=== PATIENT | female | born 1960 | race Caucasian/White ===

== ENCOUNTER 2016-09-09 12:27 | Emergency (ER) | payer OTHER ==
[~2016-09-09 12:27] MED LIST: ALBUAER2 INH; MULT-506 PO; ONDA4TAB46 PO
[2016-09-09 12:32] VITALS: TEMP 36.5
[2016-09-09] MEDS ORDERED: ACETTAB14 PO (12:54)
--- NOTE | 2016-09-09 13:22 | DIAGNOSTIC IMAGING REPORT ---
RIGHT FOURTH TOE 3 VIEWS CLINICAL HISTORY: Fourth toe injury. FINDINGS: 3 views of the right fourth toe are obtained. No prior studies are available for comparison at the time of dictation. The skeletal structures appear osteopenic. There is a nondistracted spiral fracture through the distal shaft of the fourth proximal phalanx. No intra-articular extension is seen. No additional fracture is identified. The joint spaces of the fourth toe appear preserved. IMPRESSION: Nondistracted spiral fracture of the fourth proximal phalanx as above. Electronically signed by: Elieser Garner M.D. 09/09/2016 1:20 PM Dictated Date/Time: 09/09/2016 1:14 PM
--- NOTE | 2016-09-09 13:41 | EMERGENCY ROOM VISIT NOTE ---
ED Visit Note First contact with patient: 12:36 CHIEF COMPLAINT: Toe injury HISTORY OF PRESENT ILLNESS: This 55-year-old female presents the ER with chief complaint of right fourth toe pain. The patient states that she hit the toe off of a radio that was on the floor. She now states that it is swollen and very painful. The patient denies any prior injury to the right fourth toe. The patient took Excedrin Extra Strength for the pain. REVIEW OF SYSTEMS: 6 system review was performed and was negative unless stated otherwise in history of present illness. PMH: The patient is healthy; asthma SOCIAL HISTORY: Patient denies any tobacco or alcohol use PHYSICAL EXAM: Vital Signs: Were reviewed .Reviewed Nurse's notes. GEN.: 55- year-old white female appears in no acute distress. MENTAL Status: Alert and oriented 3. RIGHT FOOT: No gross bony deformity noted. Right fourth toe with erythema and edema noted. The remainder of the foot is unremarkable. EMERGENCY DEPARTMENT COURSE: The patient was evaluated. The patient was offered pain medication but declined. X-ray of the right fourth toe was ordered and interpreted by the radiologist and myself. DIAGNOSTICS:RIGHT FOURTH TOE 3 VIEWS CLINICAL HISTORY: Fourth toe injury. FINDINGS: 3 views of the right fourth toe are obtained. No prior studies are available for comparison at the time of dictation. The skeletal structures appear osteopenic. There is a nondistracted spiral fracture through the distal shaft of the fourth proximal phalanx. No intra-articular extension is seen. No additional fracture is identified. The joint spaces of the fourth toe appear preserved. IMPRESSION: Nondistracted spiral fracture of the fourth proximal phalanx as above. Electronically signed by: Elieser Garner M.D. 09/09/2016 1:20 PM Dictated Date/Time: 09/09/2016 1:14 PM The patient was informed of the findings. The patient's toe was tad taped to the adjacent toe she was placed in a postop shoe. The patient was independently evaluated by Dr. Meeks who agrees with treatment plan. The patient was discharged home in stable condition. DIAGNOSIS: Right fourth toe fracture DISCHARGE INSTRUCTIONS & TREATMENT: Ibuprofen 600 mg every 6 hours with food for pain. Ice intermittently over the next 24 hours. Keep toe tad taped to the adjacent toe except for bathing for the next 2 weeks. Wear postop shoe for the next 2 weeks. If symptoms should worsen, follow-up with your family doctor. Problem List Medical Problems: (1) Asthma Status: Chronic (2) Bronchitis Status: Resolved (3) Mental retardation Status: Chronic (4) Temporomandibular joint disorder Status: Chronic Current/Historical Medications Scheduled Cetirizine (Zyrtec), 10 MG PO DAILY Duloxetine HCl (Duloxetine HCl), 30 MG PO DAILY Levothyroxine Sodium (Levothyroxine Sodium), 1 TAB PO DAILY Multivitamin (Multivitamin), 1 TAB PO DAILY Scheduled PRN Acetaminophen-Caffeine (Excedrin Tension Headache), 1-2 TAB PO DAILY PRN for Pain Albuterol (Ventolin Hfa), 2 PUFFS INH QID PRN for SOB/Wheezing Budesonide/Formoterol Fumarate (Symbicort 160/4.5 Inhaler ), 2 PUFFS INH BID PRN for Shortness of Breath Ondansetron Hcl (Zofran), 4 MG PO Q6H PRN for Nausea Allergies Coded Allergies: Animal Dander (Verified Allergy, Unknown, sneezing,congestion, 09/09/16) Dust (Verified Allergy, Unknown, respiratory sx, 09/09/16) Molds and Smuts (Verified Allergy, Unknown, sneezing,congestion, 09/09/16) POLLEN (Verified Allergy, Unknown, congestion, 09/09/16) Ragweed (Verified Allergy, Unknown, nasal congestion, 09/09/16) Vital Signs Date Time Temp Pulse Resp B/P Pulse Ox O2 Delivery O2 Flow Rate FiO2 09/09/16 12:32 36.5 84 20 121/72 95 Room Air Departure Information Referrals No Doctor, Assigned (PCP) Patient Instructions [facility]
[2016-09-09 14:03] VITALS: BP 149/88; PULSE 72; O2SAT 99
--- NOTE | 2016-09-09 15:12 | EMERGENCY ROOM VISIT NOTE ---
ED Visit Note First contact with patient: 12:36 I have personally evaluated this patient examined her and reviewed the pertinent labs and data. I have discussed the case with Lolita Schulte, the physician automotive service assistant and agree with the plan. Please refer to the PA note Patient comes in after injuring her right foot when she stubbed her toe. She has a fracture of the fourth toe. She is placed in a fracture shoe. On my exam , she is resting comfortably without other complaints. She will follow-up with her regular doctor. We tad taped the toe. She can use the walking as well. Follow-up with her doctor for recheck
[2017-02-15] MEDS ORDERED: LEVO88TA3 PO (04:14)
[2017-02-15] MEDS ORDERED: SYMIN160 INH (05:12)
[2017-02-15] MEDS ORDERED: VNTHFA/IN INH (18:37)
== END 2016-09-09 14:00 | disposition home or self-care (01) ==
LOC: C.EDB 12:29 → C.EDD 14:00
DX: S92.534A Nondisplaced fracture of distal phalanx of right lesser toe(s), initial encounter for closed fracture (principal); W22.8XXA Striking against or struck by other objects, initial encounter; J45.909 Unspecified asthma, uncomplicated; F79 Unspecified intellectual disabilities; Z79.899 Other long term (current) drug therapy; Z91.09 Other allergy status, other than to drugs and biological substances

== ENCOUNTER → 2016-09-21 | Outpatient (CLI) | payer OTHER ==
[~2016-09-21] MED LIST changes: +ACETTAB14 PO; +AZIT250T PO; +BENZ100C7 PO; +CETI10TA84 PO; +CYM30 PO; +DFL100 PO; +HYDRAER4 PR; +LEVO88TA3 PO; +MAGIC1 PO; +NYSTCRE11 TOP; +SYMIN160 INH; +VNTHFA/IN INH; +[UNRECOGNIZED DRUG - REMARK] PO
== END | disposition home or self-care (01) ==
LOC: C.LABBC 11:41
PROVIDERS: ATTEND Physician Assistant Medical
DX: E03.9 Hypothyroidism, unspecified (principal)

== ENCOUNTER → 2016-10-19 | Outpatient (CLI) | payer OTHER ==
[~2016-10-19] MED LIST changes: -ACETTAB14 PO; +ACETTAB15 PO; +ARFO15NE INH; +BUDE0.5S NEB; +HYDR1AER23 PR; -HYDRAER4 PR; +IPRASOL4 INH; +PRLUDL5 PO; +SNG10 PO; +[UNRECOGNIZED DRUG - CODE] PO
--- NOTE | 2016-10-19 14:55 | DIAGNOSTIC IMAGING REPORT ---
LEFT KNEE 3 VIEWS CLINICAL HISTORY: CHRONIC L SACROILIAC PAIN, KNEE PAIN pain COMPARISON: None. DISCUSSION: The bones and joint spaces appear intact. There is no evidence of fracture, dislocation or bony disease. There is no evidence for soft tissue swelling. IMPRESSION: Negative study. Electronically signed by: Jacob Schulte M.D. 10/19/2016 2:53 PM Dictated Date/Time: 10/19/2016 2:53 PM
== END | disposition home or self-care (01) ==
LOC: C.RADBC 14:07
PROVIDERS: ATTEND Physician Assistant Medical
DX: M53.3 Sacrococcygeal disorders, not elsewhere classified (principal); M25.562 Pain in left knee

== ENCOUNTER 2016-11-21 01:08 | Emergency (ER) | payer OTHER ==
[~2016-11-21] VITALS: Ht 162.6 cm; Wt 92.3 kg
[~2016-11-21 01:08] MED LIST changes: -ARFO15NE INH; -AZIT250T PO; -BENZ100C7 PO; -BUDE0.5S NEB; -CETI10TA84 PO; -CYM30 PO; -DFL100 PO; -HYDR1AER23 PR; -IPRASOL4 INH; -LEVO88TA3 PO; -MAGIC1 PO; -NYSTCRE11 TOP; -PRLUDL5 PO; -SNG10 PO; -SYMIN160 INH; -VNTHFA/IN INH; -[UNRECOGNIZED DRUG - CODE] PO; -[UNRECOGNIZED DRUG - REMARK] PO
[2016-11-21 01:14] VITALS: TEMP 36.7; Ht 162.6 cm; Wt 92.3 kg
[2016-11-21] MEDS ORDERED: MAGIC MOUTHWASH PO STA (01:22)
--- NOTE | 2016-11-21 01:25 | EMERGENCY ROOM VISIT NOTE ---
History Report prepared by Terrie: Dc Colunga Under the Supervision of: Dr. Robby Cline D.O. First contact with patient: 01:10 Chief Complaint: SORETHROAT Stated Complaint: SORE THROAT History of Present Illness The patient is a 56 year old female who presents to the Emergency Room with complaints of persistent mouth soreness since last night. The pain is rated 7/ 10 in severity and is localized to the roof of her mouth. The patient also has complaints of sore throat and cough. The patient is being treated for fluid buildup in her lower extremities. She does not have any sick contacts. Source of History: patient Onset: last night Position: other (roof of mouth) Symptom Intensity: 710 Timing: other (persistent) Associated Symptoms: + cough, + sorethroat Review of Systems See HPI for pertinent positives and negatives. A total of ten systems were reviewed and were otherwise negative. Past Medical & Surgical Medical Problems: (1) Asthma (2) Bronchitis (3) Mental retardation (4) Temporomandibular joint disorder Family History Cancer Diabetes mellitus Heart disease Hypertension Lung disease Social History Smoking Status: Never Smoker Alcohol Use: none Drug Use: none Marital Status: single Occupation Status: disabled Current/Historical Medications Scheduled Cetirizine (Zyrtec), 10 MG PO DAILY Diphenhy/Alum/Mag/Sucralfa (Magic Swizzle - Diphenhy/Alum/Mag/Sucralfa), 1 TSP PO Q4H Duloxetine HCl (Duloxetine HCl), 30 MG PO DAILY Levothyroxine Sodium (Levothyroxine Sodium), 1 TAB PO DAILY Multivitamin (Multivitamin), 1 TAB PO DAILY Scheduled PRN Acetaminophen-Caffeine (Excedrin Tension Headache), 1-2 TAB PO DAILY PRN for Pain Albuterol (Ventolin Hfa), 2 PUFFS INH QID PRN for SOB/Wheezing Budesonide/Formoterol Fumarate (Symbicort 160/4.5 Inhaler ), 2 PUFFS INH BID PRN for Shortness of Breath Ondansetron Hcl (Zofran), 4 MG PO Q6H PRN for Nausea Allergies Coded Allergies: Animal Dander (Verified Allergy, Unknown, sneezing,congestion, 09/09/16) Dust (Verified Allergy, Unknown, respiratory sx, 09/09/16) Molds and Smuts (Verified Allergy, Unknown, sneezing,congestion, 09/09/16) POLLEN (Verified Allergy, Unknown, congestion, 09/09/16) Ragweed (Verified Allergy, Unknown, nasal congestion, 09/09/16) Physical Exam Vital Signs Date Time Temp Pulse Resp B/P Pulse Ox O2 Delivery O2 Flow Rate FiO2 11/21/16 01:21 Room Air 11/21/16 01:14 36.7 89 18 162/93 93 Room Air Physical Exam GENERAL: Awake, alert, well-appearing, in no distress HENT: Normocephalic, atraumatic. Red lesion on the hard palate, no obvious mucosal lesions, oropharynx otherwise clear. EYES: Normal conjunctiva. Sclera non-icteric. NECK: Supple. No nuchal rigidity. FROM. No JVD. RESPIRATORY: Clear to auscultation. CARDIAC: Regular rate, normal rhythm. Extremities warm and well perfused. Pulses equal. ABDOMEN: Soft, non-distended. No tenderness to palpation. No rebound or guarding. No masses. RECTAL: Deferred. MUSCULOSKELETAL: Chest examination reveals no tenderness. The back is symmetrical on inspection without obvious abnormality. There is no CVA tenderness to palpation. No joint edema. LOWER EXTREMITIES: Bilateral lower extremity edema. No discoloration. NEURO: Normal sensorium. No sensory or motor deficits noted. SKIN: No rash or jaundice noted. Medical Decision & Procedures ED Course 0120: The patient was evaluated in room B10. A complete history and physical exam was performed. 0131: Magic Mouth Wash PO. 0135: I reevaluated the patient. Discussed results and discharge instructions: She verbalized understanding and agreement. The patient is ready for discharge. Medical Decision Differential diagnosis includes viral syndrome, herpangina, burn to roof of hard palate. Impression Primary Impression: Herpangina Scribe Attestation The scribe's documentation has been prepared under my direction and personally reviewed by me in its entirety. I confirm that the note above accurately reflects all work, treatment, procedures, and medical decision making performed by me. Departure Information Dispostion Home / Self-Care Prescriptions Diphenhy/Alum/Mag/Sucralfa (Magic Swizzle - Diphenhy/Alum/Mag/Sucralfa) Susp 1 TSP PO Q4H, #200 ML 1 Refill 30ML DIPHENHYDRAMINE SLN 12.5/5ML 60ML MAALOX 4GM CARAFATE SWISH AND SPIT Prov: Robby Cline, 11/21/16 Referrals Bg Kearns M.D. (PCP) Forms HOME CARE DOCUMENTATION FORM, IMPORTANT VISIT INFORMATION Patient Instructions [facility], My [facility]
[2016-11-21] MEDS ORDERED: MAGIC1 PO (01:27)
[2016-11-21] MEDS ORDERED: DEXAMETHASONE CONC SOLN 0.078 MG, NYSTATIN SUSP 0.625 ML, DiphenhydrAMINE HCL SYRUP 6.2... PO STA ×5 (01:31)
[2016-11-21 01:49] VITALS: BP 127/73; PULSE 81; O2SAT 96
[2017-01-12] MEDS ORDERED: HYDR1AER23 PR (19:12)
[2017-02-15] MEDS ORDERED: LEVO88TA3 PO (04:14)
[2017-02-15] MEDS ORDERED: SYMIN160 INH (05:12)
[2017-02-15] MEDS ORDERED: VNTHFA/IN INH (18:37)
== END 2016-11-21 01:50 | disposition home or self-care (01) ==
LOC: C.EDB 01:09
DX: B08.5 Enteroviral vesicular pharyngitis (principal); R05 Cough; R60.9 Edema, unspecified; J45.909 Unspecified asthma, uncomplicated; F79 Unspecified intellectual disabilities; Z79.899 Other long term (current) drug therapy; Z87.09 Personal history of other diseases of the respiratory system; Z87.898 Personal history of other specified conditions; Z82.49 Family history of ischemic heart disease and other diseases of the circulatory system; Z83.3 Family history of diabetes mellitus; Z83.6 Family history of other diseases of the respiratory system

== ENCOUNTER 2017-01-12 18:08 | Emergency (ER) | payer OTHER ==
[~2017-01-12] VITALS: Ht 162.6 cm; Wt 114.7 kg
[~2017-01-12 18:08] MED LIST changes: +ACETTAB14 PO; -ACETTAB15 PO; +MAGIC1 PO; -ONDA4TAB46 PO
[2017-01-12 18:16] VITALS: BP 151/92; PULSE 91; TEMP 36.5; O2SAT 96; Ht 162.6 cm; Wt 114.7 kg
[2017-01-12] MEDS ORDERED: ALBUT/IPRATROP 3MG/0.5MG NEB 3 ML VIAL INH STA (18:36)
[2017-01-12] MEDS ORDERED: BENZ100C7 PO (18:37)
[2017-01-12] MEDS ORDERED: DFL100 PO (18:37)
--- NOTE | 2017-01-12 18:39 | EMERGENCY ROOM VISIT NOTE ---
ED Visit Note First contact with patient: 18:26 CHIEF COMPLAINT: Cold symptoms HISTORY OF PRESENT ILLNESS: This is a 56-year-old female patient who presents to the emergency department ambulatory complaining of since congestion and a mild cough since yesterday. The patient is using her inhalers. She denies any chest pain or trouble breathing. The patient does not complain of a headache, abdominal pain, nausea, or vomiting. The patient has not had any shortness of breath. The patient does not know of anybody around them who has been sick. The patient has taken her usual medications. The patient states that she also has had hemorrhoids that have been very itchy. REVIEW OF SYSTEMS: A 10 system review of systems was completed with positives and pertinent negatives listed in the HPI. ALLERGIES: Environmental allergies MEDICATIONS: See nursing notes PMH: Asthma, seasonal allergies, hypothyroidism SOCIAL HISTORY: The patient lives with her mother PHYSICAL EXAM: Vital Signs: Reviewed Nurse's notes, temperature 36.5C orally, the remainder of the vital signs were normal. GENERAL: This is a 56-year-old female, in no acute distress, non toxic in appearance, nondiaphoretic, well-developed well-nourished. SKIN: The skin was without rashes, erythema, edema, or bruising. Capillary reflex less than 2 seconds. HEAD: Normocephalic atraumatic. EARS: External auditory canals clear, tympanic membrane pearly diaz bilaterally without erythema EYES: Pupils equal round and reactive to light and accommodation. Conjunctivae without injection, sclerae without icterus. Extraocular movements intact. NOSE: Patent, turbinates inflammed with no discharge. There is no sinus tenderness. MOUTH: Mucous membranes moist. Tonsils are not enlarged and not erythematous without exudate. Pharynx negative for postnasal drip. NECK: Supple without nuchal rigidity. A there is no lymphadenopathy. HEART: Regular rate and rhythm without murmurs gallops or rubs. LUNGS: Clear to auscultation bilaterally without wheezes, rales or rhonchi. RECTAL: The patient does have 2 small nonthrombosed, non-bleeding external hemorrhoids. There is no significant tenderness. NEURO: Patient was alert and oriented to person place and time. ED COURSE: I examined the patient. The patient has had a cough since yesterday and she also complains of sinus congestion. She has not had any fevers, chest pain or trouble breathing. She also reports hemorrhoids that have been itchy. I discussed potentially obtaining a more significant evaluation including x-ray and laboratory studies. Given that this has been just 1 day, I do not know that there would be a significant change in the outcome. She and her mother would like to defer a more extensive evaluation at this time. The patient will be given a prescription for Zithromax and Proctofoam. She should return with any worsening symptoms. Otherwise, she should follow-up with her family doctor. The patient was discharged home in good condition. Problem List Medical Problems: (1) Asthma Status: Chronic (2) Bronchitis Status: Resolved (3) Mental retardation Status: Chronic (4) Temporomandibular joint disorder Status: Chronic Current/Historical Medications Scheduled Azithromycin (Zithromax), 250 MG PO DAILY Duloxetine HCl (Duloxetine HCl), 30 MG PO DAILY Fluconazole (Fluconazole), 100 MG PO DAILY Hydrocortisone/Pramoxine (Proctofoam Hc), 1 APPL [place] BID Levothyroxine Sodium (Levothyroxine Sodium), 88 MCG PO DAILY Scheduled PRN Albuterol Hfa (Ventolin Hfa), 2 PUFFS INH QID PRN for Cough/SOB/Wheezing Benzonatate (Benzonatate), 100 MG PO TID PRN for Cough Budesonide/Formoterol Fumarate (Symbicort 160/4.5 Inhaler ), 2 PUFFS INH BID PRN for Cough/SOB/Wheezing Cetirizine (Zyrtec), 10 MG PO DAILY PRN for Allergy Symptoms Allergies Coded Allergies: Animal Dander (Verified Allergy, Unknown, sneezing,congestion, 09/09/16) Dust (Verified Allergy, Unknown, respiratory sx, 09/09/16) Molds and Smuts (Verified Allergy, Unknown, sneezing,congestion, 09/09/16) POLLEN (Verified Allergy, Unknown, congestion, 09/09/16) Ragweed (Verified Allergy, Unknown, nasal congestion, 09/09/16) Vital Signs Date Time Temp Pulse Resp B/P (MAP) Pulse Ox O2 Delivery O2 Flow Rate FiO2 01/12/17 18:16 36.5 91 18 151/92 96 Room Air Medications Administered Medications (Trade) Dose Ordered Sig/Gareth Route Start Time Stop Time Status Last Admin Dose Admin Albuterol/ Ipratropium (Duoneb) 3 ml NOW STAT INH 01/12/17 18:36 01/12/17 18:37 DC 01/12/17 18:43 3 ML Azithromycin (Zithromax Tab) 500 mg NOW STAT PO 01/12/17 18:59 01/12/17 19:01 DC 01/12/17 19:13 500 MG Departure Information Impression Primary Impression: Bronchitis Additional Impression: Asthma Dispostion Home / Self-Care Condition GOOD Prescriptions Azithromycin (Zithromax) 250 Mg Tab 250 MG PO DAILY for 4 Days, #4 TAB Prov: Na Vitale PA-C 01/12/17 Hydrocortisone/Pramoxine (Proctofoam Hc) Aer 1 APPL [place] BID, #10 GM 1 Refill Prov: Na Vitale PA-C 01/12/17 Referrals Bg Kearns M.D. (PCP) Patient Instructions Bronchitis Acute, ED Hemorrhoids, [facility] Additional Instructions Zithromax as prescribed Proctofoam as prescribed, as needed for hemorrhoid pain Return with worsening symptoms Otherwise, follow up with your family doctor by the end of the week Problem Qualifiers
[2017-01-12] MEDS ORDERED: AZITHROMYCIN 250 MG TAB PO STA (18:59)
[2017-01-12] MEDS ORDERED: AZIT250T PO (19:12)
[2017-01-12] MEDS ORDERED: HYDRAER4 PR (19:12)
[2017-01-12] MEDS ORDERED: CYM30 PO (23:47)
[2017-02-15] MEDS ORDERED: LEVO88TA3 PO (04:14)
[2017-02-15] MEDS ORDERED: SYMIN160 INH (05:12)
[2017-02-15] MEDS ORDERED: VNTHFA/IN INH (18:37)
== END 2017-01-12 19:19 | disposition home or self-care (01) ==
LOC: C.EDB 18:09 → C.EDD 19:19
DX: J40 Bronchitis, not specified as acute or chronic (principal); J45.909 Unspecified asthma, uncomplicated; J30.2 Other seasonal allergic rhinitis; E03.9 Hypothyroidism, unspecified; F79 Unspecified intellectual disabilities

== ENCOUNTER → 2017-01-28 | Outpatient (CLI) | payer OTHER ==
[~2017-01-28] MED LIST changes: -ACETTAB14 PO; -ALBUAER2 INH; +BENZ100C7 PO; +CETI10TA84 PO; +CYM30 PO; +DFL100 PO; +HYDRAER4 PR; +LEVO88TA3 PO; -MAGIC1 PO; -MULT-506 PO; +NYSTCRE11 TOP; +PRLUDL5 PO; +SNG10 PO; +SYMIN160 INH; +VNTHFA/IN INH; +[UNRECOGNIZED DRUG - CODE] PO; +[UNRECOGNIZED DRUG - REMARK] PO
[2017-02-01 13:40] LABS: HERPES SIMPLEX CULT SOURCE OTHER-PERIANAL; HERPES SIMPLEX VIRUS CULT NOT ISOLATED (NOT ISOLATED)
== END | disposition home or self-care (01) ==
LOC: C.LABSPEC 16:41
PROVIDERS: ATTEND Physician Assistant Medical
DX: K62.89 Other specified diseases of anus and rectum (principal)

== ENCOUNTER 2017-02-15 19:19 | Emergency (ER) | payer OTHER ==
[~2017-02-15] VITALS: Ht 162.6 cm; Wt 117.4 kg
[~2017-02-15 19:19] MED LIST changes: -CETI10TA84 PO; -NYSTCRE11 TOP; -PRLUDL5 PO; -SNG10 PO; -[UNRECOGNIZED DRUG - CODE] PO; -[UNRECOGNIZED DRUG - REMARK] PO
[2017-02-15 19:25] VITALS: TEMP 36.5; Ht 162.6 cm; Wt 117.4 kg
[2017-02-15] MEDS ORDERED: NYSTCRE11 TOP (19:49)
[2017-02-15] MEDS ORDERED: [UNRECOGNIZED DRUG - REMARK] PO (19:50)
--- NOTE | 2017-02-15 20:32 | EMERGENCY ROOM VISIT NOTE ---
"History Report prepared by Terrie: Gaurav Barfield Under the Supervision of: Dr. Seng Wynne D.O. First contact with patient: 20:01 Chief Complaint: RECTAL PAIN Stated Complaint: HEMORRHOIDS, LOWER EXT PROBLEMS History of Present Illness The patient is a 56 year old female who presents to the Emergency Room with complaints of constant rectal pain for the past few days. She currently rates his discomfort as an 8/10 in severity. Additionally, the patient states that she has been having some burning with urination. The mother states that the patient has not been pushing them up, and she has been having some brown areas. Source of History: patient, parent Onset: few days ago Position: other (rectum) Symptom Intensity: 8/10 Timing: constant Associated Symptoms: + urinary symptoms Review of Systems See HPI for pertinent positives & negatives. A total of 10 systems reviewed and were otherwise negative. Past Medical & Surgical Medical Problems: (1) Asthma (2) Bronchitis (3) Mental retardation (4) Temporomandibular joint disorder Family History Cancer Diabetes mellitus Heart disease Hypertension Lung disease Social History Smoking Status: Never Smoker Alcohol Use: none Drug Use: none Marital Status: single Occupation Status: disabled Current/Historical Medications Scheduled Hydrocortisone/Pramoxine (Proctofoam Hc), 1 APPL [place] BID Levothyroxine Sodium (Levothyroxine Sodium), 88 MCG PO DAILY Nystatin/Triamcinolone (Mycogen || ), 1 APPLN TOP BID [Herbal Pill], 1 TAB PO DAILY Scheduled PRN Albuterol Hfa (Ventolin Hfa), 2 PUFFS INH QID PRN for Cough/SOB/Wheezing Budesonide/Formoterol Fumarate (Symbicort 160/4.5 Inhaler ), 2 PUFFS INH BID PRN for Cough/SOB/Wheezing Cetirizine (Zyrtec), 10 MG PO DAILY PRN for Allergy Symptoms Allergies Coded Allergies: Animal Dander (Verified Allergy, Unknown, sneezing,congestion, 09/09/16) Dust (Verified Allergy, Unknown, respiratory sx, 09/09/16) Molds and Smuts (Verified Allergy, Unknown, sneezing,congestion, 09/09/16) POLLEN (Verified Allergy, Unknown, congestion, 09/09/16) Ragweed (Verified Allergy, Unknown, nasal congestion, 09/09/16) Physical Exam Vital Signs Date Time Temp Pulse Resp B/P (MAP) Pulse Ox O2 Delivery O2 Flow Rate FiO2 02/15/17 19:25 36.5 86 16 135/83 96 Room Air Physical Exam CONSTITUTIONAL/VITAL SIGNS: Reviewed / noted above. GENERAL: Non-toxic in appearance. INTEGUMENTARY: Warm, dry, and [place]. HEAD: Normocephalic. EYES: without scleral icterus or trauma. ENT/OROPHARYNX: clear and moist. LYMPHADENOPATHY/NECK: Is supple without lymphadenopathy or meningismus. RESPIRATORY: Lungs clear and equal. CARDIOVASCULAR: Regular rate and rhythm. GI/ABDOMEN: Soft and nontender. No organomegaly or pulsatile mass. No rebound or guarding. Normal bowel sounds. EXTREMITIES: Warm and well perfused. BACK: No CVA tenderness. RECTUM: Did not reveal any evidence of irritation, redness, inflamed hemorrhoids , or infection. NEUROLOGICAL: Intact without focal deficits. PSYCHIATRIC: normal affect. MUSCULOSKELETAL: Normally developed with good muscle tone. Medical Decision & Procedures Laboratory Results Laboratory results as stated above per my review. ED Course 2001: Previous medical records were reviewed. The patient was evaluated in room A12. A complete history and physical examination was performed. 2025: On reevaluation, the patient is feeling well. I discussed the results and findings with the patient. She verbalized agreement of the treatment plan. She was discharged home. Medical Decision Differential diagnoses include: hemorrhoids, hemorrhoids irritation, and UTI This is a 56-year-old female who presents to the ED with a chief complaint of some burning of her rectum with urination. The patient's mother states that she noticed some large hemorrhoids last week. She was concerned about this. She has no other complaints. Today her exam reveals no obvious external hemorrhoids. There is no inflammatory process going on in or around her rectum. Her urine dip did not show infection. The patient was felt to be stable for discharge. Medication Reconcilliation Current Medication List: was personally reviewed by me Blood Pressure Screening Patient's blood pressure: Normal blood pressure Impression Primary Impression: Burning with urination Scribe Attestation The scribe's documentation has been prepared under my direction and personally reviewed by me in its entirety. I confirm that the note above accurately reflects all work, treatment, procedures, and medical decision making performed by me. Departure Information Dispostion Home / Self-Care Referrals Guillard, Bg,M.D. (PCP) Patient Instructions My [facility] Additional Instructions Your examine test results today did not reveal any significant abnormalities. A urine culture has been sent. If this shows infection, you will be contacted. If symptoms persist, follow-up with PCP for further evaluation."
[2017-02-15 20:36] VITALS: BP 138/79; PULSE 88; O2SAT 99
[2017-02-15] MEDS ORDERED: CETI10TA84 PO (23:04)
== END 2017-02-15 20:37 | disposition home or self-care (01) ==
LOC: C.EDB 19:21 → C.EDA 20:37
DX: R30.9 Painful micturition, unspecified (principal); J45.909 Unspecified asthma, uncomplicated; F79 Unspecified intellectual disabilities; Z83.3 Family history of diabetes mellitus; Z82.49 Family history of ischemic heart disease and other diseases of the circulatory system

== ENCOUNTER 2017-02-28 02:54 | Emergency (ER) | payer OTHER ==
[~2017-02-28] VITALS: Ht 162.6 cm; Wt 116.0 kg
[~2017-02-28 02:54] MED LIST changes: -BENZ100C7 PO; +CETI10TA84 PO; -CYM30 PO; -DFL100 PO; +NYSTCRE11 TOP; +[UNRECOGNIZED DRUG - REMARK] PO
[2017-02-28 03:01] VITALS: TEMP 36.9; Ht 162.6 cm; Wt 116.0 kg
--- NOTE | 2017-02-28 04:22 | EMERGENCY ROOM VISIT NOTE ---
History First contact with patient: 03:05 Chief Complaint: RESPIRATORY PROBLEMS Stated Complaint: CONGESTION,BREATHING PROBLEMS Nursing Triage Summary: coughing since yesterday, non productive History of Present Illness The patient is a 56 year old female who presents to the Emergency Room with complaints of cough and wheezing since yesterday. The patient states that she is congested "all the time." The patient reports increased wheezing since yesterday. She has had a dry, nonproductive cough. She has been using nebulizer treatments at home without relief. She was seen at her primary care provider's clinic a few days ago and states that they listened to her lungs and told her that they sounded okay. She does have a history of asthma and uses a daily inhaler at home. She reports a history of seasonal allergies but does not take any medications daily. She was seen here one month ago for similar symptoms and prescribed a Z-Hemant. She denies chest pain, fevers, or shortness of breath. Review of Systems A complete 10 point review of systems was reviewed with the patient with pertinent positives and negatives as per history of present illness. All else were negative. Past Medical/Surgical History Medical Problems: (1) Asthma (2) Bronchitis (3) Mental retardation (4) Temporomandibular joint disorder Family History Cancer Diabetes mellitus Heart disease Hypertension Lung disease Social History Smoking Status: Never Smoker Alcohol Use: none Drug Use: none Marital Status: single Occupation Status: disabled Current/Historical Medications Scheduled Levothyroxine Sodium (Levothyroxine Sodium), 88 MCG PO DAILY Nystatin/Triamcinolone (Mycogen || ), 1 APPLN TOP BID [Herbal Pill], 1 TAB PO DAILY Scheduled PRN Albuterol Hfa (Ventolin Hfa), 2 PUFFS INH QID PRN for Cough/SOB/Wheezing Budesonide/Formoterol Fumarate (Symbicort 160/4.5 Inhaler ), 2 PUFFS INH BID PRN for Cough/SOB/Wheezing Cetirizine (Zyrtec), 10 MG PO DAILY PRN for Allergy Symptoms Physical Exam Vital Signs Date Time Temp Pulse Resp B/P (MAP) Pulse Ox O2 Delivery O2 Flow Rate FiO2 02/28/17 04:33 80 18 130/68 96 02/28/17 03:09 97 Room Air 02/28/17 03:01 36.9 83 22 165/77 97 Room Air Physical Exam VITALS: Vitals are noted on the nurse's note and reviewed by myself. Vital signs stable. GENERAL: This is a 56-year-old female, developmentally delayed, in no acute distress, well-developed well-nourished. HEENT: Normocephalic. PERRLA. EOMI. Nares patent. Mucous membranes moist. Neck is supple without nuchal rigidity. HEART: Regular rate and rhythm without murmurs gallops or rubs. LUNGS: Clear to auscultation bilaterally without wheezes, rales or rhonchi. No retractions or accessory muscle use. NEURO: Patient was alert and oriented. Medical Decision & Procedures ER Provider Diagnostic Interpretation: CHEST X-RAY: No infiltrates or effusion, bony thorax unremarkable. No acute findings. Medical Decision Differential diagnosis includes upper respiratory infection, pneumonia, COPD exacerbation, asthma exacerbation, among others. The patient is a 56-year-old female who presents today complaining of wheezing and nonproductive cough. Physical exam is unremarkable. Patient is afebrile and is not hypoxic. Chest x-ray was performed and does not show any acute cardiopulmonary abnormalities. I discussed options of care with the patient and her parents. I suggested possibly starting prednisone, but the mother would prefer not to start any medications at this time. This is reasonable, as the patient is in no distress and does not appear to be having any difficulty breathing at this time. They were encouraged to continue nebulizer treatments at home and follow-up with the PCP as scheduled. She was encouraged to return here for worsening of her symptoms. The patient and family verbalized understanding of my assessment and treatment plan and the patient was discharged home in good condition. The patient was independently evaluated by Dr. Curtis, ED attending physician, who agreed with my assessment and treatment plan. Medication Reconcilliation Current Medication List: was personally reviewed by me Blood Pressure Screening Patient's blood pressure: Elevated blood pressure Blood pressure disposition: Elevated BP felt to be situational Impression Primary Impression: Asthma Departure Information Dispostion Home / Self-Care Condition GOOD Referrals Bg Kearns M.D. (PCP) Patient Instructions My [facility] Additional Instructions Continue the nebulizer treatments at home as needed for wheezing/shortness of breath. She should be taking a daily allergy medication such as Zyrtec or Claritin. Follow-up with Dr. Guillard as scheduled. Return to the emergency department with worsening shortness of breath, chest pain or any other new/concerning symptoms.
[2017-02-28 04:33] VITALS: BP 130/68; PULSE 80; O2SAT 96
--- NOTE | 2017-02-28 04:36 | EMERGENCY ROOM VISIT NOTE ---
ED Visit Note First contact with patient: 03:05 I saw this patient in conjunction with Janelle Dennis PA-C. I agree with her decision-making and treatment plan.
--- NOTE | 2017-02-28 06:56 | DIAGNOSTIC IMAGING REPORT ---
CHEST 2 VIEWS ROUTINE CLINICAL HISTORY: 56 years-old Female presenting with cough, wheezing. TECHNIQUE: PA and lateral views of the chest were obtained. COMPARISON: 03/27/2016. FINDINGS: Cardiomediastinal silhouette normal. Lungs and pleural spaces clear. Degenerative changes of the thoracolumbar spine. Upper abdomen normal. IMPRESSION: 1. No acute cardiopulmonary disease. Electronically signed by: Bg Hunter M.D. 02/28/2017 6:54 AM Dictated Date/Time: 02/28/2017 6:54 AM
== END 2017-02-28 04:34 | disposition home or self-care (01) ==
LOC: C.EDB 02:54
DX: J45.909 Unspecified asthma, uncomplicated (principal); F79 Unspecified intellectual disabilities; Z80.9 Family history of malignant neoplasm, unspecified; Z83.3 Family history of diabetes mellitus; Z82.49 Family history of ischemic heart disease and other diseases of the circulatory system; Z79.899 Other long term (current) drug therapy

== ENCOUNTER → 2017-03-02 | Outpatient (CLI) | payer OTHER ==
[~2017-03-02] MED LIST changes: +CYM30 PO; -HYDRAER4 PR; +PRLUDL5 PO; +SNG10 PO; +[UNRECOGNIZED DRUG - CODE] PO
[2017-03-02 17:51] LABS: ALT/SGPT 41 U/L (12-78); BLOOD UREA NITROGEN 12 mg/dl (7-18); BUN/CREATININE RATIO 15.7 (10-20); CALCIUM 8.7 mg/dl (8.5-10.1); CARBON DIOXIDE 27 mmol/L (21-32); CHLORIDE 105 mmol/L (98-107); CREATININE 0.75 mg/dl (0.60-1.20); GLUCOSE 84 mg/dl (70-99); POTASSIUM 4.2 mmol/L (3.5-5.1); SODIUM 138 mmol/L (136-145)
[2017-03-02 18:02] LABS: ALKALINE PHOSPHATASE 68 U/L (45-117); AST/SGOT 34 U/L (15-37)
== END | disposition home or self-care (01) ==
LOC: C.LAB1850 16:35
PROVIDERS: ATTEND Internal Medicine
DX: E03.9 Hypothyroidism, unspecified (principal); R60.0 Localized edema

== ENCOUNTER 2017-04-06 03:52 | Emergency (ER) | payer OTHER ==
[~2017-04-06] VITALS: Ht 162.6 cm; Wt 117.0 kg
[~2017-04-06 03:52] MED LIST changes: -CYM30 PO; -PRLUDL5 PO; -SNG10 PO; -[UNRECOGNIZED DRUG - CODE] PO
[2017-04-06 03:57] VITALS: TEMP 36.8; Ht 162.6 cm; Wt 117.0 kg
[2017-04-06] MEDS ORDERED: ALBUT/IPRATROP 3MG/0.5MG NEB 3 ML VIAL INH STA (04:17)
--- NOTE | 2017-04-06 04:44 | EMERGENCY ROOM VISIT NOTE ---
"History Report prepared by Terrie: Bryant Ramon Under the Supervision of: Dr. Karen Monreal M.D. First contact with patient: 04:08 Chief Complaint: CONGESTION Stated Complaint: CONGESTION Nursing Triage Summary: dry non productive cough. Patient has hx asthma. History of Present Illness The patient is a 56 year old female who presents to the Emergency Room with complaints of a constant, non-productive cough beginning the other day. The patient states she had a headache this morning, but it has resolved. She reports she has been coughing, congested, and wheezing a lot as well. The patient notes she has a history of asthma. She states she has chronic swelling to her legs. The patient denies fevers, nasal congestion, abdominal pain, pain with deep breathing, and a history of blood clots. Source of History: patient Onset: the other day Position: other (global) Quality: other (non-productive cough) Timing: constant Associated Symptoms: No fevers, No headache (resolved), No abdominal pain Note: Associated symptoms: congestion and wheezing Denies: nasal congestion, pain with deep breathing, and history of blood clots Review of Systems See HPI for pertinent positives & negatives. A total of 10 systems reviewed and were otherwise negative. Past Medical & Surgical Medical Problems: (1) Asthma (2) Bronchitis (3) Mental retardation (4) Temporomandibular joint disorder Family History Cancer Diabetes mellitus Heart disease Hypertension Lung disease Social History Smoking Status: Never Smoker Alcohol Use: none Drug Use: none Marital Status: single Occupation Status: disabled Current/Historical Medications Scheduled Levothyroxine Sodium (Levothyroxine Sodium), 88 MCG PO DAILY Nystatin/Triamcinolone (Mycogen || ), 1 APPLN TOP BID [Herbal Pill], 1 TAB PO DAILY Scheduled PRN Albuterol Hfa (Ventolin Hfa), 2 PUFFS INH QID PRN for Cough/SOB/Wheezing Budesonide/Formoterol Fumarate (Symbicort 160/4.5 Inhaler ), 2 PUFFS INH BID PRN for Cough/SOB/Wheezing Cetirizine (Zyrtec), 10 MG PO DAILY PRN for Allergy Symptoms Allergies Coded Allergies: Animal Dander (Verified Allergy, Unknown, sneezing,congestion, 04/06/17) Dust (Verified Allergy, Unknown, respiratory sx, 04/06/17) Molds and Smuts (Verified Allergy, Unknown, sneezing,congestion, 04/06/17) POLLEN (Verified Allergy, Unknown, congestion, 04/06/17) Ragweed (Verified Allergy, Unknown, nasal congestion, 04/06/17) Physical Exam Vital Signs Date Time Temp Pulse Resp B/P (MAP) Pulse Ox O2 Delivery O2 Flow Rate FiO2 04/06/17 06:10 74 20 127/79 95 04/06/17 04:03 94 Room Air 04/06/17 03:57 36.8 77 20 156/85 94 Room Air Physical Exam Vital signs reviewed. General: Well-appearing 56 year old female, in no significant distress. Dry cough. HEENT: No scleral icterus, PERRLA, neck supple. Atraumatic. Cardiovascular: Regular rate and rhythm, no extra sounds. Pulmonary: Clear to auscultation bilaterally, normal work of breathing. Abdomen: Soft, nontender, nondistended, positive bowel sounds. Musculoskeletal: Atraumatic, 1+ edema to the lower extremities, left greater than right. Neurologic: Patient awake alert and oriented x 3. Skin: Warm, dry, no rash Medical Decision & Procedures ER Provider Diagnostic Interpretation: Radiology results as stated below per my review and radiologist interpretation: US VENOUS BILATERAL LOWER EXTREMITIES: No DVT. Popliteal fossa fluid collection on the left side measuring up to 3.5 cm. Radiologist: Arvind Castaneda MD Study ready at 0539 and initial results transmitted at 0545. X-ray results as stated below per interpretation by me: Chest one view: no focal lung consolidation, no failure, limited by body habitus Medications Administered Medications (Trade) Dose Ordered Sig/Gareth Route Start Time Stop Time Status Last Admin Dose Admin Albuterol/ Ipratropium (Duoneb) 3 ml NOW STAT INH 04/06/17 04:17 04/06/17 04:18 DC 04/06/17 04:27 3 ML Albuterol (Ventolin Hfa Inhaler) 2 puffs NOW ONCE INH 04/06/17 06:00 04/06/17 06:01 DC 04/06/17 06:08 60 PUFFS ED Course 0417: Past medical records reviewed. The patient was evaluated in room B02. A complete history and physical examination was performed. Ordered Duoneb 3ml INH 0551: Upon reevaluation, the patient appeared to have improvement of her symptoms. I discussed findings with her and her family. They verbalized agreement of the treatment plan. The patient will be discharged home after she receives a breathing treatment. 0600: Ordered Albuterol 2 puffs INH Medical Decision Differential diagnosis: Etiologies such as infections, reactive airway disease, pneumonia, pneumothorax , COPD, CHF, cardiac ischemia, pulmonary embolism, musculoskeletal, gastrointestinal, as well as others were entertained. This patient was evaluated and appeared to be in no significant distress. The patient's physical examination is relatively unrevealing. She was given a DuoNeb treatment for faint scattered wheezes. Chest x-ray was performed and to my interpretation is clear. Patient's parents are concerned regarding her lower extremity edema, left greater than right. Mother has to history of DVT. Ultrasounds were performed and are negative for DVT. There is a left popliteal cyst. The patient has recently traveled [place] and did a great amount of ambulation. This may have exacerbated her swelling. The patient was informed of the findings. She was given an albuterol inhaler at discharge. She will follow-up with her physician this week for reevaluation and return to the ER for worsening of symptoms or any medical concerns. Impression Primary Impression: Reactive airway disease Additional Impression: Synovial cyst of left popliteal space Scribe Attestation The scribe's documentation has been prepared under my direction and personally reviewed by me in its entirety. I confirm that the note above accurately reflects all work, treatment, procedures, and medical decision making performed by me. Departure Information Dispostion Home / Self-Care Referrals Bg Kearns M.D. (PCP) Forms HOME CARE DOCUMENTATION FORM, IMPORTANT VISIT INFORMATION Patient Instructions My [facility] Additional Instructions Diagnosis: Reactive Airway Disease Albuterol 2 puffs every 4 hours as needed for wheezing, cough. Follow up with your doctor this week for reevaluation. Return to the ED for worsening of symptoms or any medical concerns. Problem Qualifiers"
[2017-04-06] MEDS ORDERED: ALBUTEROL HFA 8 GM INHALER INH ONE (06:00)
[2017-04-06 06:10] VITALS: BP 127/79; PULSE 74; O2SAT 95
--- NOTE | 2017-04-06 07:28 | DIAGNOSTIC IMAGING REPORT ---
CHEST ONE VIEW PORTABLE CLINICAL HISTORY: 56 years-old Female presenting with cough, wheeze. TECHNIQUE: Portable upright AP view of the chest was obtained. COMPARISON: 02/28/2017. FINDINGS: Cardiomediastinal silhouette normal. Mildly low lung volumes, unchanged. Lungs and pleural spaces clear. Degenerative changes of the thoracic spine. Upper abdomen normal. IMPRESSION: 1. No acute cardiopulmonary disease. Electronically signed by: Bg Hunter M.D. 04/06/2017 7:27 AM Dictated Date/Time: 04/06/2017 7:26 AM
--- NOTE | 2017-04-06 07:30 | DIAGNOSTIC IMAGING REPORT ---
VENOUS DOPPLER LWR EXT BILA CLINICAL HISTORY: 56 years-old Female presenting with bilateral lower examination showing, dry cough, clinical concern for DVT. TECHNIQUE: Real-time grayscale and color and spectral Doppler ultrasound imaging of the veins of the bilateral lower extremities was performed. Compression and augmentation were also utilized. COMPARISON: 05/11/2016. FINDINGS: Right: Common femoral vein: Patent. Femoral vein: Patent. Greater saphenous vein: Patent. Popliteal vein: Patent. Calf veins: Limited visualization. Left: Common femoral vein: Patent. Femoral vein: Patent. Greater saphenous vein: Patent. Popliteal vein: Patent. Calf veins: Limited visualization. Other: Left popliteal fossa cyst measuring 3.5 x 2.3 x 1.9 cm. IMPRESSION: No evidence of deep venous thrombosis. Electronically signed by: Bg Hunter M.D. 04/06/2017 7:28 AM Dictated Date/Time: 04/06/2017 7:27 AM
== END 2017-04-06 06:13 | disposition home or self-care (01) ==
LOC: C.EDB 03:53
DX: J45.909 Unspecified asthma, uncomplicated (principal); R05 Cough; R06.2 Wheezing; M25.862 Other specified joint disorders, left knee

== ENCOUNTER 2017-04-11 21:21 | Emergency (ER) | payer OTHER ==
[~2017-04-11] VITALS: Ht 162.6 cm; Wt 115.8 kg
[2017-04-11 21:27] VITALS: TEMP 36.6; Ht 162.6 cm; Wt 115.8 kg
[2017-04-11] MEDS ORDERED: DEXAMETHASONE SOD INJ 4 MG/ML VIAL IM STA (22:05)
[2017-04-11] MEDS ORDERED: SNG10 PO (22:08)
[2017-04-11] MEDS ORDERED: CYM30 PO (22:08)
[2017-04-11] MEDS ORDERED: ALBUT/IPRATROP 3MG/0.5MG NEB 3 ML VIAL INH ONE (22:15)
[2017-04-11] MEDS ORDERED: PRLUDL5 PO (23:26)
[2017-04-11] MEDS ORDERED: [UNRECOGNIZED DRUG - CODE] PO (23:26)
[2017-04-11] MEDS ORDERED: AZITHROMYCIN 200 MG/5 ML UDP PO ONE ×2 (23:30→23:45)
[2017-04-11 23:56] VITALS: BP 124/86; PULSE 74; O2SAT 93
--- NOTE | 2017-04-12 00:46 | EMERGENCY ROOM VISIT NOTE ---
History First contact with patient: 21:59 Chief Complaint: RESPIRATORY PROBLEMS Stated Complaint: CONGESTION & BREATHING PROBLEMS Nursing Triage Summary: Wheezing History of Present Illness The patient is a 56 year old female who presents to the Emergency Room with complaints of coughing and wheezing worsening over the past 2 days. The patient has had symptoms like this in the past and does have a history of asthma and bronchitis. She has not had fever or chills. No abdominal pain or difficulty eating, drinking, or using the bathroom. She rates her discomfort a 5/10 which mildly improves with her asthma inhalers. Review of Systems More than 10 systems were reviewed and otherwise negative with the exception of history of present illness. Past Medical/Surgical History Medical Problems: (1) Asthma (2) Bronchitis (3) Mental retardation (4) Temporomandibular joint disorder Family History Cancer Diabetes mellitus Heart disease Hypertension Lung disease Social History Smoking Status: Never Smoker Alcohol Use: none Drug Use: none Marital Status: single Occupation Status: disabled Current/Historical Medications Scheduled Azithromycin (Zithromax 100MG/5ML), 5 ML PO DAILY Duloxetine HCl (Duloxetine HCl), 30 MG PO DAILY Levothyroxine Sodium (Levothyroxine Sodium), 88 MCG PO DAILY Montelukast Sod (Montelukast Sodium), 10 MG PO DAILY Prednisolone (Prelone 15MG/5ML), 10 ML PO DAILY [Herbal Pill], 1 TAB PO DAILY Scheduled PRN Albuterol Hfa (Ventolin Hfa), 2 PUFFS INH QID PRN for Cough/SOB/Wheezing Budesonide/Formoterol Fumarate (Symbicort 160/4.5 Inhaler ), 2 PUFFS INH BID PRN for Cough/SOB/Wheezing Cetirizine (Zyrtec), 10 MG PO DAILY PRN for Allergy Symptoms Physical Exam Vital Signs Date Time Temp Pulse Resp B/P (MAP) Pulse Ox O2 Delivery O2 Flow Rate FiO2 04/11/17 23:56 74 124/86 93 04/11/17 23:11 75 133/97 95 Room Air 04/11/17 21:44 98 Room Air 04/11/17 21:27 36.6 95 18 159/92 96 Room Air Physical Exam VITALS: Vitals are noted on the nurse's note and reviewed by myself. Vital signs stable. GENERAL: Well-developed, well-nourished, white female, who is in no acute distress and resting comfortably. Patient is cooperative with the examination. HEART: Regular rate and rhythm without murmurs gallops or rubs. LUNGS: Diffuse wheezing throughout ABDOMEN: Positive normal bowel sounds x 4. Soft, nontender, without masses or organomegaly. No guarding or rebound tenderness. MUSCULOSKELETAL: No muscle atrophy, erythema, or edema noted. Full range of motion without joint tenderness in all extremities. Medical Decision & Procedures Medications Administered Medications (Trade) Dose Ordered Sig/Gareth Route Start Time Stop Time Status Last Admin Dose Admin Dexamethasone Sodium Phosphate (Decadron Inj) 10 mg NOW STAT IM 04/11/17 22:05 04/11/17 22:07 DC 04/11/17 22:31 10 MG Albuterol/ Ipratropium (Duoneb) 3 ml NOW ONCE INH 04/11/17 22:15 04/11/17 22:16 DC 04/11/17 22:31 3 ML Azithromycin (Zithromax Susp) 200 mg 2345 ONCE PO 04/11/17 23:45 04/11/17 23:46 DC 04/11/17 23:54 200 MG ED Course Physical exam and history were performed. Nursing notes, EMR, and Medication List were personally reviewed. Patient appears to have coughing and wheezing symptoms for the past one to 2 days. She does have some wheezing on examination. The patient was given 10 of grams IM Decadron as well as a DuoNeb. X-ray was performed and reviewed by myself and my attending. Her x-ray may show some slight fullness at the bases compared to an x-ray performed several days ago. She could have a very early pneumonia, but certainly does have an acute bronchitis. I discussed options of care with the patient. She has difficulty swallowing pills. I will give her a dose of liquid Prelone and Zithromax here in the department. I will give her prescriptions for this as an outpatient. I recommended that she follow with her primary care physician in the next 2-3 days for recheck. She was otherwise invited back to the ER with any new, worsening, or concerning symptoms. The chart was completed utilizing [employer] Voice Recognition Software. Grammatical errors, random word insertions, pronoun errors, and incomplete sentences are an occasional consequence of this system due to software limitations, ambient noise, and hardware issues. Any formal questions or concerns about the content, text, or information contained within the body of this dictation should be directly addressed to the provider for clarification. . Medical Decision Differential diagnosis: Etiologies such as infections, reactive airway disease, pneumonia, pneumothorax , COPD, CHF, cardiac ischemia, pulmonary embolism, musculoskeletal, gastrointestinal, as well as others were entertained. Impression Primary Impression: Acute bronchitis Departure Information Dispostion Home / Self-Care Condition GOOD Prescriptions Prednisolone (PRELONE 15MG/5ML) 15 Mg/5 Ml Syrp 10 ML PO DAILY for 4 Days, #40 ML Prov: Rasta Terrazas PA-C 04/11/17 Azithromycin (ZITHROMAX 100MG/5ML) 100 Mg/5 Ml Susp 5 ML PO DAILY for 4 Days, #20 ML Prov: Rasta Terrazas PA-C 04/11/17 Forms HOME CARE DOCUMENTATION FORM, IMPORTANT VISIT INFORMATION Patient Instructions My [facility] [address] Additional Instructions You were seen and evaluated today on an emergency basis only. This is not a substitute for, or an effort to provide, complete comprehensive medical care. It is not possible to recognize and treat all injuries or illnesses in a single emergency department visit. For this reason it is recommended that you followup with your primary care physician this week for ongoing care and evaluation Take Zithromax and prednisone as prescribed. You are welcome to return to the emergency department anytime with new, worsening, or concerning symptoms.
--- NOTE | 2017-04-12 06:52 | DIAGNOSTIC IMAGING REPORT ---
CHEST 2 VIEWS ROUTINE CLINICAL HISTORY: Cough. Wheezing. COMPARISON STUDY: Chest radiograph April 06, 2017. FINDINGS: Lung volumes are normal. No pneumothorax or pleural effusion is present. There is no evidence of pulmonary edema. No consolidation is identified. Cardiomediastinal silhouette is normal. IMPRESSION: No acute cardiopulmonary findings. Electronically signed by: Urban Rowe M.D. 04/12/2017 6:50 AM Dictated Date/Time: 04/12/2017 6:49 AM
== END 2017-04-11 23:57 | disposition home or self-care (01) ==
LOC: C.EDB 21:22
DX: J20.9 Acute bronchitis, unspecified (principal); J45.909 Unspecified asthma, uncomplicated; F79 Unspecified intellectual disabilities; M26.609 Unspecified temporomandibular joint disorder, unspecified side; Z83.3 Family history of diabetes mellitus; Z82.49 Family history of ischemic heart disease and other diseases of the circulatory system

== ENCOUNTER 2017-04-29 05:50 | Emergency (ER) | payer OTHER ==
[~2017-04-29] VITALS: Ht 162.6 cm; Wt 117.6 kg
[~2017-04-29 05:50] MED LIST changes: +CYM30 PO; -NYSTCRE11 TOP; +SNG10 PO
[2017-04-29 06:00] VITALS: BP 163/92; PULSE 96; TEMP 36.8; O2SAT 96; Ht 162.6 cm; Wt 117.6 kg
[2017-04-29] MEDS ORDERED: ALBUT/IPRATROP 3MG/0.5MG NEB 3 ML VIAL INH STA (06:06)
--- NOTE | 2017-04-29 06:24 | EMERGENCY ROOM VISIT NOTE ---
ED Visit Note First contact with patient: 06:06 I have personally evaluated and examined this patient. I agree with assessment and plan of Franny Marion PA-C. Patient reports dropping her medication in toilet. In no distress and looks well.
[2017-04-29] MEDS ORDERED: MONTELUKAST SOD 10 MG TAB PO ONE ×2 (06:30)
--- NOTE | 2017-04-29 06:33 | EMERGENCY ROOM VISIT NOTE ---
History First contact with patient: 06:06 Chief Complaint: SHORTNESS OF BREATH Stated Complaint: ASTHMA Nursing Triage Summary: Pt c/o asthma attack this morning, tried home neb tx without success. Pt having more frequent asthma attacks recently. History of Present Illness The patient is a 56 year old female who presents to the Emergency Room with complaints of cough and wheeze for the past few days who accepted dropped her singular tablets in the toilet. Patient has finished her Zithromax. This is her third ER visit this month. She has not seen her family care DrCindy for this. Patient cannot afford to pay full wills for her singular tablets. She cannot refill this until 2 weeks from now. Patient denies chest pain, fevers, productive cough, cold symptoms, headache, neck stiffness, abdominal pain. She is tolerate by mouth fluids and food. No history of blood clots. She does not smoke. Review of Systems See HPI for pertinent positives & negatives. A total of 10 systems reviewed and were otherwise negative. Past Medical/Surgical History Medical Problems: (1) Asthma (2) Bronchitis (3) Mental retardation (4) Temporomandibular joint disorder Family History Cancer Diabetes mellitus Heart disease Hypertension Lung disease Social History Smoking Status: Never Smoker Alcohol Use: none Drug Use: none Marital Status: single Occupation Status: disabled Current/Historical Medications Scheduled Arformoterol Tartrate (Brovana), 15 MCG INH BID Budesonide (Inhalation) (Pulmicort), 1 VIAL NEB BID Duloxetine HCl (Duloxetine HCl), 30 MG PO DAILY Ipratropium-Albuterol (Duoneb), 1 TREATMENT INH QID Levothyroxine Sodium (Levothyroxine Sodium), 88 MCG PO DAILY Montelukast Sod (Montelukast Sodium), 10 MG PO DAILY Scheduled PRN Albuterol Hfa (Ventolin Hfa), 2 PUFFS INH QID PRN for Cough/SOB/Wheezing Budesonide/Formoterol Fumarate (Symbicort 160/4.5 Inhaler ), 2 PUFFS INH BID PRN for Cough/SOB/Wheezing Physical Exam Vital Signs Date Time Temp Pulse Resp B/P (MAP) Pulse Ox O2 Delivery O2 Flow Rate FiO2 04/29/17 06:15 Room Air 04/29/17 06:15 Room Air 04/29/17 06:00 36.8 96 28 163/92 96 Room Air Physical Exam PHYSICAL EXAM: Vital Signs: Reviewed Nurse's notes. Oxygen saturation was 96% on room air. GENERAL: Pleasant female, Alert, oriented and coherent. The patient is able to speak in complete sentences. NECK: Supple, non-tender. CHEST : Symmetrical expansion. no retractions no accessory muscle use. HEART: Regular rate and normal heart sounds, no murmur, gallop or rub. LUNGS: Breath sounds equal but significantly diminished in intensity on both sides. Bilateral wheezes heard but no rales or pleuritic rub. SKIN: The skin was without rashes, erythema, edema, or bruising. There is no tenting of the skin. Capillary reflex less than 2 seconds. HEAD: Normocephalic atraumatic. EARS: External auditory canals clear, tympanic membranes pearly diaz without erythema or effusion bilaterally. EYES: Pupils equal round and reactive to light and accommodation. Conjunctivae without injection, sclerae without icterus. Extraocular movements intact. NOSE: Patent, turbinates without inflammation or discharge. No sinus tenderness. MOUTH: Mucous membranes moist. Pharynx without erythema or exudate. Uvula midline. Airway patent. Tongue does not deviate. ABDOMEN: Positive bowel sounds x 4. Normal tympanic percussion. Soft, nontender, without masses or organomegaly. Harrison sign negative. No guarding or rebound tenderness. MUSCULOSKELETAL: No muscle atrophy, erythema, or edema noted. NEURO: Patient was alert and oriented to person place and time. Normal sensation to light and sharp touch. No focal neurological deficits. Medical Decision & Procedures Medications Administered Medications (Trade) Dose Ordered Sig/Gareth Route Start Time Stop Time Status Last Admin Dose Admin Albuterol/ Ipratropium (Duoneb) 3 ml NOW STAT INH 04/29/17 06:06 04/29/17 06:07 DC 04/29/17 06:13 3 ML Montelukast Sodium (Singulair Tab) 10 mg NOW ONCE PO 04/29/17 06:30 04/29/17 06:31 DC 04/29/17 06:28 10 MG Montelukast Sodium (Singulair Tab) 10 mg NOW ONCE PO 04/29/17 06:30 04/29/17 06:31 DC 04/29/17 06:28 10 MG ED Course Prior records/ancillary studies reviewed. Triage Nursing notes reviewed. Additional history obtained from the family. The patient's history was concerning for respiratory difficulties. Differential diagnosis: Etiologies such as infections, reactive airway disease, pneumonia, pneumothorax , COPD, CHF, cardiac ischemia, pulmonary embolism, musculoskeletal, gastrointestinal, as well as others were entertained. Physical examination: As above. ER treatment provided: Nebulizer, Singulair On reassessment the patient felt better. Diagnostic interpretation by me: Imaging studies: Chest x-ray as above. CHEST 2 VIEWS ROUTINE CLINICAL HISTORY: Cough. Wheezing. COMPARISON STUDY: Chest radiograph April 06, 2017. FINDINGS: Lung volumes are normal. No pneumothorax or pleural effusion is present. There is no evidence of pulmonary edema. No consolidation is identified. Cardiomediastinal silhouette is normal. IMPRESSION: No acute cardiopulmonary findings. Electronically signed by: Urban Rowe M.D. This appears to be consistent with asthma exacerbation. Patient was given a home pack of her singular. Case management will contact her family care DrCindy for follow-up appointment within the next few days and for further help for the patient to obtain her asthma medications. Patient currently finished her Zithromax and has some steroids left. She is advised to finish her medications as prescribed from her previous ER visit.. She is advised to return to the ER immediately for difficulty breathing, fevers, worsening signs or symptoms or as needed. By the evaluation outlined above emergent etiologies such as CHF, cardiac ischemia, pulmonary embolism, pneumonia, pneumothorax, musculoskeletal, serious bacterial infections, as well as others were deemed relatively unlikely. The pt informed about the findings as listed above. All questions were answered and pleased with the treatment. Return instructions were outlined and the patient was discharged in stable condition. Outpatient prescription management: simgular Referral: The patient was referred back to their primary care physician for follow-up in 2 to 3 days for a recheck of the current condition. case reviewed with my Attending Medical Decision As above Medication Reconcilliation Current Medication List: was personally reviewed by me Blood Pressure Screening Patient's blood pressure: Normal blood pressure Impression Primary Impression: Asthma attack Departure Information Dispostion Home / Self-Care Condition GOOD Referrals Bg Kearns M.D. (PCP) Patient Instructions My [facility] Additional Instructions Albuterol Inhaler: Take 2 puffs four times daily for five days, then as needed Or use her home nebulizer every 4 hours. Acetaminophen(Tylenol) may be used for fever or pain. Use 1000mg every six hours as needed. Avoid using more than 3000mg in a 24 hour period. (AND/OR) Ibuprofen(Motrin, Advil) may be used for fever or pain. Use 600mg every six hours as needed. Take with food. Avoid using more than 2400mg in a 24 hour period. Do not use 2400mg per day for more than three consecutive days without physician direction. Prolonged inappropriate use can lead to stomach upset or ulcers. Rest and drink plenty of fluids. Avoid smoke/smoking, fumes, dust, or any triggers in the past that may have affected your breathing. Continue current medications. Return to the ER for chest pain, difficulty breathing, fevers, vomiting, worsening of your condition, or as needed. Case management will help facilitate a follow-up appointment with your family care doctor this week. They will call you with the appointment. Follow up with your primary physician this week for a recheck of your current condition. Problem Qualifiers Primary Impression: Asthma attack Asthma severity: moderate Asthma persistence: persistent Qualified Codes: J45.41 - Moderate persistent asthma with (acute) exacerbation
[2017-04-29] MEDS ORDERED: ARFO15NE INH (06:45)
[2017-04-29] MEDS ORDERED: IPRASOL4 INH (06:45)
[2017-04-29] MEDS ORDERED: BUDE0.5S NEB (06:45)
== END 2017-04-29 06:41 | disposition home or self-care (01) ==
LOC: C.EDB 05:54
DX: J45.909 Unspecified asthma, uncomplicated (principal); F79 Unspecified intellectual disabilities; Z79.899 Other long term (current) drug therapy; Z80.9 Family history of malignant neoplasm, unspecified; Z83.3 Family history of diabetes mellitus; Z82.49 Family history of ischemic heart disease and other diseases of the circulatory system

== ENCOUNTER 2017-06-30 21:04 | Emergency (ER) | payer OTHER ==
[~2017-06-30] VITALS: Ht 162.6 cm; Wt 118.3 kg
[~2017-06-30 21:04] MED LIST changes: +ARFO15NE INH; +BUDE0.5S NEB; -CETI10TA84 PO; -CYM30 PO; -LEVO88TA3 PO; -SYMIN160 INH; -VNTHFA/IN INH; -[UNRECOGNIZED DRUG - REMARK] PO
[2017-06-30 21:13] VITALS: TEMP 36.7; Ht 162.6 cm; Wt 118.3 kg
[2017-06-30] MEDS ORDERED: ALBUTEROL 0.083% NEBU SOLN 3 ML VIAL INH STA (21:45)
[2017-06-30 22:13] LABS: BASO % 0.3 %; BASO ABS # 0.04 K/uL (0-0.2); EOS ABS # 0.24 K/uL (0-0.5); HEMATOCRIT 38.2 % (37-47); IG# 0.03 K/uL (0.00-0.02); LYMPH % 18.3 %; LYMPH ABS # 2.22 K/uL (1.2-3.4); MEAN CELL VOLUME 101.1 fL (80-100); MEAN CORPUSCULAR HEMOGLOBIN 34.4 pg (25-34); MEAN PLATELET VOLUME 10.2 fL (7.4-10.4); MONO % 7.2 %; MONO ABS # 0.88 K/uL (0.11-0.59); NEUT ABS # 8.75 K/uL (1.4-6.5); PLATELET COUNT 209 K/uL (130-400); RED CELL DISTRIBUTION WIDTH CV 13.4 % (11.5-14.5); RED CELL DISTRIBUTION WIDTH SD 49.2 fL (36.4-46.3); WHITE BLOOD COUNT 12.16 K/uL (4.8-10.8)
[2017-06-30] MEDS ORDERED: PSEU60TA80 PO (22:22)
--- NOTE | 2017-06-30 22:29 | DIAGNOSTIC IMAGING REPORT ---
CHEST ONE VIEW PORTABLE CLINICAL HISTORY: 56 years-old Female presenting with cough. TECHNIQUE: Portable upright AP view of the chest was obtained. COMPARISON: 04/11/2017. FINDINGS: Cardiomediastinal silhouette normal. Mildly low lung volumes. Lungs and pleural spaces clear. Osseous structures normal. Upper abdomen normal. IMPRESSION: 1. No acute cardiopulmonary disease. Electronically signed by: Bg Hunter M.D. 06/30/2017 10:28 PM Dictated Date/Time: 06/30/2017 10:27 PM
[2017-06-30 22:30] LABS: CALCIUM 8.5 mg/dl (8.5-10.1); CREATININE 0.74 mg/dl (0.60-1.20); POTASSIUM 3.9 mmol/L (3.5-5.1)
[2017-06-30] MEDS ORDERED: PRED20TA PO (22:45)
[2017-06-30] MEDS ORDERED: AMOXICILLIN/CLAVULANATE TAB 875 MG TAB PO ONE (22:45)
[2017-06-30 23:11] VITALS: BP 127/73; PULSE 72; O2SAT 96
[2017-06-30] MEDS ORDERED: AMOX875T PO (23:17)
--- NOTE | 2017-06-30 23:56 | EMERGENCY ROOM VISIT NOTE ---
History Report prepared by Terrie: Amanda Chaney Under the Supervision of: Dr. Geronimo Echeverria D.O. First contact with patient: 21:40 Chief Complaint: CONGESTION Stated Complaint: CONGESTION Nursing Triage Summary: PT presents with chronic cough saw PCP this week was given steroid shot and nebulizer. PT is using this 4 times a day. PT having increased cough, no mucous production. PT has wheezing in all lung ross, inspiratory and expiratory, PT is also using inhaler as well. PT denies fever, denies CP and denies any nausea. History of Present Illness The patient is a 56 year old female who presents to the Emergency Room with complaints of persistent congestion that began 1 week ago. The patient states that she has a waxing and waning cough that began a few days ago, noting she has been coughing up mucous. She believes that the mucus is likely green. She has no other complaints at this time. Family notes that she has been coughing which has been keeping her up. Cough has been intermittent over the past several months. One week ago, the patient went to see her PCP, noting she was coughing and wheezing. Pt denies headache, change in vision, fevers, chest pain , shortness of breath, nausea, vomiting, diarrhea, pain with urination, and melena. Patient denies diabetes, hypertension, hyperlipidemia, CAD, history of sudden at a young age, and smoking. Patient denies swelling of calves, recent trips, history of immobilization or recent surgery, prior history of DVT , hemoptysis, history of malignancy, history of smoking, or control/ estrogen use. Source of History: patient History Limited By: other (mental retardation ) Onset: 1 week ago Position: other (global ) Timing: other (persistent ) Review of Systems See HPI for pertinent positives & negatives. A total of 10 systems reviewed and were otherwise negative. Past Medical & Surgical Medical Problems: (1) Asthma (2) Bronchitis (3) Mental retardation (4) Temporomandibular joint disorder Family History Cancer Diabetes mellitus Heart disease Hypertension Lung disease Social History Smoking Status: Never Smoker Alcohol Use: none Drug Use: none Marital Status: single Occupation Status: disabled Current/Historical Medications Scheduled Amoxicillin & Pot Clavulanate (Augmentin 875-125 mg), 875 MG PO BID Budesonide (Inhalation) (Pulmicort), 1 VIAL NEB BID Duloxetine HCl (Duloxetine HCl), 30 MG PO DAILY Ipratropium-Albuterol (Duoneb), 1 TREATMENT INH QID Levothyroxine Sodium (Levothyroxine Sodium), 88 MCG PO DAILY Prednisone (Prednisone), 1 TAB PO DAILY Scheduled PRN Albuterol Hfa (Ventolin Hfa), 2 PUFFS INH QID PRN for Cough/SOB/Wheezing Budesonide/Formoterol Fumarate (Symbicort 160/4.5 Inhaler ), 2 PUFFS INH BID PRN for Cough/SOB/Wheezing Pseudoephedrine-Guaifenesin (Mucinex D), 1 TAB PO DAILY PRN for CONGESTION Allergies Coded Allergies: Animal Dander (Verified Allergy, Unknown, sneezing,congestion, 06/30/17) Dust (Verified Allergy, Unknown, respiratory sx, 06/30/17) Molds and Smuts (Verified Allergy, Unknown, sneezing,congestion, 06/30/17) POLLEN (Verified Allergy, Unknown, congestion, 06/30/17) Ragweed (Verified Allergy, Unknown, nasal congestion, 06/30/17) Physical Exam Vital Signs Date Time Temp Pulse Resp B/P (MAP) Pulse Ox O2 Delivery O2 Flow Rate FiO2 06/30/17 23:11 72 18 127/73 96 Room Air 06/30/17 21:26 95 Room Air 06/30/17 21:13 36.7 92 20 159/88 95 Room Air Physical Exam GENERAL: Sitting up in bed, laughing and interacting appropriately, alert, well appearing, well nourished, no distress, non-toxic EYE EXAM: normal conjunctiva. PERRL and EOM's grossly intact. OROPHARYNX: no exudate, no erythema, lips, buccal mucosa, and tongue normal and mucous membranes are moist NECK: No JVD. Supple, no nuchal rigidity, no adenopathy, non-tender LUNGS: Faint wheezing bilaterally. HEART: no murmurs, S1 normal and S2 normal ABDOMEN: abdomen soft, non-tender, normo-active bowel sounds, no masses, no rebound or guarding. BACK: Back is symmetrical on inspection and there is no deformity, no midline tenderness, no CVA tenderness. SKIN: no rashes and no bruising UPPER EXTREMITIES: upper extremities are grossly normal. LOWER EXTREMITIES: No pitting edema. Calves equal bilaterally. NEURO EXAM: Normal sensorium, cranial nerves II-XII grossly intact, normal speech, no gross weakness of arms, no gross weakness of legs. Medical Decision & Procedures ER Provider Diagnostic Interpretation: Radiology results as stated below per my review and the radiologist's interpretation: CHEST ONE VIEW PORTABLE CLINICAL HISTORY: 56 years-old Female presenting with cough. TECHNIQUE: Portable upright AP view of the chest was obtained. COMPARISON: 04/11/2017. FINDINGS: Cardiomediastinal silhouette normal. Mildly low lung volumes. Lungs and pleural spaces clear. Osseous structures normal. Upper abdomen normal. IMPRESSION: 1. No acute cardiopulmonary disease. Electronically signed by: Bg Hunter M.D. 06/30/2017 10:28 PM Dictated Date/Time: 06/30/2017 10:27 PM Laboratory Results 06/30/17 22:03 Red Blood Count 3.78, Mean Corpuscular Volume 101.1, Mean Corpuscular Hemoglobin 34.4, Mean Corpuscular Hemoglobin Concent 34.0, Mean Platelet Volume 10.2, Neutrophils (%) (Auto) 72.0, Lymphocytes (%) (Auto) 18.3, Monocytes (%) ( Auto) 7.2, Eosinophils (%) (Auto) 2.0, Basophils (%) (Auto) 0.3, Neutrophils # ( Auto) 8.75, Lymphocytes # (Auto) 2.22, Monocytes # (Auto) 0.88, Eosinophils # ( Auto) 0.24, Basophils # (Auto) 0.04 06/30/17 22:03 Test 06/30/17 22:03 White Blood Count 12.16 K/uL (4.8-10.8) Red Blood Count 3.78 M/uL (4.2-5.4) Hemoglobin 13.0 g/dL (12.0-16.0) Hematocrit 38.2 % (37-47) Mean Corpuscular Volume 101.1 fL (80-100) Mean Corpuscular Hemoglobin 34.4 pg (25-34) Mean Corpuscular Hemoglobin Concent 34.0 g/dl (32-36) Platelet Count 209 K/uL (130-400) Mean Platelet Volume 10.2 fL (7.4-10.4) Neutrophils (%) (Auto) 72.0 % Lymphocytes (%) (Auto) 18.3 % Monocytes (%) (Auto) 7.2 % Eosinophils (%) (Auto) 2.0 % Basophils (%) (Auto) 0.3 % Neutrophils # (Auto) 8.75 K/uL (1.4-6.5) Lymphocytes # (Auto) 2.22 K/uL (1.2-3.4) Monocytes # (Auto) 0.88 K/uL (0.11-0.59) Eosinophils # (Auto) 0.24 K/uL (0-0.5) Basophils # (Auto) 0.04 K/uL (0-0.2) RDW Standard Deviation 49.2 fL (36.4-46.3) RDW Coefficient of Variation 13.4 % (11.5-14.5) Immature Granulocyte % (Auto) 0.2 % Immature Granulocyte # (Auto) 0.03 K/uL (0.00-0.02) Anion Gap 6.0 mmol/L (3-11) Est Creatinine Clear Calc Drug Dose 106.1 ml/min Estimated GFR () 104.2 Estimated GFR (Non- 89.9 BUN/Creatinine Ratio 13.5 (10-20) Calcium Level 8.5 mg/dl (8.5-10.1) Laboratory results per my review. Medications Administered Medications (Trade) Dose Ordered Sig/Gareth Route Start Time Stop Time Status Last Admin Dose Admin Albuterol Sulfate (Ventolin 0.083% 2.5MG/3ML Neb) 2.5 mg NOW STAT INH 06/30/17 21:45 06/30/17 21:47 DC 06/30/17 21:56 2.5 MG Prednisone (PredniSONE TAB) 40 mg NOW STAT PO 06/30/17 22:41 06/30/17 22:43 DC 06/30/17 23:10 40 MG Amoxicillin/ Clavulanate Potassium (Augmentin Tab) 875 mg ONE ONCE PO 06/30/17 22:45 06/30/17 22:46 DC 06/30/17 23:10 875 MG ED Course ED COURSE: Vital signs were reviewed and showed normal vitals. The patients medical record was reviewed The above diagnostic studies were performed and reviewed. ED treatments and interventions as stated above. 2110: The patient was evaluated in room A12. A complete history and physical examination was performed. 2144: Ordered Albuterol Sulfate 2.5mg INH. 2241: I reevaluated the patient and discussed test findings with her and her family. Ordered Prednisone 40mg PO. 5: Amoxicillin 875mg PO. 2301: Upon reevaluation, the patient is feeling better. I discussed the findings and the treatment plan with the patient. The patient and her family verbalized agreement and understanding. The patient was discharged home. Medical Decision Differential diagnosis: Etiologies such as infections, reactive airway disease, pneumonia, pneumothorax , COPD, CHF, cardiac ischemia, pulmonary embolism, musculoskeletal, gastrointestinal, as well as others were entertained. The patient is a 56 year old female who presents to the ED with complaints of congestion. She family noted this has been going on for the past week. She has a green productive cough. She does admit to wheezing with breathing. She is in a history of asthma. She was seen by PCP. Symptoms have slightly worsened tonight with coughing. Coughing has been truly intermittent over the past several months. CBC shows no significant leukocytosis. BMP was unremarkable. Chest x-ray shows no infiltrate. Based on her symptoms and with the wheezing she was given a neb treatment. Wheezing significant improvement. She was also given steroids and Augmentin for her upper respiratory/sinus infection. Based on her symptoms she is feeling significantly better and she was discharged follow-up with PCP as an outpatient. Discussed with Pt concerning signs and symptoms to watch out for. Pt was instructed to follow up with their PCP and discussed with the patient their option to return to the ED at anytime for persistent or worsening symptoms. The appropriate anticipatory guidance and out-patient management, including indications for return to the emergency department, were explained at length to the patient and understood. Medication Reconcilliation Current Medication List: was personally reviewed by me Blood Pressure Screening Patient's blood pressure: Normal blood pressure Impression Primary Impression: Asthma exacerbation Additional Impression: Acute bronchitis Scribe Attestation The scribe's documentation has been prepared under my direction and personally reviewed by me in its entirety. I confirm that the note above accurately reflects all work, treatment, procedures, and medical decision making performed by me. Departure Information Dispostion Home / Self-Care Prescriptions Amoxicillin & Pot Clavulanate (Augmentin 875-125 mg) 1 Tab Tab 875 MG PO BID for 7 Days, TAB Prov: Geronimo Echeverria, DO 06/30/17 Prednisone (Prednisone) 20 Mg Tab 1 TAB PO DAILY for 5 Days, #4 TAB Prov: Geronimo Echeverria, DO 06/30/17 Referrals Bg Kearns M.D. (PCP) Forms HOME CARE DOCUMENTATION FORM, IMPORTANT VISIT INFORMATION Patient Instructions My [facility] Additional Instructions Please follow up with your primary care doctor with in the next 24 hours. Any worsening of your symptoms, please return to the ED immediately. This includes any fevers greater than 100.4, worsening pain, chest pain, shortness breath, persistent nausea, vomiting, unable to eat or drink, or any other concerning signs or symptoms from your standpoint. Please take steroids and antibiotics as prescribed. Problem Qualifiers Primary Impression: Asthma exacerbation Asthma severity: unspecified severity Asthma persistence: unspecified Qualified Codes: J45.901 - Unspecified asthma with (acute) exacerbation Additional Impression: Acute bronchitis Bronchitis organism: unspecified organism Qualified Codes: J20.9 - Acute bronchitis, unspecified
[2017-08-26] MEDS ORDERED: LEVO88TA3 PO (04:14)
[2017-08-26] MEDS ORDERED: SYMIN160 INH (05:12)
[2017-08-26] MEDS ORDERED: IPRA-64 INH (06:45)
[2017-11-29] MEDS ORDERED: FURO-85 PO (23:04)
[2017-12-18] MEDS ORDERED: LSX20 PO (17:40)
[2017-12-18] MEDS ORDERED: SENN-61 PO (17:45)
[2017-12-18] MEDS ORDERED: OMEGA PO (17:45)
[2017-12-18] MEDS ORDERED: MULTTAB58 PO (17:45)
[2017-12-18] MEDS ORDERED: KYOLIC GARLIC PO (17:45)
[2017-12-18] MEDS ORDERED: VNTHFA/IN INH (18:37)
[2017-12-18] MEDS ORDERED: XRL20 PO (21:06)
[2017-12-18] MEDS ORDERED: CYM30 PO (22:08)
[2017-12-18] MEDS ORDERED: LEVO100T7 PO (23:03)
[2018-01-21] MEDS ORDERED: LANS15CA6 PO (19:57)
[2018-01-21] MEDS ORDERED: DIAZ-165 PO (19:57)
[2018-01-21] MEDS ORDERED: SYMIN160 INH (19:57)
[2018-01-21] MEDS ORDERED: [UNRECOGNIZED DRUG - OTHER] PO (19:57)
[2018-01-21] MEDS ORDERED: MULT1LIQ6 PO (19:57)
[2018-01-21] MEDS ORDERED: ACET-1256 PO (19:57)
[2018-01-21] MEDS ORDERED: FLUO20SO9 PO (19:57)
[2018-01-21] MEDS ORDERED: ALBINS/ INH (19:57)
[2018-01-21] MEDS ORDERED: PRED50TA PO (21:09)
== END 2017-06-30 23:20 | disposition home or self-care (01) ==
LOC: C.EDB 21:05 → C.EDA 23:20
DX: J45.901 Unspecified asthma with (acute) exacerbation (principal); J20.9 Acute bronchitis, unspecified; F79 Unspecified intellectual disabilities; Z83.3 Family history of diabetes mellitus; Z82.49 Family history of ischemic heart disease and other diseases of the circulatory system

== ENCOUNTER → 2017-07-12 | Outpatient (CLI) | payer OTHER ==
[~2017-07-12] MED LIST changes: -ARFO15NE INH; +CYM30 PO; +IPRASOL4 INH; +LEVO88TA3 PO; +PSEU60TA80 PO; -SNG10 PO; +SYMIN160 INH; +VNTHFA/IN INH
--- NOTE | 2017-07-12 14:25 | DIAGNOSTIC IMAGING REPORT ---
VIDEO SWALLOW STUDY CLINICAL HISTORY: Cough. COMPARISON STUDY: Video swallow study dated 01/24/2014. Fluoroscopy time: 1.9 minutes. FINDINGS: Fluoroscopic guidance was provided to the Department of speech pathology in performing a video swallow study. The patient consumed barium impregnated pudding, cracker with paste, nectar thick liquid, and thin barium while the swallowing mechanism was observed in real-time. No penetration or aspiration was seen with any of the sampled textures. Mild esophageal dysmotility is noted. IMPRESSION: No penetration or aspiration was seen with any of the sampled textures. See dedicated speech pathology report for detailed findings and recommendations. Dictated: 07/12/2017 2:00 PM Transcribed: 07/12/2017 2:24 PM [email or web address] Electronically signed by: Elieser Garner M.D. 07/12/2017 2:40 PM Dictated Date/Time: 07/12/2017 2:00 PM
--- NOTE | 2017-07-13 13:30 | SWALLOWING EVALUATION ---
REFERRING SPEECH PATHOLOGIST: n/a HISTORY: This 56 year-old female was referred for a VFSS at [facility] in order to address c/o increased coughing with oral intake and occasional vomiting. The patient has a PMH significant for intellectual disability, TMJ, cough, asthma, vomiting and upper respiratory infection. Her last VFSS was completed in 2013 and resulted with no aspiration of any consistency, but evidence of esophageal dysmotility. Currently the patient's diet level is regular. PROCEDURE: The patient was seen in the Radiology Department of [facility] for the VFSS. Cursory examination of the oral cavity revealed sparse natural dentition. Movement of the articulators was impaired by some mild dysarthria. The was seated on a stool and was viewed in both the Anterior-Posterior (A-P) and Lateral planes. Volitional phonation exercises completed in the A-P plane revealed bilateral vocal fold movement and vocal intensity within functional limits. In the lateral plane, the patient was given the following boluses: 1 tsp. thin liquid barium x 2, single swallow thin liquid barium self-presented from a cup, sequential swallows of thin liquid barium self-presented from a cup, 1 tsp. nectar-thick liquid barium, single swallow nectar-thick liquid barium self-presented from a cup, 1 tsp. barium pudding, and 1 club cracker with barium pudding. The patient was then repositioned into the A-P plane and given 1 tsp. nectar-thick liquid barium. RESULTS: Oral Stage: Interlabial bolus loss that did not progress beyond the rahat border. Lingual control during oral bolus hold was not attempted. Disorganized mastication with solid pieces of bolus left unchewed. Required liquid wash to clear cracker from oral cavity. Slowed lingual motion for posterior bolus transport. Diffuse oral residue that cleared with liquid wash. Pharyngeal swallow initiation initiated when bolus head in the valleculae. Mild oral-stage dysphagia as may be expected with a patient with her developmental disabilities. Pharyngeal Stage: No bolus between soft palate and pharyngeal wall. Complete laryngeal elevation, anterior hyoid excursion, epiglottic inversion, laryngeal vestibular closure, pharyngeal stripping wave, pharyngeal contraction, distention and duration of PES opening. Mild weakness of tongue base retraction as evidenced by narrow column of contrast in valleculae intermittently throughout study. No significant pharyngeal residue other than needing liquid wash to clear the cracker; however, that was primarily to clear from oral cavity and minimally for clearing from pharynx. No aspiration during this study. Small cricopharyngeal impression on cervical esophagus, but there was no obstruction. Esophageal Stage: Mild distal esophageal dysmotility. SUMMARY/RECOMMENDATIONS: This patient presents with mild oral-pharyngeal dysphagia that does not result in any functional deficit or risk to patient safety. In addition, the patient presents with s/s mild esophageal dysfunction. The following is recommended: 1. SLIPPERY diet: choose foods that are moist, loose, slippery; avoid foods that are doughy, pasty, thick, dry; use condiments to make foods slippery 2. Compensatory Strategies: FULLY UPRIGHT for meals and for 15-30 minutes after meals; keep head of bed elevated AT LEAST 30-degrees at all times; alternate solids and liquids frequently during meals; avoid using icy cold beverages during meals. 3. Consideration of completion of Barium Swallow Study if globus sensation and/or vomiting persist. A summary of the results and recommendations was discussed with the patient and her stepfather immediately following the study. The stepfather verbalized understanding. Thank you for referral of this patient. Please contact me at if any additional information is needed.
== END | disposition home or self-care (01) ==
LOC: C.RAD 12:55
PROVIDERS: ATTEND Internal Medicine
DX: R05 Cough (principal)

== ENCOUNTER 2017-07-23 18:48 | Emergency (ER) | payer OTHER ==
[~2017-07-23] VITALS: Ht 162.6 cm; Wt 117.8 kg
[2017-07-23 19:04] VITALS: TEMP 36.9; Ht 162.6 cm; Wt 117.8 kg
[2017-07-23] MEDS ORDERED: SODIUM CHLORIDE 0.9% 250ML 250 ML IV STA (19:50)
[2017-07-23 19:58] VITALS: O2SAT 90
--- NOTE | 2017-07-23 20:04 | DIAGNOSTIC IMAGING REPORT ---
SINGLE VIEW CHEST CLINICAL HISTORY: Generalized weakness. Dyspnea. FINDINGS: An AP, portable, upright chest radiograph is compared to study dated 06/30/2017. The examination is degraded by portable technique, large body habitus, and patient rotation. The cardiomediastinal silhouette is unremarkable. The lungs and pleural spaces are clear. No pneumothorax is seen. The skeletal structures are osteopenic. The bony thorax is grossly intact. IMPRESSION: No active disease in the chest. Electronically signed by: Elieser Garner M.D. 07/23/2017 8:03 PM Dictated Date/Time: 07/23/2017 8:02 PM
--- NOTE | 2017-07-23 20:30 | EMERGENCY ROOM VISIT NOTE ---
History Report prepared by Terrie: Amanda Chaney Under the Supervision of: Dr. Karen Mnoreal M.D. First contact with patient: 19:38 Chief Complaint: VOMITING Stated Complaint: VOMITING, SICKNESS Nursing Triage Summary: pt arrives with family reports pt started with NV and body aches approx 1 hour ago pt states I hurt all over family reports pt has nebulizer that is being used at home did not use this today History of Present Illness The patient is a 56 year old female who presents to the Emergency Room with complaints of persistent nausea that began one day ago. The patients father states that they went to a concert yesterday, noting the patient had a "panic attack" there. The patient received a nebulizer treatment as soon as she got home, noting it relieved some of her symptoms. He states that the patient has been short of breath, wheezing, weak, and complaining of leg pain today. The patient vomited on her way to the hospital. She did not take her thyroid medication today. The patient was hypoxic to 86% at triage. Source of History: patient, parent Onset: one day Position: other (global) Quality: other Timing: other (persistent) Associated Symptoms: + SOB, + vomiting, + diarrhea, + fatigue, + weakness, No fevers, No cough Review of Systems See HPI for pertinent positives & negatives. A total of 10 systems reviewed and were otherwise negative. Past Medical & Surgical Medical Problems: (1) Asthma (2) Bronchitis (3) Mental retardation (4) Temporomandibular joint disorder Family History Cancer Diabetes mellitus Heart disease Hypertension Lung disease Social History Smoking Status: Never Smoker Alcohol Use: none Drug Use: none Marital Status: single Housing Status: lives with family Occupation Status: disabled Current/Historical Medications Scheduled Budesonide (Inhalation) (Pulmicort), 1 VIAL NEB BID Duloxetine HCl (Duloxetine HCl), 30 MG PO DAILY Ipratropium-Albuterol (Duoneb), 1 TREATMENT INH QID Levothyroxine Sodium (Levothyroxine Sodium), 88 MCG PO DAILY Scheduled PRN Albuterol Hfa (Ventolin Hfa), 2 PUFFS INH QID PRN for Cough/SOB/Wheezing Budesonide/Formoterol Fumarate (Symbicort 160/4.5 Inhaler ), 2 PUFFS INH BID PRN for Cough/SOB/Wheezing Pseudoephedrine-Guaifenesin (Mucinex D), 1 TAB PO DAILY PRN for CONGESTION Allergies Coded Allergies: Animal Dander (Verified Allergy, Unknown, sneezing,congestion, 07/23/17) Dust (Verified Allergy, Unknown, respiratory sx, 07/23/17) Molds and Smuts (Verified Allergy, Unknown, sneezing,congestion, 07/23/17) POLLEN (Verified Allergy, Unknown, congestion, 07/23/17) Ragweed (Verified Allergy, Unknown, nasal congestion, 07/23/17) Physical Exam Vital Signs Date Time Temp Pulse Resp B/P (MAP) Pulse Ox O2 Delivery O2 Flow Rate FiO2 07/24/17 00:00 103 30 119/84 92 07/23/17 23:30 105 26 118/85 91 07/23/17 23:24 109 24 113/77 93 Nasal Cannula 4.0 07/23/17 22:21 109 24 108/83 91 Nasal Cannula 4.0 07/23/17 22:11 111 07/23/17 21:42 109 24 151/92 91 Nasal Cannula 4.0 07/23/17 20:48 109 24 93 07/23/17 20:32 120/84 07/23/17 20:18 114 28 93 07/23/17 20:01 117/84 07/23/17 19:58 90 Nasal Cannula 4.0 07/23/17 19:56 117 07/23/17 19:55 118 20 126/55 90 Nasal Cannula 4.0 07/23/17 19:54 126/55 07/23/17 19:04 36.9 124 20 118/81 87 Room Air Physical Exam Vital signs reviewed. General: Obese, generally well-appearing, in no respiratory distress but anxious. HEENT: No scleral icterus, PERRLA, neck supple. Atraumatic. Cardiovascular: Tachycardic rate and rhythm, no extra sounds. Pulmonary: Nasal cannula oxygen on at 3L, oxygen saturation of 90%. Clear to auscultation bilaterally, normal work of breathing. Abdomen: Soft, nontender, nondistended, positive bowel sounds. Musculoskeletal: Atraumatic, no peripheral edema. Neurologic: Patient awake alert and oriented x 3, full strength in all 4 extremities. Cranial nerves 2 through 12 grossly intact. Skin: Obese legs without pitting edema. Warm, dry, no rash Medical Decision & Procedures ER Provider Diagnostic Interpretation: Radiology results as stated below per my review and radiologist interpretation: SINGLE VIEW CHEST CLINICAL HISTORY: Generalized weakness. Dyspnea. FINDINGS: An AP, portable, upright chest radiograph is compared to study dated 06/30/2017. The examination is degraded by portable technique, large body habitus, and patient rotation. The cardiomediastinal silhouette is unremarkable. The lungs and pleural spaces are clear. No pneumothorax is seen. The skeletal structures are osteopenic. The bony thorax is grossly intact. IMPRESSION: No active disease in the chest. Electronically signed by: Elieser Garner M.D. 07/23/2017 8:03 PM Dictated Date/Time: 07/23/2017 8:[address] ANGIOGRAM OF THE CHEST CLINICAL HISTORY: Dyspnea. COMPARISON STUDY: Chest x-ray dated 07/23/2017. Chest CT scans dated 01/25/2016 and 12/31/2013. TECHNIQUE: Following the IV administration of 93 cc of Optiray 320, CT angiogram of the chest was performed from the upper abdomen to the thoracic inlet utilizing the pulmonary embolus protocol. Images are reviewed in the axial, sagittal, and coronal planes. 3-D MIPS images are created and assessed. IV contrast was administered without complication. A dose lowering technique was utilized adhering to the principles of ALARA. The examination is degraded by large body habitus, and by streak artifact from the body wall abutting the CT gantry. Examination is also greater by streak artifact from the arms which could not be elevated above the chest and motion artifact. CT DOSE: 588.57 mGy.cm FINDINGS: Thyroid: Atrophic. Thoracic aorta: The thoracic aorta is normal in caliber and demonstrates 4-vessel variant arch anatomy. No dissection is seen. Pulmonary vasculature: The main pulmonary arteries appear dilated suggesting pulmonary artery hypertension. There is saddle pulmonary embolus. Extensive pulmonary emboli are present in the distal main pulmonary arteries bilateral. Pulmonary embolus extends into all lobar branches into segmental and subsegmental branches. Heart: The heart is normal in size and configuration, and without pericardial effusion. Lungs and pleural spaces: Evaluation of the lung parenchyma is degraded by motion artifact. No airspace consolidation or pleural effusion is identified. The trachea and central airways are clear. Mediastinum: There is no mediastinal lymphadenopathy. Lety: Clear. Axillae: There is no axillary lymphadenopathy. Upper abdomen: The liver appears enlarged and steatotic. Partially visualized upper abdominal viscera is otherwise within normal limits. Skeletal structures: The skeletal structures are osteopenic. No lytic or blastic bony lesions are seen. IMPRESSION: 1. Significantly streak and motion compromised examination. 2. Saddle pulmonary embolus with extensive bilateral pulmonary emboli as above. 3. No airspace consolidation or pleural effusion is identified. 4. Hepatic steatosis. Electronically signed by: Elieser Garner M.D. 07/23/2017 10:48 PM Dictated Date/Time: 07/23/2017 10:44 PM Laboratory Results 07/23/17 20:08 Red Blood Count 4.36, Mean Corpuscular Volume 102.3, Mean Corpuscular Hemoglobin 34.4, Mean Corpuscular Hemoglobin Concent 33.6, Mean Platelet Volume 10.3, Neutrophils (%) (Auto) 68.4, Lymphocytes (%) (Auto) 20.0, Monocytes (%) ( Auto) 9.2, Eosinophils (%) (Auto) 1.8, Basophils (%) (Auto) 0.3, Neutrophils # ( Auto) 7.81, Lymphocytes # (Auto) 2.28, Monocytes # (Auto) 1.05, Eosinophils # ( Auto) 0.21, Basophils # (Auto) 0.03 07/23/17 20:08 Test 07/23/17 19:53 07/23/17 20:08 07/23/17 20:35 07/23/17 22:48 Influenza Type A Antigen Neg for Influ A (NEG) Influenza Type B Antigen Neg for Influ B (NEG) White Blood Count 11.41 K/uL (4.8-10.8) Red Blood Count 4.36 M/uL (4.2-5.4) Hemoglobin 15.0 g/dL (12.0-16.0) Hematocrit 44.6 % (37-47) Mean Corpuscular Volume 102.3 fL (80-100) Mean Corpuscular Hemoglobin 34.4 pg (25-34) Mean Corpuscular Hemoglobin Concent 33.6 g/dl (32-36) Platelet Count 226 K/uL (130-400) Mean Platelet Volume 10.3 fL (7.4-10.4) Neutrophils (%) (Auto) 68.4 % Lymphocytes (%) (Auto) 20.0 % Monocytes (%) (Auto) 9.2 % Eosinophils (%) (Auto) 1.8 % Basophils (%) (Auto) 0.3 % Neutrophils # (Auto) 7.81 K/uL (1.4-6.5) Lymphocytes # (Auto) 2.28 K/uL (1.2-3.4) Monocytes # (Auto) 1.05 K/uL (0.11-0.59) Eosinophils # (Auto) 0.21 K/uL (0-0.5) Basophils # (Auto) 0.03 K/uL (0-0.2) RDW Standard Deviation 52.2 fL (36.4-46.3) RDW Coefficient of Variation 14.0 % (11.5-14.5) Immature Granulocyte % (Auto) 0.3 % Immature Granulocyte # (Auto) 0.03 K/uL (0.00-0.02) Anion Gap 13.0 mmol/L (3-11) Est Creatinine Clear Calc Drug Dose 63.2 ml/min Estimated GFR () 55.8 Estimated GFR (Non- 48.2 BUN/Creatinine Ratio 11.0 (10-20) Calcium Level 9.0 mg/dl (8.5-10.1) Total Bilirubin 0.5 mg/dl (0.2-1) Direct Bilirubin 0.1 mg/dl (0-0.2) Aspartate Amino Transf (AST/SGOT) 34 U/L (15-37) Alanine Aminotransferase (ALT/SGPT) 36 U/L (12-78) Alkaline Phosphatase 84 U/L (45-117) Total Creatine Kinase 163 U/L (26-192) Creatine Kinase MB 5.7 ng/ml (0.5-3.6) Creatine Kinase MB Ratio 3.5 (0-3.0) Total Protein 8.4 gm/dl (6.4-8.2) Albumin 3.7 gm/dl (3.4-5.0) Bedside Lactic Acid Venous 2.45 mmol/L (0.90-1.70) Test 07/23/17 23:46 Prothrombin Time 10.3 SECONDS (9.0-12.0) Prothromb Time International Ratio 1.0 (0.9-1.1) Activated Partial Thromboplast Time 25.9 SECONDS (21.0-31.0) Partial Thromboplastin Ratio 1.0 Laboratory results per my review. Medications Administered Medications (Trade) Dose Ordered Sig/Gareth Route Start Time Stop Time Status Last Admin Dose Admin Sodium Chloride 250 ml @ 999 mls/hr Q16M STAT IV 07/23/17 19:50 07/23/17 20:05 DC 07/23/17 20:28 999 MLS/HR Heparin Sodium/ Dextrose (Heparin 25,000 Unit/500ml D5W) 25,000 unit STK-MED ONCE .ROUTE 07/23/17 22:41 07/23/17 22:42 DC 07/23/17 23:43 25,000 UNIT Heparin Sodium (Porcine) (Heparin Sq 5000 Unit/0.5ml) 10,000 unit STK-MED ONCE .ROUTE 07/23/17 22:41 07/23/17 22:42 DC 07/23/17 23:37 6,000 UNIT ECG Indication: nausea Rate (beats per minute): 116 Rhythm: sinus tachycardia Findings: no acute ischemic change, left axis deviation, other (Possible inferior and anterior inserve ) Change: Repeated EKG: Sinus tachycardic, 111 beats per minutes, left axis deviation, previous inferior and anterior infarct, T wave inversion in anterior. No significant change from today. ED Course 1947: Past medical records reviewed. The patient was evaluated in room A9. A complete history and physical examination was performed. 1949: Ordered Sodium Chloride 250 ml @ 999 mls/hr IV. 2038: I reevaluated the patient, who was resting. I updated the family on some test findings. The patient has an elevated troponin, d dimer above normal, and lactate is elevated. 2116: Ordered Heparin Sodium/Dextrose 1ea. 2129: Ordered Heparin Sodium/Dextrose 1ea and Ioversol 100ml IV. 2209: I reevaluated the patient, who was crying. I updated the family on test findings. 2234: Ordered Heparin Sodium/Dextrose 1ea. 224: Ordered Heparin Sodium (Porcine) 10,000unit and Heparin Sodium/Dextrose 25 ,000 unit. 2325: I revaluated the patient, who was resting. I updated her and her family on test findings and discussed possible treatment plans. 0007: I reviewed the patient's case with Dr. Herrera, ICU. She accepted to treat the patient. The patient will be transferred to [place], [place]. 0011: Ordered Ativan Inj 0.5mg IV. Medical Decision Differential diagnosis: Etiologies such as infections, reactive airway disease, pneumonia, pneumothorax , COPD, CHF, cardiac ischemia, pulmonary embolism, musculoskeletal, gastrointestinal, as well as others were entertained. This patient was evaluated and appeared to be in no significant distress. The patient is noted to be tachycardic and hypoxic on room air. She was placed on nasal cannula oxygen at 4 L with improvement. Patient was hydrated with normal saline solution. Chest x-ray was performed and is clear. Laboratory work reveals a POC d-dimer >5000 and a POC troponin at 1.79. EKG reveals a sinus tachycardia which has persisted throughout her stay. CT scan of the chest was performed and is significant for saddle PE. Patient was placed on a heparin drip with a standard bolus. Given the increased pulmonary artery pressures, elevated troponin, tachycardia and hypoxia, I feel is in the patient's best interest to be evaluated for interventional thrombectomy or lysis. I did speak with Dr. Batres our language instructor who agrees. [facility] was contacted, Dr. Herrera of the intensive care service did accept the patient. [facility] was contacted. Due to the patient's cognitive delays, arrangements have been made for 1 parent to escort the patient via [facility]. Medication Reconcilliation Current Medication List: was personally reviewed by me Blood Pressure Screening Patient's blood pressure: Normal blood pressure Consults Time Called: [phone] Consulting Physician: Dr. Herrera, ICU Returned Call: [phone] I reviewed the patient's case with Dr. Herrera, ICU. She will evaluate the patient for further management. The patient will be transferred to [place], [place]. Impression Primary Impression: Saddle pulmonary embolus Additional Impression: Pulmonary artery hypertension Critical Care I have personally spent greater than 120 minutes of critical care time in the direct management of this patient. This includes bedside care, interpretation of diagnostic studies, and testing, discussion with consultants, patient, and family members, and other required patient management activities. This 90 minutes is in excess of all separately billable procedures. Scribe Attestation The scribe's documentation has been prepared under my direction and personally reviewed by me in its entirety. I confirm that the note above accurately reflects all work, treatment, procedures, and medical decision making performed by me. Departure Information Dispostion Discharge/Transfer to [facility] Referrals Bg Kearns M.D. (PCP) Forms HOME CARE DOCUMENTATION FORM, IMPORTANT VISIT INFORMATION Patient Instructions [facility] Problem Qualifiers
[2017-07-23 20:37] LABS: INFLUENZA B ANTIGEN Neg for Influ B (NEG)
[2017-07-23 20:46] LABS: BASO % 0.3 %; BASO ABS # 0.03 K/uL (0-0.2); EOS % 1.8 %; EOS ABS # 0.21 K/uL (0-0.5); HEMATOCRIT 44.6 % (37-47); IG# 0.03 K/uL (0.00-0.02); LYMPH ABS # 2.28 K/uL (1.2-3.4); MEAN CELL VOLUME 102.3 fL (80-100); MEAN CORPUSCULAR HEMOGLOBIN 34.4 pg (25-34); MEAN CORPUSCULAR HGB CONC 33.6 g/dl (32-36); MEAN PLATELET VOLUME 10.3 fL (7.4-10.4); MONO % 9.2 %; MONO ABS # 1.05 K/uL (0.11-0.59); NEUT % 68.4 %; NEUT ABS # 7.81 K/uL (1.4-6.5); PLATELET COUNT 226 K/uL (130-400); RED CELL DISTRIBUTION WIDTH SD 52.2 fL (36.4-46.3); WHITE BLOOD COUNT 11.41 K/uL (4.8-10.8)
[2017-07-23 21:04] LABS: ALBUMIN 3.7 gm/dl (3.4-5.0); CREATININE 1.24 mg/dl (0.60-1.20)
[2017-07-23 21:09] LABS: CKMB 5.7 ng/ml (0.5-3.6); TOTAL PROTEIN 8.4 gm/dl (6.4-8.2)
[2017-07-23] MEDS ORDERED: OPTIRAY 320 IV PRN (21:30)
[2017-07-23] MEDS ORDERED: HEPARIN SOD 5000 UNIT/0.5 ML CARP ONE (22:41)
[2017-07-23] MEDS ORDERED: HEPARIN 25000 UNIT/500 ML D5W ONE (22:41)
--- NOTE | 2017-07-23 22:49 | DIAGNOSTIC IMAGING REPORT ---
CT ANGIOGRAM OF THE CHEST CLINICAL HISTORY: Dyspnea. COMPARISON STUDY: Chest x-ray dated 07/23/2017. Chest CT scans dated 01/25/2016 and 12/31/2013. TECHNIQUE: Following the IV administration of 93 cc of Optiray 320, CT angiogram of the chest was performed from the upper abdomen to the thoracic inlet utilizing the pulmonary embolus protocol. Images are reviewed in the axial, sagittal, and coronal planes. 3-D MIPS images are created and assessed. IV contrast was administered without complication. A dose lowering technique was utilized adhering to the principles of ALARA. The examination is degraded by large body habitus, and by streak artifact from the body wall abutting the CT gantry. Examination is also greater by streak artifact from the arms which could not be elevated above the chest and motion artifact. CT DOSE: 588.57 mGy.cm FINDINGS: Thyroid: Atrophic. Thoracic aorta: The thoracic aorta is normal in caliber and demonstrates 4-vessel variant arch anatomy. No dissection is seen. Pulmonary vasculature: The main pulmonary arteries appear dilated suggesting pulmonary artery hypertension. There is saddle pulmonary embolus. Extensive pulmonary emboli are present in the distal main pulmonary arteries bilateral. Pulmonary embolus extends into all lobar branches into segmental and subsegmental branches. Heart: The heart is normal in size and configuration, and without pericardial effusion. Lungs and pleural spaces: Evaluation of the lung parenchyma is degraded by motion artifact. No airspace consolidation or pleural effusion is identified. The trachea and central airways are clear. Mediastinum: There is no mediastinal lymphadenopathy. Lety: Clear. Axillae: There is no axillary lymphadenopathy. Upper abdomen: The liver appears enlarged and steatotic. Partially visualized upper abdominal viscera is otherwise within normal limits. Skeletal structures: The skeletal structures are osteopenic. No lytic or blastic bony lesions are seen. IMPRESSION: 1. Significantly streak and motion compromised examination. 2. Saddle pulmonary embolus with extensive bilateral pulmonary emboli as above. 3. No airspace consolidation or pleural effusion is identified. 4. Hepatic steatosis. Electronically signed by: Elieser Garner M.D. 07/23/2017 10:48 PM Dictated Date/Time: 07/23/2017 10:44 PM
[2017-07-24] MEDS ORDERED: LORAZEPAM 2 MG/ML 1 ML VIAL IV STA (00:11)
[2017-07-24 00:12] LABS: PTT PATIENT 25.9 SECONDS (21.0-31.0)
[2017-07-24 00:31] VITALS: BP 126/92; PULSE 108; O2SAT 91
== END 2017-07-24 01:11 | disposition short-term general hospital (02) ==
LOC: C.EDB 18:49 → C.EDA 07-24 01:11
DX: I26.92 Saddle embolus of pulmonary artery without acute cor pulmonale (principal); I27.20 Pulmonary hypertension, unspecified; R00.0 Tachycardia, unspecified; J45.909 Unspecified asthma, uncomplicated; F79 Unspecified intellectual disabilities; M26.609 Unspecified temporomandibular joint disorder, unspecified side; E66.9 Obesity, unspecified; Z83.3 Family history of diabetes mellitus; Z82.49 Family history of ischemic heart disease and other diseases of the circulatory system

== ENCOUNTER → 2017-08-08 | Outpatient (CLI) | payer OTHER ==
[~2017-08-08] MED LIST changes: +XRL15 PO
[2017-08-08 17:11] LABS: BASO % 0.6 %; BASO ABS # 0.04 K/uL (0-0.2); BLOOD UREA NITROGEN 12 mg/dl (7-18); CALCIUM 8.7 mg/dl (8.5-10.1); CARBON DIOXIDE 27 mmol/L (21-32); CREATININE 0.86 mg/dl (0.60-1.20); EOS % 3.1 %; EOS ABS # 0.22 K/uL (0-0.5); GLUCOSE 164 mg/dl (70-99); HEMATOCRIT 37.3 % (37-47); HEMOGLOBIN 12.1 g/dL (12.0-16.0); IG# 0.02 K/uL (0.00-0.02); LYMPH % 28.6 %; MEAN CELL VOLUME 105.4 fL (80-100); MEAN CORPUSCULAR HEMOGLOBIN 34.2 pg (25-34); MEAN CORPUSCULAR HGB CONC 32.4 g/dl (32-36); MEAN PLATELET VOLUME 10.8 fL (7.4-10.4); MONO % 8.9 %; MONO ABS # 0.62 K/uL (0.11-0.59); NEUT % 58.5 %; NEUT ABS # 4.09 K/uL (1.4-6.5); PLATELET COUNT 317 K/uL (130-400); POTASSIUM 3.6 mmol/L (3.5-5.1); RED CELL DISTRIBUTION WIDTH CV 14.5 % (11.5-14.5); RED CELL DISTRIBUTION WIDTH SD 55.7 fL (36.4-46.3); SODIUM 138 mmol/L (136-145); WHITE BLOOD COUNT 6.99 K/uL (4.8-10.8)
== END | disposition home or self-care (01) ==
LOC: C.LABBC 13:49
PROVIDERS: ATTEND Physician Assistant Medical
DX: R10.31 Right lower quadrant pain (principal)

== ENCOUNTER 2017-08-14 22:04 | Emergency (ER) | payer OTHER ==
[~2017-08-14] VITALS: Ht 162.6 cm; Wt 117.5 kg
[~2017-08-14 22:04] MED LIST changes: -CYM30 PO; -XRL15 PO
[2017-08-14] MEDS ORDERED: CYM30 PO (22:08)
[2017-08-14 22:09] VITALS: TEMP 36.6; Ht 162.6 cm; Wt 117.5 kg
[2017-08-14] MEDS ORDERED: XRL15 PO (22:44)
[2017-08-14 23:11] LABS: HEMATOCRIT 40.1 % (37-47); HEMOGLOBIN 13.3 g/dL (12.0-16.0); MEAN CELL VOLUME 104.2 fL (80-100); MEAN CORPUSCULAR HEMOGLOBIN 34.5 pg (25-34); MEAN CORPUSCULAR HGB CONC 33.2 g/dl (32-36); MEAN PLATELET VOLUME 10.1 fL (7.4-10.4); PLATELET COUNT 256 K/uL (130-400); RED CELL DISTRIBUTION WIDTH CV 14.2 % (11.5-14.5); RED CELL DISTRIBUTION WIDTH SD 53.2 fL (36.4-46.3); WHITE BLOOD COUNT 8.38 K/uL (4.8-10.8)
[2017-08-14 23:21] LABS: PTT PATIENT 29.2 SECONDS (21.0-31.0)
[2017-08-14 23:28] LABS: ALBUMIN 3.5 gm/dl (3.4-5.0); CALCIUM 9.2 mg/dl (8.5-10.1); CREATININE 0.97 mg/dl (0.60-1.20); POTASSIUM 3.8 mmol/L (3.5-5.1)
[2017-08-14 23:31] LABS: TOTAL PROTEIN 7.8 gm/dl (6.4-8.2)
[2017-08-14] MEDS ORDERED: OPTIRAY 320 IV PRN (23:45)
[2017-08-14] MEDS ORDERED: RIVAROXABAN TAB 15 MG TAB PO STA (23:58)
--- NOTE | 2017-08-15 00:33 | EMERGENCY ROOM VISIT NOTE ---
History Report prepared by Terrie: Mandy Amato Under the Supervision of: Dr. Elieser Andrews M.D. First contact with patient: 22:35 Chief Complaint: CHEST PAIN Stated Complaint: CHEST PAIN Nursing Triage Summary: pt reports started with midsternal cp this evening , pt states "it feel the same as when I had my blood clots " denies increased sob History of Present Illness The patient is a 56 year old female who presents to the Emergency Room with complaints of an episode of chest pain starting 1.5 hours. The pain has now resolved. She rates her discomfort as a 5/10 in severity. The pain was located in the same area as the pain she had with her blood clots. She was flown to [place] 3 weeks ago for PE and DVT. She had a filter placed and was started on Xarelto. She has been coughing recently. She vomited today which happens when she is nervous and upset. She denies any fever or SOB. Source of History: patient, parent Onset: 1.5 hours ago Position: chest Symptom Intensity: 5/10 Quality: other (pain) Timing: other (episodic) Associated Symptoms: + cough, + vomiting, No fevers, No SOB Review of Systems See HPI for pertinent positives & negatives. A total of 10 systems reviewed and were otherwise negative. Past Medical & Surgical Medical Problems: (1) Asthma (2) Bronchitis (3) Mental retardation (4) Temporomandibular joint disorder Family History Cancer Diabetes mellitus Heart disease Hypertension Lung disease Social History Smoking Status: Never Smoker Alcohol Use: none Drug Use: none Marital Status: single Housing Status: lives with family Occupation Status: disabled Current/Historical Medications Scheduled Duloxetine HCl (Duloxetine HCl), 30 MG PO DAILY Levothyroxine Sodium (Levothyroxine Sodium), 88 MCG PO DAILY Rivaroxaban (Xarelto), 15 MG PO BID Scheduled PRN Albuterol Hfa (Ventolin Hfa), 2 PUFFS INH QID PRN for Cough/SOB/Wheezing Budesonide/Formoterol Fumarate (Symbicort 160/4.5 Inhaler ), 2 PUFFS INH BID PRN for Cough/SOB/Wheezing Ipratropium-Albuterol (Duoneb), 1 TREATMENT INH QID PRN for SOB/Wheezing Allergies Coded Allergies: Animal Dander (Verified Allergy, Unknown, sneezing,congestion, 07/23/17) Dust (Verified Allergy, Unknown, respiratory sx, 07/23/17) Molds and Smuts (Verified Allergy, Unknown, sneezing,congestion, 07/23/17) POLLEN (Verified Allergy, Unknown, congestion, 07/23/17) Ragweed (Verified Allergy, Unknown, nasal congestion, 07/23/17) Physical Exam Vital Signs Date Time Temp Pulse Resp B/P (MAP) Pulse Ox O2 Delivery O2 Flow Rate FiO2 08/15/17 01:18 81 22 138/71 95 08/14/17 22:22 82 08/14/17 22:09 36.6 88 18 172/86 96 Room Air Physical Exam GENERAL: Patient is in no acute distress. HEENT: No acute trauma, normocephalic atraumatic, mucous membranes moist, no nasal congestion, no scleral icterus. NECK: No stridor, no adenopathy, no meningismus, trachea is midline. CHEST: Mildly tender to the mid sternal chest wall. LUNGS: Clear to auscultation bilaterally, no wheeze, no rhonchi, breath sounds equal. HEART: Subtle systolic murmur. Regular rhythm, regular rate. ABDOMEN: Soft, nontender, bowel sounds positive, no hernias, no peritonitis. EXTREMITIES: No cyanosis, mild bilateral pedal edema, full range of motion of all the joints without pain or difficulty, no signs for acute trauma. NEUROLOGIC: Oriented x 3, no acute motor or sensory deficits, no focal weakness. SKIN: No rash, no jaundice, no diaphoresis. Medical Decision & Procedures ER Provider Diagnostic Interpretation: X-ray results as stated below per interpretation by me. Radiology results as stated below per my review and [facility] radiologist interpretation: Chest X-ray: No CHF. No pneumothorax. No mediastinal widening. No pneumonia. CTA chest: Comparison: CTA dated 07/23/2017. No evidence of central pulmonary embolism. Evaluation for small peripheral pulmonary emboli is limited due to motion and suboptimal opacification of peripheral pulmonary arteries. Previous saddle pulmonary embolism has resolved compared to prior CTA. Slightly low lung volumes with probable mild atelectasis in the lower lobes. No obvious pulmonary infarct. No focal consolidation, pulmonary edema, pleural effusion or pneumothorax. Normal cardiac size. No pericardial effusion. No thoracic aortic aneurysm or dissection. Laboratory Results 08/14/17 23:01 08/14/17 23:01 Test 08/14/17 23:01 08/14/17 23:08 08/15/17 00:49 Red Blood Count 3.85 M/uL (4.2-5.4) Mean Corpuscular Volume 104.2 fL (80-100) Mean Corpuscular Hemoglobin 34.5 pg (25-34) Mean Corpuscular Hemoglobin Concent 33.2 g/dl (32-36) RDW Standard Deviation 53.2 fL (36.4-46.3) RDW Coefficient of Variation 14.2 % (11.5-14.5) Mean Platelet Volume 10.1 fL (7.4-10.4) Prothrombin Time 10.7 SECONDS (9.0-12.0) Prothromb Time International Ratio 1.0 (0.9-1.1) Activated Partial Thromboplast Time 29.2 SECONDS (21.0-31.0) Partial Thromboplastin Ratio 1.1 Anion Gap 10.0 mmol/L (3-11) Est Creatinine Clear Calc Drug Dose 80.7 ml/min Estimated GFR () 75.1 Estimated GFR (Non- 64.8 BUN/Creatinine Ratio 14.5 (10-20) Calcium Level 9.2 mg/dl (8.5-10.1) Total Bilirubin 0.3 mg/dl (0.2-1) Aspartate Amino Transf (AST/SGOT) 24 U/L (15-37) Alanine Aminotransferase (ALT/SGPT) 35 U/L (12-78) Alkaline Phosphatase 72 U/L (45-117) Total Protein 7.8 gm/dl (6.4-8.2) Albumin 3.5 gm/dl (3.4-5.0) Globulin 4.3 gm/dl (2.5-4.0) Albumin/Globulin Ratio 0.8 (0.9-2) Lipase 141 U/L (73-393) Bedside D-Dimer > 450 ng/mlFEU (0-450) Bedside Troponin I < 0.030 ng/ml (0-0.045) Laboratory results reviewed by me. Medications Administered Medications (Trade) Dose Ordered Sig/Gareth Route Start Time Stop Time Status Last Admin Dose Admin Rivaroxaban (Xarelto Tab) 15 mg NOW STAT PO 08/14/17 23:58 08/15/17 00:00 DC 08/15/17 00:14 15 MG ECG Indication: chest pain Rate (beats per minute): 92 Rhythm: normal sinus Findings: other (poor R wave progression, no ST elevation, no PVC) Change: Patient's electrocardiogram interpreted by me. ED Course 2236: The patient was evaluated in room A4B. A complete history and physical exam was performed. 2334: I reevaluated the patient. I updated her family on the results. She will go for a CT. 2358: Xarelto Tab 15 mg PO. 0115: Reevaluated the patient. Discussed results and discharge instructions: They verbalized understanding and agreement. The patient is ready for discharge. Medical Decision Differential diagnoses considered include pulmonary embolism, musculoskeletal pain, IA, aortic dissection, anemia, viral illness, food borne illness. There is no leukocytosis or concerning anemia. No significant electrolyte abnormality, kidney failure or hepatitis. There is no pancreatitis. There is no concerning coagulopathy. EKG shows a normal sinus rhythm, no acute ischemic change. Cardiac enzyme testing 2 is not consistent with acute cardiac injury. Chest film does not show pneumonia, mediastinal widening or pneumothorax. Chest CT does not show any new PE, the previous pulmonary emboli have resolved. No pneumonia or pneumothorax. The patient presents with chest pain which has now resolved. She was concerned that she had thrown another pulmonary embolus. She had similar pain with a previous PE. The patient's workup here is benign. The patient has been reassured, the family has been reassured. The cause for the pain isn't clear, possibly the pain is musculoskeletal as she is somewhat tender across the chest wall. If worsening, the patient can be returned. She will follow with her doctor this week for a recheck. Of note, the patient was given her typical nighttime dose of oral Xarelto while in the ED. Medication Reconcilliation Current Medication List: was personally reviewed by me Blood Pressure Screening Patient's blood pressure: Elevated blood pressure Blood pressure disposition: Referred to PCP Impression Primary Impression: Precordial chest pain Additional Impression: History of pulmonary embolism Scribe Attestation The scribe's documentation has been prepared under my direction and personally reviewed by me in its entirety. I confirm that the note above accurately reflects all work, treatment, procedures, and medical decision making performed by me. Departure Information Dispostion Home / Self-Care Referrals Bg Kearns M.D. (PCP) Forms Call Back Authorization, HOME CARE DOCUMENTATION FORM, IMPORTANT VISIT INFORMATION Patient Instructions My [facility] ensembli Additional Instructions no blood clot or pneumonia noted heart testing was all ok all meds as before return if worsening see sheldon canseco for a recheck in a few days Problem Qualifiers
[2017-08-15 01:18] VITALS: BP 138/71; PULSE 81; O2SAT 95
--- NOTE | 2017-08-15 07:14 | DIAGNOSTIC IMAGING REPORT ---
CHEST ONE VIEW PORTABLE CLINICAL HISTORY: 56 years-old Female presenting with CHEST PAIN. TECHNIQUE: Portable upright AP view of the chest was obtained. COMPARISON: 07/23/2017. FINDINGS: Cardiomediastinal silhouette normal. Lungs and pleural spaces clear. Osseous structures normal. Upper abdomen normal. IMPRESSION: 1. No acute cardiopulmonary disease. Electronically signed by: Bg Hunter M.D. 08/15/2017 7:13 AM Dictated Date/Time: 08/15/2017 7:13 AM
--- NOTE | 2017-08-15 07:58 | DIAGNOSTIC IMAGING REPORT ---
(CHEST FOR PE) ANGIO WITH CLINICAL HISTORY: 56 years-old Female presenting with chest pain and shortness of breath. TECHNIQUE: Multidetector CT angiography of the chest was performed after administration of intravenous contrast. 3-D volumetric and/or maximum intensity projection (MIP) images were subsequently reconstructed for review. IV contrast: 93 mL of Optiray 320. A dose lowering technique was used consistent with the principles of ALARA (as low as reasonably achievable). COMPARISON: 07/23/2017. CT DOSE (mGy.cm): The estimated cumulative dose is 729.90 mGy.cm. FINDINGS: Laboratory Sample Carrier topogram: Unremarkable. Pulmonary vasculature: The study is suboptimal for the assessment of the pulmonary vascular tree secondary to timing of the contrast bolus and respiratory motion artifact. Allowing for limited image quality, no central filling defect to suggest pulmonary embolus. Previously noted saddle pulmonary embolus has resolved. Main pulmonary artery is not enlarged. No flattening of the interventricular septum. No intracardiac filling defect. No reflux of contrast into the hepatic veins. Remaining chest: On soft tissue windows, normal thyroid and thoracic inlet. No axillary, supraclavicular, hilar, or mediastinal lymphadenopathy. Normal aorta. Normal heart size. No pericardial or pleural effusion. Upper abdomen normal. On lung windows, minimal dependent changes likely atelectasis. Respiratory motion artifact limits evaluation of lung parenchyma. No other focal nodule or infiltrate. Airways patent. On bone windows, degenerative changes of the spine. IMPRESSION: 1. Resolution of previously noted subtle pulmonary embolus. Allowing for suboptimal timing of the contrast bolus and respiratory motion artifact, no central filling defect to suggest pulmonary embolus on the current exam. No CT evidence of pulmonary hypertension or right heart strain. 2. Minimal dependent atelectasis. No convincing evidence of acute intrathoracic pathology. Electronically signed by: Bg Hunter M.D. 08/15/2017 7:57 AM Dictated Date/Time: 08/15/2017 7:03 AM
== END 2017-08-15 01:19 | disposition home or self-care (01) ==
LOC: C.EDB 22:05 → C.EDA 08-15 01:19
DX: R07.2 Precordial pain (principal); R05 Cough; R11.10 Vomiting, unspecified; J45.909 Unspecified asthma, uncomplicated; Z79.01 Long term (current) use of anticoagulants; Z79.899 Other long term (current) drug therapy; Z86.711 Personal history of pulmonary embolism; Z86.718 Personal history of other venous thrombosis and embolism; Z87.09 Personal history of other diseases of the respiratory system; Z82.49 Family history of ischemic heart disease and other diseases of the circulatory system; Z83.3 Family history of diabetes mellitus; Z83.6 Family history of other diseases of the respiratory system; Z91.09 Other allergy status, other than to drugs and biological substances

== ENCOUNTER → 2017-08-15 | Outpatient (CLI) | payer OTHER ==
[~2017-08-15] MED LIST changes: -BUDE0.5S NEB; +CYM30 PO; -PSEU60TA80 PO; +XRL15 PO
== END | disposition home or self-care (01) ==
LOC: C.LABBC 13:58
PROVIDERS: ATTEND Internal Medicine
DX: R31.9 Hematuria, unspecified (principal)

== ENCOUNTER 2017-08-17 20:32 | Emergency (ER) | payer OTHER ==
[~2017-08-17] VITALS: Ht 162.6 cm; Wt 119.2 kg
[2017-08-17 21:34] VITALS: TEMP 36.5; O2SAT 96; Ht 162.6 cm; Wt 119.2 kg
[2017-08-17] MEDS ORDERED: ACETAMINOPHEN 500 MG TAB PO STA (22:36)
[2017-08-18 00:20] VITALS: BP 140/67; PULSE 86
--- NOTE | 2017-08-18 03:57 | EMERGENCY ROOM VISIT NOTE ---
History First contact with patient: 22:27 Chief Complaint: FALL Stated Complaint: FALL History of Present Illness The patient is a 56 year old female who presents to the Emergency Room with complaints of left knee and ankle pain after she slipped and fell on her leg while mopping tonight. Patient follows Dr. Sr. She has arthritis in her knees. She describes pain as aching, ranging in severity currently 5 out of 10 worse with ambulation and better with rest. Patient is able to ambulate. She is on Xarelto for history of PE. Patient denies head injury, back pain, numbness, tingling, foot pain, hui pain. No other complaints per patient. Patient took Tylenol already. Review of Systems An 10 system review of systems was completed with positives and pertinent negatives listed in the HPI. Past Medical/Surgical History Medical Problems: (1) Asthma (2) Bronchitis (3) Mental retardation (4) Temporomandibular joint disorder Family History Cancer Diabetes mellitus Heart disease Hypertension Lung disease Social History Smoking Status: Never Smoker Alcohol Use: none Drug Use: none Marital Status: single Housing Status: lives with family Occupation Status: disabled Current/Historical Medications Scheduled Duloxetine HCl (Duloxetine HCl), 30 MG PO DAILY Levothyroxine Sodium (Levothyroxine Sodium), 88 MCG PO DAILY Rivaroxaban (Xarelto), 15 MG PO BID Scheduled PRN Albuterol Hfa (Ventolin Hfa), 2 PUFFS INH QID PRN for Cough/SOB/Wheezing Budesonide/Formoterol Fumarate (Symbicort 160/4.5 Inhaler ), 2 PUFFS INH BID PRN for Cough/SOB/Wheezing Ipratropium-Albuterol (Duoneb), 1 TREATMENT INH QID PRN for SOB/Wheezing Physical Exam Vital Signs Date Time Temp Pulse Resp B/P (MAP) Pulse Ox O2 Delivery O2 Flow Rate FiO2 08/18/17 00:20 86 140/67 08/17/17 21:34 36.5 82 18 153/77 96 Room Air Physical Exam VITALS: Vitals are noted on the nurse's note and reviewed by myself. Vital signs stable. GENERAL: Pleasant female, in no acute distress, nondiaphoretic, well-developed well-nourished. SKIN: Capillary reflex less than 2 seconds. MUSCULOSKELETAL: No gross musculoskeletal defects. No pedal edema. No calf tenderness. Left knee tender to palpation with increased pain with range of motion. No joint effusion. Left ankle tender to palpation over the lateral malleolus with no deformity noted. Pedal pulses +2. No foot, hui or thigh tenderness of the left leg. NEURO: Patient was alert and oriented to person place and time. Normal sensation to light and sharp touch. No focal neurological deficits. Medical Decision & Procedures ED Course Prior records/ancillary studies reviewed. Triage Nursing notes reviewed. Additional history obtained from family The patient's history was concerning for left lower leg pain. Differential diagnosis: Etiologies such as sprain, strain, fracture, contusion, dislocation as well as others were entertained. Physical findings: As above. No focal neurologic findings noted. ER treatment provided: Ice pack was applied On reassessment the patient felt better. Diagnostics interpreted by me: Imaging studies: Ankle knee x-ray negative for fracture or dislocation or effusion per my interpretation and reviewed with my attending This appears to be consistent with left ankle and knee sprain. Patient was able to ambulate without difficulties. She is advised to symptoms persist a follow-up with her orthopedist in a few days or here in the ER sooner for severe pain, numbness, tingling, worsening signs or symptoms or as needed. She is advised to take Tylenol for the pain as she is on Xarelto. By the evaluation outlined above emergent etiologies such as fracture as well as others were deemed relatively unlikely. The pt/MOP informed about the findings as listed above. All questions were answered and pleased with the treatment. Return instructions were outlined and the patient was discharged in stable condition. Referral: The patient was referred back to orthopedics and/or primary care physician for follow-up in 2 to 3 days for a recheck of the current condition. Medical Decision As above Medication Reconcilliation Current Medication List: was personally reviewed by me Blood Pressure Screening Patient's blood pressure: Elevated blood pressure Blood pressure disposition: Elevated BP felt to be situational Impression Primary Impression: Left ankle sprain Additional Impressions: Left knee sprain Fall Departure Information Dispostion Home / Self-Care Condition GOOD Forms HOME CARE DOCUMENTATION FORM, IMPORTANT VISIT INFORMATION Patient Instructions Ankle Sprain, [facility], ED Sprain Knee Additional Instructions Acetaminophen(Tylenol) may be used for fever or pain. Use 1000mg every six hours as needed. Avoid using more than 3000mg in a 24 hour period. This medication can be taken if you need to drive, work, or perform activities which may be dangerous when taking narcotic pain medication. Ice compresses for 20 minutes at a time four times daily for 2-3 days. Rest and elevate your injury. Continue current medications. Return to the ER immediately for any numbness, tingling, severe pain, extreme swelling in the extremity or as needed. Call your Orthopedics in 5-7 days if symptoms persist to arrange follow up for your injury. Problem Qualifiers Primary Impression: Left ankle sprain Encounter type: initial encounter Involved ligament of ankle: anterior talofibular ligament Qualified Codes: S93.492A - Sprain of other ligament of left ankle, initial encounter
--- NOTE | 2017-08-18 06:48 | DIAGNOSTIC IMAGING REPORT ---
L ANKLE MIN 3 VIEWS ROUTINE CLINICAL HISTORY: 56 years-old Female presenting with fall, pain. TECHNIQUE: Frontal, mortise, and lateral views of the left ankle were obtained. COMPARISON: None. FINDINGS: Soft tissue swelling over the lateral malleolus suspected versus prominent adipose tissue. Ankle mortise intact. No acute fracture or malalignment. No advanced degenerative change. No radiographic soft tissue abnormality. IMPRESSION: No acute osseous injury of the left ankle. Electronically signed by: Bg Hunter M.D. 08/18/2017 6:46 AM Dictated Date/Time: 08/18/2017 6:45 AM
--- NOTE | 2017-08-18 06:49 | DIAGNOSTIC IMAGING REPORT ---
L KNEE 3 VIEWS CLINICAL HISTORY: 56 years-old Female presenting with fall, pain. TECHNIQUE: Frontal, lateral, and sunrise views of the left knee were obtained. COMPARISON: 10/19/2016. FINDINGS: Interval increase in medial joint space loss. Subtle subchondral sclerosis may be present in the medial tibial plateau. Minimal osteophytosis in the medial compartment. Chondrocalcinosis at the patellofemoral compartment may be present. No patellar subluxation. Moderate knee joint effusion. No acute fracture or malalignment. IMPRESSION: 1. No acute osseous injury of the left knee. 2. Joint space loss and associated degenerative change in the medial compartment. 3. Moderate knee joint effusion. 4. Chondrocalcinosis at the patellofemoral compartment suggested. Electronically signed by: Bg Hunter M.D. 08/18/2017 6:48 AM Dictated Date/Time: 08/18/2017 6:46 AM
== END 2017-08-18 00:20 | disposition home or self-care (01) ==
LOC: C.EDB 20:33 → C.EDD 08-18 00:20
DX: S93.492A Sprain of other ligament of left ankle, initial encounter (principal); S83.92XA Sprain of unspecified site of left knee, initial encounter; W01.0XXA Fall on same level from slipping, tripping and stumbling without subsequent striking against object, initial encounter; Y93.E5 Activity, floor mopping and cleaning; M17.0 Bilateral primary osteoarthritis of knee; Z79.02 Long term (current) use of antithrombotics/antiplatelets; Z86.711 Personal history of pulmonary embolism; J45.909 Unspecified asthma, uncomplicated; F79 Unspecified intellectual disabilities; Z80.9 Family history of malignant neoplasm, unspecified; Z82.49 Family history of ischemic heart disease and other diseases of the circulatory system; Z83.3 Family history of diabetes mellitus; Z79.899 Other long term (current) drug therapy

== ENCOUNTER 2017-08-26 19:12 | Emergency (ER) | payer OTHER ==
[~2017-08-26] VITALS: Ht 162.6 cm; Wt 118.8 kg
[~2017-08-26 19:12] MED LIST changes: -CYM30 PO
[2017-08-26 19:14] VITALS: TEMP 36.7; Ht 162.6 cm; Wt 118.8 kg
[2017-08-26] MEDS ORDERED: ASPIRIN 81 MG CHEW PO STA (19:27)
[2017-08-26 19:55] LABS: BASO % 0.5 %; BASO ABS # 0.04 K/uL (0-0.2); EOS % 2.6 %; EOS ABS # 0.21 K/uL (0-0.5); HEMATOCRIT 39.6 % (37-47); HEMOGLOBIN 13.2 g/dL (12.0-16.0); IG# 0.02 K/uL (0.00-0.02); LYMPH % 27.8 %; LYMPH ABS # 2.23 K/uL (1.2-3.4); MEAN CELL VOLUME 102.9 fL (80-100); MEAN CORPUSCULAR HEMOGLOBIN 34.3 pg (25-34); MEAN CORPUSCULAR HGB CONC 33.3 g/dl (32-36); MEAN PLATELET VOLUME 9.7 fL (7.4-10.4); MONO % 8.8 %; MONO ABS # 0.71 K/uL (0.11-0.59); NEUT % 60.1 %; NEUT ABS # 4.82 K/uL (1.4-6.5); PLATELET COUNT 258 K/uL (130-400); RED CELL DISTRIBUTION WIDTH SD 53.1 fL (36.4-46.3); WHITE BLOOD COUNT 8.03 K/uL (4.8-10.8)
--- NOTE | 2017-08-26 19:55 | EMERGENCY ROOM VISIT NOTE ---
History Report prepared by Terrie: Gaurav Barfield Under the Supervision of: Dr. Juancarlos Chapa M.D. First contact with patient: 19:19 Chief Complaint: CARDIAC ASSESSMENT Stated Complaint: PAIN IN CHEST History of Present Illness The patient is a 56 year old DDMR female with past medical history of pulmonary embolism on Xarelto who presents to the Emergency Room with complaints of constant chest pain starting today. She currently rates her discomfort as a 6/ 10 in seventy The patient's family additionally states that the patient has been having some left leg swelling, a and that their PCP told him to come into the emergency department to make sure she does not have a clot in her leg and to be evaluated for chest pain. Family states that she has been taking her Xarelto. Patient denies shortness of breath. Source of History: patient Onset: today Position: chest Symptom Intensity: 6/10 Timing: constant Note: Associated symptoms: Leg swelling Review of Systems See HPI for pertinent positives and negatives. A total of ten systems were reviewed and were otherwise negative. Past Medical & Surgical Medical Problems: (1) Asthma (2) Bronchitis (3) Mental retardation (4) Temporomandibular joint disorder Family History Cancer Diabetes mellitus Heart disease Hypertension Lung disease Social History Smoking Status: Never Smoker Alcohol Use: none Drug Use: none Marital Status: single Housing Status: lives with family Occupation Status: disabled Current/Historical Medications Scheduled Duloxetine HCl (Duloxetine HCl), 30 MG PO DAILY Levothyroxine Sodium (Levothyroxine Sodium), 88 MCG PO DAILY Rivaroxaban (Xarelto), 20 MG PO DAILY Scheduled PRN Albuterol Hfa (Ventolin Hfa), 2 PUFFS INH QID PRN for Cough/SOB/Wheezing Budesonide/Formoterol Fumarate (Symbicort 160/4.5 Inhaler ), 2 PUFFS INH BID PRN for Cough/SOB/Wheezing Ipratropium-Albuterol (Duoneb), 1 TREATMENT INH QID PRN for SOB/Wheezing Allergies Coded Allergies: Animal Dander (Verified Allergy, Unknown, sneezing,congestion, 08/17/17) Dust (Verified Allergy, Unknown, respiratory sx, 08/17/17) Molds and Smuts (Verified Allergy, Unknown, sneezing,congestion, 08/17/17) POLLEN (Verified Allergy, Unknown, congestion, 08/17/17) Ragweed (Verified Allergy, Unknown, nasal congestion, 08/17/17) Physical Exam Vital Signs Date Time Temp Pulse Resp B/P (MAP) Pulse Ox O2 Delivery O2 Flow Rate FiO2 08/27/17 00:30 79 16 98/72 95 08/27/17 00:05 82 08/26/17 23:31 126/68 08/26/17 23:30 82 16 94 Room Air 08/26/17 23:00 79 17 95 08/26/17 22:31 115/72 08/26/17 22:30 78 16 95 08/26/17 22:01 116/67 08/26/17 22:00 85 23 95 08/26/17 21:48 80 18 119/102 96 Room Air 08/26/17 20:40 85 08/26/17 20:32 84 18 131/68 96 Room Air 08/26/17 19:43 Room Air 08/26/17 19:14 36.7 98 18 154/78 98 Room Air Physical Exam Physical Exam GENERAL: She appears well-developed and well-nourished. She does not appear distressed. ____ HENT: Exam performed. Head: Normocephalic and atraumatic. Right Ear: External ear normal. No mastoid tenderness. Left Ear: External ear normal. No mastoid tenderness. Mouth/Throat: The oropharynx is clear and moist. No trismus in the jaw. No dental abscesses or uvula swelling. No oropharyngeal exudate or tonsillar abscesses. ____ EYES: Conjunctivae and EOM are normal. Pupils are equal, round, and reactive to light. Right eye exhibits no discharge. Left eye exhibits no discharge. No scleral icterus. ____ NECK: Normal range of motion. Neck supple. No JVD present. No spinous process tenderness present. No carotid bruit present. No rigidity. No tracheal deviation and normal range of motion present. No Brudzinski's sign and no Kernig 's sign noted. ____ CV: Normal rate, regular rhythm, normal heart sounds and intact distal pulses. There is no peripheral edema. Palpable radial pulses bue. ____ PULM/CHEST: Effort normal and breath sounds normal. No respiratory distress. No stridor. She has no wheezes. She has no rales. Chest Wall: She exhibits no tenderness. ____ ABD: The abdomen is soft. Bowel sounds are normal. She has no distension. No mass is present. There is no tenderness. There is no rebound, no guarding, no Harrison's sign and no tenderness at McBurney's point. Rovsig negative MUSC/SKEL: Normal range of motion. There is 1+ pitting edema bilaterally. No tenderness or deformity. No pain on palpation of the popliteal or posterior calf bilaterally. LYMPH: No cervical adenopathy. ____ NEURO: She has normal strength. No cranial nerve deficit or sensory deficit. Coordination and gait normal. GCS eye subscore is 4. GCS verbal subscore is 5. GCS motor subscore is 6. Cerebellar tests wnl. ____ SKIN: Skin is warm and dry. She is not diaphoretic. ____ PSYCH: She has a normal mood and affect. Her behavior is normal. Judgment and thought content normal. ____ Medical Decision & Procedures ER Provider Diagnostic Interpretation: Radiology results as stated below per my review and radiologist interpretation: ULTRASOUND VENOUS DOPPLER LWR EXT BILA CLINICAL HISTORY: Flank pain and swelling COMPARISON STUDY: April 2017 FINDINGS: Real-time and color flow Doppler imaging were performed. Flow was seen within the femoral, popliteal and calf veins with no intraluminal thrombus demonstrated. The saphenous vein is patent. IMPRESSION: No evidence of lower extremity DVT. Electronically signed by: Link Ceja M.D. 08/26/2017 8:20 PM Dictated Date/Time: 08/26/2017 8:19 PM CHEST 2 VIEWS ROUTINE CLINICAL HISTORY: Chest pain and shortness of breath COMPARISON STUDY: August 14, 2017 FINDINGS: The cardiac and mediastinal contours are normal. There is no evidence of focal pulmonary consolidation. There is no evidence of failure. No pleural effusions are visualized.[ IMPRESSION: No active disease in the chest. Electronically signed by: Link Ceja M.D. 08/26/2017 8:27 PM Dictated Date/Time: 08/26/2017 8:26 PM L ANKLE MIN 3 VIEWS ROUTINE CLINICAL HISTORY: Left ankle pain status post trauma COMPARISON: August 17, 2017 DISCUSSION: No fractures or dislocations are visualized. IMPRESSION: No fractures identified. Electronically signed by: Link Ceja M.D. 08/26/2017 8:29 PM Dictated Date/Time: 08/26/2017 8:28 PM Laboratory Results 08/26/17 19:35 Red Blood Count 3.85, Mean Corpuscular Volume 102.9, Mean Corpuscular Hemoglobin 34.3, Mean Corpuscular Hemoglobin Concent 33.3, Mean Platelet Volume 9.7, Neutrophils (%) (Auto) 60.1, Lymphocytes (%) (Auto) 27.8, Monocytes (%) ( Auto) 8.8, Eosinophils (%) (Auto) 2.6, Basophils (%) (Auto) 0.5, Neutrophils # ( Auto) 4.82, Lymphocytes # (Auto) 2.23, Monocytes # (Auto) 0.71, Eosinophils # ( Auto) 0.21, Basophils # (Auto) 0.04 08/26/17 20:24 Test 08/26/17 19:35 08/26/17 20:24 08/26/17 23:48 White Blood Count 8.03 K/uL (4.8-10.8) Red Blood Count 3.85 M/uL (4.2-5.4) Hemoglobin 13.2 g/dL (12.0-16.0) Hematocrit 39.6 % (37-47) Mean Corpuscular Volume 102.9 fL (80-100) Mean Corpuscular Hemoglobin 34.3 pg (25-34) Mean Corpuscular Hemoglobin Concent 33.3 g/dl (32-36) Platelet Count 258 K/uL (130-400) Mean Platelet Volume 9.7 fL (7.4-10.4) Neutrophils (%) (Auto) 60.1 % Lymphocytes (%) (Auto) 27.8 % Monocytes (%) (Auto) 8.8 % Eosinophils (%) (Auto) 2.6 % Basophils (%) (Auto) 0.5 % Neutrophils # (Auto) 4.82 K/uL (1.4-6.5) Lymphocytes # (Auto) 2.23 K/uL (1.2-3.4) Monocytes # (Auto) 0.71 K/uL (0.11-0.59) Eosinophils # (Auto) 0.21 K/uL (0-0.5) Basophils # (Auto) 0.04 K/uL (0-0.2) RDW Standard Deviation 53.1 fL (36.4-46.3) RDW Coefficient of Variation 14.0 % (11.5-14.5) Immature Granulocyte % (Auto) 0.2 % Immature Granulocyte # (Auto) 0.02 K/uL (0.00-0.02) Anion Gap 5.0 mmol/L (3-11) Est Creatinine Clear Calc Drug Dose 89.5 ml/min Estimated GFR () 84.5 Estimated GFR (Non- 72.9 BUN/Creatinine Ratio 21.8 (10-20) Calcium Level 8.7 mg/dl (8.5-10.1) Troponin I < 0.015 ng/ml (0-0.045) Laboratory results reviewed by me Medications Administered Medications (Trade) Dose Ordered Sig/Gareth Route Start Time Stop Time Status Last Admin Dose Admin Aspirin (Aspirin Chew) 324 mg NOW STAT PO 08/26/17 19:27 08/26/17 19:29 DC 08/26/17 19:41 324 MG ECG Per My Interpretation Indication: chest pain Rate (beats per minute): 91 Rhythm: sinus rhythm Findings: other (NC, QRS, and QTc are within normal limits. No ST elevation ro depression. Mild Baseline artifact.) ED Course 1918: The patient was evaluated in room C8. A complete history and physical exam was performed. Review of the patient's EMR shows a history of PE and DVT, She was seen in the ED on Aug 14, and she had a CTA of the chest which showed no evidence of central pulmonary embolism. Evaluation for small peripheral pulmonary emboli is limited due to motion and suboptimal opacification of peripheral pulmonary arteries. Previous saddle pulmonary embolism has resolved compared to prior CTA. Her cardiac enzymes x2 were negative. 1926: Aspirin 324mg PO 2145: VSS. Discussed with patient's family members at bedside. I gave the option to be placed on observation for chest pain rule out ACS and possible stress test in the morning. They declined and preferred to do it as an outpatient and do a serial troponin, and if within normal limits, the she will be discharged. 0023: VSS. EKG and repeat troponin wnl. Patient discharged with PCP. DISCHARGE - Plan of care discussed with family and questions answered. The family was given both verbal and printed discharge instructions. The family verbalized understanding and ability to comply. The family is to seek outpatient follow up as noted in the discharge instructions. The family verbalized understanding and ability to comply. The family is discharged in stable condition. The family was instructed to return for worsening symptoms. Medical Decision 2145: VSS. Discussed with patient's family members at bedside. I gave the option to be placed on observation for chest pain rule out ACS and possible stress test in the morning. They declined and preferred to do it as an outpatient and do a serial troponin, and if within normal limits, the she will be discharged. 0023: VSS. EKG and repeat troponin wnl. Patient discharged with PCP. DISCHARGE - Plan of care discussed with family and questions answered. The family was given both verbal and printed discharge instructions. The family verbalized understanding and ability to comply. The family is to seek outpatient follow up as noted in the discharge instructions. The family verbalized understanding and ability to comply. The family is discharged in stable condition. The family was instructed to return for worsening symptoms. Medication Reconcilliation Current Medication List: was personally reviewed by me Blood Pressure Screening Patient's blood pressure: Normal blood pressure Impression Primary Impression: Chest pain, unspecified Scribe Attestation The scribe's documentation has been prepared under my direction and personally reviewed by me in its entirety. I confirm that the note above accurately reflects all work, treatment, procedures, and medical decision making performed by me. The chart was completed utilizing [employer] Speech voice recognition software. Grammatical errors, random word insertions, pronoun errors, and incomplete sentences are an occasional consequence of this system due to software limitations, ambient noise, and hardware issues. Any formal questions or concerns about the content, text, or information contained within the body of this dictation should be directly addressed to the physician for clarification. Departure Information Dispostion Home / Self-Care Referrals Bg Kearns M.D. (PCP) Forms IMPORTANT VISIT INFORMATION Patient Instructions Chest Pain - [facility], My [facility]
--- NOTE | 2017-08-26 20:21 | DIAGNOSTIC IMAGING REPORT ---
ULTRASOUND VENOUS DOPPLER LWR EXT BILA CLINICAL HISTORY: Flank pain and swelling COMPARISON STUDY: April 2017 FINDINGS: Real-time and color flow Doppler imaging were performed. Flow was seen within the femoral, popliteal and calf veins with no intraluminal thrombus demonstrated. The saphenous vein is patent. IMPRESSION: No evidence of lower extremity DVT. Electronically signed by: Link Ceja M.D. 08/26/2017 8:20 PM Dictated Date/Time: 08/26/2017 8:19 PM
--- NOTE | 2017-08-26 20:28 | DIAGNOSTIC IMAGING REPORT ---
CHEST 2 VIEWS ROUTINE CLINICAL HISTORY: Chest pain and shortness of breath COMPARISON STUDY: August 14, 2017 FINDINGS: The cardiac and mediastinal contours are normal. There is no evidence of focal pulmonary consolidation. There is no evidence of failure. No pleural effusions are visualized.[ IMPRESSION: No active disease in the chest. Electronically signed by: Link Ceja M.D. 08/26/2017 8:27 PM Dictated Date/Time: 08/26/2017 8:26 PM
--- NOTE | 2017-08-26 20:30 | DIAGNOSTIC IMAGING REPORT ---
L ANKLE MIN 3 VIEWS ROUTINE CLINICAL HISTORY: Left ankle pain status post trauma COMPARISON: August 17, 2017 DISCUSSION: No fractures or dislocations are visualized. IMPRESSION: No fractures identified. Electronically signed by: Link Ceja M.D. 08/26/2017 8:29 PM Dictated Date/Time: 08/26/2017 8:28 PM
[2017-08-26] MEDS ORDERED: XRL20 PO (21:06)
[2017-08-26 21:13] LABS: BLOOD UREA NITROGEN 19 mg/dl (7-18); CALCIUM 8.7 mg/dl (8.5-10.1); CARBON DIOXIDE 29 mmol/L (21-32); CREATININE 0.88 mg/dl (0.60-1.20); GLUCOSE 108 mg/dl (70-99); SODIUM 138 mmol/L (136-145)
[2017-08-26] MEDS ORDERED: CYM30 PO (22:08)
[2017-08-27 00:30] VITALS: BP 98/72; PULSE 79; O2SAT 95
== END 2017-08-27 00:32 | disposition home or self-care (01) ==
LOC: C.EDB 19:13 → C.EDC 08-27 00:32
DX: R07.9 Chest pain, unspecified (principal); J45.909 Unspecified asthma, uncomplicated; F79 Unspecified intellectual disabilities; Z80.9 Family history of malignant neoplasm, unspecified; Z83.3 Family history of diabetes mellitus; Z82.49 Family history of ischemic heart disease and other diseases of the circulatory system; Z83.6 Family history of other diseases of the respiratory system; Z79.01 Long term (current) use of anticoagulants; Z79.899 Other long term (current) drug therapy; Z91.048 Other nonmedicinal substance allergy status

== ENCOUNTER → 2017-09-13 | Outpatient (CLI) | payer OTHER ==
[~2017-09-13] MED LIST changes: +CYM30 PO; -XRL15 PO; +XRL20 PO
--- NOTE | 2017-09-14 15:35 | MAMMOGRAPHY REPORT ---
BILATERAL DIGITAL SCREENING MAMMOGRAM TOMOSYNTHESIS WITH CAD: 09/13/2017 CLINICAL HISTORY: Routine screening. Patient has no complaints. TECHNIQUE: Breast tomosynthesis in addition to standard 2D mammography was performed. Current study was also evaluated with a Computer Aided Detection (CAD) system. COMPARISON: Comparison is made to exams dated: 04/01/2016 mammogram, 08/29/2014 mammogram, 07/11/2013 ma mmogram, 05/24/2012 mammogram, 01/20/2010 mammogram - [facility], and 09/19/2007. BREAST COMPOSITION: The tissue of both breasts is almost entirely fatty. FINDINGS: No suspicious mass, architectural distortion or cluster of microcalcifications is seen. IMPRESSION: ACR BI-RADS CATEGORY 1: NEGATIVE There is no mammographic evidence of malignancy. A 1 year screening mammogram is recommended. The pa tient will receive written notification of the results. Approximately 10% of breast cancers are not detected with mammography. A negative mammographic report should not delay biopsy if a clinically suggestive mass is present. Urszula jones/penlindsey:09/13/2017 15:20:25 [employer] Dispatcher: Lidia RODRIGUEZ(Alonso)(Momo)([place]), [facility] letter sent: Normal 1/2 BI-RADS Code: ACR BI-RADS Category 1: Negative
== END | disposition home or self-care (01) ==
LOC: C.MAMM 14:43
PROVIDERS: ATTEND Internal Medicine
DX: Z12.31 Encounter for screening mammogram for malignant neoplasm of breast (principal)

== ENCOUNTER 2017-10-04 01:00 | Emergency (ER) | payer OTHER ==
[~2017-10-04] VITALS: Ht 162.6 cm; Wt 118.6 kg
[2017-10-04 01:06] VITALS: TEMP 36.7; Ht 162.6 cm; Wt 118.6 kg
[2017-10-04 01:53] LABS: HEMATOCRIT 40.1 % (37-47); HEMOGLOBIN 13.4 g/dL (12.0-16.0); MEAN CORPUSCULAR HEMOGLOBIN 34.1 pg (25-34); MEAN CORPUSCULAR HGB CONC 33.4 g/dl (32-36); MEAN PLATELET VOLUME 9.8 fL (7.4-10.4); PLATELET COUNT 254 K/uL (130-400); RED CELL DISTRIBUTION WIDTH SD 48.7 fL (36.4-46.3); WHITE BLOOD COUNT 8.63 K/uL (4.8-10.8)
[2017-10-04] MEDS ORDERED: ACET-1693 PO (01:57)
[2017-10-04 02:28] LABS: BLOOD UREA NITROGEN 11 mg/dl (7-18); CALCIUM 9.1 mg/dl (8.5-10.1); CARBON DIOXIDE 28 mmol/L (21-32); CREATININE 0.88 mg/dl (0.60-1.20); GLUCOSE 165 mg/dl (70-99); SODIUM 137 mmol/L (136-145)
[2017-10-04 03:09] VITALS: BP 154/87; PULSE 82; O2SAT 96
--- NOTE | 2017-10-04 06:35 | DIAGNOSTIC IMAGING REPORT ---
CT HEAD WITHOUT CONTRAST (CT) CLINICAL HISTORY: HEADACHE COMPARISON STUDY: 01/01/2016 TECHNIQUE: Axial CT of the brain is performed from the vertex to the skull base. IV contrast was not administered for this examination. A dose lowering technique was utilized adhering to the principles of ALARA. CT DOSE: 1228.53 mGy.cm FINDINGS: No intra or extra-axial mass lesions are visualized. There is no CT evidence of acute cortical infarction. There is no evidence of midline shift. There is no acute hemorrhage. No calvarial fractures are visualized. There are patchy white matter hypodensities likely on a small vessel basis. There is no evidence of pathologic ventricular dilatation. There is no evidence of acute sinusitis IMPRESSION: No acute intracranial findings Electronically signed by: Link Ceja M.D. 10/04/2017 6:34 AM Dictated Date/Time: 10/04/2017 6:33 AM
--- NOTE | 2017-10-04 07:07 | DIAGNOSTIC IMAGING REPORT ---
ULTRASOUND LEFT UPPER EXTREMITY VENOUS CLINICAL HISTORY: Left arm swelling and numbness. COMPARISON STUDY: No priors. TECHNIQUE: Real-time, grayscale, and color Doppler sonography of the deep veins of the left upper extremity is performed. Compression and augmentation were utilized. FINDINGS: There is no sonographic evidence of deep venous thrombosis identified in the left upper extremity. The left internal jugular, axillary, and brachial veins are patent and normally compressible. Normal venous waveforms and augmentation are seen within the left subclavian vein. The cephalic and basilic veins are clear. The visualized radial and ulnar veins are patent. IMPRESSION: There is no sonographic evidence of deep venous thrombosis identified in the left upper extremity. Electronically signed by: Elieser Garner M.D. 10/04/2017 7:06 AM Dictated Date/Time: 10/04/2017 7:05 AM
--- NOTE | 2017-10-04 14:40 | EMERGENCY ROOM VISIT NOTE ---
History Report prepared by Terrie: Toi Chery Under the Supervision of: Dr. Elieser Andrews M.D. First contact with patient: 01:11 Chief Complaint: SHOULDER PAIN Stated Complaint: PAIN IN LEFT SHOULDER,ARM AND HAND History of Present Illness The patient is a 57 year old female who presents to the Emergency Room with complaints of constant left arm numbness beginning today at 0600. The patient states that her left arm feels numb all the way down her arm. She notes that she might have pulled a muscle but did not have any trauma. She reports that she was doing needle work when her pain started. The patient states that she also has pain in her left knee and has neck soreness. She notes that her entire left hand is numb but reports that she is not experiencing any pain. Per , the patient has had similar symptoms every "once and a while." He notes that the patient takes Xarelto for blood clots and a depression pill. He reports that the patient took two Tylenol tonight with no relief of her symptoms. Source of History: patient, spouse/significant other () Onset: 0600 today Position: arm (left) Quality: numbness Timing: constant Note: The patient also complains of left knee pain and of neck soreness. She states that she is not experiencing any pain in her left arm. Review of Systems See HPI for pertinent positives & negatives. A total of 10 systems reviewed and were otherwise negative. Past Medical & Surgical Medical Problems: (1) Asthma (2) Bronchitis (3) Depression (4) Hx of blood clots (5) Mental retardation (6) Temporomandibular joint disorder Family History Cancer Diabetes mellitus Heart disease Hypertension Lung disease Social History Smoking Status: Never Smoker Alcohol Use: none Drug Use: none Marital Status: single Housing Status: lives with family Occupation Status: disabled Current/Historical Medications Scheduled Acetaminophen Tab (Tylenol), 650 MG PO DIRECTED Duloxetine HCl (Duloxetine HCl), 30 MG PO DAILY Levothyroxine Sodium (Levothyroxine Sodium), 88 MCG PO DAILY Rivaroxaban (Xarelto), 20 MG PO DAILY Scheduled PRN Albuterol Hfa (Ventolin Hfa), 2 PUFFS INH QID PRN for Cough/SOB/Wheezing Budesonide/Formoterol Fumarate (Symbicort 160/4.5 Inhaler ), 2 PUFFS INH BID PRN for Cough/SOB/Wheezing Ipratropium-Albuterol (Duoneb), 1 TREATMENT INH QID PRN for SOB/Wheezing Allergies Coded Allergies: Animal Dander (Verified Allergy, Unknown, sneezing,congestion, 10/04/17) Dust (Verified Allergy, Unknown, respiratory sx, 10/04/17) Molds and Smuts (Verified Allergy, Unknown, sneezing,congestion, 10/04/17) POLLEN (Verified Allergy, Unknown, congestion, 10/04/17) Ragweed (Verified Allergy, Unknown, nasal congestion, 10/04/17) Physical Exam Vital Signs Date Time Temp Pulse Resp B/P (MAP) Pulse Ox O2 Delivery O2 Flow Rate FiO2 10/04/17 03:09 82 20 154/87 96 10/04/17 02:45 84 20 154/87 97 10/04/17 01:06 36.7 103 20 160/84 96 Room Air Physical Exam GENERAL: Patient is in no acute distress. HEENT: No acute trauma, normocephalic atraumatic, mucous membranes moist, no nasal congestion, no scleral icterus. NECK: No stridor, no adenopathy, no meningismus, trachea is midline, soreness to left trapezius muscle and left posterior neck muscles. LUNGS: Clear to auscultation bilaterally, no wheeze, no rhonchi, breath sounds equal. HEART: Without murmurs gallops or rubs, regular rate and rhythm. ABDOMEN: Soft, nontender, bowel sounds positive, no hernias, no peritonitis. EXTREMITIES: No cyanosis or edema, full range of motion of all the joints without pain or difficulty, no signs for acute trauma. Strong left radial pulse , no rash noted to the left arm. NEUROLOGIC: Oriented x 3, no acute motor or sensory deficits, no focal weakness , no facial droop, no pronator drift or cerebellar dysfunction. SKIN: No rash, no jaundice, no diaphoresis. Medical Decision & Procedures ER Provider Diagnostic Interpretation: Radiology results as stated below per my review and radiologist interpretation: CT HEAD: Somewhat limited due to motion artifact. No intracranial hemorrhage, mass, or shift of midline structure. Mild small vessel ischemic change in the para-ventricular and subcortical white matter. Paranasal sinuses and mastoid air cells are clear. Radiologist: Celio Donato DO. Left upper extremity ultrasound: No evidence for acute DVT Laboratory Results 10/04/17 01:38 10/04/17 01:38 Test 10/04/17 01:38 Red Blood Count 3.93 M/uL (4.2-5.4) Mean Corpuscular Volume 102.0 fL (80-100) Mean Corpuscular Hemoglobin 34.1 pg (25-34) Mean Corpuscular Hemoglobin Concent 33.4 g/dl (32-36) RDW Standard Deviation 48.7 fL (36.4-46.3) RDW Coefficient of Variation 13.0 % (11.5-14.5) Mean Platelet Volume 9.8 fL (7.4-10.4) Anion Gap 7.0 mmol/L (3-11) Est Creatinine Clear Calc Drug Dose 88.3 ml/min Estimated GFR () 83.9 Estimated GFR (Non- 72.4 BUN/Creatinine Ratio 12.8 (10-20) Calcium Level 9.1 mg/dl (8.5-10.1) Troponin I < 0.015 ng/ml (0-0.045) Laboratory results reviewed by me. ECG Per My Interpretation Indication: weakness Rate (beats per minute): 96 Rhythm: normal sinus Findings: no ectopy, other (Baseline artifact present, no ST elevation, no PVCs ) ED Course 0012: The patient was evaluated in room B5. A complete history and physical exam was performed. Reevaluated the patient on several occasions. Discussed results and discharge instructions: She verbalized understanding and agreement. The patient is ready for discharge. Medical Decision Differential diagnoses include: nerve impingement, DVT, cardiac ischemia, intracranial bleeding, neuropathy, and stroke. There is no leukocytosis or concerning anemia. No significant electrolyte abnormality or kidney failure. EKG shows a normal sinus rhythm, no acute ischemic change. Cardiac enzyme testing 1 is not consistent with acute cardiac injury. Brain CT shows no acute bleed or mass-effect. Left upper extremity ultrasound does not show DVT. On my exam, the patient had no focal neurologic deficits to suggest acute CVA. There was no evidence for neurovascular compromise to the left upper extremity. The patient is tender in the left trapezius area and left posterior neck muscles , I suspect she has a pinched nerve causing some numbness in her arm. She has had issues like this before as per her significant other. The patient has been reassured, I do think she can be discharged with conservative measures. If worsening, she can return. Medication Reconcilliation Current Medication List: was personally reviewed by me Blood Pressure Screening Patient's blood pressure: Elevated blood pressure Blood pressure disposition: Referred to PCP Impression Primary Impression: Left arm numbness Scribe Attestation The scribe's documentation has been prepared under my direction and personally reviewed by me in its entirety. I confirm that the note above accurately reflects all work, treatment, procedures, and medical decision making performed by me. Departure Information Dispostion Home / Self-Care Referrals Bg Kearns M.D. (PCP) Forms HOME CARE DOCUMENTATION FORM, IMPORTANT VISIT INFORMATION Patient Instructions My [facility] [employer] Additional Instructions heat to the neck and shoulder may help keep using the tylenol for pain lab testing, ECG, Brain CT scan and left arm ultrasound were all ok today return if worsening see sheldon canseco for a reheck this week
== END 2017-10-04 03:10 | disposition home or self-care (01) ==
LOC: C.EDB 01:01
DX: R20.0 Anesthesia of skin (principal); F32.9 Major depressive disorder, single episode, unspecified; J45.909 Unspecified asthma, uncomplicated; F79 Unspecified intellectual disabilities; M26.609 Unspecified temporomandibular joint disorder, unspecified side; Z86.718 Personal history of other venous thrombosis and embolism; Z79.01 Long term (current) use of anticoagulants; Z83.3 Family history of diabetes mellitus; Z82.49 Family history of ischemic heart disease and other diseases of the circulatory system; Z91.048 Other nonmedicinal substance allergy status

== ENCOUNTER 2017-10-16 20:31 | Emergency (ER) | payer OTHER ==
[~2017-10-16] VITALS: Ht 162.6 cm; Wt 119.3 kg
[~2017-10-16 20:31] MED LIST changes: +ACET-1693 PO
[2017-10-16 20:36] VITALS: TEMP 36.7; Ht 162.6 cm; Wt 119.3 kg
--- NOTE | 2017-10-16 21:09 | EMERGENCY ROOM VISIT NOTE ---
History First contact with patient: 20:46 Chief Complaint: ABDOMINAL PAIN Stated Complaint: PAIN UNDER BREAST Nursing Triage Summary: Pt. reports right upper quadrant pain that started after eating dinner. Her father states that he has been trying to put her on a new diet and she was given salad for dinner. The father stated the patient put the salad in a honey blender in order to eat it. Pt. stated she also ate beets and it made her throw up. History of Present Illness The patient is a 57 year old female, significant past medical history MR, who presents to the Emergency Room with complaints of "pain under my breasts". The patient had eaten a cream Goddess salad from pending her bed this evening for supper, and shortly afterward, began experiencing this right-sided pain. She describes the pain as sharp, and states nothing seems to make it better or worse. She has not taken any medications. She did have one episode of emesis this morning, but associates that with eating beats. She has not had any nausea or vomiting associated with the abdominal pain at this time. The patient denies any recent illness including fever or chills. She denies any constipation, diarrhea, dysuria, urinary frequency, or urinary hesitancy. The patient denies any dyspnea or chest pain. 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 Review of Systems A complete 10 point review of systems was reviewed with the patient with pertinent positives and negatives as per history of present illness. All else were negative. Past Medical/Surgical History Medical Problems: (1) Asthma (2) Bronchitis (3) Depression (4) Hx of blood clots (5) Mental retardation (6) Temporomandibular joint disorder Family History Cancer Diabetes mellitus Heart disease Hypertension Lung disease Social History Smoking Status: Never Smoker Alcohol Use: none Drug Use: none Marital Status: single Housing Status: lives with family Occupation Status: disabled Current/Historical Medications Scheduled Acetaminophen Tab (Tylenol), 650 MG PO DIRECTED Duloxetine HCl (Duloxetine HCl), 30 MG PO HS Levothyroxine Sodium (Levothyroxine Sodium), 88 MCG PO DAILY Rivaroxaban (Xarelto), 20 MG PO DAILY Scheduled PRN Albuterol Hfa (Ventolin Hfa), 2 PUFFS INH QID PRN for Cough/SOB/Wheezing Budesonide/Formoterol Fumarate (Symbicort 160/4.5 Inhaler ), 2 PUFFS INH BID PRN for Cough/SOB/Wheezing Ipratropium-Albuterol (Duoneb), 1 TREATMENT INH QID PRN for SOB/Wheezing Physical Exam Vital Signs Date Time Temp Pulse Resp B/P (MAP) Pulse Ox O2 Delivery O2 Flow Rate FiO2 10/16/17 22:52 74 20 145/98 98 Room Air 10/16/17 20:36 36.7 93 20 155/79 94 Room Air Physical Exam VITALS: Vitals are noted on the nurse's note and reviewed by myself. Vital signs stable. GENERAL: This is a 57-year-old obese white female, in no acute distress, nondiaphoretic, well-developed well-nourished. SKIN: The skin was without rashes, erythema, edema, or bruising. There is no tenting of the skin. Capillary reflex less than 2 seconds. HEAD: Normocephalic atraumatic. EARS: External auditory canals clear, tympanic membranes pearly diaz without erythema or effusion bilaterally. EYES: Pupils equal round and reactive to light and accommodation. Conjunctivae without injection, sclerae without icterus. Extraocular movements intact. NOSE: Patent, turbinates without inflammation or discharge. No sinus tenderness. MOUTH: Mucous membranes moist. Tonsils are not enlarged. Pharynx without erythema or exudate. Uvula midline. Airway patent. Tongue does not deviate. NECK: Supple without nuchal rigidity. No lymphadenopathy. No thyromegaly. Cervical spine is nontender. No JVD. HEART: Regular rate and rhythm without murmurs gallops or rubs. LUNGS: Clear to auscultation bilaterally without wheezes, rales or rhonchi. No dullness to percussion. No retractions or accessory muscle use. ABDOMEN: Positive bowel sounds x 4. Normal tympanic percussion. Right upper quadrant abdominal tenderness. The abdomen was otherwise soft, nontender, without masses or organomegaly. Harrison sign negative. No guarding or rebound tenderness. MUSCULOSKELETAL: Tenderness noted in the right lower chest wall on palpation. No muscle atrophy, erythema, or edema noted. Full range of motion without joint tenderness in all extremities. No other tenderness to palpation. Normal gait. Strength 5/5 throughout. NEURO: Patient was alert and oriented to person place and time. Normal sensation to light and sharp touch. Deep tendon reflexes 2+ throughout. No focal neurological deficits. Medical Decision & Procedures ER Provider Diagnostic Interpretation: ABD/PELVIS IV CONTRAST ONLY CLINICAL HISTORY: 57 years-old Female presenting with RUQ pain. TECHNIQUE: Multidetector CT of the abdomen and pelvis was performed after the administration of intravenous contrast. IV contrast: 93 mL of Optiray 320. A dose lowering technique was used consistent with the principles of ALARA (as low as reasonably achievable). COMPARISON: 12/17/2012. CT DOSE (mGy.cm): The estimated cumulative dose is 2425.08. FINDINGS: Patient Monitor topogram: IVC filter noted. Lung bases: Mosaic attenuation noted suggesting small airways disease. Normal heart size. No pericardial or pleural effusion. Liver: Normal morphology. Density suggestive of hepatic steatosis. No focal lesion. Patent hepatic vasculature. Biliary: No intrahepatic or extrahepatic biliary ductal dilatation. Normal gallbladder. Pancreas: Moderate parenchymal atrophy. Spleen: Normal. Adrenal glands: Normal. Kidneys and ureters: Normal. No hydronephrosis. Bladder: Incompletely evaluated secondary to underdistention. Pelvic organs: Uterus and ovaries normal. Bowel: Mild stool burden in the ascending and transverse colon. The appendix is normal. No bowel obstruction. Prominent duodenal diverticulum along the descending and horizontal portion. No surrounding inflammatory change. Peritoneal cavity: No free fluid or intraperitoneal gas. Lymph nodes: No enlarged lymph nodes in the abdomen or pelvis. Vasculature: Aorta and IVC patent and normal in caliber. Infrarenal IVC filter in place. Abdominal wall: Small fat-containing umbilical hernia. Musculoskeletal: Degenerative changes of the spine. IMPRESSION: 1. Hepatic steatosis. Correlate with liver function tests to exclude steatohepatitis as a cause for abdominal pain. 2. No other evidence of acute intra-abdominal pathology. Electronically signed by: Bg Hunter M.D. 10/16/2017 10:52 PM Dictated Date/Time: 10/16/2017 10:48 PM (CHEST FOR PE) ANGIO WITH CLINICAL HISTORY: 57 years-old Female presenting with ^Right lower chest pain, hx. PE with IVC Filter. TECHNIQUE: Multidetector CT angiography of the chest was performed after administration of intravenous contrast. 3-D volumetric and/or maximum intensity projection (MIP) images were subsequently reconstructed for review. IV contrast: 93 mL of Optiray 320. A dose lowering technique was used consistent with the principles of ALARA (as low as reasonably achievable). COMPARISON: 08/15/2017. CT DOSE (mGy.cm): The estimated cumulative dose is 2425.08 mGy.cm. FINDINGS: Patient Monitor topogram: Unremarkable. Pulmonary vasculature: The study is suboptimal for the assessment of the pulmonary vascular tree secondary to timing of the contrast bolus and respiratory motion artifact. Allowing for limited image quality, no central filling defect to suggest pulmonary embolus. Main pulmonary artery is not enlarged. No flattening of the interventricular septum. No intracardiac filling defect. No reflux of contrast into the hepatic veins. Remaining chest: On soft tissue windows, normal thyroid and thoracic inlet. No axillary, supraclavicular, hilar, or mediastinal lymphadenopathy. Four-vessel aortic arch. Normal heart size. No pericardial or pleural effusion. Upper abdomen normal. On lung windows, motion artifact degrades evaluation of lung parenchyma. Allowing for this, no focal nodule or infiltrate. Mosaic attenuation could suggest small airways disease. Central airways patent. On bone windows, degenerative changes of the spine. IMPRESSION: 1. Allowing for suboptimal image quality, no evidence of pulmonary embolus. 2. Mosaic attenuation could suggest small airways disease. No focal infiltrate to suggest pneumonia. Electronically signed by: Bg Hunter M.D. 10/16/2017 10:46 PM Dictated Date/Time: 10/16/2017 10:42 PM Laboratory Results 10/16/17 21:50 Red Blood Count 4.27, Mean Corpuscular Volume 101.6, Mean Corpuscular Hemoglobin 34.2, Mean Corpuscular Hemoglobin Concent 33.6, Mean Platelet Volume 10.2, Neutrophils (%) (Auto) 64.2, Lymphocytes (%) (Auto) 24.4, Monocytes (%) ( Auto) 8.6, Eosinophils (%) (Auto) 2.0, Basophils (%) (Auto) 0.6, Neutrophils # ( Auto) 5.74, Lymphocytes # (Auto) 2.18, Monocytes # (Auto) 0.77, Eosinophils # ( Auto) 0.18, Basophils # (Auto) 0.05 10/16/17 21:50 Test 10/16/17 21:50 White Blood Count 8.94 K/uL (4.8-10.8) Red Blood Count 4.27 M/uL (4.2-5.4) Hemoglobin 14.6 g/dL (12.0-16.0) Hematocrit 43.4 % (37-47) Mean Corpuscular Volume 101.6 fL (80-100) Mean Corpuscular Hemoglobin 34.2 pg (25-34) Mean Corpuscular Hemoglobin Concent 33.6 g/dl (32-36) Platelet Count 241 K/uL (130-400) Mean Platelet Volume 10.2 fL (7.4-10.4) Neutrophils (%) (Auto) 64.2 % Lymphocytes (%) (Auto) 24.4 % Monocytes (%) (Auto) 8.6 % Eosinophils (%) (Auto) 2.0 % Basophils (%) (Auto) 0.6 % Neutrophils # (Auto) 5.74 K/uL (1.4-6.5) Lymphocytes # (Auto) 2.18 K/uL (1.2-3.4) Monocytes # (Auto) 0.77 K/uL (0.11-0.59) Eosinophils # (Auto) 0.18 K/uL (0-0.5) Basophils # (Auto) 0.05 K/uL (0-0.2) RDW Standard Deviation 48.9 fL (36.4-46.3) RDW Coefficient of Variation 13.2 % (11.5-14.5) Immature Granulocyte % (Auto) 0.2 % Immature Granulocyte # (Auto) 0.02 K/uL (0.00-0.02) Anion Gap 6.0 mmol/L (3-11) Est Creatinine Clear Calc Drug Dose 87.6 ml/min Estimated GFR () 82.8 Estimated GFR (Non- 71.4 BUN/Creatinine Ratio 10.6 (10-20) Calcium Level 9.1 mg/dl (8.5-10.1) Total Bilirubin 0.4 mg/dl (0.2-1) Aspartate Amino Transf (AST/SGOT) 25 U/L (15-37) Alanine Aminotransferase (ALT/SGPT) 38 U/L (12-78) Alkaline Phosphatase 83 U/L (45-117) Total Protein 8.6 gm/dl (6.4-8.2) Albumin 3.9 gm/dl (3.4-5.0) Globulin 4.7 gm/dl (2.5-4.0) Albumin/Globulin Ratio 0.8 (0.9-2) Lipase 118 U/L (73-393) ED Course The patient was seen and evaluated as above. IV access obtained, labs drawn. The patient was offered analgesics and declined. CT scans performed and reviewed by myself and radiologist as above. I discussed the findings of all testing with the patient and her family at bedside. The patient requests that I remove her IV. IV was removed and bandaged with gauze and Coban. Discharge instructions reviewed, the patient was discharged home in good condition. Medical Decision This is a 57-year-old female patient with significant past medical history MHMR , DVT, and PE who presents to the emergency department today complaining of "pain under my right breast". The patient does have tenderness on examination, however due to her history is difficult to examine. Based on her history and complaints at this time, labs and imaging were performed. These did not reveal any acute obvious cause of the patient's symptoms. Labs were without leukocytosis, anemia, thrombocytopenia. Renal and electrolyte function were without significant abnormalities. Electrolytes without significant abnormalities. Lipase normal. CT of the abdomen did show evidence for hepatic steatosis, however there were no abnormal liver function studies. The gallbladder was normal. The pancreas showed moderate parenchymal atrophy, however was otherwise normal. CTA of the chest did not reveal any obvious signs of pneumonia or pulmonary embolus. With discussion of the patient's findings, her father states they were exercising earlier today, and the patient was rushing through her exercises. She did not experience any discomfort with the exercises, however the pain began later. I suspect she could have strained a muscle, as the cause of her pain. The patient does have a history of anxiety , which I suspect could be contributing as well. I discussed this with the patient. I did recommend ice, heat, and OTC analgesics with close follow-up by her PCP. The patient was agreeable. All questions were answered to the patient and her parents satisfaction. Etiologies such as appendicitis, diverticulitis, pneumonia, bronchitis, obstruction, inflammatory bowel disease, renal colic, PUD, biliary pathology, pancreatitis, mesenteric ischemia, aortic pathology, PE, infections, genitourinary, UTI, musculoskeletal, perforated viscus, as well as others were entertained. I did discuss the case with my attending. The chart was completed utilizing [employer] Speech voice recognition software. Grammatical errors, random word insertions, pronoun errors, and incomplete sentences are an occasional consequence of this system due to software limitations, ambient noise, and hardware issues. Any formal questions or concerns about the content, text, or information contained within the body of this dictation should be directly addressed to the provider for clarification. Medication Reconcilliation Current Medication List: was personally reviewed by me Blood Pressure Screening Patient's blood pressure: Elevated blood pressure Blood pressure disposition: Elevated BP felt to be situational Impression Primary Impression: Right-sided chest pain Additional Impression: RUQ abdominal pain Departure Information Dispostion Home / Self-Care Condition GOOD Referrals Bg Kearns M.D. (PCP) Patient Instructions ED Abdominal Pain Unkn Cause, ED Chest Pain NonCardiac, My [facility] Additional Instructions You have been treated in the Emergency Department your right-sided chest/ abdominal Pain. Laboratory results and imaging studies have ruled out any emergent causes for your abdominal pain which would warrant admission or surgery. I suspect a muscular strain as the cause of your symptoms. For pain control, you can use the following [id number] medicines (if >12 yo): Acetaminophen(Tylenol) may be used for fever or pain. Use 1000mg every six hours as needed. Avoid using more than 3000mg in a 24 hour period. Drink plenty of water and stay well hydrated. As with any trip to the Emergency Department, you should follow-up with your Primary Care Provider from today's visit. Return to the emergency department if your symptoms persist despite treatment plan outlined above or if the following symptoms occur: increased fevers, chills , nausea/vomiting, blood in your stool or urine, chest pressure, or difficulty breathing. Problem Qualifiers
[2017-10-16] MEDS ORDERED: OPTIRAY 320 IV PRN (21:15)
[2017-10-16 21:58] LABS: BASO % 0.6 %; BASO ABS # 0.05 K/uL (0-0.2); EOS ABS # 0.18 K/uL (0-0.5); HEMATOCRIT 43.4 % (37-47); HEMOGLOBIN 14.6 g/dL (12.0-16.0); IG# 0.02 K/uL (0.00-0.02); LYMPH % 24.4 %; LYMPH ABS # 2.18 K/uL (1.2-3.4); MEAN CELL VOLUME 101.6 fL (80-100); MEAN CORPUSCULAR HEMOGLOBIN 34.2 pg (25-34); MEAN CORPUSCULAR HGB CONC 33.6 g/dl (32-36); MEAN PLATELET VOLUME 10.2 fL (7.4-10.4); MONO % 8.6 %; MONO ABS # 0.77 K/uL (0.11-0.59); NEUT % 64.2 %; NEUT ABS # 5.74 K/uL (1.4-6.5); PLATELET COUNT 241 K/uL (130-400); RED CELL DISTRIBUTION WIDTH CV 13.2 % (11.5-14.5); RED CELL DISTRIBUTION WIDTH SD 48.9 fL (36.4-46.3); WHITE BLOOD COUNT 8.94 K/uL (4.8-10.8)
[2017-10-16 22:15] LABS: ALBUMIN 3.9 gm/dl (3.4-5.0); CALCIUM 9.1 mg/dl (8.5-10.1); CREATININE 0.89 mg/dl (0.60-1.20); POTASSIUM 3.6 mmol/L (3.5-5.1)
[2017-10-16 22:18] LABS: TOTAL PROTEIN 8.6 gm/dl (6.4-8.2)
--- NOTE | 2017-10-16 22:47 | DIAGNOSTIC IMAGING REPORT ---
(CHEST FOR PE) ANGIO WITH CLINICAL HISTORY: 57 years-old Female presenting with ^Right lower chest pain, hx. PE with IVC Filter. TECHNIQUE: Multidetector CT angiography of the chest was performed after administration of intravenous contrast. 3-D volumetric and/or maximum intensity projection (MIP) images were subsequently reconstructed for review. IV contrast: 93 mL of Optiray 320. A dose lowering technique was used consistent with the principles of ALARA (as low as reasonably achievable). COMPARISON: 08/15/2017. CT DOSE (mGy.cm): The estimated cumulative dose is 2425.08 mGy.cm. FINDINGS: It Admin topogram: Unremarkable. Pulmonary vasculature: The study is suboptimal for the assessment of the pulmonary vascular tree secondary to timing of the contrast bolus and respiratory motion artifact. Allowing for limited image quality, no central filling defect to suggest pulmonary embolus. Main pulmonary artery is not enlarged. No flattening of the interventricular septum. No intracardiac filling defect. No reflux of contrast into the hepatic veins. Remaining chest: On soft tissue windows, normal thyroid and thoracic inlet. No axillary, supraclavicular, hilar, or mediastinal lymphadenopathy. Four-vessel aortic arch. Normal heart size. No pericardial or pleural effusion. Upper abdomen normal. On lung windows, motion artifact degrades evaluation of lung parenchyma. Allowing for this, no focal nodule or infiltrate. Mosaic attenuation could suggest small airways disease. Central airways patent. On bone windows, degenerative changes of the spine. IMPRESSION: 1. Allowing for suboptimal image quality, no evidence of pulmonary embolus. 2. Mosaic attenuation could suggest small airways disease. No focal infiltrate to suggest pneumonia. Electronically signed by: Bg Hunter M.D. 10/16/2017 10:46 PM Dictated Date/Time: 10/16/2017 10:42 PM
--- NOTE | 2017-10-16 22:53 | DIAGNOSTIC IMAGING REPORT ---
ABD/PELVIS IV CONTRAST ONLY CLINICAL HISTORY: 57 years-old Female presenting with RUQ pain. TECHNIQUE: Multidetector CT of the abdomen and pelvis was performed after the administration of intravenous contrast. IV contrast: 93 mL of Optiray 320. A dose lowering technique was used consistent with the principles of ALARA (as low as reasonably achievable). COMPARISON: 12/17/2012. CT DOSE (mGy.cm): The estimated cumulative dose is 2425.08. FINDINGS: Kosher Inspector topogram: IVC filter noted. Lung bases: Mosaic attenuation noted suggesting small airways disease. Normal heart size. No pericardial or pleural effusion. Liver: Normal morphology. Density suggestive of hepatic steatosis. No focal lesion. Patent hepatic vasculature. Biliary: No intrahepatic or extrahepatic biliary ductal dilatation. Normal gallbladder. Pancreas: Moderate parenchymal atrophy. Spleen: Normal. Adrenal glands: Normal. Kidneys and ureters: Normal. No hydronephrosis. Bladder: Incompletely evaluated secondary to underdistention. Pelvic organs: Uterus and ovaries normal. Bowel: Mild stool burden in the ascending and transverse colon. The appendix is normal. No bowel obstruction. Prominent duodenal diverticulum along the descending and horizontal portion. No surrounding inflammatory change. Peritoneal cavity: No free fluid or intraperitoneal gas. Lymph nodes: No enlarged lymph nodes in the abdomen or pelvis. Vasculature: Aorta and IVC patent and normal in caliber. Infrarenal IVC filter in place. Abdominal wall: Small fat-containing umbilical hernia. Musculoskeletal: Degenerative changes of the spine. IMPRESSION: 1. Hepatic steatosis. Correlate with liver function tests to exclude steatohepatitis as a cause for abdominal pain. 2. No other evidence of acute intra-abdominal pathology. Electronically signed by: Bg Hunter M.D. 10/16/2017 10:52 PM Dictated Date/Time: 10/16/2017 10:48 PM
[2017-10-16 23:20] VITALS: BP 145/98; PULSE 74; O2SAT 98
== END 2017-10-16 23:30 | disposition home or self-care (01) ==
LOC: C.EDB 20:32
DX: R10.11 Right upper quadrant pain (principal); R07.89 Other chest pain; K86.89 Other specified diseases of pancreas; F79 Unspecified intellectual disabilities; E66.9 Obesity, unspecified; Z86.59 Personal history of other mental and behavioral disorders; Z86.711 Personal history of pulmonary embolism; Z86.718 Personal history of other venous thrombosis and embolism; F32.9 Major depressive disorder, single episode, unspecified; J45.909 Unspecified asthma, uncomplicated; Z79.01 Long term (current) use of anticoagulants

== ENCOUNTER → 2017-11-08 | Outpatient (CLI) | payer OTHER | END | disposition home or self-care (01) | LOC: C.LABBC 13:12 | PROVIDERS: ATTEND Physician Assistant Medical | DX: R30.0 Dysuria (principal) ==

== ENCOUNTER → 2017-11-09 | Outpatient (CLI) | payer OTHER ==
--- NOTE | 2017-11-09 12:56 | DIAGNOSTIC IMAGING REPORT ---
L ANKLE MIN 3 VIEWS ROUTINE HISTORY: 57 years-old Female M25.572 Acute left ankle painleft acute left ankle pain COMPARISON: Left ankle radiographs 08/26/2017 TECHNIQUE: 3 views of the left ankle FINDINGS: No acute fracture, dislocation or osteochondral defect. Minimal marginal spurring about the distal tibia and midfoot. Moderate circumferential soft tissue swelling about the ankle. No opaque foreign body. IMPRESSION: Moderate soft tissue swelling without fracture. The above report was generated using voice recognition software. It may contain grammatical, syntax or spelling errors. Electronically signed by: Shiv Fonseca M.D. 11/09/2017 12:55 PM Dictated Date/Time: 11/09/2017 12:54 PM
== END | disposition home or self-care (01) ==
LOC: C.RADBC 12:18
PROVIDERS: ATTEND Physician Assistant Medical
DX: M25.572 Pain in left ankle and joints of left foot (principal); M79.89 Other specified soft tissue disorders

== ENCOUNTER 2017-11-15 19:07 | Emergency (ER) | payer OTHER ==
[~2017-11-15] VITALS: Ht 162.6 cm; Wt 119.0 kg
[2017-11-15 19:09] VITALS: TEMP 36.7; Ht 162.6 cm; Wt 119.0 kg
--- NOTE | 2017-11-15 19:59 | EMERGENCY ROOM VISIT NOTE ---
ED Visit Note First contact with patient: 19:14 Resident Physician Supervision Note: I was present with Dr. Baltazar during the history and exam. I discussed the case with the resident and agree with the findings and plan as documented in the note. Documented By: Du Justice
--- NOTE | 2017-11-15 20:02 | EMERGENCY ROOM VISIT NOTE ---
History First contact with patient: 19:14 Chief Complaint: COUGH Stated Complaint: CONGESTION History of Present Illness The patient is a 57 year old female who presents to the Emergency Room with complaints of cough and sinus congestion x 1 day. Patient is not taking her Symbicort regularly or her Albuterol at all. She isn't using Flonase or a Netti Pot. There are no fevers, no hemoptysis. No sore throat. No ear pain. No rhinorrhea. Patient is ambulating without SOB. Nobody else is sick in the home. Review of Systems See HPI for pertinent positives and negatives. A total of ten systems were reviewed and were otherwise negative. Constitutional: No fever, No chills Eyes: No worsening of vision Respiratory: No cough, No sputum, No shortness of breath Cardiovascular: + edema (chronic), No chest pain Abdomen: No pain, No nausea, No vomiting Psychiatric: No depression symptoms Past Medical/Surgical History Medical Problems: (1) Asthma (2) Bronchitis (3) Depression (4) Hx of blood clots (5) Mental retardation (6) Temporomandibular joint disorder Family History Cancer Diabetes mellitus Heart disease Hypertension Lung disease Social History Smoking Status: Never Smoker Alcohol Use: none Drug Use: none Marital Status: single Housing Status: lives with family Occupation Status: disabled Current/Historical Medications Scheduled Acetaminophen Tab (Tylenol), 650 MG PO DIRECTED Duloxetine HCl (Duloxetine HCl), 30 MG PO HS Levothyroxine Sodium (Levothyroxine Sodium), 88 MCG PO DAILY Rivaroxaban (Xarelto), 20 MG PO DAILY Scheduled PRN Albuterol Hfa (Ventolin Hfa), 2 PUFFS INH QID PRN for Cough/SOB/Wheezing Budesonide/Formoterol Fumarate (Symbicort 160/4.5 Inhaler ), 2 PUFFS INH BID PRN for Cough/SOB/Wheezing Ipratropium-Albuterol (Duoneb), 1 TREATMENT INH QID PRN for SOB/Wheezing Physical Exam Vital Signs Date Time Temp Pulse Resp B/P (MAP) Pulse Ox O2 Delivery O2 Flow Rate FiO2 11/15/17 19:09 36.7 88 20 156/88 96 Room Air Physical Exam Gen: No acute distress. HEENT: Head - normocephalic and atraumatic. Pupils are equal, round, and reactive to light. Extraocular eye muscles are intact and sclera are anicteric. Ears - bilaterally patent canals with noninjected tympanic membranes and no evidence of hemotympanum. Nose - moist nasal mucosa without discharge. Mouth - moist buccal mucosa. Oropharynx is nonerythematous and there is no tonsillar exudate or edema noted. Neck: Supple; no JVD, nuchal rigidity, cervical lymphadenopathy, or auscultated bruits. Heart: Regular rate and rhythm. There is a normal S1 and S2 with no murmurs, clicks, or gallops appreciated. Lungs: Clear to auscultation bilaterally with no wheezes, rales, or rhonchi. Abdomen: Soft, completely nontender, nondistended, with good bowel sounds. There are no palpable pulsatile masses or hepatosplenomegaly. There is no guarding, rigidity, or rebound noted. Extremities: No evidence of cyanosis, clubbing, or edema. There are easily palpable peripheral pulses. Neuro:The patient is awake and alert, oriented to day, time, and place. Muscle strength is 5/5 in all 4 extremities. The patient has equal bulk system operator strength and equal pedal push and pull. There are no cerebellar signs. Medical Decision & Procedures Medical Decision The patient's care and disposition was discussed with Dr. Justice, Attending ED Physician. This is a 57F with a one day history of cough and sinus congestion. Differential diagnosis include URI, pneumonia, sinusitis, otitis media, pharyngitis, bronchitis, allergies. Triage Nursing notes were reviewed. ED Course included an extensive history and physical exam. This is most likely a viral URI with sinus congestion. The pt was informed about the findings as listed above. All questions were answered. Return instructions were outlined and the patient was discharged in good condition. The patient was referred to PCP for recheck of the current condition. Head Trauma GCS Score: 15 Impression Primary Impression: Upper respiratory infection Departure Information Dispostion Home / Self-Care Condition GOOD Referrals Bg Kearns M.D. (PCP) Patient Instructions Albuterol inhalation aerosol, ED URI Viral, My [facility] Additional Instructions The origin of your cough is most likely viral. Antibiotics don't kill viruses. When you have a viral infection with sinus congestion there are a few things you can do to feel better: - Drink fluids. Fluids loosen mucus. - Humidity and Moisture. This will loosen mucus. - Flonase may help with sinus congestions but can also cause nose bleeds. - Honey is an evidence based cough suppressant. Please take your Symbicort on a schedule as prescribed. Symbicort is not an as needed medication. Albuterol should be viewed as a cough medicine. Take your Albuterol whenever you are coughing, up to every 4 hours. Use both Symbicort and Albuterol with a spacer. Return to see your PCP if your symptoms persist after 5 days total. Resident Involvement: Resident Care Provided Care Provided: Adult ED
[2017-11-15 20:47] VITALS: BP 136/86; PULSE 73; O2SAT 95
== END 2017-11-15 20:48 | disposition home or self-care (01) ==
LOC: C.EDB 19:08 → C.EDA 20:48
DX: J06.9 Acute upper respiratory infection, unspecified (principal); J45.909 Unspecified asthma, uncomplicated; F79 Unspecified intellectual disabilities; F32.9 Major depressive disorder, single episode, unspecified; Z86.718 Personal history of other venous thrombosis and embolism; Z83.3 Family history of diabetes mellitus; Z82.49 Family history of ischemic heart disease and other diseases of the circulatory system; Z79.01 Long term (current) use of anticoagulants; Z79.899 Other long term (current) drug therapy

== ENCOUNTER → 2018-02-07 | Outpatient (CLI) | payer OTHER ==
[~2018-02-07] MED LIST changes: +ACET-1256 PO; -ACET-1693 PO; +ALBINS/ INH; +BENZ1CAP90 PO; +CIPR1TAB11 PO; +CYM/30 PO; -CYM30 PO; +DIAZ-165 PO; +FLUO20SO9 PO; -IPRASOL4 INH; +KYOLIC GARLIC PO; +LANS15CA6 PO; +LEVO100T7 PO; -LEVO88TA3 PO; +LSX20 PO; +MULT1LIQ6 PO; +SENN-61 PO; -VNTHFA/IN INH; +[UNRECOGNIZED DRUG - OTHER] PO
[2018-02-07 22:06] LABS: BASO % 0.3 %; BASO ABS # 0.03 K/uL (0-0.2); EOS % 2.7 %; EOS ABS # 0.26 K/uL (0-0.5); HEMOGLOBIN 13.8 g/dL (12.0-16.0); IG# 0.03 K/uL (0.00-0.02); LYMPH % 20.6 %; LYMPH ABS # 1.96 K/uL (1.2-3.4); MEAN CELL VOLUME 101.4 fL (80-100); MEAN CORPUSCULAR HEMOGLOBIN 33.3 pg (25-34); MEAN CORPUSCULAR HGB CONC 32.9 g/dl (32-36); MEAN PLATELET VOLUME 10.4 fL (7.4-10.4); MONO % 8.6 %; MONO ABS # 0.82 K/uL (0.11-0.59); NEUT % 67.5 %; NEUT ABS # 6.43 K/uL (1.4-6.5); PLATELET COUNT 227 K/uL (130-400); RED CELL DISTRIBUTION WIDTH CV 13.7 % (11.5-14.5); RED CELL DISTRIBUTION WIDTH SD 51.2 fL (36.4-46.3); WHITE BLOOD COUNT 9.53 K/uL (4.8-10.8)
[2018-02-07 22:25] LABS: ALBUMIN 3.5 gm/dl (3.4-5.0); ALKALINE PHOSPHATASE 72 U/L (45-117); ALT/SGPT 33 U/L (12-78); AST/SGOT 23 U/L (15-37); BLOOD UREA NITROGEN 11 mg/dl (7-18); CALCIUM 8.9 mg/dl (8.5-10.1); CARBON DIOXIDE 29 mmol/L (21-32); CREATININE 0.86 mg/dl (0.60-1.20); GLUCOSE 134 mg/dl (70-99); POTASSIUM 3.7 mmol/L (3.5-5.1); SODIUM 139 mmol/L (136-145); TOTAL PROTEIN 7.7 gm/dl (6.4-8.2)
--- NOTE | 2018-02-07 23:15 | DIAGNOSTIC IMAGING REPORT ---
PELVIS CT WITHOUT CONTRAST CT DOSE: 738.41 mGycm HISTORY: PELVIS PAIN TECHNIQUE: Multiaxial CT images of the pelvis were performed without contrast. A dose lowering technique was utilized adhering to the principles of ALARA. COMPARISON STUDY: Abdomen and pelvis CT 01/11/2018. FINDINGS: No fractures within the visualized osseous structures of the pelvis. No pelvic or inguinal lymphadenopathy. The bladder is not well-distended but appears unremarkable. The uterus and ovaries are within normal limits. No pelvic free fluid. The visualized loops of bowel show no wall thickening or obstruction. Normal appendix. IMPRESSION: No change compared to the prior study. No significant abnormality within the pelvis. Electronically signed by: Jorge Kumari M.D. 02/07/2018 11:13 PM Dictated Date/Time: 02/07/2018 11:09 PM
== END | disposition home or self-care (01) ==
LOC: C.CTS 21:32
PROVIDERS: ATTEND Family Medicine
DX: R10.2 Pelvic and perineal pain (principal)

== ENCOUNTER 2018-02-09 20:34 | Emergency (ER) | payer OTHER ==
[~2018-02-09] VITALS: Ht 162.6 cm; Wt 116.8 kg
[~2018-02-09 20:34] MED LIST changes: -BENZ1CAP90 PO; -CIPR1TAB11 PO; -CYM/30 PO; -SENN-61 PO
[2018-02-09 20:36] VITALS: TEMP 36.5; Ht 162.6 cm; Wt 116.8 kg
[2018-02-09] MEDS ORDERED: ACETAMINOPHEN SUSP 160 MG/5 ML UDC PO STA (21:14)
[2018-02-09 21:40] LABS: BASO % 0.4 %; BASO ABS # 0.03 K/uL (0-0.2); EOS % 2.9 %; EOS ABS # 0.24 K/uL (0-0.5); HEMATOCRIT 41.3 % (37-47); HEMOGLOBIN 13.6 g/dL (12.0-16.0); IG# 0.01 K/uL (0.00-0.02); LYMPH % 25.7 %; LYMPH ABS # 2.11 K/uL (1.2-3.4); MEAN CELL VOLUME 101.2 fL (80-100); MEAN CORPUSCULAR HEMOGLOBIN 33.3 pg (25-34); MEAN CORPUSCULAR HGB CONC 32.9 g/dl (32-36); MEAN PLATELET VOLUME 10.4 fL (7.4-10.4); MONO % 9.9 %; MONO ABS # 0.81 K/uL (0.11-0.59); NEUT ABS # 5.01 K/uL (1.4-6.5); PLATELET COUNT 233 K/uL (130-400); RED CELL DISTRIBUTION WIDTH CV 13.8 % (11.5-14.5); RED CELL DISTRIBUTION WIDTH SD 51.6 fL (36.4-46.3); WHITE BLOOD COUNT 8.21 K/uL (4.8-10.8)
[2018-02-09] MEDS ORDERED: CYM/30 PO (21:58)
[2018-02-09] MEDS ORDERED: SENN-61 PO (21:58)
[2018-02-09] MEDS ORDERED: CIPR1TAB11 PO (21:58)
[2018-02-09] MEDS ORDERED: BENZ1CAP90 PO (21:58)
[2018-02-09 22:16] LABS: ALBUMIN 3.7 gm/dl (3.4-5.0); CREATININE 0.72 mg/dl (0.60-1.20); POTASSIUM 4.2 mmol/L (3.5-5.1); TOTAL PROTEIN 8.1 gm/dl (6.4-8.2)
--- NOTE | 2018-02-09 22:16 | DIAGNOSTIC IMAGING REPORT ---
CT SCAN OF THE ABDOMEN AND PELVIS WITHOUT IV CONTRAST CLINICAL HISTORY: Generalized abdominal pain. COMPARISON STUDY: Abdominal CT dated 02/09/2018. TECHNIQUE: CT scan of the abdomen and pelvis is performed from the lung bases to the proximal femora. Images are reviewed in the axial, sagittal, and coronal planes. IV contrast was not administered for this examination. Note that the examination was performed in suboptimal fashion without oral and IV contrast. There is motion artifact. The examination is also degraded by by large body habitus, and streak artifact from the patient's body wall abutting the CT gantry. There is also streak artifact from the patient's arms which could not be elevated above the abdomen. A dose lowering technique was utilized adhering to the principles of ALARA. CT DOSE: 2138.56 mGy.cm FINDINGS: Lung bases: The heart is normal in size and without pericardial effusion. Evaluation the lung bases are degraded by motion artifact. The lung bases are grossly clear. Liver: Evaluation of the liver is degraded by streak artifact. The unenhanced liver is enlarged, measuring 19.1 cm in length. The liver demonstrates diffusely diminished attenuation consistent with hepatic steatosis. Fatty sparing is seen adjacent to the gallbladder fossa. There is no intrahepatic biliary ductal dilatation. Gallbladder: Unremarkable. Spleen: Normal in size and attenuation. Pancreas: There is marked and age advanced glandular atrophy of the pancreas. Adrenal glands: Unremarkable. Kidneys: The unenhanced kidneys demonstrate cortical atrophy and are without hydronephrosis. There are no renal calculi identified. There is no evidence of contour deforming renal mass lesion. Abdominal vasculature: The abdominal aorta is normal in course and caliber. An IVC filter is in place. Bowel: Small duodenal diverticula are noted. No bowel obstruction is seen. The appendix is well-visualized and normal. Peritoneum: There is no intraperitoneal free air or abdominal ascites. There is a fat-containing umbilical hernia. Lymphadenopathy: None. Pelvic viscera: The bladder, uterus, and adnexa are normal as visualized. Skeletal structures: The skeletal structures are osteopenic. There is mild lumbosacral spondylosis. No lytic or blastic lesions are seen. IMPRESSION: 1. Suboptimal examination without oral and IV contrast. The examination is also degraded by streak and motion artifact. 2. There are no acute infectious or inflammatory findings in the abdomen or pelvis. 3. Hepatomegaly and hepatic steatosis. 4. Additional findings as above. Electronically signed by: Elieser Garner M.D. 02/09/2018 10:14 PM Dictated Date/Time: 02/09/2018 10:09 PM
[2018-02-09 22:56] VITALS: BP 127/85; PULSE 79; O2SAT 96
--- NOTE | 2018-02-10 00:43 | EMERGENCY ROOM VISIT NOTE ---
History Report prepared by Terrie: Padilla Cohn Under the Supervision of: Dr. Regan Aldridge M.D. First contact with patient: 21:03 Chief Complaint: ABDOMINAL PAIN Stated Complaint: ABDOMINAL PAIN History of Present Illness History is limited secondary to medical disability. Additional history was obtained by the parents. The patient is a 57 year old female who presents to the Emergency Room with complaints of intermittent upper abdominal pain beginning around 18:00 today. The patient describes the pain as "jaggy." Family reports that the patient had a CT scan of the pelvis and blood work done yesterday at [facility] with Dr. Nicole. They note that she had pain in the pelvic region at that time that is now resolved. They report that the patient is on Xarelto. The patient notes that she has not tried taking Tylenol. She rates her current pain as a 6/10 in severity. Pt denies LOC, headache, fevers, chills, diaphoresis, visual changes, neck pain , chest pain, breathing difficulties, nausea, vomiting, back pain, melena, hematochezia, numbness, weakness, lymphadenopathy, rash, or other complaints. Source of History: patient, parent Onset: 18:00 today Position: abdomen Symptom Intensity: 6/10 Quality: other ("jaggy") Timing: intermittent Review of Systems ROS limited secondary to medical disability Past Medical & Surgical Medical Problems: (1) Asthma (2) Bronchitis (3) Depression (4) Hx of blood clots (5) Mental retardation (6) Temporomandibular joint disorder Family History Cancer Diabetes mellitus Heart disease Hypertension Lung disease Social History Smoking Status: Never Smoker Alcohol Use: none Drug Use: none Marital Status: single Housing Status: lives with family Occupation Status: disabled Current/Historical Medications Scheduled Ciprofloxacin Tab (Cipro), 250 MG PO BID Duloxetine HCl (Cymbalta), 30 MG PO DAILY Fluoxetine Hcl (Fluoxetine Hcl), 10 MG PO DAILY Furosemide (Furosemide), 20 MG PO QAM Levothyroxine Sodium (Levothyroxine Sodium), 100 MCG PO DAILY Multiple Vitamins W/ Minerals (Multivitamin), 2 TSP PO DAILY Rivaroxaban (Xarelto), 20 MG PO DAILY [Kyolic Garlic], 600 MG PO DAILY [Gcast-Lmph-Iaqssdgep], 2 TAB PO DAILY Scheduled PRN Acetaminophen (Tylenol), 500-1,000 MG PO DIRECTED PRN for Pain Albuterol Sulf (Proventil 0.083% 2.5MG/3ML), 2.5 MG INH QID PRN for SOB/Wheezing Benzonatate (Tessalon Perles), 200 MG PO DIRECTED PRN for Cough Budesonide/Formoterol Fumarate (Symbicort 160/4.5 Inhaler), 2 PUFFS INH BID PRN for SOB/Wheezing Senna (Senokot), 1 TAB PO DIRECTED PRN for Constipation Allergies Coded Allergies: Animal Dander (Verified Allergy, Intermediate, sneezing,congestion, 02/09/18 ) Dust (Verified Allergy, Intermediate, respiratory sx, 02/09/18) Molds and Smuts (Verified Allergy, Intermediate, sneezing,congestion, ) POLLEN (Verified Allergy, Intermediate, congestion, 02/09/18) Ragweed (Verified Allergy, Intermediate, nasal congestion, 02/09/18) Physical Exam Vital Signs Date Time Temp Pulse Resp B/P (MAP) Pulse Ox O2 Delivery O2 Flow Rate FiO2 02/09/18 22:56 79 20 127/85 96 Room Air 02/09/18 21:46 87 20 124/92 98 Room Air 02/09/18 20:36 36.5 94 20 169/95 93 Room Air Physical Exam GENERAL: Awake, alert, well-appearing, in no distress HENT: Normocephalic, atraumatic. Oropharynx unremarkable. EYES: Normal conjunctiva. Sclera non-icteric. NECK: Supple. No nuchal rigidity. FROM. No masses. RESPIRATORY: Clear to auscultation. No wheezes. No rales. Normal respiratory effort. CARDIAC: Normal rate. Normal rhythm. No murmurs. No rubs. Extremities warm and well perfused. Pulses equal. No JVD. GI: Soft, non-distended. Left upper quadrant tenderness to palpation. No rebound or guarding. No masses. RECTAL: Deferred. MUSCULOSKELETAL: Atraumatic. Chest examination reveals no tenderness. The back is symmetrical on inspection without obvious abnormality. There is no CVA tenderness to palpation. No joint edema. LOWER EXTREMITIES: Calves are equal size bilaterally and non-tender. No edema. No discoloration. NEURO: Normal sensorium. No sensory or motor deficits noted. SKIN: No rash or jaundice noted. Medical Decision & Procedures ER Provider Diagnostic Interpretation: Radiology results as stated below per my review and radiologist interpretation: CT SCAN OF THE ABDOMEN AND PELVIS WITHOUT IV CONTRAST CLINICAL HISTORY: Generalized abdominal pain. COMPARISON STUDY: Abdominal CT dated 02/09/2018. TECHNIQUE: CT scan of the abdomen and pelvis is performed from the lung bases to the proximal femora. Images are reviewed in the axial, sagittal, and coronal planes. IV contrast was not administered for this examination. Note that the examination was performed in suboptimal fashion without oral and IV contrast. There is motion artifact. The examination is also degraded by by large body habitus, and streak artifact from the patient's body wall abutting the CT gantry. There is also streak artifact from the patient's arms which could not be elevated above the abdomen. A dose lowering technique was utilized adhering to the principles of ALARA. CT DOSE: 2138.56 mGy.cm FINDINGS: Lung bases: The heart is normal in size and without pericardial effusion. Evaluation the lung bases are degraded by motion artifact. The lung bases are grossly clear. Liver: Evaluation of the liver is degraded by streak artifact. The unenhanced liver is enlarged, measuring 19.1 cm in length. The liver demonstrates diffusely diminished attenuation consistent with hepatic steatosis. Fatty sparing is seen adjacent to the gallbladder fossa. There is no intrahepatic biliary ductal dilatation. Gallbladder: Unremarkable. Spleen: Normal in size and attenuation. Pancreas: There is marked and age advanced glandular atrophy of the pancreas. Adrenal glands: Unremarkable. Kidneys: The unenhanced kidneys demonstrate cortical atrophy and are without hydronephrosis. There are no renal calculi identified. There is no evidence of contour deforming renal mass lesion. Abdominal vasculature: The abdominal aorta is normal in course and caliber. An IVC filter is in place. Bowel: Small duodenal diverticula are noted. No bowel obstruction is seen. The appendix is well-visualized and normal. Peritoneum: There is no intraperitoneal free air or abdominal ascites. There is a fat-containing umbilical hernia. Lymphadenopathy: None. Pelvic viscera: The bladder, uterus, and adnexa are normal as visualized. Skeletal structures: The skeletal structures are osteopenic. There is mild lumbosacral spondylosis. No lytic or blastic lesions are seen. IMPRESSION: 1. Suboptimal examination without oral and IV contrast. The examination is also degraded by streak and motion artifact. 2. There are no acute infectious or inflammatory findings in the abdomen or pelvis. 3. Hepatomegaly and hepatic steatosis. 4. Additional findings as above. Electronically signed by: Elieser Garner M.D. 02/09/2018 10:14 PM Dictated Date/Time: 02/09/2018 10:09 PM Laboratory Results 02/09/18 21:25 Red Blood Count 4.08, Mean Corpuscular Volume 101.2, Mean Corpuscular Hemoglobin 33.3, Mean Corpuscular Hemoglobin Concent 32.9, Mean Platelet Volume 10.4, Neutrophils (%) (Auto) 61.0, Lymphocytes (%) (Auto) 25.7, Monocytes (%) ( Auto) 9.9, Eosinophils (%) (Auto) 2.9, Basophils (%) (Auto) 0.4, Neutrophils # ( Auto) 5.01, Lymphocytes # (Auto) 2.11, Monocytes # (Auto) 0.81, Eosinophils # ( Auto) 0.24, Basophils # (Auto) 0.03 02/09/18 21:25 Test 02/09/18 21:25 02/09/18 22:35 White Blood Count 8.21 K/uL (4.8-10.8) Red Blood Count 4.08 M/uL (4.2-5.4) Hemoglobin 13.6 g/dL (12.0-16.0) Hematocrit 41.3 % (37-47) Mean Corpuscular Volume 101.2 fL (80-100) Mean Corpuscular Hemoglobin 33.3 pg (25-34) Mean Corpuscular Hemoglobin Concent 32.9 g/dl (32-36) Platelet Count 233 K/uL (130-400) Mean Platelet Volume 10.4 fL (7.4-10.4) Neutrophils (%) (Auto) 61.0 % Lymphocytes (%) (Auto) 25.7 % Monocytes (%) (Auto) 9.9 % Eosinophils (%) (Auto) 2.9 % Basophils (%) (Auto) 0.4 % Neutrophils # (Auto) 5.01 K/uL (1.4-6.5) Lymphocytes # (Auto) 2.11 K/uL (1.2-3.4) Monocytes # (Auto) 0.81 K/uL (0.11-0.59) Eosinophils # (Auto) 0.24 K/uL (0-0.5) Basophils # (Auto) 0.03 K/uL (0-0.2) RDW Standard Deviation 51.6 fL (36.4-46.3) RDW Coefficient of Variation 13.8 % (11.5-14.5) Immature Granulocyte % (Auto) 0.1 % Immature Granulocyte # (Auto) 0.01 K/uL (0.00-0.02) Anion Gap 9.0 mmol/L (3-11) Est Creatinine Clear Calc Drug Dose 107.0 ml/min Estimated GFR () 107.0 Estimated GFR (Non- 92.3 BUN/Creatinine Ratio 14.6 (10-20) Calcium Level 9.0 mg/dl (8.5-10.1) Total Bilirubin 0.5 mg/dl (0.2-1) Direct Bilirubin mg/dl (0-0.2) Aspartate Amino Transf (AST/SGOT) 35 U/L (15-37) Alanine Aminotransferase (ALT/SGPT) 32 U/L (12-78) Alkaline Phosphatase 72 U/L (45-117) Total Protein 8.1 gm/dl (6.4-8.2) Albumin 3.7 gm/dl (3.4-5.0) Lipase 129 U/L (73-393) Chemistry Specimen Hemolysis Urine Color YELLOW Urine Appearance CLEAR (CLEAR) Urine pH 7.5 (4.5-7.5) Urine Specific [place] 1.008 (1.000-1.030) Urine Protein NEG (NEG) Urine Glucose (UA) NEG (NEG) Urine Ketones NEG (NEG) Urine Occult Blood NEG (NEG) Urine Nitrite NEG (NEG) Urine Bilirubin NEG (NEG) Urine Urobilinogen NEG (NEG) Urine Leukocyte Esterase NEG (NEG) Laboratory results reviewed by me Medications Administered Medications (Trade) Dose Ordered Sig/Gareth Route Start Time Stop Time Status Last Admin Dose Admin Acetaminophen (Tylenol Children'S Susp) 960 mg NOW STAT PO 02/09/18 21:14 02/09/18 21:16 DC 02/09/18 21:43 960 MG ED Course 2107: The patient was evaluated in room C10. A complete history and physical exam was performed. 2113: Ordered Acetaminophen 960 mg PO 2207: I updated the patient on her current results. 2245: I reevaluated the patient, who is feeling better. Discussed results and discharge instructions: she verbalized understanding and agreement. The patient is ready for discharge. Medical Decision Blood work and pelvis imaging yesterday was unremarkable. The patient reports she was having right lower pelvic pain yesterday. Triage Nursing notes reviewed and agree them. Additional history obtained from family.. The patient's history was concerning for left upper abdominal pain. Differential diagnosis: Etiologies such as diverticulitis, PUD, biliary pathology, UTI, pancreatitis, obstruction, mesenteric ischemia, aortic pathology, infections, inflammatory bowel disease, renal colic, appendicitis, as well as others were entertained. Physical examination findings: As above. No peritoneal findings. ER treatment provided: Oral tongue On reassessment the patient felt better. Diagnostics interpreted by me: The labs revealed an unremarkable CBC and chemistry panel. Urinalysis negative. Imaging studies: CT scan as above The patient is doing well. She is somewhat difficult historian. She could not give specific details about the abdominal pain but denied any right-sided pain stated her lower pain yesterday resolved. She also notes that she had no chest pain or breathing problems. She is on anticoagulation. She has a history of blood clots. Again she denied any pulmonary symptoms. Her workup today was unremarkable. With a dose of Tylenol she felt much better. By the evaluation outlined above other emergent etiologies such as those listed in the differential, as well as others, were deemed relatively unlikely. The patient and family were educated about the findings as listed above. All questions were answered and they were pleased with the treatment. Return instructions were outlined and the patient was discharged in stable condition. The patient was referred to [] for follow-up for a recheck of the current condition. Medication Reconcilliation Current Medication List: was personally reviewed by me Blood Pressure Screening Patient's blood pressure: Elevated blood pressure Blood pressure disposition: Elevated BP felt to be situational Impression Primary Impression: Abdominal pain, left upper quadrant Scribe Attestation The scribe's documentation has been prepared under my direction and personally reviewed by me in its entirety. I confirm that the note above accurately reflects all work, treatment, procedures, and medical decision making performed by me. Departure Information Dispostion Home / Self-Care Referrals Jennyfer Nicole M.D. (PCP) Forms Call Back Authorization, HOME CARE DOCUMENTATION FORM, IMPORTANT VISIT INFORMATION Patient Instructions My [facility] Additional Instructions Tylenol suspension(Acetaminophen): 160 mg per 5-mL's. Take 30 ml's every 6 hours as needed for pain or fever. Rest and drink plenty of fluids as tolerated. Slow sips of water or sports drinks are recommended instead of large amounts all at once. Continue current medications. Once your stomach is settled start with a clear liquid diet (jello, soup broth, etc.) and then advance as tolerated. You should avoid full, heavy meals for about 24 hrs from the time your symptoms resolved. Return to the ER immediately for worsening or persistent abdominal pain, vomiting, fevers, chest pains, difficulty breathing, black or bloody stools, worsening of your condition, or as needed. Follow up with your primary physician in 1-2 days for a recheck of your current condition.
== END 2018-02-09 22:56 | disposition home or self-care (01) ==
LOC: C.EDB 20:35 → C.EDC 22:56
DX: R10.12 Left upper quadrant pain (principal); Z79.01 Long term (current) use of anticoagulants; J45.909 Unspecified asthma, uncomplicated; F32.9 Major depressive disorder, single episode, unspecified; F79 Unspecified intellectual disabilities; Z86.718 Personal history of other venous thrombosis and embolism; Z79.899 Other long term (current) drug therapy; Z91.048 Other nonmedicinal substance allergy status; Z80.9 Family history of malignant neoplasm, unspecified; Z83.3 Family history of diabetes mellitus; Z82.49 Family history of ischemic heart disease and other diseases of the circulatory system; Z83.6 Family history of other diseases of the respiratory system

== ENCOUNTER 2023-12-21 16:41 | Observation (INO) ==
[2023-12-21 17:23] LABS: Basophils # (auto) 0.05 K/uL (0.00-0.20); Basophils % (auto) 0.8 %; Eosinophils # (auto) 0.09 K/uL (0.00-0.50); Eosinophils % (auto) 1.5 %; Hematocrit (blood only) 38.3 % (37.0-47.0); Hemoglobin 12.8 g/dl (12.0-16.0); Immature Granulocytes # (auto) 0.01 K/uL (0.01-0.20); Immature Granulocytes % (auto) 0.2 %; Mean Corpuscular Hemoglobin 33.2 pg (25.0-34.0); Mean Corpuscular Hgb Conc 33.4 g/dL (32.0-36.0); Mean Corpuscular Volume 99.5 fL (80.0-100.0); Mean Platelet Volume 10.2 fL (9.4-12.4); Monocytes # (auto) 0.57 K/uL (0.11-0.59); Monocytes % (auto) 9.5 %; Neutrophils # (auto) 3.77 K/uL (1.40-6.50); Platelet Count 192 K/uL (130-400); RDW Coefficient of Variation 12.2 % (11.5-14.5); RDW Standard Deviation 44.9 fL (36.4-46.3); Red Blood Count 3.85 M/uL (4.20-5.40); White Blood Count 5.99 K/ul (4.8-10.8)
[2023-12-21 17:38] LABS: Alanine Aminotransferase 12 U/L (7-52); Albumin Globulin Ratio 1.2 (0.9-2); Albumin Level 4.2 gm/dl (3.4-5.0); Alkaline Phosphatase 65 U/L (34-104); Anion Gap 9 (3-11); Aspartate Aminotransferase 21 U/L (13-39); BUN Creatinine Ratio 12.7 (10-20); Bilirubin,Total 0.7 mg/dl (0.2-1.0); Blood Urea Nitrogen 7 mg/dl (6-23); Calcium 9.2 mg/dl (8.6-10.3); Carbon Dioxide 26 mmol/L (21-32); Chloride 95 mmol/L (98-107); Creatinine Clr Calc Pharmacy 110.4 ml/min; Est GFR (African American) 114.9 ml/min; Est GFR (Non-African American) 99.1 ml/min; Globulin 3.5 gm/dl (2.5-4.0); Glucose 103 mg/dl (70-99(Fasting)); Potassium 3.9 mmol/L (3.5-5.1); Sodium 130 mmol/L (136-145); Total Protein 7.7 gm/dl (6.0-8.3)
[2023-12-21 17:44] LABS: Troponin I High Sensitivity < 2.3 pg/ml (0-14)
[2023-12-21 17:49] LABS: INR 1.2 (0.9-1.1); Partial Thromboplastin Ratio 1.2; Partial Thromboplastin Time 33 Seconds (21-31); Prothrombin Time 12.6 Seconds (9.0-12.0)
--- NOTE | 2023-12-21 18:02 | XRay Report ---
XR chest 1V not portable HISTORY: 63 years-old Female Chest pain, nonspecific COMPARISON: 12/15/2023 TECHNIQUE: AP view of the chest FINDINGS: Cardiac size is normal. Lungs are clear. No pneumothorax or pleural effusion. Bones appear grossly in tact. IMPRESSION: No acute process. ACT 112: Negative or not required by law. The above report was generated using voice recognition software. It may contain grammatical, syntax o r spelling errors. Electronically signed by: Konrad Fonseca M.D. 12/21/2023 6:01 PM
--- NOTE | 2023-12-21 18:21 | Emergency Department Note ---
History of Present Illness General Chief complaint: Hypertension Stated complaint: FACE/HEAD SHAKING, HIGH BP, LT LEG PAIN Time Seen by Provider: 12/21/23 17:58 Source: patient, family (Stepfather was at the bedside), RN notes reviewed and old records reviewed (02/29/20- outpatient ortho visit for knee pain) Mode of arrival: ambulatory Limitations: no limitations History of Present Illness This patient is a 63-year-old female who has multiple medical complaints, comes in after having episode where she felt very anxious. She forgot to take her medications for anxiety today. She said that she did have some chest pain shortness of breath at the time she also has facial pain and a headache. She has chronic issues with both of those as well as neck pain. No fever or chills no fall or trauma no difficulty speaking or swallowing she does not wear her dentures. She has chronic left lower extremity swelling which is unknown changed and her stepfather says actually better than it is typical. She has no fall, no urinary symptoms , no blood or melena stool, no diarrhea. Home Medications Medication Instructions Recorded Confirmed Type acetaminophen 500 mg tablet 500 - 1,000 mg PO QID PRN Pain 03/26/18 12/21/23 History (Tylenol Extra Strength) rivaroxaban 20 mg tablet (Xarelto) 20 mg PO DAILY 03/26/18 12/21/23 History tizanidine 2 mg tablet 2 mg PO Q6H PRN MUSCLE SPASMS 12/19/20 12/21/23 History nystatin 100,000 unit/gram topical 1 applic topical TID PRN Rash 11/10/21 12/21/23 History powder albuterol sulfate 90 mcg/actuation 2 puff inhalation Q4H PRN 11/04/22 12/21/23 History aerosol inhaler (Proventil HFA) Shortness Of Breath Or Wheezing fluticasone propionate 50 2 spray intranasal DAILY 11/04/22 12/21/23 History mcg/actuation nasal spray,suspension (Flonase Allergy Relief) levothyroxine 112 mcg tablet 112 mcg PO 5XWK 11/04/22 12/21/23 History famotidine 20 mg tablet 20 mg PO HS PRN Heartburn 02/09/23 12/21/23 History ipratropium 0.5 mg-albuterol 3 mg 3 ml inhalation QID PRN using as 02/09/23 12/21/23 History (2.5 mg base)/3 mL nebulization needed soln levothyroxine 112 mcg tablet 56 mcg PO 2XWK 09/02/23 12/21/23 History diclofenac sodium 1 % topical gel 1 ea topical BID 09/09/23 12/21/23 History hydroxyzine pamoate 25 mg capsule 25 mg PO TID PRN Anxiety 09/16/23 12/21/23 History sertraline 50 mg tablet 50 mg PO QAM 09/16/23 12/21/23 History alprazolam 1 mg tablet 1 mg PO DAILY PRN Anxiety 12/21/23 12/21/23 History duloxetine 40 mg capsule,delayed 40 mg PO QAM 12/21/23 12/21/23 History release furosemide 40 mg tablet 40 mg PO QAM 12/21/23 12/21/23 History Allergies Allergy/AdvReac Type Severity Reaction Status Date / Time animal dander Allergy Intermediate sneezing,co Verified 12/01/23 17:46 ngestion house dust Allergy Intermediate Respiratory Verified 12/01/23 17:46 symptoms mold Allergy Intermediate sneezing,co Verified 12/01/23 17:46 ngestion pollen extracts Allergy Intermediate congestion Verified 12/01/23 17:46 ragweed pollen Allergy Intermediate nasal Verified 12/01/23 17:46 congestion Past Med/Surg History Problem List (Updated 12/22/23 @ 00:18 by Atilio Meeks MD) Anxiety (Acute) Acute electrocardiogram changes (Acute) Headache (Acute) Abdominal pain (Acute) Chest pain (Acute) COVID-19 (Acute) Arthritis of carpometacarpal (CMC) joint of right thumb Thumb pain Right knee DJD Knee pain Cubital tunnel syndrome on left Left knee DJD Pulmonary emboli DVT (deep venous thrombosis) Asthma (Acute) Knee pain, bilateral Arthritis of both knees No pertinent past surgical history Depression Temporomandibular joint disorder (Chronic 10/27/12) Headache (Acute) Cough (Acute) Cough (Acute) Sinusitis (Acute) Right-sided chest pain (Acute) Cough (Acute) URI (upper respiratory infection) (Acute) Bilateral leg pain (Acute) Dehydration (Acute) Vomiting and diarrhea (Acute) Asthma exacerbation (Acute) Acute bronchitis (Acute) Fall (Acute) Left ankle sprain (Acute) Left knee sprain (Acute) Abdominal pain, left upper quadrant (Acute) Left arm numbness (Acute) Medical History Vaginal pain Tremor Trapezius muscle spasm Skin lesion Reflex incontinence Psoriasis Primary hypercoagulable state Pre-diabetes Non-pitting edema Need for hepatitis C screening test Menopausal and perimenopausal disorder Macrocytosis Localized edema Intermittent vomiting Hypothyroidism Hyperglycemia Gastroesophageal reflux disease Factor V Leiden mutation External hemorrhoids Dysuria Dysphagia DVT of leg (deep venous thrombosis) Chronic left sacroiliac pain Breast pain, right Asthma, moderate persistent Anxiety disorder Acute left ankle pain Family history non-contributory Mental retardation Family History Other Family history non-contributory Social History Smoking Status: Never smoker Tobacco Type: Cigarettes Hx Alcohol Use: No Hx Substance Use: No Preferred Language: Arabic marital status: Single Current Living Situation: Family Feels Safe at Home: Yes Review of Systems A total of 10 systems reviewed and were otherwise negative Physical Exam Vital Signs Vital Signs - 24 hr 12/21/23 16:45 12/21/23 18:15 12/21/23 18:15 Temperature 36.7 C Temperature Source Temporal Artery Scan Pulse Rate 78 Pulse Rate [Finger] 71 Pulse Rate from SpO2 Sensor Respiratory Rate 15 15 Respiratory Effort / Characteristics Non-Labored Spontaneous Non-Labored Respiratory Depth Normal Normal Blood Pressure 151/76 H Blood Pressure [Left Arm] 134/71 Blood Pressure Mean 101 Blood Pressure Mean [Left Arm] 92 Pulse Oximetry 93 Oxygen Delivery Method Room Air Room Air Sepsis Recent Fever Within 48 Hours No Sepsis New/Unexplained Change in Mental Status No Sepsis Action Taken by Nursing No Action Required 12/21/23 18:15 12/21/23 18:15 12/21/23 18:17 Temperature Temperature Source Pulse Rate 70 Pulse Rate [Finger] Pulse Rate from SpO2 Sensor Respiratory Rate Respiratory Effort / Characteristics Respiratory Depth Blood Pressure 134/71 Blood Pressure [Left Arm] Blood Pressure Mean 88 Blood Pressure Mean [Left Arm] Pulse Oximetry Oxygen Delivery Method Room Air Sepsis Recent Fever Within 48 Hours Sepsis New/Unexplained Change in Mental Status Sepsis Action Taken by Nursing 12/21/23 18:18 12/21/23 18:27 12/21/23 18:30 Temperature Temperature Source Pulse Rate 77 71 70 Pulse Rate [Finger] Pulse Rate from SpO2 Sensor Respiratory Rate 12 16 18 Respiratory Effort / Characteristics Respiratory Depth Blood Pressure Blood Pressure [Left Arm] Blood Pressure Mean Blood Pressure Mean [Left Arm] Pulse Oximetry Oxygen Delivery Method Sepsis Recent Fever Within 48 Hours Sepsis New/Unexplained Change in Mental Status Sepsis Action Taken by Nursing 12/21/23 19:00 12/21/23 19:00 12/21/23 19:15 Temperature Temperature Source Pulse Rate 69 64 Pulse Rate [Finger] Pulse Rate from SpO2 Sensor Respiratory Rate 16 24 Respiratory Effort / Characteristics Respiratory Depth Blood Pressure 128/67 Blood Pressure [Left Arm] Blood Pressure Mean 93 Blood Pressure Mean [Left Arm] Pulse Oximetry Oxygen Delivery Method Sepsis Recent Fever Within 48 Hours Sepsis New/Unexplained Change in Mental Status Sepsis Action Taken by Nursing 12/21/23 19:42 12/21/23 19:57 12/21/23 20:03 Temperature Temperature Source Pulse Rate 71 74 74 Pulse Rate [Finger] Pulse Rate from SpO2 Sensor Respiratory Rate 22 18 14 Respiratory Effort / Characteristics Respiratory Depth Blood Pressure Blood Pressure [Left Arm] Blood Pressure Mean Blood Pressure Mean [Left Arm] Pulse Oximetry Oxygen Delivery Method Sepsis Recent Fever Within 48 Hours Sepsis New/Unexplained Change in Mental Status Sepsis Action Taken by Nursing 12/21/23 20:18 12/21/23 20:27 12/21/23 20:39 Temperature Temperature Source Pulse Rate 73 73 Pulse Rate [Finger] Pulse Rate from SpO2 Sensor Respiratory Rate 17 15 23 Respiratory Effort / Characteristics Respiratory Depth Blood Pressure Blood Pressure [Left Arm] Blood Pressure Mean Blood Pressure Mean [Left Arm] Pulse Oximetry Oxygen Delivery Method Sepsis Recent Fever Within 48 Hours Sepsis New/Unexplained Change in Mental Status Sepsis Action Taken by Nursing 12/21/23 20:57 12/21/23 21:00 12/21/23 21:00 Temperature Temperature Source Pulse Rate 70 69 Pulse Rate [Finger] Pulse Rate from SpO2 Sensor Respiratory Rate 19 17 Respiratory Effort / Characteristics Respiratory Depth Blood Pressure 141/84 H Blood Pressure [Left Arm] Blood Pressure Mean 99 Blood Pressure Mean [Left Arm] Pulse Oximetry Oxygen Delivery Method Sepsis Recent Fever Within 48 Hours Sepsis New/Unexplained Change in Mental Status Sepsis Action Taken by Nursing 12/21/23 21:15 12/21/23 21:24 12/21/23 21:39 Temperature Temperature Source Pulse Rate 71 67 79 Pulse Rate [Finger] Pulse Rate from SpO2 Sensor Respiratory Rate 15 20 19 Respiratory Effort / Characteristics Respiratory Depth Blood Pressure Blood Pressure [Left Arm] Blood Pressure Mean Blood Pressure Mean [Left Arm] Pulse Oximetry Oxygen Delivery Method Sepsis Recent Fever Within 48 Hours Sepsis New/Unexplained Change in Mental Status Sepsis Action Taken by Nursing 12/21/23 21:42 12/21/23 21:51 12/21/23 22:10 Temperature Temperature Source Pulse Rate 80 79 71 Pulse Rate [Finger] Pulse Rate from SpO2 Sensor Respiratory Rate 17 18 Respiratory Effort / Characteristics Respiratory Depth Blood Pressure Blood Pressure [Left Arm] Blood Pressure Mean Blood Pressure Mean [Left Arm] Pulse Oximetry Oxygen Delivery Method Sepsis Recent Fever Within 48 Hours Sepsis New/Unexplained Change in Mental Status Sepsis Action Taken by Nursing 12/21/23 22:11 12/21/23 22:33 12/21/23 23:00 Temperature Temperature Source Pulse Rate 80 70 68 Pulse Rate [Finger] Pulse Rate from SpO2 Sensor 69 68 Respiratory Rate 18 16 14 Respiratory Effort / Characteristics Respiratory Depth Blood Pressure 134/70 Blood Pressure [Left Arm] Blood Pressure Mean 91 Blood Pressure Mean [Left Arm] Pulse Oximetry 97 96 Oxygen Delivery Method Room Air Sepsis Recent Fever Within 48 Hours Sepsis New/Unexplained Change in Mental Status Sepsis Action Taken by Nursing 12/21/23 23:03 Temperature Temperature Source Pulse Rate 70 Pulse Rate [Finger] Pulse Rate from SpO2 Sensor 70 Respiratory Rate 12 Respiratory Effort / Characteristics Respiratory Depth Blood Pressure 124/67 Blood Pressure [Left Arm] Blood Pressure Mean 86 Blood Pressure Mean [Left Arm] Pulse Oximetry 97 Oxygen Delivery Method Room Air Sepsis Recent Fever Within 48 Hours Sepsis New/Unexplained Change in Mental Status Sepsis Action Taken by Nursing General: Well developed well nourished older female who appears mildly anxious but in no acute distress, breathing comfortably on room air. Normal speech HEENT: Normal cephalic atraumatic. Pupils are equal round and reactive to light. Extraocular movements are intact. Oropharynx is pink with moist mucous membranes. No swelling of the mouth lips or tongue. Neck: Supple with a midline trachea. No meningeal signs or stiffness, no JVD or bruits. No Stridor. Chest: Clear to auscultation bilaterally. No wheezes or rhonchi. No increased work of breathing. Heart: Regular rate and rhythm without murmurs or gallops. Abdomen: Soft nontender, nondistended without rebound guarding or rigidity. Extremities: No cyanosis clubbing she does have bilateral lower extreme edema left greater than right which is chronic. Spine/Back. Non tender to palpation. No CVA tenderness Skin: Good turgor without rashes. Neurologic exam: Cranial nerves two through 12 are intact. Motor and sensation are intact and symmetrical throughout. Finger-nose intact. No pronator drift. Course Administered Medications Sodium Chloride (Nss) 500 mls @ 60 mls/hr IV .[id number] ONE Stop: 12/22/23 06:30 Last Admin: 12/21/23 23:18 Dose: 60 mls/hr Documented By: MOJGAN Discontinued Medications Ioversol (Optiray 320 125ml) 116 ml IV ONCE ONE Stop: 12/21/23 18:51 Last Admin: 12/21/23 18:50 Dose: 116 ml Documented By: DAVID Nitroglycerin (Nitroglycerin Sl 0.4 Mg/Tab Tab) 0.4 mg SL NOW STA Stop: 12/21/23 23:19 Last Admin: 12/21/23 23:32 Dose: Not Given Documented By: MOJGAN Olanzapine (Olanzapine 10 Mg/2.1 Ml Sdv) 2.5 mg IM NOW STA Stop: 12/21/23 23:19 Last Admin: 12/21/23 23:31 Dose: 2.5 mg Documented By: MOJGAN Olanzapine (Olanzapine 10 Mg/2.1 Ml Sdv) Confirm Administered Dose 10 mg IM .STK-MED ONE Stop: 12/21/23 23:27 Last Admin: 12/21/23 23:32 Dose: Not Given Documented By: MOJGAN Medical Decision Making Differential Diagnosis Acute coronary syndrome, anxiety, arrhythmia, pulmonary embolism, neurologic disease, electrolyte or metabolic abnormality infection Medical Records Attestation: I reviewed the patient's medical records. Home Medications Current Medication List: was personally reviewed by me Laboratory Data Attestation: I reviewed the patient's lab results. 12/21/23 16:54 12/21/23 16:54 Lab Results 12/21/23 12/21/23 12/21/23 Range/Units 16:54 16:55 20:17 WBC 5.99 (4.8-10.8) K/ul RBC 3.85 L (4.20-5.40) M/uL Hgb 12.8 (12.0-16.0) g/dl Hct 38.3 (37.0-47.0) % MCV 99.5 (80.0-100.0) fL MCH 33.2 (25.0-34.0) pg MCHC 33.4 (32.0-36.0) g/dL RDW Std Deviation 44.9 (36.4-46.3) fL RDW Coeff of [place] 12.2 (11.5-14.5) % Plt Count 192 (130-400) K/uL MPV 10.2 (9.4-12.4) fL Immature Gran % (Auto) 0.2 % Neut % (Auto) 63.0 % Lymph % (Auto) 25.0 % [place] % (Auto) 9.5 % Eos % (Auto) 1.5 % Baso % (Auto) 0.8 % Neut # (Auto) 3.77 (1.40-6.50) K/uL Lymph # (Auto) 1.50 (1.20-3.40) K/uL [place] # (Auto) 0.57 (0.11-0.59) K/uL Eos # (Auto) 0.09 (0.00-0.50) K/uL Baso # (Auto) 0.05 (0.00-0.20) K/uL Immature Gran # (Auto) 0.01 (0.01-0.20) K/uL PT 12.6 H (9.0-12.0) Seconds INR 1.2 H (0.9-1.1) APTT 33 H (21-31) Seconds PTT Ratio 1.2 Sodium 130 L (136-145) mmol/L Potassium 3.9 (3.5-5.1) mmol/L Chloride 95 L (98-107) mmol/L Carbon Dioxide 26 (21-32) mmol/L Anion Gap 9 (3-11) BUN 7 (6-23) mg/dl Creatinine 0.55 L (0.6-1.2) mg/dl Est Cr Clr Drug Dosing 110.4 ml/min Est GFR ( Amer) 114.9 ml/min Est GFR (Non-Af Amer) 99.1 ml/min BUN/Creatinine Ratio 12.7 (10-20) Glucose 103 H (70-99(Fasting)) mg/dl Osmolality 270 L (280-300) mOsm/kg Calcium 9.2 (8.6-10.3) mg/dl Magnesium 2.0 (1.7-2.4) mg/dl Total Bilirubin 0.7 (0.2-1.0) mg/dl AST 21 (13-39) U/L ALT 12 (7-52) U/L Alkaline Phosphatase 65 (34-104) U/L Troponin I High Sens < 2.3 3.4 (0-14) pg/ml Total Protein 7.7 (6.0-8.3) gm/dl Albumin 4.2 (3.4-5.0) gm/dl Globulin 3.5 (2.5-4.0) gm/dl Albumin/Globulin Ratio 1.2 (0.9-2) TSH 0.145 L (0.300-4.500) uIu/ml Urine Color Urine Appearance (Clear) Urine pH (4.5-7.5) Ur Specific [place] (1.000-1.030) Urine Protein (Negative) Urine Glucose (UA) (Negative) Urine Ketones (Negative) Urine Blood (Negative) Urine Nitrite (Negative) Urine Bilirubin (Negative) Urine Urobilinogen (Negative) Ur Leukocyte Esterase (Negative) Urine Osmolality (500-800) mOsm/kg Ur Random Sodium mmol/L 12/21/23 Range/Units 22:40 WBC (4.8-10.8) K/ul RBC (4.20-5.40) M/uL Hgb (12.0-16.0) g/dl Hct (37.0-47.0) % MCV (80.0-100.0) fL MCH (25.0-34.0) pg MCHC (32.0-36.0) g/dL RDW Std Deviation (36.4-46.3) fL RDW Coeff of [place] (11.5-14.5) % Plt Count (130-400) K/uL MPV (9.4-12.4) fL Immature Gran % (Auto) % Neut % (Auto) % Lymph % (Auto) % [place] % (Auto) % Eos % (Auto) % Baso % (Auto) % Neut # (Auto) (1.40-6.50) K/uL Lymph # (Auto) (1.20-3.40) K/uL [place] # (Auto) (0.11-0.59) K/uL Eos # (Auto) (0.00-0.50) K/uL Baso # (Auto) (0.00-0.20) K/uL Immature Gran # (Auto) (0.01-0.20) K/uL PT (9.0-12.0) Seconds INR (0.9-1.1) APTT (21-31) Seconds PTT Ratio Sodium (136-145) mmol/L Potassium (3.5-5.1) mmol/L Chloride (98-107) mmol/L Carbon Dioxide (21-32) mmol/L Anion Gap (3-11) BUN (6-23) mg/dl Creatinine (0.6-1.2) mg/dl Est Cr Clr Drug Dosing ml/min Est GFR ( Amer) ml/min Est GFR (Non-Af Amer) ml/min BUN/Creatinine Ratio (10-20) Glucose (70-99(Fasting)) mg/dl Osmolality (280-300) mOsm/kg Calcium (8.6-10.3) mg/dl Magnesium (1.7-2.4) mg/dl Total Bilirubin (0.2-1.0) mg/dl AST (13-39) U/L ALT (7-52) U/L Alkaline Phosphatase (34-104) U/L Troponin I High Sens (0-14) pg/ml Total Protein (6.0-8.3) gm/dl Albumin (3.4-5.0) gm/dl Globulin (2.5-4.0) gm/dl Albumin/Globulin Ratio (0.9-2) TSH (0.300-4.500) uIu/ml Urine Color Yellow Urine Appearance Clear (Clear) Urine pH 7.5 (4.5-7.5) Ur Specific [place] 1.019 (1.000-1.030) Urine Protein Negative (Negative) Urine Glucose (UA) Negative (Negative) Urine Ketones Trace H (Negative) Urine Blood Negative (Negative) Urine Nitrite Negative (Negative) Urine Bilirubin Negative (Negative) Urine Urobilinogen Negative (Negative) Ur Leukocyte Esterase Negative (Negative) Urine Osmolality 161 L (500-800) mOsm/kg Ur Random Sodium 42 mmol/L Imaging Data Attestation: I personally reviewed and interpreted this imaging study as follows: My Impression: Chest x-rayno acute infiltrate, failure, pneumothorax seen Radiologist's Impression: Chest X-Ray 12/21/23 16:52 XR chest 1V not portable HISTORY: 63 years-old Female Chest pain, nonspecific COMPARISON: 12/15/2023 TECHNIQUE: AP view of the chest FINDINGS: Cardiac size is normal. Lungs are clear. No pneumothorax or pleural effusion. Bones appear grossly intact. IMPRESSION: No acute process. ACT 112: Negative or not required by law. The above report was generated using voice recognition software. It may contain grammatical, syntax or spelling errors. Electronically signed by: Konrad Fonseca M.D. 12/21/2023 6:01 PM Chest CTA 12/21/23 18:10 Exam(s): CTA CHEST IV Amt: 116 ml optiray 320 EXAM: CT Angiography Chest With Intravenous Contrast CLINICAL HISTORY: Reason for exam: PE. TECHNIQUE: Axial computed tomographic angiography images of the chest with intravenous contrast. CTDI is 38 mGy and DLP is 876 mGy-cm. Automated exposure control was utilized for the study. A dose lowering technique was utilized adhering to the principles of ALARA. MIP reconstructed images were created and reviewed. COMPARISON: April 12, 2023 FINDINGS: Pulmonary arteries: The pulmonary arterial tree is well opacified with contrast. No pulmonary embolism is identified. Aorta: The thoracic aorta is nondilated. There is no aneurysm or dissection. Lungs: There is a trace amount of dependent subsegmental atelectasis in both lungs. No focal consolidation, pneumothorax, or pleural effusion is seen. Pleural space: See above. Heart: Unremarkable. No cardiomegaly. No significant pericardial effusion. No evidence of RV dysfunction. Bones/joints: Mild degenerative changes throughout the spine. No acute fracture or destructive bone lesion is seen. No dislocation. Soft tissues: Unremarkable. Lymph nodes: Unremarkable. No enlarged lymph nodes. IMPRESSION: 1. There is a trace amount of dependent subsegmental atelectasis in both lungs. No focal consolidation, pneumothorax, or pleural effusion is seen. 2. The thoracic aorta is nondilated. There is no aneurysm or dissection. 3. The pulmonary arterial tree is well opacified with contrast. No pulmonary embolism is identified. Electronically signed by: Khoi John MD 12/21/23 20:[address] 12/21/23 18:14 Exam(s): CT HEAD Without Contrast EXAM: CT Head Without Intravenous Contrast CLINICAL HISTORY: Reason for exam: headache. TECHNIQUE: Axial computed tomography images of the head/brain without intravenous contrast. CTDI is 38 mGy and DLP is 876 mGy-cm. Automated exposure control was utilized for the study. A dose lowering technique was utilized adhering to the principles of ALARA. Mild motion artifact. COMPARISON: Head CT 11/11/23. FINDINGS: Brain: No mass effect or acute infarct. No acute hemorrhage. Mild atrophy and chronic white matter disease, stable. Otherwise, no abnormal density in the brain parenchyma. Ventricles: No hydrocephalus or midline shift. Bones/joints: No acute bony lesion. Soft tissues: No scalp hematoma. Visualized Sinuses: Clear. Mastoid air cells: No mastoid effusion. IMPRESSION: 1. Stable age-related findings. 2. No acute infarct, bleed, or acute intracranial abnormality. Electronically signed by: Vannesa De Oliveira M.D. 12/21/23 19:58 PM ECG Data Attestation: I personally reviewed and interpreted this ECG as follows: Indication: + chest pain and + SOB/dyspnea Rate (beats per minute): 79 Rhythm: + normal sinus ECG Intervals/blocks: + Normal QRS, + Normal QT and + Normal AL ECG [place]: + Normal ECG ST segments: + Normal ST segments ECG Findings: + Other (T wave inversions/flattening anteriorly and inferiorly); no PACs or no PVCs Comparison ECG Date: from (12/15/23) Change: the following changes noted (T wave inversions/flattening are more pronounced/new) Additional Comments: EKG #2: Normal sinus rhythm with no changes compared to EKG 1 MDM Narrative This patient comes in as described above. She has multiple different complaints. It sounds like she was anxious after forgetting to take her anxiety medication seems to doing better at present. she has a normal neurologic exam ,I do not find any think is just stroke she does have a headache although that seems to be chronic she does have a lot of different chronic issues. IV access was established. Blood work, EKG, and chest x-ray obtained. Chest x-ray shows no congestive heart failure, pneumonia, pneumothorax. She has no white count or fever to suggest infection. She has no significant anemia. Sodium is mildly low at 130 but in about the range where she typically runs. Besides that there is no significant electrolyte symptoms or metabolic abnormality. troponin was negative. Her initial EKG shows some nonspecific T wave abnormality/inversions which do appear more pronounced than previous in light of this. I did order second EKG and troponin as well as a CT angiography of her chest. She was placed on a monitoring manager room B6. Troponin was negative x 2. Second EKG shows no change compared EKG #1 however it is change compared to old. CT angiography shows no evidence of PE. CT of head was unremarkable. I talked the patient at length as well as her family member given her EKG changes I do think that it is prudent to admit her/observe her for further cardiac workup. I did consult Dr. Juarez,from the [facility] hospitalist group, to see her in the Her for these measures Continuous monitoring manager: Orders placed in EMR for continuous cardiac monitoring: Upon my evaluation patient noted to be in normal sinus rhythm with a rate of 70 Impression & Plan Chest pain, Headache, Acute electrocardiogram changes, Anxiety Discharge Plan Visit Data Chief Complaint: Hypertension Stated Complaint: FACE/HEAD SHAKING, HIGH BP, LT LEG PAIN ED Provider: Atilio Meeks Discharge Problem: Chest pain, Headache, Acute electrocardiogram changes, Anxiety Patient Disposition: Admitted As Inpatient Discharge Instructions Interventions: ED Discharge Assessment Last Done: 12/21/23 23:45 Forms Stand Alone Forms: My [facility] Prescriptions Prescriptions: No Action acetaminophen [Tylenol Extra Strength] 500 mg Tablet 500 - 1,000 mg PO QID PRN (Reason: Pain) Xarelto 20 mg Tablet 20 mg PO DAILY levothyroxine 112 mcg tablet 112 mcg PO 5XWK Rx Instructions: TAKE MON--FRI fluticasone propionate [Flonase Allergy Relief] 50 mcg/actuation [place],Suspension 2 spray INTRANASAL DAILY Rx Instructions: administer into each nostril albuterol sulfate [Proventil HFA] 90 mcg/actuation Hfa Aerosol Inhaler 2 puff INHALATION Q4H PRN (Reason: Shortness Of Breath Or Wheezing) tizanidine 2 mg tablet 2 mg PO Q6H PRN (Reason: MUSCLE SPASMS) nystatin 100,000 unit/gram powder 1 applic topical TID PRN (Reason: Rash) famotidine 20 mg tablet 20 mg PO HS PRN (Reason: Heartburn) ipratropium-albuterol 0.5 mg-3 mg(2.5 mg base)/3 mL solution for nebulization 3 ml INHALATION QID PRN (Reason: using as needed) levothyroxine 112 mcg tablet 56 mcg PO 2XWK Rx Instructions: SAT & SUN furosemide 40 mg Tablet 40 mg PO QAM alprazolam 1 mg tablet 1 mg PO DAILY PRN (Reason: Anxiety) duloxetine 40 mg capsule,delayed release(DR/EC) 40 mg PO QAM diclofenac sodium 1 % gel 1 ea TOPICAL BID sertraline 50 mg tablet 50 mg PO QAM hydroxyzine pamoate 25 mg capsule 25 mg PO TID PRN (Reason: Anxiety) Referrals Referrals: Mario Conte DO [Primary Care Provider] - Discharge Problem: Chest pain Qualifiers: Chest pain type: precordial pain Qualified Code(s): R07.2 - Precordial pain Headache Qualifiers: Headache type: unspecified Headache chronicity pattern: acute headache I ntractability: not intractable Qualified Code(s): R51.9 - Headache, unspecified
[2023-12-21] MEDS: OPTIRAY 320 125ml IV ONE (18:50)
--- NOTE | 2023-12-21 19:59 | CT Scan Report ---
Exam(s): CT HEAD Without Contrast EXAM: CT Head Without Intravenous Contrast CLINICAL HISTORY: Reason for exam: headache. TECHNIQUE: Axial computed tomography images of the head/brain without intravenous contrast. CTDI is 38 mGy and DLP is 876 mGy-cm. Automated exposure control was utilized for the study. A dose lowering technique was utilized adhering to the principles of ALARA. Mild motion artifact. COMPARISON: Head CT 11/11/23. FINDINGS: Brain: No mass effect or acute infarct. No acute hemorrhage. Mild atrophy and chronic white matter disease, stable. Otherwise, no abnormal density in the brain parenchyma. Ventricles: No hydrocephalus or midline shift. Bones/joints: No acute bony lesion. Soft tissues: No scalp hematoma. Visualized Sinuses: Clear. Mastoid air cells: No mastoid effusion. IMPRESSION: 1. Stable age-related findings. 2. No acute infarct, bleed, or acute intracranial abnormality. Electronically signed by: Vannesa De Oliveira M.D. 12/21/23 19:58 PM
--- NOTE | 2023-12-21 20:28 | CT Scan Report ---
Exam(s): CTA CHEST IV Amt: 116 ml optiray 320 EXAM: CT Angiography Chest With Intravenous Contrast CLINICAL HISTORY: Reason for exam: PE. TECHNIQUE: Axial computed tomographic angiography images of the chest with intravenous contrast. CTDI is 38 mGy and DLP is 876 mGy-cm. Automated exposure control was utilized for the study. A dose lowering technique was utilized adhering to the principles of ALARA. MIP reconstructed images were created and reviewed. COMPARISON: April 12, 2023 FINDINGS: Pulmonary arteries: The pulmonary arterial tree is well opacified with contrast. No pulmonary embolism is identified. Aorta: The thoracic aorta is nondilated. There is no aneurysm or dissection. Lungs: There is a trace amount of dependent subsegmental atelectasis in both lungs. No focal consolidation, pneumothorax, or pleural effusion is seen. Pleural space: See above. Heart: Unremarkable. No cardiomegaly. No significant pericardial effusion. No evidence of RV dysfunction. Bones/joints: Mild degenerative changes throughout the spine. No acute fracture or destructive bone lesion is seen. No dislocation. Soft tissues: Unremarkable. Lymph nodes: Unremarkable. No enlarged lymph nodes. IMPRESSION: 1. There is a trace amount of dependent subsegmental atelectasis in both lungs. No focal consolidation, pneumothorax, or pleural effusion is seen. 2. The thoracic aorta is nondilated. There is no aneurysm or dissection. 3. The pulmonary arterial tree is well opacified with contrast. No pulmonary embolism is identified. Electronically signed by: Khoi John MD 12/21/23 20:27 PM
[2023-12-21 21:05] LABS: Troponin I High Sensitivity 3.4 pg/ml (0-14)
[2023-12-21 22:49] LABS: Appearance Urine Clear (Clear); Bilirubin Urine Negative (Negative); Blood Urine Negative (Negative); Color Urine Yellow; Glucose Urine UA Negative (Negative); Ketones Urine Trace (Negative); Leukocyte Esterase Urine Negative (Negative); Nitrite Urine Negative (Negative); Protein Urine Negative (Negative); Specific Gravity Urine 1.019 (1.000-1.030); Urobilinogen Urine Negative (Negative); pH Urine 7.5 (4.5-7.5)
[2023-12-21] MEDS: SODIUM CHLORIDE 0.9% 500 ML IV ONE (23:18)
--- NOTE | 2023-12-21 23:19 | History & Physical Report ---
Date of Service December 21, 2023 Assessment & Plan (1) Chest pain: Plan: Possibly from anxiety History intellectual impairment Rule out ACS given patient risk factors for ischemic heart disease hypertension, stable Mild hyponatremia possibly from home diuretic Rx saddle PE DVT status post IVC filter placement on Xarelto bronchial asthma, stable prediabetes, hemoglobin A1c of 5.8 last July 2023 TSH hypothyroidism, TSH low with normal free T4 chronic lymphedema intellectual impairment Recurrent ER visits OBS PCU Nitro trial for chest pain Anxiolytic as needed Follow troponin TTE, Cardiology consult Re: Chest pain N.p.o., hold Eliquis for now in anticipation of ischemic workup if recommended by Cardiology Resume Eliquis if no ischemic workup PT OT eval DVT prophylaxis. Continue home Eliquis if okay with cardiology Full code Patient stepfather/POA requesting updates providers. Mr. Sharif Walls, contact #[phone]. Text document was generated using [email or web address] voice recognition software. It may contain grammatical or spelling errors. Kindly contact undersigned for clarification of any documentation item in question. History of Present Illness Chief Complaint: Chest pain Primary Care Provider: Mario Conte, History obtained from patient, family, and records. Limited history from patient secondary to intellectual impairment. Medical history significant for hypertension, saddle PE DVT status post IVC filter placement on Xarelto, factor V Leiden mutation, bronchial asthma, prediabetes, hypothyroidism, chronic lymphedema, anxiety/mood disorder, intellectual impairment. Multiple ER visits since 2018. ER trips attributed by PCP to anxiety as per outpatient note. Recent ER visit last week for chest pain/abdominal pain. Patient subsequently discharged home. Patient complained of chest pain, SOB, facial pain and headache. Patient forgot to take anxiety medications as per report. No belly pain. Compliant with blood thinner. Patient brought to ER by stepfather. Medical History as above Surgical History : IVC filter placement/removal Family History : Heart disease, blood clots, lung cancer Personal/Social history : Non-smoker, no EtOH intake, lives with stepfather Allergies Allergy/AdvReac Type Severity Reaction Status Date / Time animal dander Allergy Intermediate sneezing,co Verified 12/01/23 17:46 ngestion house dust Allergy Intermediate Respiratory Verified 12/01/23 17:46 symptoms mold Allergy Intermediate sneezing,co Verified 12/01/23 17:46 ngestion pollen extracts Allergy Intermediate congestion Verified 12/01/23 17:46 ragweed pollen Allergy Intermediate nasal Verified 12/01/23 17:46 congestion Home Medications Medication Instructions Recorded Confirmed Type acetaminophen 500 mg tablet 500 - 1,000 mg PO QID PRN Pain 03/26/18 12/21/23 History (Tylenol Extra Strength) rivaroxaban 20 mg tablet (Xarelto) 20 mg PO DAILY 03/26/18 12/21/23 History tizanidine 2 mg tablet 2 mg PO Q6H PRN MUSCLE SPASMS 12/19/20 12/21/23 History nystatin 100,000 unit/gram topical 1 applic topical TID PRN Rash 11/10/21 12/21/23 History powder albuterol sulfate 90 mcg/actuation 2 puff inhalation Q4H PRN 11/04/22 12/21/23 History aerosol inhaler (Proventil HFA) Shortness Of Breath Or Wheezing fluticasone propionate 50 2 spray intranasal DAILY 11/04/22 12/21/23 History mcg/actuation nasal spray,suspension (Flonase Allergy Relief) levothyroxine 112 mcg tablet 112 mcg PO 5XWK 11/04/22 12/21/23 History famotidine 20 mg tablet 20 mg PO HS PRN Heartburn 02/09/23 12/21/23 History ipratropium 0.5 mg-albuterol 3 mg 3 ml inhalation QID PRN using as 02/09/23 12/21/23 History (2.5 mg base)/3 mL nebulization needed soln levothyroxine 112 mcg tablet 56 mcg PO 2XWK 09/02/23 12/21/23 History diclofenac sodium 1 % topical gel 1 ea topical BID 09/09/23 12/21/23 History hydroxyzine pamoate 25 mg capsule 25 mg PO TID PRN Anxiety 09/16/23 12/21/23 History sertraline 50 mg tablet 50 mg PO QAM 09/16/23 12/21/23 History alprazolam 1 mg tablet 1 mg PO DAILY PRN Anxiety 12/21/23 12/21/23 History duloxetine 40 mg capsule,delayed 40 mg PO QAM 12/21/23 12/21/23 History release furosemide 40 mg tablet 40 mg PO QAM 12/21/23 12/21/23 History Past Med/Surg History Problem List (Updated 12/22/23 @ 00:18 by Atilio Meeks MD) Anxiety (Acute) Acute electrocardiogram changes (Acute) Headache (Acute) Abdominal pain (Acute) Chest pain (Acute) COVID-19 (Acute) Arthritis of carpometacarpal (CMC) joint of right thumb Thumb pain Right knee DJD Knee pain Cubital tunnel syndrome on left Left knee DJD Pulmonary emboli DVT (deep venous thrombosis) Asthma (Acute) Knee pain, bilateral Arthritis of both knees No pertinent past surgical history Depression Temporomandibular joint disorder (Chronic 10/27/12) Headache (Acute) Cough (Acute) Cough (Acute) Sinusitis (Acute) Right-sided chest pain (Acute) Cough (Acute) URI (upper respiratory infection) (Acute) Bilateral leg pain (Acute) Dehydration (Acute) Vomiting and diarrhea (Acute) Asthma exacerbation (Acute) Acute bronchitis (Acute) Fall (Acute) Left ankle sprain (Acute) Left knee sprain (Acute) Abdominal pain, left upper quadrant (Acute) Left arm numbness (Acute) Medical History Vaginal pain Tremor Trapezius muscle spasm Skin lesion Reflex incontinence Psoriasis Primary hypercoagulable state Pre-diabetes Non-pitting edema Need for hepatitis C screening test Menopausal and perimenopausal disorder Macrocytosis Localized edema Intermittent vomiting Hypothyroidism Hyperglycemia Gastroesophageal reflux disease Factor V Leiden mutation External hemorrhoids Dysuria Dysphagia DVT of leg (deep venous thrombosis) Chronic left sacroiliac pain Breast pain, right Asthma, moderate persistent Anxiety disorder Acute left ankle pain Family history non-contributory Mental retardation Family History Other Family history non-contributory Social History Smoking Status: Never smoker Tobacco Type: Cigarettes Second Hand Exposure: No; Do You Dip or Chew Tobacco: No; Tobacco Cessation Education Requested by Patient: No Hx Alcohol Use: Yes Alcohol type: wine Hx Substance Use: No Preferred Language: Persian Communication Ability: Effective Gre Tutor Required: No Beliefs That Will Affect Care: None marital status: Single Current Living Situation: Family Other Information That Helps Us Care for You: No Feels Safe at Home: Yes Safety Concerns: Feels Safe At This Time Assistive Devices: None Review of Systems Review of Systems: Could not be reliably obtained secondary to intellectual impairment Physical Exam Physical Exam: GENERAL: Anxious, obese, no respiratory distress SKIN: Normal color, warm HEENT: [place] palpebral conjunctivae, no ptosis, dry buccal mucosa NECK : Supple, no tenderness CHEST : CTA, sternal depression, no tenderness HEART : RRR, no obvious murmurs ABDOMEN: Some distention, nontender EXTREMITIES : Bilateral LE swelling (chronic as per family) no LE tenderness, no other conspicuous deformities noted NEUROLOGIC : Coherent, no facial asymmetry, gait and stance not assessed Results & Data Results & Data Vital Signs (Past 12 Hours) Vital Signs Temp Pulse Pulse Resp BP BP Pulse Ox 12/21/23 23:03 70 12 124/67 97 12/21/23 23:00 68 14 134/70 96 12/21/23 22:33 70 16 97 12/21/23 22:11 80 18 12/21/23 22:10 71 12/21/23 21:51 79 18 12/21/23 21:42 80 17 12/21/23 21:39 79 19 12/21/23 21:24 67 20 12/21/23 21:15 71 15 12/21/23 21:00 69 17 12/21/23 21:00 141/84 H 12/21/23 20:57 70 19 12/21/23 20:39 73 23 12/21/23 20:27 15 12/21/23 20:18 73 17 12/21/23 20:03 74 14 12/21/23 19:57 74 18 12/21/23 19:42 71 22 12/21/23 19:15 64 24 12/21/23 19:00 69 16 12/21/23 19:00 128/67 12/21/23 18:30 70 18 12/21/23 18:27 71 16 12/21/23 18:18 77 12 12/21/23 18:17 70 12/21/23 18:15 134/71 12/21/23 18:15 12/21/23 18:15 12/21/23 18:15 71 15 134/71 12/21/23 16:45 36.7 C 78 15 151/76 H 93 O2 Del Method 12/21/23 23:03 Room Air 12/21/23 23:00 Room Air 12/21/23 22:33 12/21/23 22:11 12/21/23 22:10 12/21/23 21:51 12/21/23 21:42 12/21/23 21:39 12/21/23 21:24 12/21/23 21:15 12/21/23 21:00 12/21/23 21:00 12/21/23 20:57 12/21/23 20:39 12/21/23 20:27 12/21/23 20:18 12/21/23 20:03 12/21/23 19:57 12/21/23 19:42 12/21/23 19:15 12/21/23 19:00 12/21/23 19:00 12/21/23 18:30 12/21/23 18:27 12/21/23 18:18 12/21/23 18:17 12/21/23 18:15 12/21/23 18:15 Room Air 12/21/23 18:15 Room Air 12/21/23 18:15 12/21/23 16:45 Room Air Laboratory Results Laboratory Results WBC 5.99 K/ul (4.8-10.8) 12/21/23 16:54 RBC 3.85 M/uL (4.20-5.40) L 12/21/23 16:54 Hgb 12.8 g/dl (12.0-16.0) 12/21/23 16:54 Hct 38.3 % (37.0-47.0) 12/21/23 16:54 MCV 99.5 fL (80.0-100.0) 12/21/23 16:54 MCH 33.2 pg (25.0-34.0) 12/21/23 16:54 MCHC 33.4 g/dL (32.0-36.0) 12/21/23 16:54 RDW Std Deviation 44.9 fL (36.4-46.3) 12/21/23 16:54 RDW Coeff of [place] 12.2 % (11.5-14.5) 12/21/23 16:54 Plt Count 192 K/uL (130-400) 12/21/23 16:54 MPV 10.2 fL (9.4-12.4) 12/21/23 16:54 Immature Gran % (Auto) 0.2 % 12/21/23 16:54 Neut % (Auto) 63.0 % 12/21/23 16:54 Lymph % (Auto) 25.0 % 12/21/23 16:54 [place] % (Auto) 9.5 % 12/21/23 16:54 Eos % (Auto) 1.5 % 12/21/23 16:54 Baso % (Auto) 0.8 % 12/21/23 16:54 Neut # (Auto) 3.77 K/uL (1.40-6.50) 12/21/23 16:54 Lymph # (Auto) 1.50 K/uL (1.20-3.40) 12/21/23 16:54 [place] # (Auto) 0.57 K/uL (0.11-0.59) 12/21/23 16:54 Eos # (Auto) 0.09 K/uL (0.00-0.50) 12/21/23 16:54 Baso # (Auto) 0.05 K/uL (0.00-0.20) 12/21/23 16:54 Immature Gran # (Auto) 0.01 K/uL (0.01-0.20) 12/21/23 16:54 PT 12.6 Seconds (9.0-12.0) H 12/21/23 16:54 INR 1.2 (0.9-1.1) H 12/21/23 16:54 APTT 33 Seconds (21-31) H 12/21/23 16:54 PTT Ratio 1.2 12/21/23 16:54 Sodium 130 mmol/L (136-145) L 12/21/23 16:54 Potassium 3.9 mmol/L (3.5-5.1) 12/21/23 16:54 Chloride 95 mmol/L (98-107) L 12/21/23 16:54 Carbon Dioxide 26 mmol/L (21-32) 12/21/23 16:54 Anion Gap 9 (3-11) 12/21/23 16:54 BUN 7 mg/dl (6-23) 12/21/23 16:54 Creatinine 0.55 mg/dl (0.6-1.2) L 12/21/23 16:54 Est Cr Clr Drug Dosing 110.4 ml/min 12/21/23 16:54 Est GFR ( Amer) 114.9 ml/min 12/21/23 16:54 Est GFR (Non-Af Amer) 99.1 ml/min 12/21/23 16:54 BUN/Creatinine Ratio 12.7 (10-20) 12/21/23 16:54 Glucose 103 mg/dl (70-99(Fasting)) H 12/21/23 16:54 Osmolality 270 mOsm/kg (280-300) L 12/21/23 16:55 Calcium 9.2 mg/dl (8.6-10.3) 12/21/23 16:54 Magnesium 2.0 mg/dl (1.7-2.4) 12/21/23 20:17 Total Bilirubin 0.7 mg/dl (0.2-1.0) 12/21/23 16:54 AST 21 U/L (13-39) 12/21/23 16:54 ALT 12 U/L (7-52) 12/21/23 16:54 Alkaline Phosphatase 65 U/L (34-104) 12/21/23 16:54 Troponin I High Sens 3.4 pg/ml (0-14) 12/21/23 20:17 Total Protein 7.7 gm/dl (6.0-8.3) 12/21/23 16:54 Albumin 4.2 gm/dl (3.4-5.0) 12/21/23 16:54 Globulin 3.5 gm/dl (2.5-4.0) 12/21/23 16:54 Albumin/Globulin Ratio 1.2 (0.9-2) 12/21/23 16:54 Urine Color Yellow 12/21/23 22:40 Urine Appearance Clear (Clear) 12/21/23 22:40 Urine pH 7.5 (4.5-7.5) 12/21/23 22:40 Ur Specific [place] 1.019 (1.000-1.030) 12/21/23 22:40 Urine Protein Negative (Negative) 12/21/23 22:40 Urine Glucose (UA) Negative (Negative) 12/21/23 22:40 Urine Ketones Trace (Negative) H 12/21/23 22:40 Urine Blood Negative (Negative) 12/21/23 22:40 Urine Nitrite Negative (Negative) 12/21/23 22:40 Urine Bilirubin Negative (Negative) 12/21/23 22:40 Urine Urobilinogen Negative (Negative) 12/21/23 22:40 Ur Leukocyte Esterase Negative (Negative) 12/21/23 22:40 Urine Osmolality 161 mOsm/kg (500-800) L 12/21/23 22:40 Ur Random Sodium 42 mmol/L 12/21/23 22:40 Impressions Chest X-Ray 12/21/23 16:52 XR chest 1V not portable HISTORY: 63 years-old Female Chest pain, nonspecific COMPARISON: 12/15/2023 TECHNIQUE: AP view of the chest FINDINGS: Cardiac size is normal. Lungs are clear. No pneumothorax or pleural effusion. Bones appear grossly intact. IMPRESSION: No acute process. ACT 112: Negative or not required by law. The above report was generated using voice recognition software. It may contain grammatical, syntax or spelling errors. Electronically signed by: Konrad Fonseca M.D. 12/21/2023 6:01 PM Chest CTA 12/21/23 18:10 Exam(s): CTA CHEST IV Amt: 116 ml optiray 320 EXAM: CT Angiography Chest With Intravenous Contrast CLINICAL HISTORY: Reason for exam: PE. TECHNIQUE: Axial computed tomographic angiography images of the chest with intravenous contrast. CTDI is 38 mGy and DLP is 876 mGy-cm. Automated exposure control was utilized for the study. A dose lowering technique was utilized adhering to the principles of ALARA. MIP reconstructed images were created and reviewed. COMPARISON: April 12, 2023 FINDINGS: Pulmonary arteries: The pulmonary arterial tree is well opacified with contrast. No pulmonary embolism is identified. Aorta: The thoracic aorta is nondilated. There is no aneurysm or dissection. Lungs: There is a trace amount of dependent subsegmental atelectasis in both lungs. No focal consolidation, pneumothorax, or pleural effusion is seen. Pleural space: See above. Heart: Unremarkable. No cardiomegaly. No significant pericardial effusion. No evidence of RV dysfunction. Bones/joints: Mild degenerative changes throughout the spine. No acute fracture or destructive bone lesion is seen. No dislocation. Soft tissues: Unremarkable. Lymph nodes: Unremarkable. No enlarged lymph nodes. IMPRESSION: 1. There is a trace amount of dependent subsegmental atelectasis in both lungs. No focal consolidation, pneumothorax, or pleural effusion is seen. 2. The thoracic aorta is nondilated. There is no aneurysm or dissection. 3. The pulmonary arterial tree is well opacified with contrast. No pulmonary embolism is identified. Electronically signed by: Khoi John MD 12/21/23 20:[address] 12/21/23 18:14 Exam(s): CT HEAD Without Contrast EXAM: CT Head Without Intravenous Contrast CLINICAL HISTORY: Reason for exam: headache. TECHNIQUE: Axial computed tomography images of the head/brain without intravenous contrast. CTDI is 38 mGy and DLP is 876 mGy-cm. Automated exposure control was utilized for the study. A dose lowering technique was utilized adhering to the principles of ALARA. Mild motion artifact. COMPARISON: Head CT 11/11/23. FINDINGS: Brain: No mass effect or acute infarct. No acute hemorrhage. Mild atrophy and chronic white matter disease, stable. Otherwise, no abnormal density in the brain parenchyma. Ventricles: No hydrocephalus or midline shift. Bones/joints: No acute bony lesion. Soft tissues: No scalp hematoma. Visualized Sinuses: Clear. Mastoid air cells: No mastoid effusion. IMPRESSION: 1. Stable age-related findings. 2. No acute infarct, bleed, or acute intracranial abnormality. Electronically signed by: Vannesa De Oliveira M.D. 12/21/23 19:58 PM Diagnostic Findings EKG as per my interpretation : Rate 65, LAD, LAFB, LVH, T wave abnormalities inferior leads (1) Chest pain Chest pain type: precordial pain Qualified Code(s): R07.2 - Precordial pain
[2023-12-21] MEDS ORDERED: hydrOXYzine HCl 25 MG TAB PO PRN (23:22)
[2023-12-21] MEDS ORDERED: MoRPHine SULFATE 4 MG/ML 1 ML CARP\\VIAL IV PRN (23:26)
[2023-12-21] MEDS ORDERED: PROMETHAZINE HCL 6.25 MG in SODIUM CHLORIDE 0.9% 50 ML IV PRN (23:26)
[2023-12-21] MEDS: OLANZapine 10 MG/2.1 ML SDV IM STA (23:31)
[2023-12-21] MEDS: OLANZapine 10 MG/2.1 ML SDV IM ONE (23:32)
[2023-12-21] MEDS: NITROGLYCERIN SL 0.4 MG/TAB TAB SL STA (23:32)
[2023-12-21 23:44] LABS: Thyroid Stimulating Hormone 0.145 uIu/ml (0.300-4.500)
[2023-12-22 00:18] LABS: T4 Free Thyroxine 1.27 ng/dl (0.61-1.60)
[2023-12-22] MEDS ORDERED: tiZANidine HCL 4 MG TABLET PO PRN (00:34)
[2023-12-22] MEDS ORDERED: ALBUTEROL HFA 8 GM INHALER INH PRN (00:34)
[2023-12-22] MEDS ORDERED: FAMOTIDINE 20 MG TAB PO PRN (00:34)
[2023-12-22] MEDS ORDERED: ALPRAZolam 0.5 MG TABLET PO PRN (00:34)
[2023-12-22] MEDS: ALPRAZolam 0.5 MG TABLET PO PRN (01:07)
[2023-12-22] MEDS: oxyCODONE HCL IR 5 MG TAB (IMMEDIATE RELEASE) PO PRN (01:07)
[2023-12-22 04:52] LABS: Basophils # (auto) 0.04 K/uL (0.00-0.20); Basophils % (auto) 0.7 %; Eosinophils # (auto) 0.13 K/uL (0.00-0.50); Eosinophils % (auto) 2.2 %; Hematocrit (blood only) 37.7 % (37.0-47.0); Hemoglobin 12.5 g/dl (12.0-16.0); Immature Granulocytes # (auto) 0.01 K/uL (0.01-0.20); Immature Granulocytes % (auto) 0.2 %; Lymphocytes % (auto) 32.3 %; Mean Corpuscular Hemoglobin 33.3 pg (25.0-34.0); Mean Corpuscular Hgb Conc 33.2 g/dL (32.0-36.0); Mean Corpuscular Volume 100.5 fL (80.0-100.0); Mean Platelet Volume 10.3 fL (9.4-12.4); Monocytes # (auto) 0.68 K/uL (0.11-0.59); Monocytes % (auto) 11.5 %; Neutrophils # (auto) 3.13 K/uL (1.40-6.50); Neutrophils % (auto) 53.1 %; Platelet Count 187 K/uL (130-400); RDW Coefficient of Variation 12.2 % (11.5-14.5); RDW Standard Deviation 45.9 fL (36.4-46.3); Red Blood Count 3.75 M/uL (4.20-5.40); White Blood Count 5.89 K/ul (4.8-10.8)
[2023-12-22 04:58] LABS: Anion Gap 7 (3-11); BUN Creatinine Ratio 11.1 (10-20); Blood Urea Nitrogen 6 mg/dl (6-23); C Reactive Protein < 0.50 mg/dl (0-0.5); Calcium 8.9 mg/dl (8.6-10.3); Carbon Dioxide 27 mmol/L (21-32); Chloride 104 mmol/L (98-107); Chol HDL Ratio 2.9 (0-5); Cholesterol 199 mg/dl (0-200); Creatinine Clr Calc Pharmacy 112.4 ml/min; Est GFR (African American) 115.6 ml/min; Est GFR (Non-African American) 99.7 ml/min; Glucose 100 mg/dl (70-99(Fasting)); HDL Cholesterol 68 mg/dl; LDL Cholesterol Calculated 118 mg/dl; Potassium 3.7 mmol/L (3.5-5.1); Sodium 138 mmol/L (136-145); Triglycerides 63 mg/dl (0-150); VLDL Cholesterol 13 mg/dl (0-30)
[2023-12-22 05:05] LABS: Troponin I High Sensitivity 2.6 pg/ml (0-14)
[2023-12-22 05:07] LABS: Partial Thromboplastin Ratio 1.1; Partial Thromboplastin Time 29 Seconds (21-31)
[2023-12-22] MEDS: LEVOTHYROXINE SODIUM 112 MCG TABLET PO SCH ×2 (06:37→09:48)
--- OUTSIDE RECORDS SUMMARY | 2023-12-22 08:51 | External Medical Summary | Summary of Care ---
Author Name Unknown Organization [facility] Address [address] [place] [address] Phone [phone] Care Team Providers Care Head Sawyer Automatic Name Role Phone WarrenJessica elizalde Primary Care Provider [phone] Reason for Visit * Reason Onset Date Comments Medication Refill 12/01/2023 Encounter Details Date Type Department Care Team (Late st Contact Info) Description 12/01/2023 Refill Care Coordination and Integration [address] [place] [address] Olimpia Gaytan, RN [address], [place] [id number] MICHAEL (generalized anxiety disorder) Allergies Active Allergy Reactions Criticality Noted Date Comments Benzonatate Hives 05/16/2023 Hives on arm+Swollen lip Dust Medium 02/03/2019 Other reaction(s): respiratory sx Molds & Smuts Medium 02/03/2019 Other reaction(s): sneezing,congestion Other Allergy (See Comments) Medium 02/03/2019 Animal dander Other reaction(s): sneezing,congestion Pollen 10/31/2017 "Eyes water & coughing " Ragweed 10/31/2017 "Eyes watering & coughing " documented as of this encounter (statuses as of 12/01/2023) Medications Medication Sig Dispensed Refills Start Date End Date Status fluticasone (FLONASE) 50 MCG/ACT nasal spray Administer 2 Sprays into each nostril in the morning. 10/10/2019 Active Spacer/Aero-Holdi ng Chambers DeviceIndications :Viral URI with cough Use with inhaler. 2 Each 08/04/2022 Active Ipratropium-Albut stephanie 0.5-2.5 (3) MG/3ML Inhalation Solution (Duoneb)Indicatio ns:Mild persistent asthma without complication Inhale 3 mL via nebulizer in the morning and 3 mL at noon and 3 mL in the evening and 3 mL before bedtime. 120 mL 3 09/03/2022 Active Bisacodyl 10 MG Rectal Suppository (Dulcolax)Indicat ions:Constipation , unspecified constipation type Administer 1 Suppository into the rectum daily as needed for Constipation. Do not use for more than 1 week. 10 Suppository 12/30/2022 Active Ketoconazole 2 % External Cream Apply topically to affected area daily. Apply to Apply topically to affected area 2 times a day. Apply to groin 60 g 04/15/2023 Active Additional Information Patient not taking.Reported on 11/30/2023 Albuterol Sulfate (2.5 MG/3ML) 0.083% Inhalation Nebulization Solution (Proventil)Indica tions:Mild persistent asthma without complication Inhale 1 Vial via nebulizer every 4 hours as needed for Wheezing. 150 mL 2 05/18/2023 Active Rivaroxaban 20 MG Oral Tablet (Xarelto)Indicati ons:Acute saddle pulmonary embolism with acute cor pulmonale (HCC),Acute deep vein thrombosis (DVT) of distal vein of left lower extremity (HCC) TAKE 1 TABLET BY MOUTH EVERY DAY EVERY AFTERNOON 2 Tablet 09/20/2023 Active Famotidine 40 MG Oral Tablet (Pepcid)Indicatio ns:Gastroesophage al reflux disease with esophagitis without hemorrhage Take 1 Tablet by mouth at bedtime as needed for Heartburn. 30 Tablet 11 10/05/2023 Active tiZANidine HCl 2 MG Oral Tablet (Zanaflex)Indicat ions:Other muscle spasm TAKE 1 TABLET BY MOUTH EVERY 6 HOURS NEEDED FOR MUSCLE SPASMS. 30 Tablet 5 10/18/2023 Active Furosemide 20 MG Oral Tablet (Lasix) Take 2 Tablets by mouth in the morning. 11/08/2023 Active DULoxetine HCl 20 MG Oral Capsule Delayed Release Particles (Cymbalta)Indicat ions:MICHAEL (generalized anxiety disorder),Other chronic pain Take 1 Capsule by mouth in the morning. Do not cut, crush or chew. 30 Capsule 5 11/14/2023 Active Levothyroxine Sodium 100 MCG Oral Tablet (Levoxyl) Take 1 Tablet by mouth in the morning. on an empty stomach.. 30 Tablet 5 11/16/2023 Active Tamsulosin HCl 0.4 MG Oral Capsule (Flomax) Take 1 Capsule by mouth in the morning. 30 Capsule 5 11/18/2023 Active Potassium Chloride 20 MEQ Oral Packet Take 20 mEq by mouth in the morning. 100 Packet 1 11/21/2023 Active Sulfamethoxazole- Trimethoprim 800-160 MG Oral Tablet (Bactrim DS)Indications:Ac pavithra UTI Take 1 Tablet by mouth in the morning and 1 Tablet before bedtime. Until gone. 6 Tablet 11/30/2023 Active Calmoseptine 0.44-20.6 % External Ointment (Menthol-Zinc Oxide) Apply topically to affected area as needed for Wound Care. Apply to perirectal area 113 g 11/30/2023 Active hydrOXYzine Pamoate 25 MG Oral Capsule (Vistaril) Take 1 Capsule by mouth 3 times a day as needed for Anxiety. 30 Capsule 12/01/2023 Active LORazepam 1 MG Oral Tablet (Ativan)Indicatio ns:MICHAEL (generalized anxiety disorder) Take 1 Tablet by mouth 2 times a day as needed for Anxiety. 20 Tablet 12/01/2023 Active hydrOXYzine Pamoate 25 MG Oral Capsule (Vistaril) Take 1 Capsule by mouth 3 times a day as needed for Anxiety. 30 Capsule 5 09/12/2023 12/01/19 24 Discontinu ed(Refill) LORazepam 1 MG Oral Tablet (Ativan)Indicatio ns:MICHAEL (generalized anxiety disorder) Take 1 Tablet by mouth 2 times a day as needed for Anxiety. 20 Tablet 5 09/28/2023 12/01/19 24 Discontinu ed(Refill) documented as of this encounter (statuses as of 12/01/2023) Active Problems Problem Noted Date Diagnosed Date Bereavement, uncomplicated 08/02/2023 Moderate intellectual disabilities 07/06/2023 Other specified peripheral vascular diseases Irritable bowel syndrome with constipation 12/22 Sebaceous cyst of labia 10/21/2020 Current mild episode of daphne r depressive disorder without prior episode 07/22/2020 Unspecified intellectual disabilities 07/19/2019 Lymphedema 12/14/2018 Mild persistent asthma without complication 10/02 Overview: 05/09/19 In Check dial performed to assess inhaler technique:Name of inhaler Symbicort Pass: Yes at 60L/min. Encourage to take nice slow deep breaths, use aero chamber, and rinse mouth after steroid inhaler. Test performed by Jake COLOR WORKER CPFT MICHAEL (generalized anxiety disorder) 02/01/2018 Prediabetes 11/22/2017 Overview: Per Prediabetes protocol #1 Primary osteoarthritis involving multiple joints 10/31/2017 History of DVT (deep vein thrombosis) 08/14/2017 Heterozygous factor V Leiden mutation 08/14/2017 Acquired hypothyroidism 08/14/2017 History of pulmonary embolism 07/24/2017 Temporomandibular joint disorder 10/27/2012 Gastroesophageal reflux disease without esophagi tis 09/12/2009 Oropharyngeal dysphagia 09/12/2009 Overview: ICD-10 update of inactive term documented as of this encounter (statuses as of 12/01/2023) Resolved Problems Problem Noted Date Diagnosed Date Resolved Date Other specified diabetes linda litus without complications 07/06/2023 07/13/2023 Type 2 diabetes mellitus wit h hemoglobin A1c goal of less than 8.0% 07/07/2022 07/16/2022 Malignant neoplasm of unspec ified kidney, except renal pelvis 04/25/2020 08/01/2020 Major depressive disorder, s umesh episode, unspecified 07/19/2019 01/08/2022 Overview: More specified condition of depression noted on pl Mild intermittent asthma with exacerbation 10/16/2018 04/12/2019 PHT (pulmonary hypertension) 10/31/2017 11/11/2022 S/P IVC filter 08/14/2017 08/01/2020 Osteoarthrosis, forearm 07/25/2008 06/0 10/2017 Obesity, morbid, BMI 40.0-49.9 02/11/2022 documented as of this encounter (statuses as of 12/01/2023) Immunizations Name Administration Dates Next Due COVID-19 mRNA, LNP-s, No Pre serve, 2-Dose Series (Pfizer) 07/01/2022,05/20/2021,09/12/2020,08/22 PPD 09/22/2012 Pneumococcal Conjugate Vacc, 13 Valent (Prevnar) 09/17/2014 Pneumococcal Polysaccharide PPV23 (Pneumovax) 11/04/2018,05/21/2013 Seasonal Influenza Virus Vac cine, Unspecified Formulation 04/15/2021,03/03/2020,02/26/2018,04/08,04/01/2016,02/21/2015,02/26/2014 Seasonal Influenza, PF, 6 M & above, IM , (FluLaval or Fluzone) 03/14/2023,03/16/2022,04/15/2021,03/03,02/26/2018 Seasonal Influenza, Quadriva lent, No Preserve, IM 02/26/2018 Seasonal Influenza, Quadriva lent, No Preserve, Mdck 04/08/2019 TDAP (age 10 and older)(Boostrix) 01/20/2018 Zoster Vaccine Recombinant (Shingrix) 12/27/2019 ,06/19/2019 documented as of this encounter Social History Tobacco Use Types Packs/Day Years Used Date Smoking Tobacco: Never Passive Smoke Exposure: Never Smokeless Tobacco: Never Alcohol Use Standard Drinks/Week Comments No 0 (1 standard drink = 0.6 oz pur e alcohol) PHQ-2 Answer Date Recorded PHQ Adult Total Score 2 11/18/2023 Hunger Vital Sign Answer Date Recorded Within the past 12 months, y ou worried that your food would run out before you got the money to buy more. Never true 10/19/19 24 Within the past 12 months, t he food you bought just didn't last and you didn't have money to get more. Never true 10/19/2023 Sex and Gender Information Value Date Recorded Sex Assigned at Female 08/28/2019 3:02 PM EST Gender Identity Female 08/28/2019 3:02 PM EST Sexual Orientation Straight 08/28/2019 3: 02 PM EST Job Start Date Occupation Industry Not on file Not on file Not on file documented as of this encounter Functional Status Functional Status Response Date of Assess ment Are you deaf or do you have serious difficulty h earing? No 07/24/2017 Are you blind or do you have serious difficulty seeing, even when wearing glasses? No 07/24/2017 Do you have serious difficul ty walking or climbing stairs? (5 years old or older) No 07/24/2017 Do you have difficulty dress ing or bathing? (5 years old or older) No 07/24/2017 Because of a physical, menta l, or emotional condition, do you have difficulty doing errands alone such as visiting a doctor s office or shopping? (15 years old or older) No 07/24/19 18 Cognitive Status Response Date of Assessm ent Because of a physical, menta l, or emotional condition, do you have serious difficulty concentrating, remembering, or making decisions? (5 years old or older) No 07/24/2017 documented as of this encounter Miscellaneous Notes * Telephone Encounter - Jessica Coy DO - 12/01/2023 2:29 PM EDTSigned Prescriptions: Disp Refills hydrOXYzine Pamoate 25 MG Oral Capsule (Vi*30 Cap*5 Sig: Take 1 Capsule by mouth 3 times a day as needed for Anxiety. Authorizing Provider: JESSICA COY LORazepam 1 MG Oral Tablet (Ativan) 20 Tab*5 Sig: Take 1 Tablet by mouth 2 times a day as needed for Anxiety. Authorizing Provider: JESSICA COY * Telephone Encounter - Olimpia Gaytan RN - 12/01/2023 2:17 PM EDT Pt states they do not have these meds to take PRN at this time. Pt has been to ED 5 times this week with anxiety and/UTI symptoms. Did you pend patient's preferred pharmacy and medication before forwarding?yes Pharmacy: [id number] [address] [facility] Pending Prescriptions: Disp Refills hydrOXYzine Pamoate 25 MG Oral Capsule (V*30 Cap*5 Sig: Take 1 Capsule by mouth 3 times a day as needed for Anxiety. LORazepam 1 MG Oral Tablet (Ativan) 20 Tab*5 Sig: Take 1 Tablet by mouth 2 times a day as needed for Anxiety. Last Visit: Visit date not found (in office), Visit date not found (telemedicine) Next Visit: Visit date not found If no future appointments scheduled, and last appointment is greater than a year ago, please schedule patient for a follow-up appointment Last date the medication was ordered: 09/28/23 Is this request for a controlled substance?Yes, What was the last refill date 09/28/2023 w/ [id number] and dosage 1mg BID and Urine Drug Screen Not completed Urine Drug Screen:No results found. However, due to the size of the patient record, not all encounters were searched. Please check Results Review for a complete set of results. Patient Phone Numbers Labs: Lab Results Component Value Date/Time CREAT 0.6 11/08/2023 11:07 AM CREAT 0.59 (A) 08/06/2023 12:00 AM CREAT 0.7 10/10/2019 12:08 PM POTASSIUM 3.6 11/08/2023 11:07 AM POTASSIUM 3.4 (A) 08/06/2023 12:00 AM POTASSIUM 4.2 10/10/2019 12:08 PM TSH 0.08 (L) 11/08/2023 11:07 AM TSH 1.36 04/28/2020 01:07 PM LDLCALC 96 10/14/2020 12:16 PM LDLCALC 98 04/18/2019 02:02 PM LDLDIRECT NOT APPLICABLE 04/18/2019 02:02 PM ALT 18 03/15/2023 03:00 PM ALT 19 06/15/2018 04:00 PM HGBA1C 5.8 (H) 07/13/2023 02:23 PM HGBA1C 6.3 (H) 04/28/2020 01:07 PM documented in this encounter Plan of Treatment Upcoming Encounters Date Type Department Care Team (Late st Contact Info) Description 01/24/2024 1:40 PM EDT Office Visit Family Practice [facility] [address] [place] [address] Jessica Coy DO [address] [place] [address] Health Maintenance Due Date Last Done Comments HPV/Co-Test 10/01/1989 Sigmoidoscopy 10/01/2004 Fecal Occult Blood Test 06/20/2019 06/20/2018 Colonoscopy 10/17/2019 10/16/2009 COVID-19 Vaccine ( season) 2023 07/01/2022, 05/20/2021, 09/12/2020, Additional history exists Mammogram 06/10/2024 06/10/2023, 05/04, 05/18/2022, Additional history exists HbA1c 07/13/2024 07/13/2023, 07/04, 07/13/2021, Additional history exists Pneumococcal Vaccine: Pediatrics (0 to 5 Years) and At-Risk Patients (6 to 64 Years) (3 of 3 - PPSV23 or PCV20) 10/01/2024 11/04/2018, 09/17/2014, 05/21/2013 TSH 11/07/2024 11/08/2023, 03/04, 01/07/2023, Additional history exists Lipid Panel 10/14/2025 10/14/2020, 04/03, 01/26/2018 Cologuard 12/17/2025 12/17/2022, 06/0 01/2023, 12/08/2022, Additional history exists Colorectal Cancer Screening 12/17/2025 Cervical Cancer Screening 03/02/2026 Pap Smear 03/02/2026 03/02/2023 DTaP,Tdap,and Td Vaccines (2 - Td or Tdap) 01/21/2028 01/20/2018 Zoster Vaccines Completed 12/27/2019, 06/19/2019 Influenza Vaccine (FLU shot) Completed 03/14/2023, 03/16/2022, 04/15/2021, Additional history exists Albumin/Creatinine Ratio Discontinued 04/21/2023, 11/01 GARDASIL-HPV IMMUNIZATION SERIES Aged Out No longer eligible based on patient's age to complete this topic Hepatitis B Aged Out No longer eligi ble based on patient's age to complete this topic MENINGOCOCCAL (MENACTRA/MENVEO) Aged Out No longer eligible based on patient's age to complete this topic documented as of this encounter Medical Devices Not on filedocumented as of this encounter Visit Diagnoses Diagnosis MICHAEL (generalized anxiety disorder) Generalized anxiety disorder documented in this encounter Advance Directives * Full Code (Latest Code Status on File) Date Activated Date Inactivated Comments 07/24/2017 2:05 AM 07/29/2017 4:37 PM This order r eflects the patients wishes and were consensually agreed upon. Question Answer Comments Discussion of Advance Directives occurred with: Not Discussed Care Teams Head Sawyer Automatic Relationship Specialty Start Date End Date Jessica Coy DO [address] [place] [address] PCP - General Family Medicine 10/14/20 documented as of this encounter
--- OUTSIDE RECORDS SUMMARY | 2023-12-22 08:51 | External Medical Summary | Summary of Care ---
Author Name Unknown Organization [facility] Address [address] [place] [address] Phone [phone] Care Team Providers Care Mold Insert Changer Name Role Phone Mario Conte DO Primary Care Provider [phone] Reason for Visit * Reason Onset Date Comments Encounter Created in Error 12/15/2023 Encounter Details Date Type Department Care Team (Late st Contact Info) Description 12/15/2023 Telephone Family Practice [facility] [place] [address] [facility] [place] [address] Mario Conte DO [address] [facility] [place] [address] Encounter Created in Error Allergies Active Allergy Reactions Criticality Noted Date Comments Benzonatate Hives 05/16/2023 Hives on arm+Swollen lip Dust Medium 02/03/2019 Other reaction(s): respiratory sx Molds & Smuts Medium 02/03/2019 Other reaction(s): sneezing,congestion Other Allergy (See Comments) Medium 02/03/2019 Animal dander Other reaction(s): sneezing,congestion Pollen 10/31/2017 "Eyes water & coughing " Ragweed 10/31/2017 "Eyes watering & coughing " documented as of this encounter (statuses as of 12/15/2023) Medications Medication Sig Dispensed Refills Start Date End Date Status fluticasone (FLONASE) 50 MCG/ACT nasal spray Administer 2 Sprays into each nostril in the morning. 10/10/2019 Active Spacer/Aero-Holdin g Chambers DeviceIndications: Viral URI with cough Use with inhaler. 2 Each 08/04/2022 Active Ipratropium-Albute rol 0.5-2.5 (3) MG/3ML Inhalation Solution (Duoneb)Indication s:Mild persistent asthma without complication Inhale 3 mL via nebulizer in the morning and 3 mL at noon and 3 mL in the evening and 3 mL before bedtime. 120 mL 3 09/03/2022 Active Bisacodyl 10 MG Rectal Suppository (Dulcolax)Indicati ons:Constipation, unspecified constipation type Administer 1 Suppository into the rectum daily as needed for Constipation. Do not use for more than 1 week. 10 Suppository 12/30/2022 Active Albuterol Sulfate (2.5 MG/3ML) 0.083% Inhalation Nebulization Solution (Proventil)Indicat ions:Mild persistent asthma without complication Inhale 1 Vial via nebulizer every 4 hours as needed for Wheezing. 150 mL 2 05/18/2023 Active Rivaroxaban 20 MG Oral Tablet (Xarelto)Indicatio ns:Acute saddle pulmonary embolism with acute cor pulmonale (HCC),Acute deep vein thrombosis (DVT) of distal vein of left lower extremity (HCC) TAKE 1 TABLET BY MOUTH EVERY DAY EVERY AFTERNOON 2 Tablet 09/20/2023 Active Famotidine 40 MG Oral Tablet (Pepcid)Indication s:Gastroesophageal reflux disease with esophagitis without hemorrhage Take 1 Tablet by mouth at bedtime as needed for Heartburn. 30 Tablet 11 10/05/2023 Active tiZANidine HCl 2 MG Oral Tablet (Zanaflex)Indicati ons:Other muscle spasm TAKE 1 TABLET BY MOUTH EVERY 6 HOURS NEEDED FOR MUSCLE SPASMS. 30 Tablet 5 10/18/2023 Active Furosemide 20 MG Oral Tablet (Lasix) Take 2 Tablets by mouth in the morning. 11/08/2023 Active DULoxetine HCl 20 MG Oral Capsule Delayed Release Particles (Cymbalta)Indicati ons:MICHAEL (generalized anxiety disorder),Other chronic pain Take 1 [...] the morning. 100 Packet 1 11/21/2023 Active Additional Information Patient not taking.Reported on 12/09/2023 hydrOXYzine Pamoate 25 MG Oral Capsule (Vistaril) Take 1 Capsule by mouth 3 times a day as needed for Anxiety. 30 Capsule 5 12/01/2023 Active Ketoconazole 2 % External Cream APPLY TOPICALLY TO AFFECTED AREA OF GROIN 2 TIMES A DAY. 60 g 12/09/2023 Active ALPRAZolam 1 MG Oral Tablet (Xanax)Indications :Anxiety about health,Generalized anxiety disorder Take 1 tablet by mouth daily as needed for anxiety 30 Tablet 12/06/2023 Active documented as of this encounter (statuses as of 12/15/2023) Active Problems Problem Noted Date Diagnosed Date Panic disorder 12/09/2023 Bereavement, uncomplicated 08/02/2023 Other specified peripheral vascular diseases Irritable bowel syndrome with constipation 12/22 Sebaceous cyst of labia 10/21/2020 Current mild episode of daphne r depressive disorder without prior episode 07/22/2020 Moderate intellectual disabilities 07/04/2019 Lymphedema 12/14/2018 Mild persistent asthma without complication 10/02 Overview: 05/09/19 In Check dial performed to assess inhaler technique:Name of inhaler Symbicort Pass: Yes at 60L/min. Encourage to take nice slow deep breaths, use aero chamber, and rinse mouth after steroid inhaler. Test performed by Jake LIBRARIAN HEAD CPFT MICHAEL (generalized anxiety disorder) 02/01/2018 Prediabetes [...] as of this encounter (statuses as of 12/15/2023) Resolved Problems Problem Noted Date Diagnosed Date Resolved Date Other specified diabetes linda litus without complications 07/06/2023 07/13/2023 Type 2 diabetes mellitus wit h hemoglobin A1c goal of less than 8.0% 07/07/2022 07/16/2022 Malignant neoplasm of unspec ified kidney, except renal pelvis 04/25/2020 08/01/2020 Major depressive disorder, s umesh episode, unspecified 07/19/2019 01/08/2022 Overview: More specified condition of depression noted on pl Unspecified intellectual disabilities 07/19/2019 12/06/2023 Mild intermittent asthma with exacerbation 10/16/2018 04/12/2019 PHT (pulmonary hypertension) 10/31/2017 11/11/2022 S/P IVC filter 08/14/2017 08/01/2020 Osteoarthrosis, forearm 07/25/2008 06/0 10/2017 Obesity, morbid, BMI 40.0-49.9 02/11/2022 documented as of this encounter (statuses as of 12/15/2023) Immunizations Name Administration Dates Next Due COVID-19 mRNA, LNP-s, No Pre serve, 2-Dose Series (bttn) 07/01/2022,05/20/2021,09/12/2020,08/22 PPD 09/22/2012 Pneumococcal Conjugate Vacc, 13 [...] encounter Miscellaneous Notes * Telephone Encounter - Lynn Rowe OSA - 12/15/2023 5:39 PM EDT error documented in this encounter Plan of Treatment Upcoming Encounters Date Type Department Care Team (Late st Contact Info) Description 01/24/2024 1:40 PM EDT Office Visit [facility] [address] [facility] [address] Mario Conte, [address] [place] [address] 02/13/2024 2:00 PM EDT Telemedicine Psychology [place] [address] [place] [address] Hortencia Hays, [employer] [address], [place] [id number] Health Maintenance Due Date Last Done Comments HPV/Co-Test 10/01/1989 Sigmoidoscopy 10/01/2004 Fecal Occult Blood Test 06/20/2019 06/20/2018 Colonoscopy 10/17/2019 10/16/2009 COVID-19 Vaccine ( season) 2023 07/01/2022, 05/20/2021, 09/12/2020, Additional history exists Mammogram 06/10/2024 06/10/2023, 02/2023, 05/18/2022, Additional history exists HbA1c 07/13/2024 07/13/2023, 07/04, 07/13/2021, Additional history exists Pneumococcal Vaccine: Pediatrics (0 to 5 Years) and At-Risk Patients (6 to 64 Years) (3 of 3 - PPSV23 or PCV20) 10/01/2024 11/04/2018, 09/17/2014, 05/21/2013 TSH 11/07/2024 11/08/2023, 03/04, 01/07/2023, Additional history exists Depression Monitoring 11/17/2024 11/18/2023 Lipid Panel 10/14/2025 10/14/2020, 04/03, 01/26/2018 Cologuard [...] Not on filedocumented as of this encounter Advance Directives * Full Code (Latest Code Status on File) Date Activated Date Inactivated Comments 07/24/2017 2:05 AM 07/29/2017 4:37 PM This order r eflects the patients wishes and were consensually agreed upon. Question Answer Comments Discussion of Advance Directives occurred with: Not Discussed Care Teams Mold Insert Changer Relationship Specialty Start Date End Date Mario Conte DO [address] [place], [place] [address] PCP - General Family Medicine 10/14/20 documented as of this encounter
--- OUTSIDE RECORDS SUMMARY | 2023-12-22 08:51 | External Medical Summary | Summary of Care ---
Author Name Unknown Organization [facility] Address [address] [place] [address] Phone [phone] Care Team Providers Care Extractor Tender Raw Stock Name Role Phone Mario Conte DO Primary Care Provider [phone] Reason for Visit * Reason Onset Date Comments Med Request 12/19/2023 Encounter Details Date Type Department Care Team (Late st Contact Info) Description 12/19/2023 [facility] [address] [facility] [place] [address] Mario Conte DO [address] [facility] [place] [address] Med Request Allergies Active Allergy Reactions Criticality Noted Date Comments Benzonatate Hives 05/16/2023 Hives on arm+Swollen lip Dust Medium 02/03/2019 Other reaction(s): respiratory sx Molds & Smuts Medium 02/03/2019 Other reaction(s): sneezing,congestion Other Allergy (See Comments) Medium 02/03/2019 Animal dander Other reaction(s): sneezing,congestion Pollen 10/31/2017 "Eyes water & coughing " Ragweed 10/31/2017 "Eyes watering & coughing " documented as of this encounter (statuses as of 12/19/2023) Medications Medication Sig Dispensed Refills Start Date End Date Status fluticasone (FLONASE) 50 MCG/ACT nasal spray Administer 2 Sprays into each nostril in the morning. 0 Active Spacer/Aero-Holdi ng Chambers DeviceIndications :Viral URI with cough Use with inhaler. 2 Each 3 Active Ipratropium-Albut stephanie 0.5-2.5 (3) MG/3ML Inhalation Solution (Duoneb)Indicatio ns:Mild persistent asthma without complication Inhale 3 mL via nebulizer in the morning and 3 mL at noon and 3 mL in the evening and 3 mL before bedtime. 120 mL 3 3 Active Bisacodyl 10 MG Rectal Suppository (Dulcolax)Indicat ions:Constipation , unspecified constipation type Administer 1 Suppository into the rectum daily as needed for Constipation. Do not use for more than 1 week. 10 Suppository 3 Active Albuterol Sulfate (2.5 MG/3ML) 0.083% Inhalation Nebulization Solution (Proventil)Indica tions:Mild persistent asthma without complication Inhale 1 Vial via nebulizer every 4 hours as needed for Wheezing. 150 mL 2 3 Active Rivaroxaban 20 MG Oral Tablet (Xarelto)Indicati ons:Acute saddle pulmonary embolism with acute cor pulmonale (HCC),Acute deep vein thrombosis (DVT) of distal vein of left lower extremity (HCC) TAKE 1 TABLET BY MOUTH EVERY DAY EVERY AFTERNOON 2 Tablet 4 Active Famotidine 40 MG Oral Tablet (Pepcid)Indicatio ns:Gastroesophage al reflux disease with esophagitis without hemorrhage Take 1 Tablet by mouth at bedtime as needed for Heartburn. 30 Tablet 11 4 Active tiZANidine HCl 2 MG Oral Tablet (Zanaflex)Indicat ions:Other muscle spasm TAKE 1 TABLET BY MOUTH EVERY 6 HOURS NEEDED FOR MUSCLE SPASMS. 30 Tablet 5 4 Active DULoxetine HCl 20 MG Oral Capsule Delayed Release Particles (Cymbalta)Indicat ions:MICHAEL (generalized anxiety disorder),Other chronic pain Take 1 Capsule by mouth in the morning. Do not cut, crush or chew. 30 Capsule 5 4 Active Levothyroxine Sodium 100 MCG Oral Tablet (Levoxyl) Take 1 Tablet by mouth in the morning. on an empty stomach.. 30 Tablet 5 4 Active Tamsulosin HCl 0.4 MG Oral Capsule (Flomax) Take 1 Capsule by mouth in the morning. 30 Capsule 5 4 Active Potassium Chloride 20 MEQ Oral Packet Take 20 mEq by mouth in the morning. 100 Packet 1 4 Active Additional Information Patient not taking.Reported on 12/09/2023 hydrOXYzine Pamoate 25 MG Oral Capsule (Vistaril) Take 1 Capsule by mouth 3 times a day as needed for Anxiety. 30 Capsule 5 4 Active Ketoconazole 2 % External Cream APPLY TOPICALLY TO AFFECTED AREA OF GROIN 2 TIMES A DAY. 60 g 4 Active ALPRAZolam 1 MG Oral Tablet (Xanax)Indication s:Anxiety about health,Generalize d anxiety disorder Take 1 tablet by mouth daily as needed for anxiety 30 Tablet 4 Active Furosemide 40 MG Oral Tablet (Lasix) Take 1 Tablet by mouth in the morning. 30 Tablet 11 4 Active Furosemide 20 MG Oral Tablet (Lasix) Take 2 Tablets by mouth in the morning. 4 12/19/19 24 Discontinued documented as of this encounter (statuses as of 12/19/2023) Active Problems Problem Noted Date Diagnosed Date [...] after steroid inhaler. Test performed by Jake IP LITIGATION ASSOCIATE CPFT MICHAEL (generalized anxiety disorder) 02/01/2018 Prediabetes [...] as of this encounter (statuses as of 12/19/2023) Resolved Problems Problem Noted Date Diagnosed Date [...] IVC filter 08/14/2017 08/01/2020 Osteoarthrosis, forearm 07/25/2008 06/10/2017 Obesity, morbid, BMI 40.0-49.9 02/11/2022 documented as of this encounter (statuses as of 12/19/2023) Immunizations Name Administration Dates Next Due COVID-19 mRNA, LNP-s, No Pre serve, 2-Dose Series ([employer]) 07/01/2022,05/20/2021,09/12/2020,08/22 PPD 09/22/2012 Pneumococcal Conjugate Vacc, 13 [...] encounter Miscellaneous Notes * Telephone Encounter - Mario Conte DO - 12/19/2023 4:17 PM EDT 40 mg dose sent as requested * Telephone Encounter - Matilde Basilio MED ASSIST - 12/19/2023 3:15 PM EDT Med pended * Telephone Encounter - Nata Tamez PHARM Tech - 12/19/2023 1:47 PM EDT Pt requesting HIGH PRIORITY due to being out of medication. Pt Uncle calling requesting the following medication below that is listed as "Historical". The following information was provided: Medication Name: Furosemide Strength: 20 mg Directions: Summary: Take 2 Tablets by mouth in the morning Preferred Quantity: Pt prefers Furosemide 40 mg Take 1 per day, Qty 30 Previous Prescriber: PCP Preferred Pharmacy: [id number] Please review and approve if appropriate. Thank you, Nata Tamez Equipment Installer [facility] 12/19/2023,1:50 PM documented in this encounter Plan of Treatment Upcoming Encounters Date Type Department Care Team (Late st Contact Info) Description 02/08/2024 12:40 PM EDT Office Visit Family Practice [facility] [place] [address] [place] [address] Mario Conte DO [address] [place] [address] 02/13/2024 2:00 PM EDT Telemedicine Psychology [place] [address] [address] Hortencia Hays, BRIM BUSTER [address] [place] [address] Health Maintenance Due Date Last Done Comments [...] 10/14/2025 10/14/2020, 04/03, 01/26/2018 Cologuard 12/17/2025 12/17/2022, 01/2023, 12/08/2022, Additional history exists Colorectal Cancer [...] Directives occurred with: Not Discussed Care Teams Extractor Tender Raw Stock Relationship Specialty Start Date End Date Mario Conte DO [address] [place] [address] PCP - General Family Medicine 10/14/20 documented as of this encounter
--- OUTSIDE RECORDS SUMMARY | 2023-12-22 08:51 | External Medical Summary | Summary of Care ---
Author Name Unknown Organization [facility] Address [address] [place] [address] Phone [phone] Care Team Providers Care Change Management Name Role Phone Jessica Coy DO Primary Care Provider [phone] Reason for Visit * Reason Comments eRx-Medication Refill Encounter Details Date Type Department Care Team (Late st Contact Info) Description 12/06/2023 Refill Family Practice [facility] [address] [facility] [place] [address] Jessica Coy DO [address] [facility] [place] [address] Allergies Active Allergy Reactions Criticality Noted Date Comments Benzonatate Hives 05/16/2023 Hives on arm+Swollen lip Dust Medium 02/03/2019 Other reaction(s): respiratory sx Molds & Smuts Medium 02/03/2019 Other reaction(s): sneezing,congestion Other Allergy (See Comments) Medium 02/03/2019 Animal dander Other reaction(s): sneezing,congestion Pollen 10/31/2017 "Eyes water & coughing " Ragweed 10/31/2017 "Eyes watering & coughing " documented as of this encounter (statuses as of 12/09/2023) Medications Medication Sig Dispensed Refills Start Date [...] MUSCLE SPASMS. 30 Tablet 5 4 Active Furosemide 20 MG Oral Tablet (Lasix) Take 2 Tablets by mouth in the morning. 4 Active DULoxetine HCl 20 MG Oral [...] the morning. 100 Packet 1 4 Active Calmoseptine 0.44-20.6 % External Ointment (Menthol-Zinc Oxide) Apply topically to affected area as needed for Wound Care. Apply to perirectal area 113 g 5 4 Active hydrOXYzine Pamoate 25 MG Oral Capsule [...] needed for anxiety 30 Tablet 4 Active Ketoconazole 2 % External Cream Apply topically to affected area daily. Apply to Apply topically to affected area 2 times a day. Apply to groin 60 g 3 12/09/19 24 Discontinued documented as of this encounter (statuses as of 12/09/2023) Active Problems Problem Noted Date Diagnosed Date Bereavement, uncomplicated 08/02/2023 Other specified peripheral vascular [...] after steroid inhaler. Test performed by Jake AUTOMOBILE PARKER CPFT MICHAEL (generalized anxiety disorder) 02/01/2018 Prediabetes [...] as of this encounter (statuses as of 12/09/2023) Resolved Problems Problem Noted Date Diagnosed Date [...] as of this encounter (statuses as of 12/09/2023) Immunizations Name Administration Dates Next Due COVID-19 mRNA, LNP-s, No Pre serve, 2-Dose Series ([employer] 07/01/2022,05/20/2021,09/12/2020,08/22 PPD 09/22/2012 Pneumococcal Conjugate Vacc, 13 [...] Telephone Encounter - Jessica Coy DO - 12/09/2023 8:22 AM EDTSigned Prescriptions: Disp Refills Ketoconazole 2 % External Cream 60 g 0 Sig: APPLY TOPICALLY TO AFFECTED AREA OF GROIN 2 TIMES A DAY. Authorizing Provider: JESSICA COY * Telephone Encounter - Vasiliy Mae MED ASSIST - 12/08/2023 3:46 PM EDT Pending Prescriptions: Disp Refills Ketoconazole 2 % External Cream [Pharmacy *60 g 0 Sig: APPLY TOPICALLY TO AFFECTED AREA OF GROIN 2 TIMES A DAY. * Telephone Encounter - Vasiliy Mae MED ASSIST - 12/08/2023 3:46 PM EDT Did you pend patient's preferred pharmacy and medication before forwarding?yes Pharmacy: [id number] [facility] Pending Prescriptions: Disp Refills Ketoconazole 2 % External Cream [Pharmacy*60 g 0 Sig: APPLY TOPICALLY TO AFFECTED AREA OF GROIN 2 TIMES A DAY. Last Visit: 11/30/2023 (in office), 07/08/2021 (telemedicine) Next Visit: 12/09/2023 If no future appointments scheduled, and last appointment is greater than a year ago, please schedule patient for a follow-up appointment Last date the medication was ordered: 04/15/2023 Is this request for a controlled substance?No Urine Drug Screen:No results found. However, due [...] PM HGBA1C 6.3 (H) 04/28/2020 01:07 PM * Telephone Encounter - Interface, E-Rx Ss Inbound - 12/08/2023 3:16 PM EDT Pending Prescriptions: Disp Refills Ketoconazole 2 % External Cream [Pharmacy *60 g 0 Sig: APPLY TOPICALLY TO AFFECTED AREA OF GROIN 2 TIMES A DAY. * Telephone Encounter - Chidi Zuluaga - 12/06/2023 7:49 PM EDTPending Prescriptions: Disp Refills Ketoconazole 2 % External Cream [Pharmacy *60 g 0 Sig: APPLY TOPICALLY TO AFFECTED AREA OF GROIN 2 TIMES A DAY. documented in this encounter Plan of Treatment Upcoming Encounters Date Type Department Care Team (Late st Contact Info) Description 12/09/2023 1:40 PM EDT Office Visit [facility] [address] [place] [address] Jessica Coy, DO [address] [place] [address] 01/24/2024 1:40 PM EDT Office Visit [facility] [address] [place] [address] Jessica Coy, DO [address] [place] [address] 02/13/2024 2:00 PM EDT Telemedicine Psychology [place] [address] [place] [id number] Hortencia Hays, PLUG DRILL OPERATOR [address] [facility] [place] [id number] Health Maintenance Due Date Last Done Comments [...] 10/14/2025 10/14/2020, 04/03, 01/26/2018 Cologuard 12/17/2025 12/17/2022, 0601/2023, 12/08/2022, Additional history exists Colorectal Cancer Screening [...] Directives occurred with: Not Discussed Care Teams Change Management Relationship Specialty Start Date End Date Jessica Coy DO [address] [place] [address] PCP - General Family Medicine 10/14/20 documented as of this encounter
--- OUTSIDE RECORDS SUMMARY | 2023-12-22 08:51 | External Medical Summary | Summary of Care ---
Author Name Unknown Organization [facility] Address [address] [place] [address] Phone [phone] Care Team Providers Care Manufacturers Representative Name Role Phone Cristopherekta Mario Simone NUNES Primary Care Provider [phone] Reason for Referral * Evaluate & Treat - Unlimited Visits (Within 10 days (routine)) - Authorized Specialty Diagnoses / Procedures Referred By Srinivas mckeon Referred To Contact Psychiatry / Psychology Diagnoses Anxiety about health Generalized anxiety disorder Moderate intellectual disabilities Leena Mensah MD [address] [place] [id number] Referral ID Status Reason Start Date Expiration Date Visits Requested Visits Authorized [id number] Authorized Specialty Services Required 12/06/[phone] Question Answer Referral Priority Within 10 days (routine) Where should this appointment be scheduled? [facility] Is this referral for medication management? No What condition is this patient being seen for? Other (Comment) Comments Neuropsychological evaluations are INTERACTIVE and use materials that require a patient to SEE, HEAR, and often WRITE. If a patient is unable to engage in this way, neurocognitive assessment may be abbreviated or deemed inappropriate. Please use caution in establishing expectations with your patient, and note any limitations in the comments section of the referral order. Reason for Visit * Reason Comments Emergency Department Follow-Up Encounter Details Date Type Department Care Team (Latest Contact Info) Description 12/06/2023 2:00 PM EDT Office Visit Family Practice [facility] [address] [place] [address] Leena Mensah MD [address] [place] [address] Acute nonintractable headache, unspecified headache type*; Anxiety about health; Generalized anxiety disorder; Moderate intellectual disabilities; History of DVT (deep vein thrombosis); History of pulmonary embolism; Heterozygous factor V Leiden mutation (HCC) Allergies Active Allergy Reactions Criticality Noted Date Comments Benzonatate Hives 05/16/2023 Hives on arm+Swollen lip Dust Medium 02/03/2019 Other reaction(s): respiratory sx Molds & Smuts Medium 02/03/2019 Other reaction(s): sneezing,congestion Other Allergy (See Comments) Medium 02/03/2019 Animal dander Other reaction(s): sneezing,congestion Pollen 10/31/2017 "Eyes water & coughing " Ragweed 10/31/2017 "Eyes watering & coughing " documented as of this encounter (statuses as of 12/06/2023) Medications Medication Sig Dispensed Refills Start Date [...] than 1 week. 10 Suppository 3 Active Ketoconazole 2 % External Cream Apply topically to affected area daily. Apply to Apply topically to affected area 2 times a day. Apply to groin 60 g 3 Active Additional Information Patient not taking.Reported on [...] for Anxiety. 30 Capsule 5 4 Active ALPRAZolam 1 MG Oral Tablet (Xanax)Indication s:Anxiety about health,Generalize d anxiety disorder Take 1 tablet by mouth daily as needed for anxiety 30 Tablet 4 Active Sulfamethoxazole- Trimethoprim 800-160 MG Oral Tablet (Bactrim DS)Indications:[place] UTI Take 1 Tablet by mouth in the morning and 1 Tablet before bedtime. Until gone. 6 Tablet 4 12/06/19 24 Discontinued LORazepam 1 MG Oral Tablet (Ativan)Indicatio ns:MICHAEL (generalized anxiety disorder) Take 1 Tablet by mouth 2 times a day as needed for Anxiety. 20 Tablet 5 4 12/06/19 24 Discontinued documented as of this encounter (statuses as of 12/06/2023) Active Problems Problem Noted Date Diagnosed Date [...] after steroid inhaler. Test performed by Jake TELECOMMUNICATIONS CONSULTANT CPFT MICHAEL (generalized anxiety disorder) 02/01/2018 Prediabetes [...] as of this encounter (statuses as of 12/06/2023) Resolved Problems Problem Noted Date Diagnosed Date [...] as of this encounter (statuses as of 12/06/2023) Immunizations Name Administration Dates Next Due COVID-19 mRNA, LNP-s, No Pre serve, 2-Dose Series ([employer]) 07/01/2022,05/20/2021,09/12/2020,08/22 PPD 09/22/2012 Pneumococcal Conjugate Vacc, 13 [...] Passive Smoke Exposure: Never Smokeless Tobacco: Never Tobacco Cessation:Counseling Given: Not Answered Alcohol Use Standard Drinks/Week Comments No 0 [...] on file documented as of this encounter Last Filed Vital Signs Vital Sign Reading Time Taken Comments Blood Pressure 110/62 12/06/2023 2:04 PM EDT Pulse 75 12/06/2023 2:04 PM EDT Temperature 37 C (98.6 F) 12/06/2023 2:04 PM EDT Respiratory Rate 16 12/06/2023 2:04 PM EDT Oxygen Saturation - - Inhaled Oxygen Concentration - - Weight 88.9 kg (196 lb) 12/06/2023 2:04 PM EDT Height - - Body Mass Index 33.63 11/30/2023 10:04 AM EDT documented in this encounter Functional Status Functional Status Response [...] No 07/24/2017 documented as of this encounter Progress Notes * Leena Mensah MD - 12/06/2023 2:30 PM EDT Subjective Chief Complaint Patient presents with Emergency Department Follow-Up HPI: Raquel Price is a 63 year old female. Patient is accompanied by her stepfather. The following issues were addressed today: Patient presents with c/o head pain. She is concerned she could have a blood clot in her neck or brain. She has a history of DVT and PE and factor V Leiden mutation and is anticoagulated with Xarelto. Has significant health anxiety. Frequent ER and office visits. She was previously on Zoloft but recently switched to Cymbalta. She is also prescribed Ativan 1mg PRN but states she doesn't think it helps. She has been referred to psychiatry and case management is going to help get her scheduled. Stepfather thinks allergies may be contributing to her headaches. She was previously on Claritin but states she stopped because it wasn't helping. She takes Tylenol occasionally but states it doesn'twork. Review of Systems: See HPI Objective BP 110/62 | Pulse 75 | Temp 37 C (98.6 F) | Resp 16 | Wt 88.9 kg (196 lb) | LMP 09/15/2009 | BMI 33.63 kg/m | BSA 2 m Wt Readings from Last 3 Encounters: 12/06/23 88.9 kg (196 lb) 11/30/23 87.1 kg (192 lb 1.3 oz) 11/18/23 86.7 kg (191 lb 1.6 oz) BP Readings from Last 3 Encounters: 12/06/23 110/62 11/30/23 112/64 11/18/23 112/62 General: Well-appearing, no acute distress Head: Normocephalic and atraumatic Eyes: No conjunctival injection, no scleral icterus, extraocular movements are intact Ears: External ear unremarkable, canals normal and tympanic membranes clear bilaterally Nose: Nasal mucosa pink and moist, nares patent bilaterally Throat/Mouth: Oral mucosa pink and moist, tongue normal in appearance without lesions and with symmetrical movement, pharynx normal in appearance Cardiovascular: Regular rate and rhythm, no murmur Respiratory: Good respiratory effort, breath sounds equal and clear to auscultation bilaterally Neurological: Alert and oriented, no focal deficits noted Psychiatric: Appropriate mood and affect Assessment & Plan 1. Acute nonintractable headache, unspecified headache type Patient reassured unlikely to be secondary to VTE given that she is anticoagulated. She expressed understanding. Agreeable to trying Claritin or other PO antihistamine. Careful not to overuse Tylenoland cause medication overuse headache. 2. Anxiety about health 3. Generalized anxiety disorder Discussed with PCP, will try switching Ativan to Xanax. Psychiatry referral previously ordered. CM also requesting order for neuropsych be placed. - ALPRAZolam 1 MG Oral Tablet (Xanax); Take 1 tablet by mouth daily as needed for anxiety Dispense:30 Tablet; Refill: 0 - ADULT/PEDS NEUROPSYCHOLOGY REFERRAL OP 4. Moderate intellectual disabilities - ADULT/PEDS NEUROPSYCHOLOGY REFERRAL OP 5. History of DVT (deep vein thrombosis) 6. History of pulmonary embolism 7. Heterozygous factor V Leiden mutation (HCC) Continue Xarelto. Return if symptoms worsen or fail to improve. This note was electronically signed by Leena Mensah MD * Jo Bell RN - 12/06/2023 2:03 PM EDT Head and neck pain today. documented in this encounter Plan of Treatment Upcoming Encounters Date Type Department Care Team (Late st Contact Info) Description 12/09/2023 1:40 PM EDT Office Visit Family Practice [facility] [place] [address] [facility] [place] [address] Mario Conte, [address] [facility] [place] [address] 01/24/2024 1:40 PM EDT Office Visit Family Practice [facility] [place] [address] [facility] [place] [address] Mario Conte DO [address] [facility] [place] [address] 02/13/2024 2:00 PM EDT Telemedicine Psychology [place] [address] [place] [address] Hortencia aHys, YOAN [address] [place] [address] Scheduled Referrals Name Type Priority Associated Diagnoses Orde r Schedule ADULT/PEDS NEUROPSYCHOLOGY REFERRAL OP Referral Within 10 days (routine) Anxiety about health Generalized anxiety disorder Moderate intellectual disabilities Ordered: 12/06/2023 Health Maintenance Due Date Last Done Comments [...] as of this encounter Visit Diagnoses Diagnosis Acute nonintractable headache, unspecified headache type- Primary Anxiety about health Generalized anxiety disorder Moderate intellectual disabilities History of DVT (deep vein thrombosis) Personal history of venous thrombosis and embolism History of pulmonary embolism Personal history of pulmonary embolism Heterozygous factor V Leiden mutation (HCC) Primary hypercoagulable state documented in this encounter Advance Directives * Full Code (Latest Code Status on File) Date Activated Date Inactivated Comments 07/24/2017 2:05 AM 07/29/2017 4:37 PM This order r eflects the patients wishes and were consensually agreed upon. Question Answer Comments Discussion of Advance Directives occurred with: Not Discussed Care Teams Manufacturers Representative Relationship Specialty Start Date End Date Mario Conte DO [address] [place] [address] PCP - General Family Medicine 10/14/20 documented as of this encounter
--- OUTSIDE RECORDS SUMMARY | 2023-12-22 08:51 | External Medical Summary | Summary of Care ---
Author Name Unknown Organization [facility] Address [address] [place] [address] Phone [phone] Care Team Providers Care Welding Machine Tender Name Role Phone Mario Conte DO Primary Care Provider [phone] Reason for Visit * Reason Comments Hospital Follow-Up Patient is here to f ollow-up after ED visit on 11/30 Encounter Details Date Type Department Care Team (Late st Contact Info) Description 12/09/2023 1:40 PM EDT [facility] [address] [facility] [place] [address] Mario Conte DO [address] [facility] [place] [address] MICHAEL (generalized anxiety disorder)*; Panic disorder; History of DVT (deep vein thrombosis) Allergies Active Allergy Reactions Criticality Noted Date [...] 12/09/2023 Active ALPRAZolam 1 MG Oral Tablet (Xanax)Indication s:Anxiety about health,Generalize d anxiety disorder Take 1 tablet by mouth daily as needed for anxiety 30 Tablet 12/06/2023 Active Calmoseptine 0.44-20.6 % External Ointment (Menthol-Zinc Oxide) Apply topically to affected area as needed for Wound Care. Apply to perirectal area 113 g 5 11/30/2023 12/09/19 24 Discontinu ed(Medicat ion List Clean Up) Sulfamethoxazole- Trimethoprim 800-160 MG Oral Tablet (Bactrim DS) 1 Tablet. 12/01/2023 12/09/19 24 Discontinu ed(Medicat ion List Clean Up) documented as of this encounter (statuses as [...] after steroid inhaler. Test performed by Jake [employer]ER[employer] OPERATOR CPFT MICHAEL (generalized anxiety disorder) 02/01/2018 Prediabetes [...] mRNA, LNP-s, No Pre serve, 2-Dose Series ([employer]) 07/01/2022,05/20/2021,09/12/2020,08/22 PPD 09/22/2012 Pneumococcal Conjugate Vacc, 13 [...] Sign Reading Time Taken Comments Blood Pressure 114/62 12/09/2023 1:41 PM EDT Pulse 65 12/09/2023 1:41 PM EDT Temperature 36.5 C (97.7 F) 12/09/2023 1:41 PM ED T Respiratory Rate 16 12/09/2023 1:41 PM EDT Oxygen Saturation 97% 12/09/2023 1:41 PM EDT Inhaled Oxygen Concentration - - Weight 86.5 kg (190 lb 12.8 oz) 12/09/2023 1:41 PM EDT Height 162.6 cm (5' 4.02") 12/09/2023 1:41 PM ED T Body Mass Index 32.73 12/09/2023 1:41 PM EDT documented in this encounter Functional Status [...] as of this encounter Progress Notes * Mario Conte, DO - 12/09/2023 1:47 PM EDT Subjective: Raquel Price is a 63 year old female. Chief Complaint Patient presents with Hospital Follow-Up Patient is here to follow-up after ED visit on 11/30 HPI: PT here after recurrent trips to the ER. She has had them for various symptoms but minimal pathology is found. At this point we have turned this discussion to her anxiety. We have tried Zoloft and Cymbalta thus far. She saw Dr. Mensah earlier this week and was switched to Xanax from ativan. Our hope is to calm her down from acute attacks of anxiety in the night. We've been working to get her in with a psychologist and psychiatrist. KADEEM is on board and following with her. Raquel saw a psychiatrist this morning at [facility]. They do not remember the medication. Will see them in a month. I'll have CM call over to ask about what the change is when they're home. HE says it may be that they increased Cymbalta. Nights have been okay thus far and has not tried Xanax yet. We discussed pressure in her head. Radha checked in the ER for it. PMHx, meds, and allergies reviewed Patient Active Problem List Diagnosis Gastroesophageal reflux disease without esophagitis Oropharyngeal dysphagia History of pulmonary embolism History of DVT (deep vein thrombosis) Heterozygous factor V Leiden mutation ([facility]) Acquired hypothyroidism Primary osteoarthritis involving multiple joints Prediabetes MICHAEL (generalized anxiety disorder) Mild persistent asthma without complication Lymphedema Temporomandibular joint disorder Current mild episode of major depressive disorder without prior episode ([facility]) Sebaceous cyst of labia Irritable bowel syndrome with constipation Other specified peripheral vascular diseases ([facility]) Moderate intellectual disabilities Bereavement, uncomplicated Current Outpatient Medications Medication Sig Dispense Refill fluticasone (FLONASE) 50 MCG/ACT nasal spray Administer 2 Sprays into each nostril in the morning. Spacer/Aero-Holding Chambers Device Use with inhaler. 2 Each 0 Bisacodyl 10 MG Rectal Suppository (Dulcolax) Administer 1 Suppository into the rectum daily as needed for Constipation. Do not use for more than 1 week. 10 Suppository 0 Famotidine 40 MG Oral Tablet (Pepcid) Take 1 Tablet by mouth at bedtime as needed for Heartburn. 30Tablet 11 tiZANidine HCl 2 MG Oral Tablet (Zanaflex) TAKE 1 TABLET BY MOUTH EVERY 6 HOURS NEEDED FOR MUSCLE SPASMS. 30 Tablet 5 Furosemide 20 MG Oral Tablet (Lasix) Take 2 Tablets by mouth in the morning. DULoxetine HCl 20 MG Oral Capsule Delayed Release Particles (Cymbalta) Take 1 Capsule by mouth in the morning. Do not cut, crush or chew. 30 Capsule 5 Levothyroxine Sodium 100 MCG Oral Tablet (Levoxyl) Take 1 Tablet by mouth in the morning. on an empty stomach.. 30 Tablet 5 Tamsulosin HCl 0.4 MG Oral Capsule (Flomax) Take 1 Capsule by mouth in the morning. 30 Capsule 5 hydrOXYzine Pamoate 25 MG Oral Capsule (Vistaril) Take 1 Capsule by mouth 3 times a day as needed for Anxiety. 30 Capsule 5 Ketoconazole 2 % External Cream APPLY TOPICALLY TO AFFECTED AREA OF GROIN 2 TIMES A DAY. 60 g 0 ALPRAZolam 1 MG Oral Tablet (Xanax) Take 1 tablet by mouth daily as needed for anxiety 30 Tablet 0 Ipratropium-Albuterol 0.5-2.5 (3) MG/3ML Inhalation Solution (Duoneb) Inhale 3 mL via nebulizer in the morning and 3 mL at noon and 3 mL in the evening and 3 mL before bedtime. 120 mL 3 Albuterol Sulfate (2.5 MG/3ML) 0.083% Inhalation Nebulization Solution (Proventil) Inhale 1 Vial via nebulizer every 4 hours as needed for Wheezing. 150 mL 2 Rivaroxaban 20 MG Oral Tablet (Xarelto) TAKE 1 TABLET BY MOUTH EVERY DAY EVERY AFTERNOON 2 Tablet 0 Potassium Chloride 20 MEQ Oral Packet Take 20 mEq by mouth in the morning. (Patient not taking: Reported on 12/09/2023) 100 Packet 1 No current facility-administered medications for this visit. Review of patient's allergies indicates: Allergen Reactions Dust Other reaction(s): respiratory sx Molds & Smuts Other reaction(s): sneezing,congestion Other Allergy (See Comments) Animal dander Other reaction(s): sneezing,congestion Benzonatate Hives Hives on arm+Swollen lip Pollen "Eyes water & coughing " Ragweed "Eyes watering & coughing " OBJECTIVE: BP 114/62 | Pulse 65 | Temp 36.5 C (97.7 F) (Tympanic) | Resp 16 | Ht 1.626 m (5' 4.02") | Wt 86.5 kg (190 lb 12.8 oz) | LMP 09/15/2009 | SpO2 97% | BMI 32.73 kg/m | BSA 1.98 m Estimated body mass index is 32.73 kg/m as calculated from the following: Height as of this encounter: 1.626 m (5' 4.02"). Weight as of this encounter: 86.5 kg (190 lb 12.8 oz). BP Readings from Last 3 Encounters: 12/09/23 114/62 12/06/23 110/62 11/30/23 112/64 Wt Readings from Last 3 Encounters: 12/09/23 86.5 kg (190 lb 12.8 oz) 12/06/23 88.9 kg (196 lb) 11/30/23 87.1 kg (192 lb 1.3 oz) ROS: Negative except for above PHYSICAL EXAM: General: alert, healthy, and no distress Head: Normocephalic, No masses, lesions, tenderness or abnormalities ASSESSMENT/Plan MICHAEL (generalized anxiety disorder) (Primary) Panic disorder History of DVT (deep vein thrombosis) I spent over 25 minutes of time face to face with more than half of it being in counseling and coordination of care We discussed using her xanax as needed and focusing on letting her father have a good night's rest. Case discussed with CM to try and get information from psychiatry about what medication changes were made. The above was discussed and understanding was expressed. Mario Conte DO documented in this encounter Nursing Notes * Vasiliy Mae MED ASSIST - 12/09/2023 1:41 PM EDT Chief Complaint Patient presents with Hospital Follow-Up Patient is here to follow-up after ED visit on 11/30 documented in this encounter Plan of Treatment Upcoming Encounters Date Type Department Care Team (Late st Contact Info) Description 01/24/2024 1:40 PM EDT Office Visit Family Practice [facility] [address] [facility] [place] [address] Mario Conte DO [address] [facility] [place] [address] 02/13/2024 2:00 PM EDT Telemedicine Psychology [place] [address] [address] Hortencia Hays, YOAN [address] [facility] [place] [address] Health Maintenance Due Date Last Done Comments [...] encounter Visit Diagnoses Diagnosis MICHAEL (generalized anxiety disorder)- Primary Generalized anxiety disorder Panic disorder Panic disorder without agoraphobia History of DVT (deep vein thrombosis) Personal history of venous thrombosis and embolism documented in this encounter Advance Directives * Full Code (Latest Code Status on File) Date Activated Date Inactivated Comments 07/24/2017 2:05 AM 07/29/2017 4:37 PM This order r eflects the patients wishes and were consensually agreed upon. Question Answer Comments Discussion of Advance Directives occurred with: Not Discussed Care Teams Welding Machine Tender Relationship Specialty Start Date End Date Mario Conte DO [address] [place] [address] PCP - General Family Medicine 10/14/20 documented as of this encounter
--- OUTSIDE RECORDS SUMMARY | 2023-12-22 08:51 | External Medical Summary | Summary of Care ---
Author Name Unknown Organization [facility] Address [address] [place] [address] Phone [phone] Care Team Providers Care Quality Systems Specialist Name Role Phone Mario Conte DO Primary Care Provider [phone] Reason for Visit * Reason Onset Date Comments Advice 12/05/2023 Encounter Details Date Type Department Care Team (Late st Contact Info) Description 12/05/2023 [facility] [address] [facility] [place] [address] Mario Conte DO [address] [facility] [place] [address] Advice Allergies Active Allergy Reactions Criticality Noted Date Comments Benzonatate Hives 05/16/2023 Hives on arm+Swollen lip Dust Medium 02/03/2019 Other reaction(s): respiratory sx Molds & Smuts Medium 02/03/2019 Other reaction(s): sneezing,congestion Other Allergy (See Comments) Medium 02/03/2019 Animal dander Other reaction(s): sneezing,congestion Pollen 10/31/2017 "Eyes water & coughing " Ragweed 10/31/2017 "Eyes watering & coughing " documented as of this encounter (statuses as of 12/08/2023) Medications Medication Sig Dispensed Refills Start Date [...] not cut, crush or chew. 30 Capsule 11/14/2023 Active Levothyroxine Sodium 100 MCG Oral Tablet (Levoxyl) Take 1 Tablet by mouth in the morning. on an empty stomach.. 30 Tablet 11/16/2023 Active Tamsulosin HCl 0.4 MG Oral Capsule (Flomax) Take 1 Capsule by mouth in the morning. 30 Capsule 11/18/2023 Active Potassium Chloride 20 MEQ Oral Packet Take 20 mEq by mouth in the morning. 100 Packet 1 11/21/2023 Active Calmoseptine 0.44-20.6 % External Ointment (Menthol-Zinc Oxide) Apply topically to affected area as needed for Wound Care. Apply to perirectal area 113 g 11/30/2023 Active hydrOXYzine Pamoate 25 MG Oral Capsule (Vistaril) Take 1 Capsule by mouth 3 times a day as needed for Anxiety. 30 Capsule 12/01/2023 Active documented as of this encounter (statuses as of 12/08/2023) Active Problems Problem Noted Date Diagnosed Date [...] after steroid inhaler. Test performed by [facility] [employer] PROFESSIONAL [facility]FT MICHAEL (generalized anxiety disorder) 02/01/2018 Prediabetes [...] as of this encounter (statuses as of 12/08/2023) Resolved Problems Problem Noted Date Diagnosed Date [...] as of this encounter (statuses as of 12/08/2023) Immunizations Name Administration Dates Next Due COVID-19 mRNA, LNP-s, No Pre serve, 2-Dose Series ([employer]) 07/01/2022,05/20/2021,09/12/2020,08/22 PPD 09/22/2012 Pneumococcal Conjugate Vacc, 13 [...] encounter Miscellaneous Notes * Telephone Encounter - Tseo, Jo P, RN - 12/08/2023 1:12 PM EDT Pt had an appt 12/06/23. * Telephone Encounter - Lynn Rowe OSA - 12/05/2023 1:08 PM EDT No Appointments Available Patient declined appointments?: No What Visit Type is needed? Acute If Acute Visit Type is needed, were surrounding clinics offered to patient (Yes/No)? Yes Was patient offered appointments with other available providers (Yes/No)? Yes See Call Details? (Yes or No): No documented in this encounter Plan of Treatment Upcoming Encounters Date Type Department Care Team (Late st Contact Info) Description 12/09/2023 1:40 PM EDT Office Visit [facility] [address] [facility] [place] [address] Mario Conte, DO [address] [facility] [place] [address] 01/24/2024 1:40 PM EDT Office Visit [facility] [address] [facility] [place] [address] Mario Conte, DO [address] [facility] [place] [address] 02/13/2024 2:00 PM EDT Telemedicine Psychology [place] [address] [place] [id number] Hortencia Hays LCSW [address] [place] [address] Health Maintenance Due Date Last Done Comments [...] 10/14/2025 10/14/2020, 04/03, 01/26/2018 Cologuard 12/17/2025 12/17/2022, 06/01/2023, 12/08/2022, Additional history exists Colorectal Cancer Screening [...] Directives occurred with: Not Discussed Care Teams Quality Systems Specialist Relationship Specialty Start Date End Date Mario Conte DO [address] [place] [address] PCP - General Family Medicine 10/14/20 documented as of this encounter
--- OUTSIDE RECORDS SUMMARY | 2023-12-22 08:52 | External Medical Summary ---
Author Name Unknown Address Unknown Organization [id number]:[facility] - [address] [place] [id number] Laboratory Report Ordering Provider Test Date Status 11/30/2023 10:34:50 Final Observation Date Value Abnormality Reference (Units) Status Bacteria identified in Specimen by Culture 11/30/2023 10:34:50 No significant growth Final Test: Culture, Urine, Quanti tative
Specimen Source: Urine, Clean Catch
Specimen Type: Urine
Specimen Date: 11/30/2023 1034
Result Date: 12/01/2023 1906
Result Status: Final result
Resulting Lab: [facility]
[address]
[place] [id number]

CULTURE

No significant growth

null Performing Location [facility] - [address] [facility] [address]
--- NOTE | 2023-12-22 09:23 | Cardiology Consultation ---
Date of Consultation December 22, 2023 Assessment & Plan (1) Chest pain: (2) Hypertension: (3) Anxiety: (4) Factor V Leiden mutation: (5) History of pulmonary embolism: Plan Assessment: 63 year-old female presents with mid-sternal/epigastric pressure and heaviness, unknown length of episode. Request for cardiology consultation for further evaluation. Plan: 1. Chest pain: -Etiology unclear at this time, but concerning given her history of HTN, evidence of LVH on echocardiogram and recurrent ED trips for similar ailments. -Echocardiogram does shows a normal LVEF, evidence of LVH, but no significant valvular disease -BP controlled. Typically takes Furosemide 40mg QD. -Troponin in negative x3 -Unable to obtain family history from patient due to intellectual impairment -patient is NPO at this time. Will discuss case with Dr. Williamson as well as reach out to patient's stepfather/POA to discuss consideration for a cardiac stress test (Dobutamine) as patient would not be able to walk on treadmill to achieve target. 2. Hypertension -Controlled. -Pending testing today, would recommend resuming her current furosemide dosing 3. Anxiety: -Per managment of primary team. -Continue on Sertraline with PRN Xanax 4. Factor V Leiden mutation 5. History of PE/DVT and s/p IVC filter -Takes Xarelto at home, currently on hold in the event that patient will need ischemic work up -No bleeding concerns. -labs stable. Case has been discussed with Dr. Williamson. Further recommendations regarding plan of care as per his assessment. I spent a total of 40 minutes on the date of service in preparation, delivery, documentation of the care provided to the patient excluding any time spent in the performance of separately billed services. PAULINO Pimentel [facility] Cardiology [facility] Supervising Physician Co-Signing Physician Notes I have personally performed a history and physical examination on the patient. I have reviewed the advance practitioner's documentation, and I agree with, and take responsibility for the plan of care. 63-year-old female presented to the emergency department due to chest discomfort. Poor historian due to intellectual disability. Unable to offer meaningful/accurate history. Denies any chest pain currently. Telemetry reveals sinus rhythm heart rate ranging from 50-60s beats per minute. No concerns reported by nursing staff. Cardiac enzymes, ECG, and echocardiogram unremarkable. Further risk stratification with pharmacologic stress testing recommended. Findings and recommendations discussed with patient's stepfather. Will proceed with dobutamine stress echo this afternoon. Further recommendations pending result. I spent a total of 30 minutes on the date of service in preparation, delivery, and documentation of the care provided to this patient, excluding any time spent in the performance of separately billed services. History of Present Illness Reason for Consultation: "Chest pain" Requesting Physician: Lynn padgett Attending Physician: Arnav Casey MD History of Present Illness HPI: Patient is a 63 year-old female with HTN, saddle PE/DVT s/p IVC filter on xarelto, Factor V Leiden mutation, asthma, prediabetes, hypothyroidism, chronic lymphedema, anxiety/mood disorder and intellectual disability that presented to the ED for complaints of chest pain, shortness of breath, facial pain and headache. She reported that she had forgot to take her anxiety medication. EKG on admission NSR with possible LVH, previously cited anterolateral infarct. Rate 79 bpm Na low on admission, since normalized, remaining electrolytes and renal function at target HS troponin negative x3 Chest xray negative CTA chest as follows: IMPRESSION: 1. There is a trace amount of dependent subsegmental atelectasis in both lungs. No focal consolidation, pneumothorax, or pleural effusion is seen. 2. The thoracic aorta is nondilated. There is no aneurysm or dissection. 3. The pulmonary arterial tree is well opacified with contrast. No pulmonary embolism is identified Patient seen and examined. She is sitting out of bed in the chair, chest pain free at this time. Patient states that she was just sitting in a chair when she developed chest pain mid-sternal and epigastric. also endorses some pain in her neck. She denies any other associated symptoms and is unsure how long it lasted. Described the pain as a pressure as if a elephant was sitting on her chest. Never had this happen before, but is "really scared me". Review of telemetry demonstrates SB/SR with rates 50's-70's. currently NPO Patient stepfather/POA requesting updates providers. Mr. Sharif Walls, contact #[phone]. Allergies Allergy/AdvReac Type Severity Reaction Status Date / Time animal dander Allergy Intermediate sneezing,co Verified 12/01/23 17:46 ngestion house dust Allergy Intermediate Respiratory Verified 12/01/23 17:46 symptoms mold Allergy Intermediate sneezing,co Verified 12/01/23 17:46 ngestion pollen extracts Allergy Intermediate congestion Verified 12/01/23 17:46 ragweed pollen Allergy Intermediate nasal Verified 12/01/23 17:46 congestion Home Medications Medication Instructions Recorded Confirmed Type acetaminophen 500 mg tablet 500 - 1,000 mg PO QID PRN Pain 03/26/18 12/21/23 History (Tylenol Extra Strength) rivaroxaban 20 mg tablet (Xarelto) 20 mg PO DAILY 03/26/18 12/21/23 History tizanidine 2 mg tablet 2 mg PO Q6H PRN MUSCLE SPASMS 12/19/20 12/21/23 History nystatin 100,000 unit/gram topical 1 applic topical TID PRN Rash 11/10/2112/20 History powder albuterol sulfate 90 mcg/actuation 2 puff inhalation Q4H PRN 11/04/22 12/21/23 History aerosol inhaler (Proventil HFA) Shortness Of Breath Or Wheezing fluticasone propionate 50 2 spray intranasal DAILY 11/04/22 12/21/23 History mcg/actuation nasal spray,suspension (Flonase Allergy Relief) levothyroxine 112 mcg tablet 112 mcg PO 5XWK 11/04/22 12/21/23 History famotidine 20 mg tablet 20 mg PO HS PRN Heartburn 02/09/23 12/21/23 History ipratropium 0.5 mg-albuterol 3 mg 3 ml inhalation QID PRN using as 02/09/23 12/21/23 History (2.5 mg base)/3 mL nebulization needed soln levothyroxine 112 mcg tablet 56 mcg PO 2XWK 09/02/23 12/21/23 History diclofenac sodium 1 % topical gel 1 ea topical BID 09/09/23 12/21/23 History hydroxyzine pamoate 25 mg capsule 25 mg PO TID PRN Anxiety 09/16/23 12/21/23 History sertraline 50 mg tablet 50 mg PO QAM 09/16/23 12/21/23 History alprazolam 1 mg tablet 1 mg PO DAILY PRN Anxiety 12/21/23 12/21/23 History duloxetine 40 mg capsule,delayed 40 mg PO QAM 12/21/23 12/21/23 History release furosemide 40 mg tablet 40 mg PO QAM 12/21/23 12/21/23 History Patient History Medical History Vaginal pain Tremor Trapezius muscle spasm Skin lesion Reflex incontinence Psoriasis Primary hypercoagulable state Pre-diabetes Non-pitting edema Need for hepatitis C screening test Menopausal and perimenopausal disorder Macrocytosis Localized edema Intermittent vomiting Hypothyroidism Hyperglycemia Gastroesophageal reflux disease Factor V Leiden mutation External hemorrhoids Dysuria Dysphagia DVT of leg (deep venous thrombosis) Chronic left sacroiliac pain Breast pain, right Asthma, moderate persistent Anxiety disorder Acute left ankle pain Family history non-contributory Mental retardation Family History Other Family history non-contributory Social History Smoking Status: Never smoker Tobacco Type: Cigarettes Second Hand Exposure: No; Do You Dip or Chew Tobacco: No; Tobacco Cessation Education Requested by Patient: No Hx Alcohol Use: Yes Alcohol type: wine Hx Substance Use: No Preferred Language: Amharic Communication Ability: Impaired Food Service Representative Required: No Beliefs That Will Affect Care: None marital status: Single Current Living Situation: Family Other Information That Helps Us Care for You: No Feels Safe at Home: Yes Safety Concerns: Feels Safe At This Time Assistive Devices: Cane and Nebulizer Review of Systems Review of Systems: All systems reviewed & are unremarkable except as noted in HPI & below Physical Exam Constitutional: well developed and well nourished Neck: normal visual inspection and trachea midline Respiratory: normal respiratory effort; no respiratory distress, no labored breathing and no cough Auscultation: lungs clear to auscultation bilaterally; no crackles, no rales, no rhonchi and no wheezes Cardiovascular: RRR, no murmur, no edema Heart Sounds: normal S1 and normal S2; no murmur Vessels: no JVD Skin: no rashes, warm and dry Psychiatric: Orientation: alert and oriented x 3 Affect: + anxious affect (mildly anxious but appropropriate) Results & Data Vital Signs (Past 12 Hours) Vital Signs Temp Pulse Pulse Resp BP BP Pulse Ox 12/22/23 07:47 36.4 C L 65 18 102/64 99 12/22/23 02:37 36.6 C 77 16 99/63 L 96 12/22/23 00:00 36.7 C 72 16 143/65 H 99 12/21/23 23:03 70 12 124/67 97 12/21/23 23:00 68 14 134/70 96 12/21/23 22:33 70 16 97 12/21/23 22:11 80 18 12/21/23 22:10 71 12/21/23 21:51 79 18 12/21/23 21:42 80 17 12/21/23 21:39 79 19 12/21/23 21:24 67 20 12/21/23 21:15 71 15 O2 Del Method 12/22/23 07:47 Room Air 12/22/23 02:37 Room Air 12/22/23 00:00 Room Air 12/21/23 23:03 Room Air 12/21/23 23:00 Room Air 12/21/23 22:33 12/21/23 22:11 12/21/23 22:10 12/21/23 21:51 12/21/23 21:42 12/21/23 21:39 12/21/23 21:24 12/21/23 21:15 Laboratory Results Cardiac Enzymes 12/21/23 12/21/23 12/22/23 Range/Units 16:54 20:17 04:25 AST 21 (13-39) U/L Troponin I High Sens < 2.3 3.4 2.6 (0-14) pg/ml Coagulation 12/21/23 12/22/23 Range/Units 16:54 04:25 PT 12.6 H (9.0-12.0) Seconds APTT 33 H 29 (21-31) Seconds Lipids 12/22/23 Range/Units 04:25 Triglycerides 63 (0-150) mg/dl Cholesterol 199 (0-200) mg/dl HDL Cholesterol 68 mg/dl Cholesterol/HDL Ratio 2.9 (0-5) CBC 12/21/23 12/22/23 Range/Units 16:54 04:25 WBC 5.99 5.89 (4.8-10.8) K/ul RBC 3.85 L 3.75 L (4.20-5.40) M/uL Hgb 12.8 12.5 (12.0-16.0) g/dl Hct 38.3 37.7 (37.0-47.0) % Plt Count 192 187 (130-400) K/uL Neut # (Auto) 3.77 3.13 (1.40-6.50) K/uL Lymph # (Auto) 1.50 1.90 (1.20-3.40) K/uL Riley # (Auto) 0.57 0.68 H (0.11-0.59) K/uL Eos # (Auto) 0.09 0.13 (0.00-0.50) K/uL Baso # (Auto) 0.05 0.04 (0.00-0.20) K/uL Comprehensive Metabolic Panel 12/21/23 12/22/23 Range/Units 16:54 04:25 Sodium 130 L 138 (136-145) mmol/L Potassium 3.9 3.7 (3.5-5.1) mmol/L Chloride 95 L 104 (98-107) mmol/L Carbon Dioxide 26 27 (21-32) mmol/L BUN 7 6 (6-23) mg/dl Creatinine 0.55 L 0.54 L (0.6-1.2) mg/dl Glucose 103 H 100 H (70-99(Fasting)) mg/dl Calcium 9.2 8.9 (8.6-10.3) mg/dl AST 21 (13-39) U/L ALT 12 (7-52) U/L Alkaline Phosphatase 65 (34-104) U/L Total Protein 7.7 (6.0-8.3) gm/dl Albumin 4.2 (3.4-5.0) gm/dl Intake and Output 12/21/23 12/22/23 12/22/23 22:59 06:59 14:59 Other: Other Intake Source npo # Unmeasured Voids 1 1 Weight 87.1 kg 86.1 kg Weight Measurement Method Built in [facility] Diagnostic Findings Echocardiogram 12/22/2023 LV systolic function is normal LVEF 55-60% mild concentric LVH Grade I diastolic dysfunction No significant valvular disease (1) Chest pain Chest pain type: precordial pain Qualified Code(s): R07.2 - Precordial pain
[2023-12-22] MEDS: DICLOFENAC SOD 1% GEL 100 GM TUBE EXT SCH (09:47)
[2023-12-22] MEDS: DULoxetine HCL 20 MG CAP PO SCH (09:47)
[2023-12-22] MEDS: SERTRALINE HCL 50 MG TABLET PO SCH (09:49)
[2023-12-22] MEDS: FLUTICASONE PROPIONATE NA SPR 16 GM BTL NAE SCH (09:49)
--- NOTE | 2023-12-22 10:06 | Electrocardiogram Report ---
Test Reason : Blood Pressure : / mmHG Vent. Rate : 079 BPM Atrial Rate : 079 BPM P-R Int : 148 ms QRS Dur : 076 ms QT Int : 374 ms P-R-T Axes : 052 -11 -08 degrees QTc Int : 428 ms Normal sinus rhythm Minimal voltage criteria for LVH, may be normal variant ( R in aVL ) Anterolateral infarct (cited on or before 21-DEC-2023) Abnormal ECG When compared with ECG of 15-DEC-2023 19:10, Questionable change in initial forces of Lateral leads T wave inversion now evident in Inferior leads Nonspecific T wave abnormality now evident in Anterior leads Nonspecific T wave abnormality, improved in Lateral leads Confirmed by Du Tran ([id number]) on 12/22/2023 10:05:55 AM Referred By: REFERRED SELF Confirmed By:Du Tran
--- NOTE | 2023-12-22 10:09 | Electrocardiogram Report ---
Test Reason : Blood Pressure : / mmHG Vent. Rate : 067 BPM Atrial Rate : 067 BPM P-R Int : 164 ms QRS Dur : 078 ms QT Int : 396 ms P-R-T Axes : 064 -11 000 degrees QTc Int : 418 ms Normal sinus rhythm Minimal voltage criteria for LVH, may be normal variant ( R in aVL ) Possible Lateral infarct (cited on or before 21-DEC-2023) Abnormal ECG When compared with ECG of 21-DEC-2023 16:57, (unconfirmed) No significant change was found Confirmed by Du Tran ([id number]) on 12/22/2023 10:08:58 AM Referred By: REFERRED SELF Confirmed By:Du Tran
[2023-12-22] MEDS: PANTOprazole 40 MG TAB PO SCH (12:17)
[2023-12-22] MEDS ORDERED: NITROGLYCERIN SL 0.4 MG/TAB TAB ONE (13:45)
[2023-12-22] MEDS: ATROPINE SULFATE 0.1 MG/ML 10ML SYR IV ONE (14:24)
[2023-12-22] MEDS: DOBUTamine HCL 12.5 MG/ML 20 ML VIAL IV ONE (14:25)
[2023-12-22] MEDS: METOPROLOL TARTRATE 1 MG/ML VIAL IV ONE (14:25)
--- NOTE | 2023-12-22 14:37 | Hospitalist Progress Note ---
Date of Service December 22, 2023 Assessment & Plan (1) Chest pain: Plan: Possible GERD Possibly from anxiety History intellectual impairment ACS ruled out Patient presented with substernal chest pain for 1 day EKG on admission shows normal sinus rhythm; nonspecific T wave inversion High-sensitivity troponin negative CTA chest did not show any acute finding Echocardiogram shows normal LV systolic function with EF of 55 to 60%. Mild concentric LVH. Grade 1 diastolic dysfunction. Cardiology evaluated the patient; plan to do dobutamine stress echo today. Patient is started on Protonix 40 mg once a day for possible GERD contributing to chest pain hypertension, stable - continue home meds Mild hyponatremia possibly from home diuretic Rx saddle PE DVT status post IVC filter placement on Xarelto bronchial asthma, stable prediabetes, hemoglobin A1c of 5.8 last July 2023 hypothyroidism, TSH low with normal free T4; thyroxine dose adjusted to 100mcg 5 xwk; need to repeat tsh in 6 weeks. chronic lymphedema intellectual impairment Recurrent ER visits DVT prophylaxis SCDs Full code Please note the above document was generated using voice recognition software. It may contain grammatical, syntax or spelling errors. Any formal questions or concerns about the content, text or information contained within the body of this dictation should be directly addressed to the provider for clarification Admission and Anticipated Discharge Date Admission Date: December 21, 2023 Subjective Patient seen and examined at bedside. She is sitting up on the chair at the side of the bed; not in distress Reports of substernal chest pain No significant events overnight Review of Systems Review of Systems: All systems reviewed & are unremarkable except as noted in Subjective Physical Exam Physical Exam: Constitutional: WD/WN, vitals as above, NAD, sitting up in bed, pleasant, conversing easily Respiratory: normal respiratory effort, lungs clear to auscultation, no wheeze, rales, rhonchi. Normal insp/exp effort, no accessory muscle use Cardiovascular: RRR, no murmur, no edema Vessels: no JVD or carotid bruit Chest: normal inspection of chest Abdomen: normal bowel sounds, soft, nontender, no hepatosplenomegaly Musculoskeletal: no cyanosis or clubbing, extremities motor strength 5/5 Skin: no rashes, warm and dry normal turgor Neurologic: PERRL, EOMI, accommodation nl, no face palsy, no dysarthria CN's II- XI intact bilaterally and moves all extremities Psychiatric: A+Ox3, euthymic affect Constitutional: well developed and well nourished Neck: normal visual inspection and trachea midline Respiratory: normal respiratory effort; no respiratory distress, no labored breathing and no cough Auscultation: lungs clear to auscultation bilaterally; no crackles, no rales, no rhonchi and no wheezes Cardiovascular: RRR, no murmur, no edema Heart Sounds: normal S1 and normal S2; no murmur Vessels: no JVD Skin: no rashes, warm and dry Psychiatric: Orientation: alert and oriented x 3 Affect: + anxious affect (mildly anxious but appropropriate) Results & Data Results & Data Vital Signs (Past 12 Hours) Vital Signs Temp Pulse Resp BP Pulse Ox O2 Del Method 12/22/23 11:32 36.5 C 57 L 18 105/67 98 Room Air 12/22/23 07:47 36.4 C L 65 18 102/64 99 Room Air 12/22/23 02:37 36.6 C 77 16 99/63 L 96 Room Air (1) Chest pain Chest pain type: precordial pain Qualified Code(s): R07.2 - Precordial pain
--- NOTE | 2023-12-22 16:50 | Discharge Summary ---
Date of Service December 22, 2023 Admission HPI Per Admitting Provider History obtained from patient, family, and records. Limited history from patient secondary to intellectual impairment. Medical history significant for hypertension, saddle PE DVT status post IVC filter placement on Xarelto, factor V Leiden mutation, bronchial asthma, prediabetes, hypothyroidism, chronic lymphedema, anxiety/mood disorder, intellectual impairment. Multiple ER visits since 2018. ER trips attributed by PCP to anxiety as per outpatient note. Recent ER visit last week for chest pain/abdominal pain. Patient subsequently discharged home. Patient complained of chest pain, SOB, facial pain and headache. Patient forgot to take anxiety medications as per report. No belly pain. Compliant with blood thinner. Patient brought to ER by stepfather. Medical History as above Surgical History : IVC filter placement/removal Family History : Heart disease, blood clots, lung cancer Personal/Social history : Non-smoker, no EtOH intake, lives with stepfather Admission Exam Per Admitting Provider GENERAL: Anxious, obese, no respiratory distress SKIN: Normal color, warm HEENT: [place] palpebral conjunctivae, no ptosis, dry buccal mucosa NECK : Supple, no tenderness CHEST : CTA, sternal depression, no tenderness HEART : RRR, no obvious murmurs ABDOMEN: Some distention, nontender EXTREMITIES : Bilateral LE swelling (chronic as per family) no LE tenderness, no other conspicuous deformities noted NEUROLOGIC : Coherent, no facial asymmetry, gait and stance not assessed Principal Diagnosis Chest pain, rule out ACS GERD Discharge Exam Constitutional: WD/WN, vitals as above, NAD, sitting up in bed, pleasant, conversing easily Respiratory: normal respiratory effort, lungs clear to auscultation, no wheeze, rales, rhonchi. Normal insp/exp effort, no accessory muscle use Cardiovascular: RRR, no murmur, no edema Vessels: no JVD or carotid bruit Chest: normal inspection of chest Abdomen: normal bowel sounds, soft, nontender, no hepatosplenomegaly Musculoskeletal: no cyanosis or clubbing, extremities motor strength 5/5 Skin: no rashes, warm and dry normal turgor Neurologic: PERRL, EOMI, accommodation nl, no face palsy, no dysarthria CN's II- XI intact bilaterally and moves all extremities Psychiatric: A+Ox3, euthymic affect Discharge Data Allergies Allergy/AdvReac Type Severity Reaction Status Date / Time animal dander Allergy Intermediate sneezing,co Verified 12/01/23 17:46 ngestion house dust Allergy Intermediate Respiratory Verified 12/01/23 17:46 symptoms mold Allergy Intermediate sneezing,co Verified 12/01/23 17:46 ngestion pollen extracts Allergy Intermediate congestion Verified 12/01/23 17:46 ragweed pollen Allergy Intermediate nasal Verified 12/01/23 17:46 congestion Consultations 12/21/23 21:57 ED Decision to Admit Stat 12/22/23 05:04 Consult Cardiology Routine Ordered Studies 12/21/23 18:10 CT angio chest PE protocol Stat 12/21/23 18:14 CT head/brain wo con Stat Hospital Course (1) Chest pain: Possible GERD Possibly from anxiety History intellectual impairment ACS ruled out Patient presented with substernal chest pain for 1 day EKG on admission shows normal sinus rhythm; nonspecific T wave inversion High-sensitivity troponin negative CTA chest did not show any acute finding Echocardiogram shows normal LV systolic function with EF of 55 to 60%. Mild concentric LVH. Grade 1 diastolic dysfunction. Cardiology evaluated the patient; Patient underwent dobutamine stress echo; did not show any acute findings. No stress-induced segmental wall motion abnormalities. Patient was started on Protonix 40 mg once a day for possible GERD contributing to chest pain. Patient to follow-up with her primary care doctor after discharge Please note the above document was generated using voice recognition software. It may contain grammatical, syntax or spelling errors. Any formal questions or concerns about the content, text or information contained within the body of this dictation should be directly addressed to the provider for clarification Total Time Total Time Spent Total Time Spent (In Minutes): 45 Total Time Includes: Examination of the Patient, Discharge Planning, Medication Reconciliation, Communication With Other Providers and Other Discharge Plan Discharge Items Patient Disposition: Home - Self-Care Reason For Visit: CP Discharge Diagnosis: Chest pain, ACS rule out Possible GERD Activity: Resume your previous activity Non-emergency contact: Primary Care Provider Call non-emergency contact if: you have any medication questions and your symptoms worsen Follow-up/Referrals: Mario Conte DO [Primary Care Provider] - (Date & Time 12/28/2023 1:40 PM Provider Mario Conte DO Department [facility] ) Diet: Regular Addtl Attending Provider Instructions: You were admitted to the hospital due to chest pain. You underwent evaluation by cardiology during the hospitalization including stress echo which was within normal limits. The likely cause for your chest pain is related with reflux. You are prescribed Protonix to be taken once a day in the morning and empty stomach. You can stop taking Pepcid. Follow-up with your primary care doctor as scheduled Pending Studies at Discharge: No Stand-Alone Forms: My [facility], Smoking Cessation Medications and DC Order Prescriptions: New pantoprazole 40 mg Tablet,Delayed Release (Dr/Ec) 40 mg PO QAM Qty: 60 0RF Continued acetaminophen [Tylenol Extra Strength] 500 mg Tablet 500 - 1,000 mg PO QID PRN (Reason: Pain) Xarelto 20 mg Tablet 20 mg PO DAILY levothyroxine 112 mcg tablet 112 mcg PO 5XWK Rx Instructions: TAKE MON--FRI fluticasone propionate [Flonase Allergy Relief] 50 mcg/actuation [place],Suspension 2 spray INTRANASAL DAILY Rx Instructions: administer into each nostril albuterol sulfate [Proventil HFA] 90 mcg/actuation Hfa Aerosol Inhaler 2 puff INHALATION Q4H PRN (Reason: Shortness Of Breath Or Wheezing) tizanidine 2 mg tablet 2 mg PO Q6H PRN (Reason: MUSCLE SPASMS) nystatin 100,000 unit/gram powder 1 applic topical TID PRN (Reason: Rash) ipratropium-albuterol 0.5 mg-3 mg(2.5 mg base)/3 mL solution for nebulization 3 ml INHALATION QID PRN (Reason: using as needed) levothyroxine 112 mcg tablet 56 mcg PO 2XWK Rx Instructions: SAT & SUN furosemide 40 mg Tablet 40 mg PO QAM alprazolam 1 mg tablet 1 mg PO DAILY PRN (Reason: Anxiety) duloxetine 40 mg capsule,delayed release(DR/EC) 40 mg PO QAM diclofenac sodium 1 % gel 1 ea TOPICAL BID sertraline 50 mg tablet 50 mg PO QAM hydroxyzine pamoate 25 mg capsule 25 mg PO TID PRN (Reason: Anxiety) Discontinued famotidine 20 mg tablet 20 mg PO HS PRN (Reason: Heartburn) Discharge Orders: Discharge Order (Routine); Ordered 12/22/23 Ordered By: Arnav Casey Admission Data Admit Date/Time: 12/21/23 23:21 Attending Provider: Arnav Casey Admit Provider: Oleg Augustine Primary Care Provider: Mario Conte Other Providers: Oleg Augustine; Lynn Aguila; Rasta Hoskins; Audi Colorado; Praful Williamson; Loyd James; Jacob Daily; Kimberlee Harding; Homa Carpio; Whit Pena; Lynn Winters; Jose J Lombardi; Refugio Mesa; Joy Arcos; Nikole Holloway; Edna Tucker; Martin Franco; Ross Pineda; Beatrice Baez
[2023-12-23] MEDS ORDERED: LEVOTHYROXINE SODIUM 100 MCG TABLET PO SCH (06:30)
== END 2023-12-22 17:53 | disposition home or self-care (01) ==
LOC: 2S 16:41 → ED 16:41 → 2S 23:45
DX: F41.9 Anxiety disorder, unspecified; R06.02 Shortness of breath; D68.51 Activated protein C resistance; E03.9 Hypothyroidism, unspecified; Z79.899 Other long term (current) drug therapy; Z86.711 Personal history of pulmonary embolism; Z79.01 Long term (current) use of anticoagulants; F79 Unspecified intellectual disabilities; R51.9 Headache, unspecified; R07.2 Precordial pain; R73.03 Prediabetes; J45.909 Unspecified asthma, uncomplicated; Z79.890 Hormone replacement therapy; I10 Essential (primary) hypertension; Z91.148 Patient's other noncompliance with medication regimen for other reason

== ENCOUNTER 2024-02-01 17:11 | Inpatient (IN) ==
--- NOTE | 2024-02-01 17:24 | Emergency Department Note ---
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 WBC, H/H and platelets within limits. Chemistry without metabolic acidosis. Sodium is 124 with normal glucose with serum and urine osmolality and urine sodium pending however suspect poor solute intake in setting of having ongoing abdominal pain. LFTs unremarkable. Lipase normal. UA without evidence of infection. CT of the abdomen pelvis was performed and per my preliminary independent interpretation demonstrates nonobstructive bowel gas pattern. Suspect abdominal pain symptoms may be related to patient's history of constipation but also possible acid reflux/gastritis. Final radiology report with no acute findings on CT. [facility] for [facility]. Triage Nursing notes reviewed and agree them. Prior/external medical records reviewed Vital Signs: reviewed Differential diagnosis: Gastroenteritis, food borne illness, infections, appendicitis, diverticulitis, inflammatory bowel disease, obstruction, GI bleed, biliary pathology, volvulus, as well as other pathologies. ER treatment provided: See below. Diagnostics interpreted by me: ECG: Normal sinus rhythm, 61 bpm, no ectopy, no overt ST elevation or depression, QTc 420, QRS 82. Cardiac Monitoring: An order for continuous cardiac monitoring was placed and demonstrated Normal sinus rhythm, 61 bpm, no ectopy. Laboratory studies: See below Imaging studies: See below Consultation(s): [facility] for [facility]. 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 ROS: See above HPI for pertinent positives & negatives. A total of 10 systems reviewed and were otherwise negative. VITALS:See Below PHYSICAL EXAMINATION: GENERAL: Awake, alert, slightly anxious but in no distress, BMI 34.0. HENT: Normocephalic, atraumatic. Oropharynx with dry mucous membranes and otherwise unremarkable. EYES: Normal conjunctiva. Sclera non-icteric. NECK: Supple. No nuchal rigidity. FROM. No JVD. RESPIRATORY: Clear to auscultation. CARDIAC: Regular rate, normal rhythm. Extremities warm and well perfused. Pulses equal. ABDOMEN: Soft, non-distended. Generalized abdominal discomfort without discrete tenderness to palpation. No rebound or guarding. No masses. MUSCULOSKELETAL: Chest examination reveals no tenderness. The back is symmetrical on inspection without obvious abnormality. There is no CVA tenderness to palpation. No joint edema. LOWER EXTREMITIES: Calves are equal size bilaterally and non-tender. No edema. No discoloration. NEURO: Normal sensorium. No sensory or motor deficits noted. SKIN: No rash or jaundice noted. Vladimir Kinney MD Past Med/Surg History Problem List (Updated 02/01/24 @ 23:06 by Vladimir Kinney MD) On rivaroxaban therapy (Acute) Abdominal pain (Acute) Hyponatremia (Acute) Constipation (Acute) Anxiety (Acute) Acute electrocardiogram changes (Acute) Headache (Acute) Abdominal pain (Acute) Chest pain (Acute) COVID-19 (Acute) Arthritis of carpometacarpal (CMC) joint of right thumb Thumb pain Right knee DJD Knee pain Cubital tunnel syndrome on left Left knee DJD Pulmonary emboli DVT (deep venous thrombosis) Asthma (Acute) Knee pain, bilateral Arthritis of both knees No pertinent past surgical history Depression Temporomandibular joint disorder (Chronic 10/27/12) Headache (Acute) Cough (Acute) Cough (Acute) Sinusitis (Acute) Right-sided chest pain (Acute) Cough (Acute) URI (upper respiratory infection) (Acute) Bilateral leg pain (Acute) Dehydration (Acute) Vomiting and diarrhea (Acute) Asthma exacerbation (Acute) Acute bronchitis (Acute) Fall (Acute) Left ankle sprain (Acute) Left knee sprain (Acute) Abdominal pain, left upper quadrant (Acute) Left arm numbness (Acute) Medical History Hypertension Vaginal pain Tremor Trapezius muscle spasm Skin lesion Reflex incontinence Psoriasis Primary hypercoagulable state Pre-diabetes Non-pitting edema Need for hepatitis C screening test Menopausal and perimenopausal disorder Macrocytosis Localized edema Intermittent vomiting Hypothyroidism Hyperglycemia Gastroesophageal reflux disease Factor V Leiden mutation External hemorrhoids Dysuria Dysphagia DVT of leg (deep venous thrombosis) Chronic left sacroiliac pain Breast pain, right Asthma, moderate persistent Anxiety disorder Acute left ankle pain Family history non-contributory Mental retardation Family History Other Family history non-contributory Social History Smoking Status: Never smoker Tobacco Type: Cigarettes Second Hand Exposure: No; Do You Dip or Chew Tobacco: No; Hx Alcohol Use: Yes Alcohol type: wine Hx Substance Use: No Preferred Language: Croatian Communication Ability: Impaired Pencil Sorter Required: No Beliefs That Will Affect Care: None marital status: Single Current Living Situation: Family Feels Safe at Home: Yes Assistive Devices: Cane and Nebulizer Allergies Allergies Allergy/AdvReac Type Severity Reaction Status Date / Time animal dander Allergy Intermediate sneezing,co Verified 02/01/24 20:50 ngestion house dust Allergy Intermediate Respiratory Verified 02/01/24 20:50 symptoms mold Allergy Intermediate sneezing,co Verified 02/01/24 20:50 ngestion pollen extracts Allergy Intermediate congestion Verified 02/01/24 20:50 ragweed pollen Allergy Intermediate nasal Verified 02/01/24 20:50 congestion Home Meds Home Medications Medication Instructions Recorded Confirmed acetaminophen 500 mg tablet 500 - 1,000 mg PO QID PRN Pain 03/26/18 02/01/24 (Tylenol Extra Strength) rivaroxaban 20 mg tablet (Xarelto) 20 mg PO DAILY 03/26/18 02/01/24 tizanidine 2 mg tablet 2 mg PO Q6H PRN MUSCLE SPASMS 12/19/20 02/01/24 albuterol sulfate 90 mcg/actuation 2 puff inhalation Q4H PRN 11/04/22 02/01/24 aerosol inhaler (Proventil HFA) Shortness Of Breath Or Wheezing fluticasone propionate 50 2 spray intranasal DAILY PRN Nasal 11/04/22 02/01/24 mcg/actuation nasal Congestion spray,suspension (Flonase Allergy Relief) levothyroxine 112 mcg tablet 112 mcg PO 5XWK 11/04/22 02/01/24 ipratropium 0.5 mg-albuterol 3 mg 3 ml inhalation QID PRN using as 02/09/23 02/01/24 (2.5 mg base)/3 mL nebulization needed soln levothyroxine 112 mcg tablet 56 mcg PO 2XWK 09/02/23 02/01/24 diclofenac sodium 1 % topical gel 1 ea topical BID PRN Pain 09/09/23 02/01/24 hydroxyzine pamoate 25 mg capsule 25 mg PO TID PRN Anxiety 09/16/23 02/01/24 alprazolam 1 mg tablet 1 mg PO DAILY PRN Anxiety 12/21/23 02/01/24 duloxetine 40 mg capsule,delayed 40 mg PO QAM 12/21/23 02/01/24 release furosemide 40 mg tablet 40 mg PO QAM 12/21/23 02/01/24 diazepam 5 mg tablet 5 mg PO Q8 PRN Anxiety 02/01/24 02/01/24 Previous Rx's Medication Instructions Recorded pantoprazole 40 mg tablet,delayed 40 mg PO QAM #60 tabs 12/22/23 release Results & Data (ED) Vital Signs Vital Signs - 24 hr 02/01/24 17:21 02/01/24 17:21 02/01/24 17:25 Temperature 36.6 C Temperature Source Oral Pulse Rate 66 60 Pulse Rate [Apical] Pulse Rate from SpO2 Sensor Respiratory Rate 22 Respiratory Effort / Characteristics Non-Labored Spontaneous Respiratory Depth Normal Respiratory Pattern Regular Blood Pressure 110/61 Blood Pressure [Right Arm] Blood Pressure Mean 77 Blood Pressure Mean [Right Arm] Pulse Oximetry 100 100 Oxygen Delivery Method Room Air Room Air Sepsis Recent Fever Within 48 Hours No Sepsis New/Unexplained Change in Mental Status No Sepsis Action Taken by Nursing No Action Required 02/01/24 20:24 02/01/24 20:25 02/01/24 20:30 Temperature Temperature Source Pulse Rate 72 Pulse Rate [Apical] 78 Pulse Rate from SpO2 Sensor 72 Respiratory Rate 18 13 Respiratory Effort / Characteristics Non-Labored Spontaneous Respiratory Depth Normal Respiratory Pattern Regular Blood Pressure Blood Pressure [Right Arm] 147/74 H 147/74 H Blood Pressure Mean Blood Pressure Mean [Right Arm] 98 98 Pulse Oximetry 100 99 Oxygen Delivery Method Room Air Sepsis Recent Fever Within 48 Hours Sepsis New/Unexplained Change in Mental Status Sepsis Action Taken by Nursing 02/01/24 21:18 02/01/24 21:30 Temperature Temperature Source Pulse Rate 62 57 L Pulse Rate [Apical] Pulse Rate from SpO2 Sensor 61 59 L Respiratory Rate 15 23 Respiratory Effort / Characteristics Respiratory Depth Respiratory Pattern Blood Pressure Blood Pressure [Right Arm] Blood Pressure Mean Blood Pressure Mean [Right Arm] Pulse Oximetry 98 99 Oxygen Delivery Method Room Air Room Air Sepsis Recent Fever Within 48 Hours Sepsis New/Unexplained Change in Mental Status Sepsis Action Taken by Nursing Laboratory Data Attestation: I reviewed the patient's lab results. 02/01/24 17:55 02/01/24 17:55 Lab Results 02/01/24 02/01/24 02/01/24 Range/Units 17:55 18:08 20:40 WBC 7.12 (4.8-10.8) K/ul RBC 3.79 L (4.20-5.40) M/uL Hgb 12.6 (12.0-16.0) g/dl Hct 37.8 (37.0-47.0) % MCV 99.7 (80.0-100.0) fL MCH 33.2 (25.0-34.0) pg MCHC 33.3 (32.0-36.0) g/dL RDW Std Deviation 45.1 (36.4-46.3) fL RDW Coeff of [place] 12.3 (11.5-14.5) % Plt Count 187 (130-400) K/uL MPV 10.3 (9.4-12.4) fL Immature Gran % (Auto) 1.0 % Neut % (Auto) 64.6 % Lymph % (Auto) 23.0 % [place] % (Auto) 9.6 % Eos % (Auto) 1.1 % Baso % (Auto) 0.7 % Neut # (Auto) 4.60 (1.40-6.50) K/uL Lymph # (Auto) 1.64 (1.20-3.40) K/uL [place] # (Auto) 0.68 H (0.11-0.59) K/uL Eos # (Auto) 0.08 (0.00-0.50) K/uL Baso # (Auto) 0.05 (0.00-0.20) K/uL Immature Gran # (Auto) 0.07 (0.01-0.20) K/uL Sodium 124 L (136-145) mmol/L Potassium 3.7 (3.5-5.1) mmol/L Chloride 90 L (98-107) mmol/L Carbon Dioxide 26 (21-32) mmol/L Anion Gap 8 (3-11) BUN 9 (6-23) mg/dl Creatinine 0.51 L (0.6-1.2) mg/dl Est Cr Clr Drug Dosing 121.0 ml/min Est GFR ( Amer) 117.8 ml/min Est GFR (Non-Af Amer) 101.6 ml/min BUN/Creatinine Ratio 17.6 (10-20) Glucose 94 (70-99(Fasting)) mg/dl Osmolality 269 L (280-300) mOsm/kg Calcium 8.8 (8.6-10.3) mg/dl Total Bilirubin 0.8 (0.2-1.0) mg/dl Direct Bilirubin 0.1 (0-0.2) mg/dl AST 21 (13-39) U/L ALT 12 (7-52) U/L Alkaline Phosphatase 64 (34-104) U/L Total Protein 7.0 (6.0-8.3) gm/dl Albumin 4.1 (3.4-5.0) gm/dl Globulin 2.9 (2.5-4.0) gm/dl Albumin/Globulin Ratio 1.4 (0.9-2) Lipase 24 (11-82) U/L Urine Color Yellow Urine Appearance Clear (Clear) Urine pH 6.0 (4.5-7.5) Ur Specific [place] 1.003 (1.000-1.030) Urine Protein Negative (Negative) Urine Glucose (UA) Negative (Negative) Urine Ketones Negative (Negative) Urine Blood Negative (Negative) Urine Nitrite Negative (Negative) Urine Bilirubin Negative (Negative) Urine Urobilinogen Negative (Negative) Ur Leukocyte Esterase Negative (Negative) Urine Osmolality 68 L (500-800) mOsm/kg Ur Random Sodium 12 mmol/L Administered Medications Discontinued Medications Al Hydrox/Mg Hydrox/Simethicone (Aluminum/Magnesium Susp 30 Ml Udc) 30 ml PO NOW STA Stop: 02/01/24 20:11 Last Admin: 02/01/24 20:23 Dose: 30 ml Documented By: KELLI Sodium Chloride (Nss) 500 mls @ 999 mls/hr IV .Q31M ONE Stop: 02/01/24 18:06 Last Infusion: 02/01/24 20:29 Dose: Infused Documented By: Admin: 02/01/24 17:57 Dose: 999 mls/hr Documented By: KELLI Acetaminophen (Ofirmev) 1,000 mg in 100 mls @ 400 mls/hr IV NOW STA Stop: 02/01/24 20:18 Last Infusion: 02/01/24 21:37 Dose: Infused Documented By: Admin: 02/01/24 20:23 Dose: 400 mls/hr Documented By: KELLI Famotidine (Pepcid 20mg Iv Push) 20 mg in 5 mls @ 2.5 mls/min IV NOW STA Stop: 02/01/24 20:05 Last Admin: 02/01/24 20:23 Dose: 2.5 mls/min Documented By: KELLI Ioversol (Optiray 320 100ml) 90 ml IV ONCE ONE Stop: 02/01/24 19:12 Last Admin: 02/01/24 19:12 Dose: 90 ml Documented By: DAVID Imaging Data Radiologist's Impression: Abdomen/Pelvis CT 02/01/24 17:36 Exam(s): CT ABDOMEN + PELVIS With Contrast IV Amt: 90 ml optiray 320 EXAM: CT Abdomen and Pelvis With Intravenous Contrast CLINICAL HISTORY: abd pain, constipation. TECHNIQUE: Axial computed tomography images of the abdomen and pelvis with intravenous contrast. CTDI is 335.62 mGy and DLP is 1709.82 mGy-cm. Automated exposure control was utilized for the study. A dose lowering technique was utilized adhering to the principles of ALARA. CONTRAST: Patient received 90 ml optiray 320 of IV contrast COMPARISON: No relevant prior studies available. FINDINGS: Artifacts: Scatter artifact through the superior abdomen, likely related to patient's arm position. Limitations: There is respiratory artifact, which degrades image quality on multiple image slices. Lung bases: Unremarkable. No mass. No consolidation. ABDOMEN: Liver: Unremarkable. No mass. Gallbladder and bile ducts: The gallbladder is mildly distended. No calcified gallstones. No definite gallbladder wall thickening or biliary dilatation. Pancreas: The pancreas is grossly stable in appearance, accounting for limitations with respiratory and overlying arm artifact. No ductal dilation. Spleen: Unremarkable. No splenomegaly. Adrenals: Unremarkable. No mass. Kidneys and ureters: Unremarkable. No solid mass. No hydronephrosis. Stomach and bowel: Stomach is mildly distended with retained oral contents and gas. No definite gastric mucosal thickening. No evidence for bowel obstruction. No definite significant asymmetric bowel mucosal abnormality, accounting for limitations with respiratory artifact. Minimal stool burden. No appreciable diverticulitis. PELVIS: Appendix: Normal caliber appendix noted along the posterior medial aspect of the cecum in the right lower quadrant. Bladder: Unremarkable. No mass. Reproductive: Unremarkable as visualized. ABDOMEN and PELVIS: Intraperitoneal space: No free intraperitoneal fluid or definite pneumoperitoneum. Bones/joints: Acute osseous abnormality. No abnormal alignment. Soft tissues: Unremarkable. Vasculature: Unremarkable. No abdominal aortic aneurysm. Lymph nodes: Unremarkable. No enlarged lymph nodes. IMPRESSION: No evidence for bowel obstruction. No definite significant asymmetric bowel mucosal abnormality, accounting for limitations with respiratory artifact. Minimal stool burden. No appreciable diverticulitis. No free intraperitoneal fluid or definite pneumoperitoneum. Electronically signed by: Padilla Diaz MD 02/01/24 20:09 PM Discharge Plan Visit Data Chief Complaint: Abdominal Pain Stated Complaint: AB PAIN ED Provider: Vladimir Kinney Discharge Problem: Hyponatremia, Abdominal pain, On rivaroxaban therapy Forms Stand Alone Forms: [facility], Important Visit Information Prescriptions Prescriptions: No Action acetaminophen [Tylenol Extra Strength] 500 mg Tablet 500 - 1,000 mg PO QID PRN (Reason: Pain) Xarelto 20 mg Tablet 20 mg PO DAILY levothyroxine 112 mcg tablet 112 mcg PO 5XWK Rx Instructions: TAKE MON--FRI fluticasone propionate [Flonase Allergy Relief] 50 mcg/actuation [place],Suspension 2 spray INTRANASAL DAILY PRN (Reason: Nasal Congestion) Rx Instructions: administer into each nostril albuterol sulfate [Proventil HFA] 90 mcg/actuation Hfa Aerosol Inhaler 2 puff INHALATION Q4H PRN (Reason: Shortness Of Breath Or Wheezing) tizanidine 2 mg tablet 2 mg PO Q6H PRN (Reason: MUSCLE SPASMS) ipratropium-albuterol 0.5 mg-3 mg(2.5 mg base)/3 mL solution for nebulization 3 ml INHALATION QID PRN (Reason: using as needed) levothyroxine 112 mcg tablet 56 mcg PO 2XWK Rx Instructions: SAT & SUN furosemide 40 mg Tablet 40 mg PO QAM alprazolam 1 mg tablet 1 mg PO DAILY PRN (Reason: Anxiety) duloxetine 40 mg capsule,delayed release(DR/EC) 40 mg PO QAM pantoprazole 40 mg Tablet,Delayed Release (Dr/Ec) 40 mg PO QAM Qty: 60 0RF diclofenac sodium 1 % gel 1 ea TOPICAL BID PRN (Reason: Pain) hydroxyzine pamoate 25 mg capsule 25 mg PO TID PRN (Reason: Anxiety) diazepam 5 mg tablet 5 mg PO Q8 PRN (Reason: Anxiety) Referrals Referrals: Mario Conte DO [Primary Care Provider] - Discharge Problem: Abdominal pain Qualifiers: Abdominal location: generalized Qualified Code(s): R10.84 - Generalized abdominal pain
[2024-02-01] MEDS: SODIUM CHLORIDE 0.9% 500 ML IV ONE (17:57)
[2024-02-01 18:14] LABS: Basophils # (auto) 0.05 K/uL (0.00-0.20); Basophils % (auto) 0.7 %; Eosinophils # (auto) 0.08 K/uL (0.00-0.50); Eosinophils % (auto) 1.1 %; Hematocrit (blood only) 37.8 % (37.0-47.0); Hemoglobin 12.6 g/dl (12.0-16.0); Immature Granulocytes # (auto) 0.07 K/uL (0.01-0.20); Lymphocytes # (auto) 1.64 K/uL (1.20-3.40); Mean Corpuscular Hemoglobin 33.2 pg (25.0-34.0); Mean Corpuscular Hgb Conc 33.3 g/dL (32.0-36.0); Mean Corpuscular Volume 99.7 fL (80.0-100.0); Mean Platelet Volume 10.3 fL (9.4-12.4); Monocytes # (auto) 0.68 K/uL (0.11-0.59); Monocytes % (auto) 9.6 %; Neutrophils % (auto) 64.6 %; Platelet Count 187 K/uL (130-400); RDW Coefficient of Variation 12.3 % (11.5-14.5); RDW Standard Deviation 45.1 fL (36.4-46.3); Red Blood Count 3.79 M/uL (4.20-5.40); White Blood Count 7.12 K/ul (4.8-10.8)
[2024-02-01 18:21] LABS: Appearance Urine Clear (Clear); Bilirubin Urine Negative (Negative); Blood Urine Negative (Negative); Color Urine Yellow; Glucose Urine UA Negative (Negative); Ketones Urine Negative (Negative); Leukocyte Esterase Urine Negative (Negative); Nitrite Urine Negative (Negative); Protein Urine Negative (Negative); Specific Gravity Urine 1.003 (1.000-1.030); Urobilinogen Urine Negative (Negative)
[2024-02-01 18:30] LABS: Albumin Globulin Ratio 1.4 (0.9-2); Albumin Level 4.1 gm/dl (3.4-5.0); BUN Creatinine Ratio 17.6 (10-20); Bilirubin Direct 0.1 mg/dl (0-0.2); Bilirubin,Total 0.8 mg/dl (0.2-1.0); Calcium 8.8 mg/dl (8.6-10.3); Est GFR (African American) 117.8 ml/min; Est GFR (Non-African American) 101.6 ml/min; Globulin 2.9 gm/dl (2.5-4.0); Potassium 3.7 mmol/L (3.5-5.1)
[2024-02-01] MEDS: OPTIRAY 320 100ml IV ONE (19:12)
--- NOTE | 2024-02-01 20:10 | CT Scan Report ---
Exam(s): CT ABDOMEN + PELVIS With Contrast IV Amt: 90 ml optiray 320 EXAM: CT Abdomen and Pelvis With Intravenous Contrast CLINICAL HISTORY: abd pain, constipation. TECHNIQUE: Axial computed tomography images of the abdomen and pelvis with intravenous contrast. CTDI is 335.62 mGy and DLP is 1709.82 mGy-cm. Automated exposure control was utilized for the study. A dose lowering technique was utilized adhering to the principles of ALARA. CONTRAST: Patient received 90 ml optiray 320 of IV contrast COMPARISON: No relevant prior studies available. FINDINGS: Artifacts: Scatter artifact through the superior abdomen, likely related to patient's arm position. Limitations: There is respiratory artifact, which degrades image quality on multiple image slices. Lung bases: Unremarkable. No mass. No consolidation. ABDOMEN: Liver: Unremarkable. No mass. Gallbladder and bile ducts: The gallbladder is mildly distended. No calcified gallstones. No definite gallbladder wall thickening or biliary dilatation. Pancreas: The pancreas is grossly stable in appearance, accounting for limitations with respiratory and overlying arm artifact. No ductal dilation. Spleen: Unremarkable. No splenomegaly. Adrenals: Unremarkable. No mass. Kidneys and ureters: Unremarkable. No solid mass. No hydronephrosis. Stomach and bowel: Stomach is mildly distended with retained oral contents and gas. No definite gastric mucosal thickening. No evidence for bowel obstruction. No definite significant asymmetric bowel mucosal abnormality, accounting for limitations with respiratory artifact. Minimal stool burden. No appreciable diverticulitis. PELVIS: Appendix: Normal caliber appendix noted along the posterior medial aspect of the cecum in the right lower quadrant. Bladder: Unremarkable. No mass. Reproductive: Unremarkable as visualized. ABDOMEN and PELVIS: Intraperitoneal space: No free intraperitoneal fluid or definite pneumoperitoneum. Bones/joints: Acute osseous abnormality. No abnormal alignment. Soft tissues: Unremarkable. Vasculature: Unremarkable. No abdominal aortic aneurysm. Lymph nodes: Unremarkable. No enlarged lymph nodes. IMPRESSION: No evidence for bowel obstruction. No definite significant asymmetric bowel mucosal abnormality, accounting for limitations with respiratory artifact. Minimal stool burden. No appreciable diverticulitis. No free intraperitoneal fluid or definite pneumoperitoneum. Electronically signed by: Padilla Diaz MD 02/01/24 20:09 PM
[2024-02-01] MEDS: ACETAMINOPHEN 1,000 MG/100 ML VIAL IV STA (20:23)
[2024-02-01] MEDS: FAMOTIDINE 20MG IV PUSH 20 MG/5 ML SYR IV STA (20:23)
[2024-02-01] MEDS: ALUMINUM/MAGNESIUM SUSP 30 ML UDC PO STA (20:23)
--- NOTE | 2024-02-01 21:03 | History & Physical Report ---
Date of Service February 01, 2024 Assessment & Plan (1) Hyponatremia: Plan: 63-year-old female with past medical history significant for hypothyroidism, prediabetes, oropharyngeal dysphagia, mild persistent asthma, peripheral vascular disease, GERD, irritable bowel syndrome, history of sebaceous cyst of labia, osteoarthritis, heterozygous factor V Leiden mutation ,history of PE, history of DVT, general anxiety disorder, lymphedema, mild depression, moderate intellectual disabilities, panic disorder was brought in by because of abdominal pain. Patient was recently seen in the ER for abdominal pain and workup was negative. Again comes today with complains of upper abdominal pain. Some pain in the lower chest. An episode of vomiting. Micturating okay. Had a bowel movement today but thinks not completely emptied. Ambulating okay. Eating and drinking okay as per . Symptoms of short of breath because of anxiety.. No headache. Chronic neck pain from arthritis. Vision is okay. No runny nose or sore throat. No cough. Hemodynamics are okay.Labs showed hyponatremia. Hyponatremia Sodium 124 Will check urine osmolality, serum osmolality, and urine sodium Gentle fluids normal saline at the rate of 50 mill per hour Slow correction BMP every 6 hours Consult nephrology in a.m. for further recommendations Abdominal pain CT scan seems okay History of irritable bowel syndrome Pain control Clears for now If not improved will consult GI Prediabetes Will check HbA1c levels History of oropharyngeal dysphagia Monitor for aspiration Mild persistent asthma Continue home inhalers Depression General anxiety disorder Panic disorder Continue home medications History of DVT/PE Heterozygous factor V Leiden mutation On Xarelto Chronic lymphedema On Lasix Hypothyroidism On Synthyroid Follow TSH GERD On Protonix DVT prophylaxis On Xarelto Disposition Telemetry Full code. History of Present Illness Chief Complaint: Abdominal pain, hyponatremia Primary Care Provider: Mario Conte DO 63-year-old female with past medical history significant for hypothyroidism, prediabetes, oropharyngeal dysphagia, mild persistent asthma, peripheral vascular disease, GERD, irritable bowel syndrome, history of sebaceous cyst of labia, osteoarthritis, heterozygous factor V Leiden mutation ,history of PE, history of DVT, general anxiety disorder, lymphedema, mild depression, moderate intellectual disabilities, panic disorder was brought in by because of abdominal pain. Patient was recently seen in the ER for abdominal pain and workup was negative. Again comes today with complains of upper abdominal pain. Some pain in the lower chest. An episode of vomiting. Micturating okay. Had a bowel movement today but thinks not completely emptied. Ambulating okay. Eating and drinking okay as per . Symptoms of short of breath because of anxiety.. No headache. Chronic neck pain from arthritis. Vision is okay. No runny nose or sore throat. No cough. Hemodynamics are okay.Labs showed hyponatremia Past medical history. As mentioned above. Past surgical history. Colonoscopy. EGD with biopsy. IVC filter. Social history. No smoking. No alcohol use. No drug use. Family history. Maternal grandfather had blood clots. Father had lung cancer. Mother had DVT/PE. Allergies Allergy/AdvReac Type Severity Reaction Status Date / Time animal dander Allergy Intermediate sneezing,co Verified 02/01/24 20:50 ngestion house dust Allergy Intermediate Respiratory Verified 02/01/24 20:50 symptoms mold Allergy Intermediate sneezing,co Verified 02/01/24 20:50 ngestion pollen extracts Allergy Intermediate congestion Verified 02/01/24 20:50 ragweed pollen Allergy Intermediate nasal Verified 02/01/24 20:50 congestion Home Medications Medication Instructions Recorded Confirmed Type acetaminophen 500 mg tablet 500 - 1,000 mg PO QID PRN Pain 03/26/18 02/01/24 History (Tylenol Extra Strength) rivaroxaban 20 mg tablet (Xarelto) 20 mg PO DAILY 03/26/18 02/01/24 History tizanidine 2 mg tablet 2 mg PO Q6H PRN MUSCLE SPASMS 12/19/20 02/01/24 History albuterol sulfate 90 mcg/actuation 2 puff inhalation Q4H PRN 11/04/22 02/01/24 History aerosol inhaler (Proventil HFA) Shortness Of Breath Or Wheezing fluticasone propionate 50 2 spray intranasal DAILY PRN Nasal 11/04/22 02/01/24 History mcg/actuation nasal Congestion spray,suspension (Flonase Allergy Relief) levothyroxine 112 mcg tablet 112 mcg PO 5XWK 11/04/22 02/01/24 History ipratropium 0.5 mg-albuterol 3 mg 3 ml inhalation QID PRN using as 02/09/23 02/01/24 History (2.5 mg base)/3 mL nebulization needed soln levothyroxine 112 mcg tablet 56 mcg PO 2XWK 09/02/23 02/01/24 History diclofenac sodium 1 % topical gel 1 ea topical BID PRN Pain 09/09/23 02/01/24 History hydroxyzine pamoate 25 mg capsule 25 mg PO TID PRN Anxiety 09/16/23 02/01/24 History alprazolam 1 mg tablet 1 mg PO DAILY PRN Anxiety 12/21/23 02/01/24 History duloxetine 40 mg capsule,delayed 40 mg PO QAM 12/21/23 02/01/24 History release furosemide 40 mg tablet 40 mg PO QAM 12/21/23 02/01/24 History pantoprazole 40 mg tablet,delayed 40 mg PO QAM #60 tabs 12/22/23 02/01/24 Rx release diazepam 5 mg tablet 5 mg PO Q8 PRN Anxiety 02/01/24 02/01/24 History Past Med/Surg History Problem List (Updated 02/01/24 @ 23:06 by Vladimir Kinney MD) On rivaroxaban therapy (Acute) Abdominal pain (Acute) Hyponatremia (Acute) Constipation (Acute) Anxiety (Acute) Acute electrocardiogram changes (Acute) Headache (Acute) Abdominal pain (Acute) Chest pain (Acute) COVID-19 (Acute) Arthritis of carpometacarpal (CMC) joint of right thumb Thumb pain Right knee DJD Knee pain Cubital tunnel syndrome on left Left knee DJD Pulmonary emboli DVT (deep venous thrombosis) Asthma (Acute) Knee pain, bilateral Arthritis of both knees No pertinent past surgical history Depression Temporomandibular joint disorder (Chronic 10/27/12) Headache (Acute) Cough (Acute) Cough (Acute) Sinusitis (Acute) Right-sided chest pain (Acute) Cough (Acute) URI (upper respiratory infection) (Acute) Bilateral leg pain (Acute) Dehydration (Acute) Vomiting and diarrhea (Acute) Asthma exacerbation (Acute) Acute bronchitis (Acute) Fall (Acute) Left ankle sprain (Acute) Left knee sprain (Acute) Abdominal pain, left upper quadrant (Acute) Left arm numbness (Acute) Medical History Hypertension Vaginal pain Tremor Trapezius muscle spasm Skin lesion Reflex incontinence Psoriasis Primary hypercoagulable state Pre-diabetes Non-pitting edema Need for hepatitis C screening test Menopausal and perimenopausal disorder Macrocytosis Localized edema Intermittent vomiting Hypothyroidism Hyperglycemia Gastroesophageal reflux disease Factor V Leiden mutation External hemorrhoids Dysuria Dysphagia DVT of leg (deep venous thrombosis) Chronic left sacroiliac pain Breast pain, right Asthma, moderate persistent Anxiety disorder Acute left ankle pain Family history non-contributory Mental retardation Family History Other Family history non-contributory Social History Smoking Status: Never smoker Tobacco Type: Cigarettes Second Hand Exposure: No; Do You Dip or Chew Tobacco: No; Hx Alcohol Use: No Hx Substance Use: No Preferred Language: Frisian Communication Ability: Effective 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 ENT- oropharynx clear Neck- supple, no JVD. Lungs- clear to auscultation no wheezing or crackles. Heart- regular rhythm; no murmur, no gallop. Abdomen- normal bowel sounds, soft, nontender, no distension. Extremities- chronic lymphedema present, Legs in stockings, no obvious erythema seen. Neuro- alert, oriented PERRL, no facial palsy; no dysarthria;obeys simple commands. Results & Data Results & Data Vital Signs (Past 12 Hours) Vital Signs Temp Pulse Pulse Resp BP BP Pulse Ox 02/01/24 20:25 78 18 147/74 H 100 02/01/24 17:25 60 02/01/24 17:21 100 02/01/24 17:21 36.6 C 66 22 110/61 100 O2 Del Method 02/01/24 20:25 Room Air 02/01/24 17:25 02/01/24 17:21 Room Air 02/01/24 17:21 Room Air Diagnostic Findings Laboratory Results WBC 7.12 K/ul (4.8-10.8) 02/01/24 17:55 RBC 3.79 M/uL (4.20-5.40) L 02/01/24 17:55 Hgb 12.6 g/dl (12.0-16.0) 02/01/24 17:55 Hct 37.8 % (37.0-47.0) 02/01/24 17:55 MCV 99.7 fL (80.0-100.0) 02/01/24 17:55 MCH 33.2 pg (25.0-34.0) 02/01/24 17:55 MCHC 33.3 g/dL (32.0-36.0) 02/01/24 17:55 RDW Std Deviation 45.1 fL (36.4-46.3) 02/01/24 17:55 RDW Coeff of [place] 12.3 % (11.5-14.5) 02/01/24 17:55 Plt Count 187 K/uL (130-400) 02/01/24 17:55 MPV 10.3 fL (9.4-12.4) 02/01/24 17:55 Immature Gran % (Auto) 1.0 % 02/01/24 17:55 Neut % (Auto) 64.6 % 02/01/24 17:55 Lymph % (Auto) 23.0 % 02/01/24 17:55 Leon % (Auto) 9.6 % 02/01/24 17:55 Eos % (Auto) 1.1 % 02/01/24 17:55 Baso % (Auto) 0.7 % 02/01/24 17:55 Neut # (Auto) 4.60 K/uL (1.40-6.50) 02/01/24 17:55 Lymph # (Auto) 1.64 K/uL (1.20-3.40) 02/01/24 17:55 Leon # (Auto) 0.68 K/uL (0.11-0.59) H 02/01/24 17:55 Eos # (Auto) 0.08 K/uL (0.00-0.50) 02/01/24 17:55 Baso # (Auto) 0.05 K/uL (0.00-0.20) 02/01/24 17:55 Immature Gran # (Auto) 0.07 K/uL (0.01-0.20) 02/01/24 17:55 Sodium 124 mmol/L (136-145) L 02/01/24 17:55 Potassium 3.7 mmol/L (3.5-5.1) 02/01/24 17:55 Chloride 90 mmol/L (98-107) L 02/01/24 17:55 Carbon Dioxide 26 mmol/L (21-32) 02/01/24 17:55 Anion Gap 8 (3-11) 02/01/24 17:55 BUN 9 mg/dl (6-23) 02/01/24 17:55 Creatinine 0.51 mg/dl (0.6-1.2) L 02/01/24 17:55 Est Cr Clr Drug Dosing 121.0 ml/min 02/01/24 17:55 Est GFR ( Amer) 117.8 ml/min 02/01/24 17:55 Est GFR (Non-Af Amer) 101.6 ml/min 02/01/24 17:55 BUN/Creatinine Ratio 17.6 (10-20) 02/01/24 17:55 Glucose 94 mg/dl (70-99(Fasting)) 02/01/24 17:55 Calcium 8.8 mg/dl (8.6-10.3) 02/01/24 17:55 Total Bilirubin 0.8 mg/dl (0.2-1.0) 02/01/24 17:55 Direct Bilirubin 0.1 mg/dl (0-0.2) 02/01/24 17:55 AST 21 U/L (13-39) 02/01/24 17:55 ALT 12 U/L (7-52) 02/01/24 17:55 Alkaline Phosphatase 64 U/L (34-104) 02/01/24 17:55 Total Protein 7.0 gm/dl (6.0-8.3) 02/01/24 17:55 Albumin 4.1 gm/dl (3.4-5.0) 02/01/24 17:55 Globulin 2.9 gm/dl (2.5-4.0) 02/01/24 17:55 Albumin/Globulin Ratio 1.4 (0.9-2) 02/01/24 17:55 Lipase 24 U/L (11-82) 02/01/24 17:55 Urine Color Yellow 02/01/24 18:08 Urine Appearance Clear (Clear) 02/01/24 18:08 Urine pH 6.0 (4.5-7.5) 02/01/24 18:08 Ur Specific [place] 1.003 (1.000-1.030) 02/01/24 18:08 Urine Protein Negative (Negative) 02/01/24 18:08 Urine Glucose (UA) Negative (Negative) 02/01/24 18:08 Urine Ketones Negative (Negative) 02/01/24 18:08 Urine Blood Negative (Negative) 02/01/24 18:08 Urine Nitrite Negative (Negative) 02/01/24 18:08 Urine Bilirubin Negative (Negative) 02/01/24 18:08 Urine Urobilinogen Negative (Negative) 02/01/24 18:08 Ur Leukocyte Esterase Negative (Negative) 02/01/24 18:08 Impressions Abdomen/Pelvis CT 02/01/24 17:36 Exam(s): CT ABDOMEN + PELVIS With Contrast IV Amt: 90 ml optiray 320 EXAM: CT Abdomen and Pelvis With Intravenous Contrast CLINICAL HISTORY: abd pain, constipation. TECHNIQUE: Axial computed tomography images of the abdomen and pelvis with intravenous contrast. CTDI is 335.62 mGy and DLP is 1709.82 mGy-cm. Automated exposure control was utilized for the study. A dose lowering technique was utilized adhering to the principles of ALARA. CONTRAST: Patient received 90 ml optiray 320 of IV contrast COMPARISON: No relevant prior studies available. FINDINGS: Artifacts: Scatter artifact through the superior abdomen, likely related to patient's arm position. Limitations: There is respiratory artifact, which degrades image quality on multiple image slices. Lung bases: Unremarkable. No mass. No consolidation. ABDOMEN: Liver: Unremarkable. No mass. Gallbladder and bile ducts: The gallbladder is mildly distended. No calcified gallstones. No definite gallbladder wall thickening or biliary dilatation. Pancreas: The pancreas is grossly stable in appearance, accounting for limitations with respiratory and overlying arm artifact. No ductal dilation. Spleen: Unremarkable. No splenomegaly. Adrenals: Unremarkable. No mass. Kidneys and ureters: Unremarkable. No solid mass. No hydronephrosis. Stomach and bowel: Stomach is mildly distended with retained oral contents and gas. No definite gastric mucosal thickening. No evidence for bowel obstruction. No definite significant asymmetric bowel mucosal abnormality, accounting for limitations with respiratory artifact. Minimal stool burden. No appreciable diverticulitis. PELVIS: Appendix: Normal caliber appendix noted along the posterior medial aspect of the cecum in the right lower quadrant. Bladder: Unremarkable. No mass. Reproductive: Unremarkable as visualized. ABDOMEN and PELVIS: Intraperitoneal space: No free intraperitoneal fluid or definite pneumoperitoneum. Bones/joints: Acute osseous abnormality. No abnormal alignment. Soft tissues: Unremarkable. Vasculature: Unremarkable. No abdominal aortic aneurysm. Lymph nodes: Unremarkable. No enlarged lymph nodes. IMPRESSION: No evidence for bowel obstruction. No definite significant asymmetric bowel mucosal abnormality, accounting for limitations with respiratory artifact. Minimal stool burden. No appreciable diverticulitis. No free intraperitoneal fluid or definite pneumoperitoneum. Electronically signed by: Padilla Diaz MD 02/01/24 20:09 PM ECG Additional Comments: ECG. Normal sinus rhythm with rate of 61. No acute ST changes seen. Code Status & VTE Plan VTE Prophylaxis Plan VTE Prophylaxis will be ordered: Yes
[2024-02-01] MEDS ORDERED: DICLOFENAC SOD 1% GEL 100 GM TUBE EXT PRN (23:56)
[2024-02-01] MEDS ORDERED: NITROGLYCERIN SL 0.4 MG/TAB TAB SL PRN (23:56)
[2024-02-01] MEDS ORDERED: diazePAM 5 MG TABLET PO PRN (23:56)
[2024-02-01] MEDS ORDERED: FLUTICASONE PROPIONATE NA SPR 16 GM BTL PRN (23:56)
[2024-02-01] MEDS ORDERED: ONDANSETRON INJ 2 MG/ML 2 ML VIAL IV PRN (23:56)
[2024-02-01] MEDS ORDERED: ALBUT/IPRATROP 3MG/0.5MG NEB 3 ML VIAL INH PRN (23:56)
[2024-02-01] MEDS ORDERED: ALPRAZolam 0.5 MG TABLET PO PRN (23:56)
[2024-02-01] MEDS ORDERED: tiZANidine HCL 4 MG TABLET PO PRN (23:56)
[2024-02-01] MEDS ORDERED: ALBUTEROL HFA 8 GM INHALER INH PRN (23:56)
[2024-02-02] MEDS: SODIUM CHLORIDE 0.9% 1,000 ML IV SCH (00:55)
[2024-02-02 01:09] LABS: Troponin I High Sensitivity 3.5 pg/ml (0-14)
[2024-02-02 04:48] LABS: Basophils # (auto) 0.04 K/uL (0.00-0.20); Basophils % (auto) 0.8 %; Eosinophils # (auto) 0.11 K/uL (0.00-0.50); Eosinophils % (auto) 2.1 %; Hemoglobin 12.2 g/dl (12.0-16.0); Immature Granulocytes # (auto) 0.02 K/uL (0.01-0.20); Immature Granulocytes % (auto) 0.4 %; Lymphocytes # (auto) 1.76 K/uL (1.20-3.40); Mean Corpuscular Hemoglobin 33.4 pg (25.0-34.0); Mean Corpuscular Hgb Conc 32.1 g/dL (32.0-36.0); Mean Corpuscular Volume 104.1 fL (80.0-100.0); Mean Platelet Volume 10.6 fL (9.4-12.4); Monocytes # (auto) 0.68 K/uL (0.11-0.59); Monocytes % (auto) 13.1 %; Neutrophils # (auto) 2.57 K/uL (1.40-6.50); Neutrophils % (auto) 49.6 %; Platelet Count 161 K/uL (130-400); RDW Coefficient of Variation 12.3 % (11.5-14.5); RDW Standard Deviation 47.5 fL (36.4-46.3); Red Blood Count 3.65 M/uL (4.20-5.40); White Blood Count 5.18 K/ul (4.8-10.8)
[2024-02-02 05:11] LABS: Calcium 8.8 mg/dl (8.6-10.3); Magnesium 2.1 mg/dl (1.7-2.4); Potassium 3.8 mmol/L (3.5-5.1)
[2024-02-02 05:17] LABS: BUN Creatinine Ratio 14.9 (10-20); Creatinine Clr Calc Pharmacy 131.3 ml/min; Est GFR (Non-African American) 104.4 ml/min
[2024-02-02 05:20] LABS: Troponin I High Sensitivity 3.2 pg/ml (0-14)
[2024-02-02 05:29] LABS: Thyroid Stimulating Hormone 0.228 uIu/ml (0.300-4.500)
[2024-02-02 06:07] LABS: T4 Free Thyroxine 1.13 ng/dl (0.61-1.60)
[2024-02-02] MEDS: LEVOTHYROXINE SODIUM 112 MCG TABLET PO SCH (06:22)
[2024-02-02] MEDS: DULoxetine HCL 20 MG CAP PO SCH (08:19)
[2024-02-02] MEDS: PANTOprazole 40 MG TAB PO SCH (08:20)
[2024-02-02] MEDS: FUROSEMIDE 40 MG TAB PO SCH (08:20)
[2024-02-02] MEDS: DEXTROSE 5% 500 ML IV SCH ×2 (08:27→15:09)
--- NOTE | 2024-02-02 09:14 | Nephrology Consultation ---
Date of Consultation February 02, 2024 Assessment & Plan (1) Hyponatremia: hypotonic euvolemic hyponatremia from polydipsia based on admission labs and corrected too quickly from 124 to 134 in 6 hours. > q4h BMP pls run stat >goal is to put her sNa back to 131 FANNIE >> may be challenging to do since sodium has already corrected >continue D5W 200 mL hourly nonstop; low threshold to give 1 mcg desmopressin -maintain eukalemia -for now no fluid limit care coordinated w/ dr casey regarding sodium target, therapies for hyponatremia, lab frequency. History of Present Illness Reason for Consultation: hyponatremia Requesting Physician: Dr Biggs Attending Physician: Arnav Casey MD History of Present Illness 63 y/o F whom I'm asked to see for hyponatremia was admitted last evening for serum soduim of 124 at 1800 after presenting with emesis episode, ongoing upper abdominal pain. PMH includes hypothyroidism, impaired fasting glucose, oropharyngeal dysphagia, mild persistent asthma, peripheral vascular disease, GERD, irritable bowel syndrome, history of labial sebaceous cyst, osteoarthritis, heterozygous factor V Leiden mutation w/ history of PE/DVT, general anxiety/panic disorder, depression, moderate intellectual disabilities, panic disorder was brought in by because of abdominal pain. Obs'd here last month for chest pain ultimately attributed to GERD after ACS r/o. f/u sNa at [facility] was 134, up to 137 on labs this am. No hyponatremia on [facility] labs over the past year; fairly frequent not sustained hyponatremia on 5 of 13 checks past 6 mos in [facility] >> none below 130 however. She had a 1/2 L NS; also had her AM po lasix dose. started on D5W at 200 mL hourly at 0800. no fluid limit currently No new/worrisome voiding sx. no balance or ambulation concerns. no constipation or diarrhea or decreased po intake. stable chronic neck pain from OA. some sob attributed to anxiety. No runny nose or sore throat. No cough. tells me she usually drinks a lot of water. Allergies Allergy/AdvReac Type Severity Reaction Status Date / Time animal dander Allergy Intermediate sneezing,co Verified 02/01/24 20:50 ngestion house dust Allergy Intermediate Respiratory Verified 02/01/24 20:50 symptoms mold Allergy Intermediate sneezing,co Verified 02/01/24 20:50 ngestion pollen extracts Allergy Intermediate congestion Verified 02/01/24 20:50 ragweed pollen Allergy Intermediate nasal Verified 02/01/24 20:50 congestion Home Medications Medication Instructions Recorded Confirmed Type acetaminophen 500 mg tablet 500 - 1,000 mg PO QID PRN Pain 03/26/18 02/01/24 History (Tylenol Extra Strength) rivaroxaban 20 mg tablet (Xarelto) 20 mg PO DAILY 03/26/18 02/01/24 History tizanidine 2 mg tablet 2 mg PO Q6H PRN MUSCLE SPASMS 12/19/20 02/01/24 History albuterol sulfate 90 mcg/actuation 2 puff inhalation Q4H PRN 11/04/22 02/01/24 History aerosol inhaler (Proventil HFA) Shortness Of Breath Or Wheezing fluticasone propionate 50 2 spray intranasal DAILY PRN Nasal 11/04/22 02/01/24 History mcg/actuation nasal Congestion spray,suspension (Flonase Allergy Relief) levothyroxine 112 mcg tablet 112 mcg PO 5XWK 11/04/22 02/01/24 History ipratropium 0.5 mg-albuterol 3 mg 3 ml inhalation QID PRN using as 02/09/23 02/01/24 History (2.5 mg base)/3 mL nebulization needed soln levothyroxine 112 mcg tablet 56 mcg PO 2XWK 09/02/23 02/01/24 History diclofenac sodium 1 % topical gel 1 ea topical BID PRN Pain 09/09/23 02/01/24 History hydroxyzine pamoate 25 mg capsule 25 mg PO TID PRN Anxiety 09/16/23 02/01/24 History alprazolam 1 mg tablet 1 mg PO DAILY PRN Anxiety 12/21/23 02/01/24 History duloxetine 40 mg capsule,delayed 40 mg PO QAM 12/21/23 02/01/24 History release furosemide 40 mg tablet 40 mg PO QAM 12/21/23 02/01/24 History pantoprazole 40 mg tablet,delayed 40 mg PO QAM #60 tabs 12/22/23 02/01/24 Rx release diazepam 5 mg tablet 5 mg PO Q8 PRN Anxiety 02/01/24 02/01/24 History Patient History Medical History Hypertension Vaginal pain Tremor Trapezius muscle spasm Skin lesion Reflex incontinence Psoriasis Primary hypercoagulable state Pre-diabetes Non-pitting edema Need for hepatitis C screening test Menopausal and perimenopausal disorder Macrocytosis Localized edema Intermittent vomiting Hypothyroidism Hyperglycemia Gastroesophageal reflux disease Factor V Leiden mutation External hemorrhoids Dysuria Dysphagia DVT of leg (deep venous thrombosis) Chronic left sacroiliac pain Breast pain, right Asthma, moderate persistent Anxiety disorder Acute left ankle pain Family history non-contributory Mental retardation Family History Other Family history non-contributory Social History Smoking Status: Never smoker Tobacco Type: Cigarettes Second Hand Exposure: No; Do You Dip or Chew Tobacco: No; Hx Alcohol Use: No Hx Substance Use: No Preferred Language: Botswanan Communication Ability: Effective Consumer Lender Required: No Beliefs That Will Affect Care: None marital status: Single Current Living Situation: Family Feels Safe at Home: Yes Safety Concerns: Feels Safe At This Time Assistive Devices: None and Nebulizer Review of Systems 2 Review of Systems: All systems reviewed & are unremarkable except as noted in HPI & below Physical Exam 2 Constitutional: well developed, well nourished, + behavioral limitations and cooperative; no acute distress Eyes: EOM intact bilaterally ENMT: Ears: no external ear abnormality Nose: no external nose abnormality Mouth: + dry oral mucous membranes Neck: no nuchal rigidity Respiratory: normal respiratory effort Auscultation: + diminished lung sounds Cardiovascular: Rate/Rhythm: regular rate and regular rhythm Extremities: + edema (trace BLE) Gastrointestinal (Abdomen): Inspection/Auscultation: normal bowel sounds P ercussion/Palpation: abdomen soft; abdomen nontender Musculoskeletal: Extremities: strength 5/5 throughout Skin: no rashes, warm and dry Neurologic: tran, fluent speech, no tremor Results & Data Vital Signs (Past 12 Hours) Vital Signs Temp Pulse Pulse Resp BP Pulse Ox Pulse Ox 02/02/24 08:21 61 16 128/77 99 02/02/24 07:47 50 L 02/02/24 04:55 36.6 C 62 14 106/47 L 97 02/02/24 03:43 59 L 02/02/24 00:09 36.8 C 62 16 125/75 99 02/02/24 00:05 99 02/01/24 23:44 64 16 125/75 100 02/01/24 21:30 57 L 23 99 02/01/24 21:18 62 15 98 O2 Del Method O2 Del Method 02/02/24 08:21 Room Air 02/02/24 07:47 02/02/24 04:55 Room Air 02/02/24 03:43 02/02/24 00:09 Room Air 02/02/24 00:05 Room Air 02/01/24 23:44 Room Air 02/01/24 21:30 Room Air 02/01/24 21:18 Room Air Laboratory Results 02/02/24 04:08 02/02/24 04:08 u OSm 68 Brandy 12 sOsm 269
--- NOTE | 2024-02-02 09:34 | Hospitalist Progress Note ---
Date of Service February 02, 2024 Assessment & Plan (1) Hyponatremia: Plan: 63-year-old female with past medical history significant for hypothyroidism, prediabetes, oropharyngeal dysphagia, mild persistent asthma, peripheral vascular disease, GERD, irritable bowel syndrome, history of sebaceous cyst of labia, osteoarthritis, heterozygous factor V Leiden mutation ,history of PE, history of DVT, general anxiety disorder, lymphedema, mild depression, moderate intellectual disabilities, panic disorder was brought in by because of abdominal pain. Hyponatremia Likely secondary to increased free water intake/low solute intake Presented with serum sodium of 124 Urine osmolarity and urine sodium low Serum sodium improved to 137 today Discussed with nephrology; will continue D5 and give 1 dose of desmopressin. Plan for correction of 6 to 8 mEq in 24 hours. Nephrology on board; appreciate recommendation Hold Lasix Abdominal pain -Resolved Patient reports abdominal pain; CT abdomen pelvis on admission did not show any evidence of bowel obstruction, diverticulitis, intraperitoneal fluid or definite pneumoperitoneum. Diet advanced to regular. Monitor for pain Prediabetes Follow up on HbA1c level History of oropharyngeal dysphagia Monitor for aspiration Mild persistent asthma Continue home inhalers Depression General anxiety disorder Panic disorder Continue home medications History of DVT/PE Heterozygous factor V Leiden mutation On Xarelto, continue Chronic lymphedema On Lasix, on hold Hypothyroidism On Synthyroid Follow TSH GERD On Protonix DVT prophylaxis On Xarelto Disposition Telemetry Full code. Time spent evaluating patient, direct bedside care, chart review, placing orders, interpretation of diagnostic studies, discussion with consultants, patient, and family members, as well as other required patient management activities is 50 minutes Please note the above document was generated using voice recognition software. It may contain grammatical, syntax or spelling errors. Any formal questions or concerns about the content, text or information contained within the body of this dictation should be directly addressed to the provider for clarification Admission and Anticipated Discharge Date Admission Date: February 01, 2024 Subjective Patient seen and examined at bedside She is comfortable; not in distress Vital signs are stable. Review of Systems Review of Systems: All systems reviewed & are unremarkable except as noted in Subjective Physical Exam Physical Exam: General- Not in distress Head- atraumatic Eyes- PERRL. ENT- oropharynx clear Neck- supple, no JVD. Lungs- clear to auscultation no wheezing or crackles. Heart- regular rhythm; no murmur, no gallop. Abdomen- normal bowel sounds, soft, nontender, no distension. Extremities- chronic lymphedema present, Legs in stockings, no obvious erythema seen. Neuro- alert, oriented PERRL, no facial palsy; no dysarthria;obeys simple commands. Results & Data Results & Data Vital Signs (Past 12 Hours) Vital Signs Temp Pulse Pulse Resp BP Pulse Ox Pulse Ox 02/02/24 08:21 61 16 128/77 99 02/02/24 07:47 50 L 02/02/24 04:55 36.6 C 62 14 106/47 L 97 02/02/24 03:43 59 L 02/02/24 00:09 36.8 C 62 16 125/75 99 02/02/24 00:05 99 02/01/24 23:44 64 16 125/75 100 02/01/24 21:30 57 L 23 99 O2 Del Method O2 Del Method 02/02/24 08:21 Room Air 02/02/24 07:47 02/02/24 04:55 Room Air 02/02/24 03:43 02/02/24 00:09 Room Air 02/02/24 00:05 Room Air 02/01/24 23:44 Room Air 02/01/24 21:30 Room Air
[2024-02-02 13:52] LABS: Calcium 8.9 mg/dl (8.6-10.3); Potassium 3.9 mmol/L (3.5-5.1)
[2024-02-02 13:58] LABS: BUN Creatinine Ratio 12.5 (10-20); Creatinine Clr Calc Pharmacy 110.2 ml/min; Est GFR (African American) 114.2 ml/min; Est GFR (Non-African American) 98.5 ml/min
[2024-02-02] MEDS: DESMOPRESSIN ACETATE 1 MCG in SODIUM CHLORIDE 0.9% 50 ML IV ONE (15:08)
[2024-02-02] MEDS: RIVAROXABAN 20 MG TAB PO SCH (16:37)
[2024-02-02 16:59] LABS: BUN Creatinine Ratio 17.9 (10-20); Calcium 8.4 mg/dl (8.6-10.3); Creatinine Clr Calc Pharmacy 110.2 ml/min; Est GFR (African American) 114.2 ml/min; Est GFR (Non-African American) 98.5 ml/min; Potassium 3.8 mmol/L (3.5-5.1)
[2024-02-02 21:30] LABS: BUN Creatinine Ratio 15.9 (10-20); Calcium 8.7 mg/dl (8.6-10.3); Est GFR (African American) 109.9 ml/min; Est GFR (Non-African American) 94.8 ml/min; Potassium 3.7 mmol/L (3.5-5.1)
[2024-02-03] MEDS: ACETAMINOPHEN 1,000 MG/100 ML VIAL IV PRN (00:45)
[2024-02-03 01:19] LABS: BUN Creatinine Ratio 15.2 (10-20); Creatinine Clr Calc Pharmacy 93.5 ml/min; Est GFR (African American) 108.2 ml/min; Est GFR (Non-African American) 93.4 ml/min; Potassium 3.5 mmol/L (3.5-5.1)
[2024-02-03] MEDS: ALUMINUM/MAGNESIUM/SIMETH (MAALOX MAX) 30 ML UDC PO STA (03:33)
[2024-02-03 04:28] LABS: Anion Gap 5 (3-11); BUN Creatinine Ratio 15.5 (10-20); Blood Urea Nitrogen 9 mg/dl (6-23); Calcium 8.2 mg/dl (8.6-10.3); Carbon Dioxide 26 mmol/L (21-32); Chloride 95 mmol/L (98-107); Creatinine Clr Calc Pharmacy 106.4 ml/min; Est GFR (African American) 112.9 ml/min; Est GFR (Non-African American) 97.4 ml/min; Glucose 173 mg/dl (70-99(Fasting)); Potassium 3.1 mmol/L (3.5-5.1); Sodium 126 mmol/L (136-145)
[2024-02-03 04:35] LABS: Troponin I High Sensitivity < 2.3 pg/ml (0-14)
[2024-02-03] MEDS: MoRPHine SULFATE 2 MG/ML CARP IV STA (04:55)
[2024-02-03] MEDS: POTASSIUM CHLORIDE 20 MEQ/15 ML UDC PO STA (05:07)
[2024-02-03] MEDS: POTASSIUM CHLORIDE CRTAB 20 MEQ TABCR PO STA (06:43)
[2024-02-03 09:01] LABS: BUN Creatinine Ratio 12.7 (10-20); Calcium 7.7 mg/dl (8.6-10.3); Creatinine Clr Calc Pharmacy 112.2 ml/min; Est GFR (African American) 114.9 ml/min; Est GFR (Non-African American) 99.1 ml/min; Potassium 3.9 mmol/L (3.5-5.1)
--- NOTE | 2024-02-03 14:23 | Hospitalist Progress Note ---
Date of Service February 03, 2024 Assessment & Plan (1) Hyponatremia: Plan: 63-year-old female with past medical history significant for hypothyroidism, prediabetes, oropharyngeal dysphagia, mild persistent asthma, peripheral vascular disease, GERD, irritable bowel syndrome, history of sebaceous cyst of labia, osteoarthritis, heterozygous factor V Leiden mutation ,history of PE, history of DVT, general anxiety disorder, lymphedema, mild depression, moderate intellectual disabilities, panic disorder was brought in by because of abdominal pain. Hyponatremia Likely secondary to increased free water intake/low solute intake Presented with serum sodium of 124 Urine osmolarity and urine sodium low Serum sodium overcorrected; patient was given D5 and dose of desmopressin. Serum sodium is 127 today Will continue to monitor BMP every 6 hours. Continue to hold Lasix Abdominal pain -Resolved Patient reports abdominal pain; CT abdomen pelvis on admission did not show any evidence of bowel obstruction, diverticulitis, intraperitoneal fluid or definite pneumoperitoneum. Diet advanced to regular. Monitor for pain Prediabetes diet controlled History of oropharyngeal dysphagia Monitor for aspiration Mild persistent asthma Continue home inhalers Depression General anxiety disorder Panic disorder Continue home medications History of DVT/PE Heterozygous factor V Leiden mutation On Xarelto, continue Chronic lymphedema On Lasix, on hold Hypothyroidism On Synthyroid Follow TSH GERD On Protonix DVT prophylaxis On Xarelto Disposition Telemetry Full code. Time spent evaluating patient, direct bedside care, chart review, placing orders, interpretation of diagnostic studies, discussion with consultants, patient, and family members, as well as other required patient management activities is 50 minutes Please note the above document was generated using voice recognition software. It may contain grammatical, syntax or spelling errors. Any formal questions or concerns about the content, text or information contained within the body of this dictation should be directly addressed to the provider for clarification Admission and Anticipated Discharge Date Admission Date: February 01, 2024 Subjective Patient seen and examined at bedside. She is comfortable; not in distress still She is eating her lunch No Significant events overnight Review of Systems Review of Systems: All systems reviewed & are unremarkable except as noted in Subjective Physical Exam Physical Exam: General- Not in distress Head- atraumatic Eyes- PERRL. ENT- oropharynx clear Neck- supple, no JVD. Lungs- clear to auscultation no wheezing or crackles. Heart- regular rhythm; no murmur, no gallop. Abdomen- normal bowel sounds, soft, nontender, no distension. Extremities- chronic lymphedema present, Legs in stockings, no obvious erythema seen. Neuro- alert, oriented PERRL, no facial palsy; no dysarthria;obeys simple commands. Results & Data Results & Data Vital Signs (Past 12 Hours) Vital Signs Temp Pulse Pulse Resp BP Pulse Ox O2 Del Method 02/03/24 11:57 36.6 C 62 18 112/70 97 Room Air 02/03/24 10:40 60 02/03/24 08:00 36.8 C 64 18 129/73 98 Room Air 02/03/24 03:15 36.5 C 79 18 133/72 96 Room Air
[2024-02-03 15:56] LABS: BUN Creatinine Ratio 12.5 (10-20); Creatinine Clr Calc Pharmacy 110.2 ml/min; Est GFR (African American) 114.2 ml/min; Est GFR (Non-African American) 98.5 ml/min
[2024-02-03] MEDS: MAGNESIUM HYDROXIDE SUSP 30 ML UDC PO ONE (16:07)
--- NOTE | 2024-02-03 18:33 | Electrocardiogram Report ---
Test Reason : Blood Pressure : / mmHG Vent. Rate : 061 BPM Atrial Rate : 061 BPM P-R Int : 166 ms QRS Dur : 082 ms QT Int : 418 ms P-R-T Axes : 061 -29 043 degrees QTc Int : 420 ms Normal sinus rhythm Normal ECG When compared with ECG of 17-JAN-2024 19:51, No significant change Confirmed by Jae Hernandez ([id number]) on 02/03/2024 6:33:37 PM Referred By: REFERRED SELF Confirmed By:Jae Hernandez
--- NOTE | 2024-02-03 18:47 | Nephrology Progress Note ---
Date of Service February 03, 2024 Assessment & Plan (1) Hyponatremia: Plan: hypotonic euvolemic hyponatremia from polydipsia based on admission labs and corrected too quickly from 124 at 1800 on 01/31 to 135 6 hours later >> then aggressive measures to slow rate of correction were deployed. Goal for yesterday PM was sNa 131 >> we hit 133 by 2100. this AM sNa 126, hovering in this range through the day. Goal is sNa 131 for tomorrow AM. >D5W off -recommend lasix x one dose 20 mg IV and K elixir 20 mg -recheck BMP in AM -fluid limit 1.5L Sodium targets, diuretics, lab frequency reviewed w/ Dr Casey. Admission and Anticipated Discharge Date Admission Date: February 01, 2024 Subjective pt seen on midday rounds; no interval events clinically. did end up getting a dose of desmopressin yesterday PM. no n/v/d, sob; no pain; no intolerable thirst Review of Systems 2 Review of Systems: All systems reviewed & are unremarkable except as noted in Subjective Physical Exam 2 Constitutional: well developed, well nourished, + behavioral limitations and cooperative; no acute distress Eyes: EOM intact bilaterally ENMT: Ears: no external ear abnormality Nose: no external nose abnormality Mouth: + dry oral mucous membranes Neck: no nuchal rigidity Respiratory: normal respiratory effort Auscultation: + diminished lung sounds Cardiovascular: Rate/Rhythm: regular rate and regular rhythm Extremities: n o edema Gastrointestinal (Abdomen): Inspection/Auscultation: normal bowel sounds P ercussion/Palpation: abdomen soft; abdomen nontender Musculoskeletal: Extremities: strength 5/5 throughout Skin: no rashes, warm and dry Results & Data Vital Signs (Past 12 Hours) Vital Signs Temp Pulse Pulse Resp BP Pulse Ox O2 Del Method 02/03/24 16:02 36.6 C 69 18 139/71 97 Room Air 02/03/24 11:57 36.6 C 62 18 112/70 97 Room Air 02/03/24 10:40 60 02/03/24 08:00 36.8 C 64 18 129/73 98 Room Air Laboratory Results 02/02/24 04:08 02/03/24 15:06
[2024-02-03] MEDS: FUROSEMIDE INJ 20 MG/2 ML VIAL IV ONE (20:49)
[2024-02-03] MEDS: POTASSIUM CHLORIDE 20 MEQ/15 ML UDC PO ONE (20:49)
--- NOTE | 2024-02-03 22:55 | Electrocardiogram Report ---
Test Reason : Blood Pressure : / mmHG Vent. Rate : 064 BPM Atrial Rate : 064 BPM P-R Int : 156 ms QRS Dur : 090 ms QT Int : 432 ms P-R-T Axes : 050 -17 039 degrees QTc Int : 445 ms Normal sinus rhythm Cannot rule out Anterior infarct , age undetermined Abnormal ECG When compared with ECG of 01-FEB-2024 17:18, No significant change was found Confirmed by Jae Hernandez ([id number]) on 02/03/2024 10:54:41 PM Referred By: REFERRED SELF Confirmed By:Jae Hernandez
[2024-02-04] MEDS: LEVOTHYROXINE SODIUM 112 MCG TABLET PO SCH (06:23)
[2024-02-04 07:46] LABS: Anion Gap 4 (3-11); BUN Creatinine Ratio 13.3 (10-20); Blood Urea Nitrogen 8 mg/dl (6-23); Calcium 8.5 mg/dl (8.6-10.3); Carbon Dioxide 30 mmol/L (21-32); Chloride 101 mmol/L (98-107); Creatinine Clr Calc Pharmacy 101.4 ml/min; Est GFR (African American) 111.6 ml/min; Est GFR (Non-African American) 96.3 ml/min; Glucose 92 mg/dl (70-99(Fasting)); Sodium 135 mmol/L (136-145)
--- NOTE | 2024-02-04 09:55 | Hospitalist Progress Note ---
Date of Service February 04, 2024 Assessment & Plan (1) Hyponatremia: Plan: 63-year-old female with past medical history significant for hypothyroidism, prediabetes, oropharyngeal dysphagia, mild persistent asthma, peripheral vascular disease, GERD, irritable bowel syndrome, history of sebaceous cyst of labia, osteoarthritis, heterozygous factor V Leiden mutation ,history of PE, history of DVT, general anxiety disorder, lymphedema, mild depression, moderate intellectual disabilities, panic disorder was brought in by because of abdominal pain. Hyponatremia Likely secondary to increased free water intake/low solute intake Presented with serum sodium of 124 Urine osmolarity and urine sodium low Serum sodium overcorrected; patient was given D5 and dose of desmopressin. Abdominal pain -Resolved Patient reports abdominal pain; CT abdomen pelvis on admission did not show any evidence of bowel obstruction, diverticulitis, intraperitoneal fluid or definite pneumoperitoneum. Diet advanced to regular. Monitor for pain Prediabetes diet controlled History of oropharyngeal dysphagia Monitor for aspiration Mild persistent asthma Continue home inhalers Depression General anxiety disorder Panic disorder Continue home medications History of DVT/PE Heterozygous factor V Leiden mutation On Xarelto, continue Chronic lymphedema On Lasix, on hold Hypothyroidism On Synthyroid Follow TSH GERD On Protonix DVT prophylaxis On Xarelto Disposition Telemetry Full code. Time spent evaluating patient, direct bedside care, chart review, placing orders, interpretation of diagnostic studies, discussion with consultants, patient, and family members, as well as other required patient management activities is 50 minutes Please note the above document was generated using voice recognition software. It may contain grammatical, syntax or spelling errors. Any formal questions or concerns about the content, text or information contained within the body of this dictation should be directly addressed to the provider for clarification Admission and Anticipated Discharge Date Admission Date: February 01, 2024 Subjective Patient seen and examined at bedside. Comfortable; not in distress. Denies fever, chills, chest pain, shortness of breath, abdominal pain or urinary symptoms. No significant overnight events Review of Systems Review of Systems: All systems reviewed & are unremarkable except as noted in Subjective Physical Exam Physical Exam: General- Not in distress Head- atraumatic Eyes- PERRL. ENT- oropharynx clear Neck- supple, no JVD. Lungs- clear to auscultation no wheezing or crackles. Heart- regular rhythm; no murmur, no gallop. Abdomen- normal bowel sounds, soft, nontender, no distension. Extremities- chronic lymphedema present, Legs in stockings, no obvious erythema seen. Neuro- alert, oriented PERRL, no facial palsy; no dysarthria;obeys simple commands. Results & Data Results & Data Vital Signs (Past 12 Hours) Vital Signs Temp Pulse Pulse Resp BP Pulse Ox O2 Del Method 02/04/24 08:30 63 02/04/24 08:01 36.6 C 72 16 118/71 94 Room Air 02/04/24 00:00 36.8 C 65 17 117/73 93 Room Air 02/04/24 00:00 77
[2024-02-04] MEDS: DEXTROSE 5% 1,000 ML IV SCH (10:13)
--- NOTE | 2024-02-04 12:08 | Nephrology Progress Note ---
Date of Service February 04, 2024 Assessment & Plan Admission and Anticipated Discharge Date Admission Date: February 01, 2024 Subjective Assessment & Plan (1) Hyponatremia: Plan: hypotonic euvolemic hyponatremia from polydipsia based on admission labs and corrected too quickly. had to reverse and now quick correction again. na 125 to 135 overnight. agree with 1 liters of d5w. After that no need to worry about rate of correction Recheck BMP at 4 PM and then in AM Fluid limit 2 liters Subjective no interval events clinically. Difficult to have a steady rate of na correction Review of Systems Review of Systems: All systems reviewed & are unremarkable except as noted in Subjective Physical Exam Constitutional: well developed, well nourished, + behavioral limitations and cooperative; no acute distress Eyes: EOM intact bilaterally ENMT: Ears: no external ear abnormality Nose: no external nose abnormality Mouth: + dry oral mucous membranes Neck: no nuchal rigidity Respiratory: normal respiratory effort Auscultation: + diminished lung sounds Cardiovascular: Rate/Rhythm: regular rate and regular rhythm Extremities: no edema Gastrointestinal (Abdomen): Inspection/Auscultation: normal bowel sounds Percussion/Palpation: abdomen soft; abdomen nontender Musculoskeletal: Extremities: strength 5/5 throughout Skin: no rashes, warm and dry Results & Data Vital Signs (Past 12 Hours) Vital Signs Temp Pulse Pulse Resp BP Pulse Ox O2 Del Method 02/04/24 11:27 36.9 C 62 16 106/66 97 Room Air 02/04/24 08:30 63 02/04/24 08:01 36.6 C 72 16 118/71 94 Room Air 02/04/24 08:00 Room Air
--- NOTE | 2024-02-04 15:08 | Discharge Summary ---
Date of Service February 04, 2024 Admission HPI Per Admitting Provider 63-year-old female with past medical history significant for hypothyroidism, prediabetes, oropharyngeal dysphagia, mild persistent asthma, peripheral vascular disease, GERD, irritable bowel syndrome, history of sebaceous cyst of labia, osteoarthritis, heterozygous factor V Leiden mutation ,history of PE, history of DVT, general anxiety disorder, lymphedema, mild depression, moderate intellectual disabilities, panic disorder was brought in by because of abdominal pain. Patient was recently seen in the ER for abdominal pain and workup was negative. Again comes today with complains of upper abdominal pain. Some pain in the lower chest. An episode of vomiting. Micturating okay. Had a bowel movement today but thinks not completely emptied. Ambulating okay. Eating and drinking okay as per . Symptoms of short of breath because of anxiety.. No headache. Chronic neck pain from arthritis. Vision is okay. No runny nose or sore throat. No cough. Hemodynamics are okay.Labs showed hyponat remia Past medical history. As mentioned above. Past surgical history. Colonoscopy. EGD with biopsy. IVC filter. Social history. No smoking. No alcohol use. No drug use. Family history. Maternal grandfather had blood clots. Father had lung cancer. Mother had DVT/PE. Admission Exam Per Admitting Provider General- Not in distress Head- atraumatic Eyes- PERRL. ENT- oropharynx clear Neck- supple, no JVD. Lungs- clear to auscultation no wheezing or crackles. Heart- regular rhythm; no murmur, no gallop. Abdomen- normal bowel sounds, soft, nontender, no distension. Extremities- chronic lymphedema present, Legs in stockings, no obvious erythema seen. Neuro- alert, oriented PERRL, no facial palsy; no dysarthria;obeys simple commands. Principal Diagnosis Hyponatremia Discharge Exam Constitutional: WD/WN, vitals as above, NAD, sitting up in bed, pleasant, conversing easily Respiratory: normal respiratory effort, lungs clear to auscultation, no wheeze, rales, rhonchi. Normal insp/exp effort, no accessory muscle use Cardiovascular: RRR, no murmur, no edema Vessels: no JVD or carotid bruit Chest: normal inspection of chest Abdomen: normal bowel sounds, soft, nontender, no hepatosplenomegaly Musculoskeletal: no cyanosis or clubbing, extremities motor strength 5/5 Skin: no rashes, warm and dry normal turgor Neurologic: PERRL, EOMI, accommodation nl, no face palsy, no dysarthria CN's II- XI intact bilaterally and moves all extremities Psychiatric: A+Ox3, euthymic affect Discharge Data Allergies Allergy/AdvReac Type Severity Reaction Status Date / Time animal dander Allergy Intermediate sneezing,co Verified 02/01/24 20:50 ngestion house dust Allergy Intermediate Respiratory Verified 02/01/24 20:50 symptoms mold Allergy Intermediate sneezing,co Verified 02/01/24 20:50 ngestion pollen extracts Allergy Intermediate congestion Verified 02/01/24 20:50 ragweed pollen Allergy Intermediate nasal Verified 02/01/24 20:50 congestion Consultations 02/01/24 20:05 ED Decision to Admit Stat 02/02/24 08:00 Consult Nephrology Routine Ordered Studies 02/01/24 17:36 CT abd pelvis IV con only Stat Hospital Course (1) Hyponatremia: 63-year-old female with past medical history significant for hypothyroidism, prediabetes, oropharyngeal dysphagia, mild persistent asthma, peripheral vascular disease, GERD, irritable bowel syndrome, history of sebaceous cyst of labia, osteoarthritis, heterozygous factor V Leiden mutation ,history of PE, history of DVT, general anxiety disorder, lymphedema, mild depression, moderate intellectual disabilities, panic disorder was brought in by because of abdominal pain. Hyponatremia Likely secondary to increased free water intake/low solute intake Presented with serum sodium of 124 Urine osmolarity and urine sodium low Serum sodium overcorrected; patient was given D5 and dose of desmopressin. Sodium improved gradually. Patient was discharged home with instructions to limit fluid intake. Instruction were also given to his stepfather. Abdominal pain -Resolved Patient reports abdominal pain; CT abdomen pelvis on admission did not show any evidence of bowel obstruction, diverticulitis, intraperitoneal fluid or definite pneumoperitoneum. Patient tolerated regular diet at the time of discharge No abdominal pain at the time of discharge Please note the above document was generated using voice recognition software. It may contain grammatical, syntax or spelling errors. Any formal questions or concerns about the content, text or information contained within the body of this dictation should be directly addressed to the provider for clarification Total Time Total Time Spent Total Time Spent (In Minutes): 35 Total Time Includes: Examination of the Patient, Discharge Planning, Medication Reconciliation, Communication With Other Providers and Other Discharge Plan Discharge Items Patient Disposition: Home - Self-Care Reason For Visit: ABDOIMINAL PAIN, HYPONATREMIA Discharge Diagnosis: Hyponatremia Activity: Resume your previous activity Non-emergency contact: Primary Care Provider Call non-emergency contact if: you have any medication questions and your symptoms worsen Follow-up/Referrals: Mario Conte, [Primary Care Provider] - Diet: Regular Fluids: 1800ml (7 cups) Addtl Attending Provider Instructions: You were admitted to the hospital due to low sodium level. The cause for the low sodium level is excessive water/fluid intake including prune Juice. Excessive prune juice can also cause abdominal cramping and pain. Please limit fluid intake to 1800 cc for the whole day, that includes water, juice, tea, soda, ice or coffee. For the abdominal pain, you are prescribed Bentyl as needed for pain control Take MiraLAX only if you have constipation Pending Studies at Discharge: No Stand-Alone Forms: My [facility] [employer], Smoking Cessation Medications and DC Order Prescriptions: New dicyclomine 10 mg capsule 10 mg PO TID PRN (Reason: abdominal pain) Qty: 30 0RF Continued acetaminophen [Tylenol Extra Strength] 500 mg Tablet 500 - 1,000 mg PO QID PRN (Reason: Pain) Xarelto 20 mg Tablet 20 mg PO DAILY levothyroxine 112 mcg tablet 112 mcg PO 5XWK Rx Instructions: TAKE MON--FRI fluticasone propionate [Flonase Allergy Relief] 50 mcg/actuation [place],Suspension 2 spray INTRANASAL DAILY PRN (Reason: Nasal Congestion) Rx Instructions: administer into each nostril albuterol sulfate [Proventil HFA] 90 mcg/actuation Hfa Aerosol Inhaler 2 puff INHALATION Q4H PRN (Reason: Shortness Of Breath Or Wheezing) tizanidine 2 mg tablet 2 mg PO Q6H PRN (Reason: MUSCLE SPASMS) ipratropium-albuterol 0.5 mg-3 mg(2.5 mg base)/3 mL solution for nebulization 3 ml INHALATION QID PRN (Reason: using as needed) levothyroxine 112 mcg tablet 56 mcg PO 2XWK Rx Instructions: SAT & SUN furosemide 40 mg Tablet 40 mg PO QAM alprazolam 1 mg tablet 1 mg PO DAILY PRN (Reason: Anxiety) duloxetine 40 mg capsule,delayed release(DR/EC) 40 mg PO QAM pantoprazole 40 mg Tablet,Delayed Release (Dr/Ec) 40 mg PO QAM Qty: 60 0RF diclofenac sodium 1 % gel 1 ea TOPICAL BID PRN (Reason: Pain) hydroxyzine pamoate 25 mg capsule 25 mg PO TID PRN (Reason: Anxiety) diazepam 5 mg tablet 5 mg PO Q8 PRN (Reason: Anxiety) Discharge Orders: Discharge Order (Routine); Ordered 02/04/24 Ordered By: Arnav Casey Admission Data Admit Date/Time: 02/01/24 20:52 Attending Provider: Arnav Casey Admit Provider: Adrian Biggs Primary Care Provider: Mario Conte Other Providers: Adrian Biggs; Rachael Huang Other Interventions: Discharge Summary Assessment (RN) Last Done: 02/04/24 16:57
== END 2024-02-04 18:04 | disposition home or self-care (01) | DRG 641 ==
LOC: ED 17:11 → EDINP 20:52 → 4W 23:56